=== PATIENT | male | born 1970 | race Two or more races ===

== ENCOUNTER 2016-10-03 13:57 | Inpatient (IN) | payer OTHER ==
[2016-10-03 14:26] VITALS: BMI 26.7
--- NOTE | 2016-10-03 14:43 | HP ---
COWS - Scale Resting Pulse: 0= [place] 80 or Below Sweatin=Flushed/Facial Moisture Restless Observation: 0= Sits Still Pupil Size: 0= Normal to Room Light Bone or Joint Aches: 2= Severe Diffuse Aches Runny Nose/ Eye Tearin= Runny Nose/Eyes GI Upset > 30mins: 2= Nausea/Diarrhea Tremor Observation: 2= Slight Tremor Visible Yawning Observation: 1= 1-2x During Session Anxiety or Irritability: 2=Irritable/Anxious Goose Flesh Skin: 3=Piloerection COWS Score: 16 CIWA Score - CIWA Score Nausea/Vomitin Muscle Tremors: 3 Anxiety: 4-Mod. Anxious/Guarded Agitation: 1-Slight > Activity Paroxysmal Sweats: 3 Orientation: 0-Oriented Tacttile Disturbances: 2-Mild Itch/Numbness/Burn Auditory Disturbances: 2-Mild Harshness/Frighten Visual Disturbances: 3-Moderate Sensitivity Headache: 0-None Present CIWA-Ar Total Score: 21 Admission ROS S - HPI Chief Complaint: "I want to clean myself out. I want to Detox from everything." Pt. is here to Detox from Alcohol, Heroin, and Xanax. Allergies/Adverse Reactions: Allergies Allergy/AdvReac Type Severity Reaction Status Date / Time No Known Allergies Allergy Verified 10/03/16 14:33 History of Present Illness: Pt. is a 46 YO male here to Detox from Alcohol, Heroin, and Xanax. Pt. has had 1 previous Detox admission at [facility]. Pt. had 1 Rehab admission at [facility] approx. 2 years ago. Longest Period of sobriety: approx. 6 months: 2015 - 05/2016. Exam Limitations: No Limitations - Ebola screening Have you traveled outside of the country in the last 21 days: No Have you had contact with anyone from an Ebola affected area: No Have you been sick,other than usual withdrawal symptoms: No Do you have a fever: No - Review of Systems Constitutional: Chills, Diaphoresis, Fever, Loss of Appetite, Malaise, Night Sweats, Changes in sleep, Unintentional Wgt. Loss (Lost approx. 10 lbs. over last 1 month.) EENT: reports: No Symptoms Reported Respiratory: reports: SOB with Exertion Cardiac: reports: Palpitations GI: reports: Diarrhea, Nausea, Poor Appetite, Indigestion (Heartburn.), Abdominal cramping : reports: Burning Musculoskeletal: reports: Back Pain, Joint Pain, Neck Pain, Joint Stiffness Integumentary: reports: No Symptoms Reported Neuro: reports: Headache, Numbness (Fingertips of Bilateral Hands.), Tingling ( Fingertips of Bilateral Hands.), Tremors Endocrine: reports: No Symptoms Reported Hematology: reports: No Symptoms Reported Psychiatric: reports: Judgement Intact, Mood/Affect Appropiate, Orientated x3, Anxious, Depressed (Takes Seroquel.) Other Systems: Reviewed and Negative Patient History - Patient Medical History Hx Anemia: No Hx Asthma: Yes (Uses Ventolin Inhaler.) Hx Chronic Obstructive Pulmonary Disease (COPD): No Hx Cancer: No Hx Cardiac Disorders: No Hx Congestive Heart Failure: No Hx Hypertension: Yes (Takes med.) Hx Hypercholesterolemia: No Hx Pacemaker: No HX Cerebrovascular Accident: No Hx Seizures: No Hx Dementia: No Hx Diabetes: No Hx Gastrointestinal Disorders: No Hx Liver Disease: Yes (Hep C - Completed Full course of Treatment approx. 3 months ago.) Hx Genitourinary Disorders: No Hx Sexually Transmitted Disorders: No Hx Renal Disease (ESRD): No Hx Thyroid Disease: No Hx Human Immunodeficiency Virus (HIV): No (Last Tested:06/2016:NEGATIVE ON PROPHYLACTIC TRUVADA DUE TO PARTNER STATUS.) Hx Hepatitis C: Yes (Completed Treatment approx. 3 months ago.) Hx Depression: Yes (On med.) Hx Suicide Attempt: No (2002-Took full bottle of medication w/ Alcohol; PT. DENIES CURRENT SI /HI.) Hx Bipolar Disorder: No Hx Schizophrenia: No Other Medical History: DENIES. - Patient Surgical History Past Surgical History: Yes Hx Neurologic Surgery: No Hx Cataract Extraction: No Hx Cardiac Surgery: No Hx Lung Surgery: No Hx Breast Surgery: No Hx Breast Biopsy: No Hx Abdominal Surgery: No Hx Appendectomy: No Hx Cholecystectomy: No Hx Genitourinary Surgery: No Hx Section: No Hx Orthopedic Surgery: Yes (LEFT LOWER LEG SX DUE TO FX IN 2003) Anesthesia Reaction: No - PPD History Previous Implant?: Yes Documented Results: Negative w/o proof Implanted On Prior R Admission?: Yes Date: 11/10/14 Results: 0 mm PPD to be Administered?: Yes - Reproductive History Patient is a Female of Child Bearing Age (11 -55 yrs old): No (PATIENT IS MALE.) - Smoking Cessation Smoking history: Current every day smoker Have you smoked in the past 12 months: Yes Aproximately how many cigarettes per day: 5 Cigars Per Day: 0 Hx Chewing Tobacco Use: Yes (STOPPED APPROX. 3 WEEKS AGO.) Initiated information on smoking cessation: Yes 'Breaking Loose' booklet given: 10/03/16 (GIVEN ON UNIT.) - Substance & Tx. History Hx Alcohol Use: Yes Hx Substance Use: Yes Substance Use Type: Alcohol, Heroin, Tranquilizers Hx Substance Use Treatment: Yes (1 Previous Detox admision at [facility]. 1 Rehab admission at [facility].) - Substances Abused Alprazolam (Xanax) Route: Oral Frequency: Daily Amount used: 6 MG Age of first use: 41 Date of Last Use: 10/03/16 Heroin Route: Injection Frequency: Daily Amount used: 6-7 BAGS. Age of first use: 23 Date of Last Use: 10/03/16 Alcohol Route: Oral Frequency: Daily Amount used: 2 X 6-pack (16 ozs.); 1 pint Vodka. Age of first use: 15 Date of Last Use: 10/03/16 Family Disease History - Family Disease History Family Disease History: Other: Sister (depression/anxiety) Admission Physical Exam [facility] - Vital Signs Vital Signs: Vital Signs - 24 hr 10/03/16 14:23 Temperature 97.9 F Pulse Rate 66 Respiratory 19 Rate Blood Pressure 120/79 - Physical General Appearance: Yes: No Apparent Distress, Nourished, Appropriately Dressed , Tremorous, Sweating, Anxious HEENTM: Yes: Hearing grossly Normal, Normocephalic, Normal Voice, REYES, Pharynx Normal Respiratory: Yes: Chest Non-Tender, Lungs Clear, No Respiratory Distress Neck: Yes: No masses,lesions,Nodules, Supple, Trachea in good position Breast: Yes: Breast Exam Deferred Cardiology: Yes: Regular Rhythm, Regular Rate, S1, S2 Abdominal: Yes: Normal Bowel Sounds, Non Tender, Soft, Protuberent Genitourinary: Yes: Burning Back: Yes: Decreased Range of Motion Musculoskeletal: Yes: Gait Steady, Back pain, Joint Stiffness, Muscle Pain Extremities: Yes: Tremors, Other (Scarring (Surgical) noted on Left lower leg.) Neurological: Yes: Fully Oriented, Alert, Normal Mood/Affect, Normal Response Integumentary: Yes: Normal Color, Warm, Track Lopez (Noted in Cubital Creases of bilateral arms. No signs of infection noted at either site.) Lymphatic: Yes: Within Normal Limits - Diagnostic (1) Alcohol dependence with uncomplicated withdrawal Current Visit: Yes Status: Acute (2) Opioid dependence with withdrawal Current Visit: Yes Status: Acute (3) Asthma Current Visit: Yes Status: Chronic Qualifiers: Asthma severity: mild intermittent Asthma complication type: uncomplicated Qualified Code(s): J45.20 - Mild intermittent asthma, uncomplicated (4) Hepatitis C Current Visit: Yes Status: Chronic Qualifiers: Viral hepatitis chronicity: chronic Hepatic coma status: without hepatic coma Qualified Code(s): B18.2 - Chronic viral hepatitis C Comment: Completed Treatment. (5) Nicotine dependence Current Visit: Yes Status: Chronic Qualifiers: Nicotine product type: cigarettes Substance use status: uncomplicated Qualified Code(s): F17.210 - Nicotine dependence, cigarettes, uncomplicated (6) Sedative, hypnotic or anxiolytic dependence with withdrawal, uncomplicated Current Visit: Yes Status: Acute (7) Hypertension Current Visit: Yes Status: Chronic Qualifiers: Hypertension type: essential hypertension Qualified Code(s): I10 - Essential (primary) hypertension Cleared for Admission [facility] - Detox or Rehab [facility] Level of Care: Medically Managed Detox Regimen/Protocol: Methadone/Valium S Breath Alcohol Content Breath Alcohol Content: 0.051 Urine Drug Screen - Results Drug Screen Negative: No Urine Drug Screen Results: ZACH-Cocaine, OPI-Opiates, MTD-Methadone
[2016-10-03] MEDS ORDERED: MAGNESIUM HYDROX 2400MG/30ML ORAL SUSPENSION 30 ML CUP PO PRN (15:23)
[2016-10-03] MEDS ORDERED: MAGNESIUM CITRATE 300 ML BOTTLE PO PRN (15:23)
[2016-10-03] MEDS ORDERED: guaiFENesin/D-METHORPHAN HB 10 ML UNIT-DOSE CUPS PO PRN (15:23)
[2016-10-03] MEDS ORDERED: METHADONE HCL 10 MG TABLET (FOR DETOX USE ONLY) PO ONE ×2 (15:23→23:00)
[2016-10-03] MEDS ORDERED: IBUPROFEN 400 MG TABLET (FP) PO PRN (15:23)
[2016-10-03] MEDS ORDERED: ACETAMINOPHEN 325 MG TABLET (FP) PO PRN (15:23)
[2016-10-03] MEDS ORDERED: MENTHOL/PHENOL 1 EACH UD MM PRN (15:23)
[2016-10-03] MEDS ORDERED: P-EPHED 60MG/TRIPROLIDI 2.5MG TABLET PO PRN (15:23)
[2016-10-03] MEDS ORDERED: LOPERAMIDE HCL 2 MG CAPSULE PO PRN (15:23)
[2016-10-03] MEDS ORDERED: diazePAM 5 MG TABLET PO ONE (15:23)
[2016-10-03] MEDS ORDERED: ALBUTEROL SO4 6.7 GM HFA INHALER IH PRN (15:34)
[2016-10-03] MEDS: NICOTINE 14 MG/24 HOURS TOPICAL PATCH TD SCH (17:03)
[2016-10-03] MEDS: cloNIDine HCL 0.1 MG TABLET PO SCH (17:04)
[2016-10-03 20:14] LABS: URINE APPEARANCE CLEAR; URINE BILIRUBIN NEGATIVE (NEGATIVE); URINE BLOOD NEGATIVE (NEGATIVE); URINE COLOR DKYELLOW; URINE GLUCOSE (UA) NEGATIVE (NEGATIVE); URINE KETONE NEGATIVE (NEGATIVE); URINE LEUK ESTERASE NEGATIVE (NEGATIVE); URINE NITRITE NEGATIVE (NEGATIVE); URINE UROBILINOGEN 2.0 E.U/dl E.U./dl (0.2-1.0)
[2016-10-03 20:15] LABS: URINE PROTEIN 1+ (NEGATIVE)
[2016-10-03 20:17] LABS: URINE MUCUS RARE; URINE RBC 7 /hpf (0-3); URINE WBC 1 /hpf (3-5)
[2016-10-03] MEDS: diazePAM 5 MG TABLET PO SCH (22:39)
[2016-10-03] MEDS: THIAMINE HCL 100 MG TABLET (FP) PO SCH (22:39)
[2016-10-03] MEDS: diphenhydrAMINE HCL 50 MG CAPSULE PO PRN (22:40)
[2016-10-03] MEDS: NICOTINE POLACRILEX 2 MG GUM BUC PRN (23:12)
[2016-10-04] MEDS: diazePAM 5 MG TABLET PO SCH ×3 (05:20→22:36)
[2016-10-04] MEDS: NICOTINE POLACRILEX 2 MG GUM BUC PRN ×6 (05:22→22:49)
[2016-10-04] MEDS ORDERED: METHADONE HCL 10 MG TABLET (FOR DETOX USE ONLY) PO SCH (10:00)
[2016-10-04 10:12] LABS: MCHC 33.2 g/dl (32.0-35.9); MEAN CELL VOLUME 96.4 fl (80-96); MEAN PLT VOLUME 9.6 fl (7.5-11.1); PLATELET COUNT 221 K/MM3 (134-434); RDW 12.7 % (11.9-15.9)
[2016-10-04] MEDS: PRENATAL VITAMINS W/ FOLIC ACID TABLET (FP) PO SCH (10:17)
[2016-10-04] MEDS: BACITRACIN 0.9 GM PACKET TP SCH (10:17)
[2016-10-04] MEDS: amLODIPine BESYLATE 10 MG TABLET (FP) PO SCH (10:17)
[2016-10-04] MEDS: NICOTINE 14 MG/24 HOURS TOPICAL PATCH TD SCH ×2 (10:17→10:20)
[2016-10-04] MEDS: cloNIDine HCL 0.1 MG TABLET PO SCH (10:17)
[2016-10-04 10:33] LABS: ALBUMIN 3.2 g/dl (3.4-5.0); ANION GAP 7 (8-16); BILIRUBIN,TOTAL 0.3 mg/dL (0.2-1.0); CO2 32 mmol/L (21-32); GLUCOSE,RANDOM 77 mg/dL (74-106); SGOT/AST 31 U/L (15-37); SGPT/ALT 36 U/L (12-78); TOT PROT 6.3 g/dl (6.4-8.2)
[2016-10-04 10:34] LABS: ALK PHOS 85 U/L (45-117); CALCIUM 8.6 mg/dL (8.5-10.1); CREATININE 0.8 mg/dL (0.7-1.3)
[2016-10-04 11:30] LABS: SICKLE CELL SCREEN NEGATIVE (NEGATIVE)
[2016-10-04] MEDS ORDERED: QUEtiapine FUMARATE 100 MG TABLET (FP) PO SCH ×2 (11:30→12:15)
--- NOTE | 2016-10-04 11:30 | CONSULT ---
[facility] Psychiatric Consult - Data Date of interview: 10/04/16 Admission source: [facility] Identifying data: This is 46 years old male with history of Psychiatric hospitalizations, Bipolar Disoprder history iontoxicated with: Alcohol, Opioids , Cocaine, XSanax and Nicotine Substance Abuse History: - Smoking Cessation. Smoking history: Current every day smoker. Have you smoked in the past 12 months: Yes. Aproximately how many cigarettes per day: 5. Cigars Per Day: 0. Hx Chewing Tobacco Use: Yes ( STOPPED APPROX. 3 WEEKS AGO.). Initiated information on smoking cessation: Yes. 'Breaking Loose' booklet given: 10/03/16 (GIVEN ON UNIT.). - Substance & Tx. History. Hx Alcohol Use: Yes. Hx Substance Use: Yes. Substance Use Type: Alcohol, Heroin, Tranquilizers. Hx Substance Use Treatment: Yes (1 Previous Detox admision at [facility]. 1 Rehab admission at [facility] - Substances Abused. Alprazolam (Xanax). Route: Oral. Frequency: Daily. Amount used: 6 MG. Age of first use: 41. Date of Last Use: 10/03/16. Heroin. Route: Injection. Frequency: Daily. Amount used: 6-7 BAGS. Age of first use: 23. Date of Last Use: 10/03/16. Alcohol. Route: Oral. Frequency: Daily. Amount used: 2 X 6-pack (16 ozs.); 1 pint Vodka. Age of first use: 15. Date of Last Use: 10/03/16 Medical History: Asthma, HepC+, HTN Psychiatric History: Patient reports history of Bipolar Disorder, reports taking prior to admnission: Seroquel 100 mg po bid, reports mopst recent psychiatgric admission on more then 10 y6ears ago, no medications taking prior to admsission Physical/Sexual Abuse/Trauma History: Denies Additional Comment: Seroquel 100 mg po bid Mental Status Exam - Mental Status Exam Alert and Oriented to: Time Cognitive Function: Fair Patient Appearance: Unkempt Mood: Sad Affect: Flat Patient Behavior: Sedated Speech Pattern: Delayed Voice Loudness: Mildly Soft/Quiet Thought Process: Circumstantial Thought Disorder: Being Controlled Hallucinations: Denies Suicidal Ideation: Denies Homicidal Ideation: Denies Insight/Judgement: Fair Sleep: Difficulty falling asleep Appetite: Weight loss Muscle strength/Tone: Mild Hypotonicity Gait/Station: Shuffling Additional Comments: Seroquel 100 mg po bid Psychiatric Findings - Problem List ([place]cb[place] 1, 2,3) (1) Alcohol dependence with uncomplicated withdrawal Current Visit: Yes Status: Acute (2) Sedative, hypnotic or anxiolytic dependence with withdrawal, uncomplicated Current Visit: Yes Status: Acute (3) Nicotine dependence Current Visit: Yes Status: Chronic Qualifiers: Nicotine product type: cigarettes Substance use status: uncomplicated Qualified Code(s): F17.210 - Nicotine dependence, cigarettes, uncomplicated (4) Alcohol dependence Current Visit: No Status: Chronic (5) Cocaine dependence Current Visit: No Status: Chronic Qualifiers: Substance use status: uncomplicated Qualified Code(s): F14.20 - Cocaine dependence, uncomplicated (6) Drug-induced mood disorder Current Visit: No Status: Chronic (7) Mood disorder Current Visit: No Status: Chronic (8) Opioid dependence Current Visit: No Status: Chronic (9) Bipolar affective disorder, depressed, moderate Current Visit: No Status: Suspected - Initial Treatment Plan Initial Treatment Plan: Seroquel 100 mg po bid
[2016-10-04] MEDS: EMTRICITABINE 200MG/TENOFOVIR 300MG PO SCH (11:57)
--- NOTE | 2016-10-04 12:37 | PN ---
[facility] CIWA - CIWA Score Nausea/Vomitin-Mild Nausea/No Vomiting Muscle Tremors: 4-Moderate,w/Arms Extend Anxiety: 3 Agitation: 3 Paroxysmal Sweats: 3 Orientation: 0-Oriented Tacttile Disturbances: 0-None Auditory Disturbances: 0-None Visual Disturbances: 0-None Headache: 0-None Present CIWA-Ar Total Score: 14 [facility] COWS - Scale Resting Pulse: 0= [place] 80 or Below Sweatin=Flushed/Facial Moisture Restless Observation: 1= Difficult to Sit Still Pupil Size: 0= Normal to Room Light Bone or Joint Aches: 2= Severe Diffuse Aches Runny Nose/ Eye Tearin= Runny Nose/Eyes GI Upset > 30mins: 2= Nausea/Diarrhea Tremor Observation of Outstretched Hands: 2= Slight Tremor Visible Yawning Observation: 1= 1-2x During Session Anxiety or Irritability: 2=Irritable/Anxious Goose Flesh Skin: 0=Smooth Skin COWS Score: 14 [facility] Progress Note (SOAP) Subjective: Anxiety,tremors,sweating,interrupted sleep,restless,muscle aches,nausea, tingling/numbness Objective: 10/04/16 12:36 Vital Signs - 8 hr 10/04/16 10/04/16 06:50 09:48 Temperature 97 F L 97.0 F L Pulse Rate 70 65 Respiratory 18 20 Rate Blood Pressure 114/78 116/80 Laboratory Last Values WBC 8.0 K/mm3 (4.0-10.0) 10/04/16 07:00 RBC 4.65 M/mm3 (4.00-5.60) 10/04/16 07:00 Hgb 14.9 GM/dL (11.7-16.9) 10/04/16 07:00 Hct 44.8 % (35.4-49) 10/04/16 07:00 MCV 96.4 fl (80-96) H 10/04/16 07:00 MCHC 33.2 g/dl (32.0-35.9) 10/04/16 07:00 RDW 12.7 % (11.9-15.9) 10/04/16 07:00 Plt Count 221 K/MM3 (134-434) 10/04/16 07:00 MPV 9.6 fl (7.5-11.1) 10/04/16 07:00 Sickle Cell Screen Negative (NEGATIVE) 10/04/16 07:00 Sodium 142 mmol/L (136-145) 10/04/16 07:00 Potassium 3.8 mmol/L (3.5-5.1) 10/04/16 07:00 Chloride 103 mmol/L (98-107) 10/04/16 07:00 Carbon Dioxide 32 mmol/L (21-32) 10/04/16 07:00 Anion Gap 7 (8-16) L 10/04/16 07:00 BUN 10 mg/dL (7-18) D 10/04/16 07:00 Creatinine 0.8 mg/dL (0.7-1.3) 10/04/16 07:00 Creat Clearance w eGFR > 60 (>60) 10/04/16 07:00 Random Glucose 77 mg/dL (74-106) 10/04/16 07:00 Calcium 8.6 mg/dL (8.5-10.1) 10/04/16 07:00 Total Bilirubin 0.3 mg/dL (0.2-1.0) D 10/04/16 07:00 AST 31 U/L (15-37) D 10/04/16 07:00 ALT 36 U/L (12-78) D 10/04/16 07:00 Alkaline Phosphatase 85 U/L (45-117) 10/04/16 07:00 Total Protein 6.3 g/dl (6.4-8.2) L 10/04/16 07:00 Albumin 3.2 g/dl (3.4-5.0) L 10/04/16 07:00 Urine Color Dkyellow 10/03/16 16:00 Urine Appearance Clear 10/03/16 16:00 Urine pH 5.0 (5.0-8.0) 10/03/16 16:00 Ur Specific [place] >= 1.030 (1.005-1.025) H 10/03/16 16:00 Urine Protein 1+ (NEGATIVE) H 10/03/16 16:00 Urine Glucose (UA) Negative (NEGATIVE) 10/03/16 16:00 Urine Ketones Negative (NEGATIVE) 10/03/16 16:00 Urine Blood Negative (NEGATIVE) 10/03/16 16:00 Urine Nitrite Negative (NEGATIVE) 10/03/16 16:00 Urine Bilirubin Negative (NEGATIVE) 10/03/16 16:00 Urine Urobilinogen 2.0 e.u/dl E.U./dl (0.2-1.0) 10/03/16 16:00 Ur Leukocyte Esterase Negative (NEGATIVE) 10/03/16 16:00 Urine RBC 7 /hpf (0-3) 10/03/16 16:00 Urine WBC 1 /hpf (3-5) 10/03/16 16:00 Ur Epithelial Cells Rare /hpf (FEW) 10/03/16 16:00 Urine Mucus Rare 10/03/16 16:00 RPR Titer Nonreactive (NONREACTIVE) 10/04/16 07:00 labs noted Assessment: 10/04/16 12:36 Withdrawal sx. Plan: Continue detox
[2016-10-04] MEDS: PREGABALIN 100 MG CAPSULE PO SCH ×2 (13:51→22:36)
--- NOTE | 2016-10-04 14:23 | EKG ---
Test Reason : Blood Pressure : / mmHG Vent. Rate : 074 BPM Atrial Rate : 074 BPM P-R Int : 146 ms QRS Dur : 090 ms QT Int : 402 ms P-R-T Axes : 053 036 033 degrees QTc Int : 446 ms NORMAL SINUS RHYTHM SEPTAL INFARCT , AGE UNDETERMINED ABNORMAL ECG NO PREVIOUS ECGS AVAILABLE Confirmed by MAYKEL MARTINES, VERN ([id number]) on 10/04/2016 2:23:05 PM Referred By: Jaciel Catalan Confirmed By:VERN BRAR MD
[2016-10-04] MEDS: diazePAM 5 MG TABLET PO PRN ×2 (16:39→20:43)
[2016-10-04] MEDS: QUEtiapine FUMARATE 50 MG TABLET PO SCH (22:36)
[2016-10-04] MEDS: THIAMINE HCL 100 MG TABLET (FP) PO SCH (22:36)
[2016-10-04] MEDS: diphenhydrAMINE HCL 50 MG CAPSULE PO PRN (22:36)
[2016-10-05] MEDS: diazePAM 5 MG TABLET PO PRN ×2 (03:06→07:09)
[2016-10-05] MEDS: NICOTINE POLACRILEX 2 MG GUM BUC PRN ×6 (07:10→22:36)
[2016-10-05] MEDS ORDERED: diazePAM 5 MG TABLET PO SCH (10:00)
[2016-10-05] MEDS ORDERED: chlordiazePOXIDE HCL 25 MG CAPSULE PO PRN ×2 (10:40→10:59)
[2016-10-05] MEDS: amLODIPine BESYLATE 10 MG TABLET (FP) PO SCH (10:52)
[2016-10-05] MEDS: METHADONE HCL 5 MG TABLET (FOR DETOX USE ONLY) PO SCH (10:52)
[2016-10-05] MEDS: QUEtiapine FUMARATE 50 MG TABLET PO SCH ×2 (10:52→22:33)
[2016-10-05] MEDS: PRENATAL VITAMINS W/ FOLIC ACID TABLET (FP) PO SCH (10:52)
[2016-10-05] MEDS: cloNIDine HCL 0.1 MG TABLET PO SCH (10:52)
[2016-10-05] MEDS: PREGABALIN 100 MG CAPSULE PO SCH ×2 (10:52→22:34)
[2016-10-05] MEDS: BACITRACIN 0.9 GM PACKET TP SCH (10:53)
[2016-10-05] MEDS: EMTRICITABINE 200MG/TENOFOVIR 300MG PO SCH (10:53)
[2016-10-05] MEDS: NICOTINE 14 MG/24 HOURS TOPICAL PATCH TD SCH (10:53)
[2016-10-05] MEDS ORDERED: chlordiazePOXIDE HCL 25 MG CAPSULE PO SCH (11:00)
[2016-10-05] MEDS: chlordiazePOXIDE HCL 25 MG CAPSULE PO SCH ×3 (11:33→22:33)
--- NOTE | 2016-10-05 12:09 | PN ---
S CIWA - CIWA Score Nausea/Vomitin-Mild Nausea/No Vomiting Muscle Tremors: 4-Moderate,w/Arms Extend Anxiety: 4-Mod. Anxious/Guarded Agitation: 4-Moderately Restless Paroxysmal Sweats: 1-Minimal Palms Moist Orientation: 0-Oriented Tacttile Disturbances: 3-Moderate Itch/Numb/Burn Auditory Disturbances: 0-None Visual Disturbances: 0-None Headache: 0-None Present CIWA-Ar Total Score: 17 [facility] COWS - Scale Resting Pulse: 0= [place] 80 or Below Sweatin= Chills/Flushing Restless Observation: 3= Extraneous Movement Pupil Size: 2= Moderately Dilated Bone or Joint Aches: 4=Acute Joint/Muscle Pain Runny Nose/ Eye Tearin= Nasal Congestion GI Upset > 30mins: 1= Stomach Cramp Tremor Observation of Outstretched Hands: 2= Slight Tremor Visible Yawning Observation: 2= >3x During Session Anxiety or Irritability: 2=Irritable/Anxious Goose Flesh Skin: 0=Smooth Skin COWS Score: 18 [facility] Progress Note (SOAP) Subjective: ANXIETY,IRRITABILITY,SWEATS/COLD,TREMORS, INTERMITTENT SLEEP. PT C/O VALIUM " NOT DOING ANYTHING FOR ME BECAUSE OF MY DRINKING. I WILL LIKE LIBRIUM INSTEAD". Objective: 10/05/16 12:06 Vital Signs Temperature 97.2 F L 10/05/16 09:44 Pulse Rate 62 10/05/16 09:44 Respiratory Rate 20 10/05/16 09:44 Blood Pressure 112/77 10/05/16 09:44 O2 Sat by Pulse Oximetry (%) Laboratory Last Values WBC 8.0 K/mm3 (4.0-10.0) 10/04/16 07:00 RBC 4.65 M/mm3 (4.00-5.60) 10/04/16 07:00 Hgb 14.9 GM/dL (11.7-16.9) 10/04/16 07:00 Hct 44.8 % (35.4-49) 10/04/16 07:00 MCV 96.4 fl (80-96) H 10/04/16 07:00 MCHC 33.2 g/dl (32.0-35.9) 10/04/16 07:00 RDW 12.7 % (11.9-15.9) 10/04/16 07:00 Plt Count 221 K/MM3 (134-434) 10/04/16 07:00 MPV 9.6 fl (7.5-11.1) 10/04/16 07:00 Sickle Cell Screen Negative (NEGATIVE) 10/04/16 07:00 Sodium 142 mmol/L (136-145) 10/04/16 07:00 Potassium 3.8 mmol/L (3.5-5.1) 10/04/16 07:00 Chloride 103 mmol/L (98-107) 10/04/16 07:00 Carbon Dioxide 32 mmol/L (21-32) 10/04/16 07:00 Anion Gap 7 (8-16) L 10/04/16 07:00 BUN 10 mg/dL (7-18) D 10/04/16 07:00 Creatinine 0.8 mg/dL (0.7-1.3) 10/04/16 07:00 Creat Clearance w eGFR > 60 (>60) 10/04/16 07:00 Random Glucose 77 mg/dL (74-106) 10/04/16 07:00 Calcium 8.6 mg/dL (8.5-10.1) 10/04/16 07:00 Total Bilirubin 0.3 mg/dL (0.2-1.0) D 10/04/16 07:00 AST 31 U/L (15-37) D 10/04/16 07:00 ALT 36 U/L (12-78) D 10/04/16 07:00 Alkaline Phosphatase 85 U/L (45-117) 10/04/16 07:00 Total Protein 6.3 g/dl (6.4-8.2) L 10/04/16 07:00 Albumin 3.2 g/dl (3.4-5.0) L 10/04/16 07:00 Urine Color Dkyellow 10/03/16 16:00 Urine Appearance Clear 10/03/16 16:00 Urine pH 5.0 (5.0-8.0) 10/03/16 16:00 Ur Specific [place] >= 1.030 (1.005-1.025) H 10/03/16 16:00 Urine Protein 1+ (NEGATIVE) H 10/03/16 16:00 Urine Glucose (UA) Negative (NEGATIVE) 10/03/16 16:00 Urine Ketones Negative (NEGATIVE) 10/03/16 16:00 Urine Blood Negative (NEGATIVE) 10/03/16 16:00 Urine Nitrite Negative (NEGATIVE) 10/03/16 16:00 Urine Bilirubin Negative (NEGATIVE) 10/03/16 16:00 Urine Urobilinogen 2.0 e.u/dl E.U./dl (0.2-1.0) 10/03/16 16:00 Ur Leukocyte Esterase Negative (NEGATIVE) 10/03/16 16:00 Urine RBC 7 /hpf (0-3) 10/03/16 16:00 Urine WBC 1 /hpf (3-5) 10/03/16 16:00 Ur Epithelial Cells Rare /hpf (FEW) 10/03/16 16:00 Urine Mucus Rare 10/03/16 16:00 RPR Titer Nonreactive (NONREACTIVE) 10/04/16 07:00 Assessment: 10/05/16 12:06 WITHDRAWAL SX Plan: CONTINUE DETOX CHANGE TO LIBRIUM PROTOCOL
[2016-10-05] MEDS: chlordiazePOXIDE HCL 25 MG CAPSULE PO PRN ×2 (15:22→19:31)
[2016-10-05] MEDS: MAG HYDROX/AL HYDROX/SIMETH 30 ML UNIT-DOSE CUP PO PRN (20:18)
[2016-10-05] MEDS: THIAMINE HCL 100 MG TABLET (FP) PO SCH (22:33)
[2016-10-05] MEDS: diphenhydrAMINE HCL 50 MG CAPSULE PO PRN (22:35)
[2016-10-05] MEDS ORDERED: chlordiazePOXIDE 5 MG CAPSULE PO SCH (23:00)
[2016-10-06] MEDS: chlordiazePOXIDE HCL 25 MG CAPSULE PO PRN ×3 (02:22→19:58)
[2016-10-06] MEDS: hydrOXYzine PAMOATE 50 MG CAPSULE (FP) PO PRN ×2 (02:22→19:58)
[2016-10-06] MEDS: chlordiazePOXIDE HCL 25 MG CAPSULE PO SCH (06:07)
[2016-10-06] MEDS: NICOTINE POLACRILEX 2 MG GUM BUC PRN ×4 (06:09→20:55)
[2016-10-06] MEDS: cloNIDine HCL 0.1 MG TABLET PO SCH (10:22)
[2016-10-06] MEDS: QUEtiapine FUMARATE 50 MG TABLET PO SCH ×2 (10:22→22:28)
[2016-10-06] MEDS: PRENATAL VITAMINS W/ FOLIC ACID TABLET (FP) PO SCH (10:22)
[2016-10-06] MEDS: amLODIPine BESYLATE 10 MG TABLET (FP) PO SCH (10:22)
[2016-10-06] MEDS: BACITRACIN 0.9 GM PACKET TP SCH (10:22)
[2016-10-06] MEDS: METHADONE HCL 5 MG TABLET (FOR DETOX USE ONLY) PO SCH (10:24)
[2016-10-06] MEDS: NICOTINE 14 MG/24 HOURS TOPICAL PATCH TD SCH (10:25)
[2016-10-06] MEDS: EMTRICITABINE 200MG/TENOFOVIR 300MG PO SCH (10:25)
[2016-10-06] MEDS: PREGABALIN 100 MG CAPSULE PO SCH ×2 (10:25→22:28)
[2016-10-06] MEDS: chlordiazePOXIDE 5 MG CAPSULE PO SCH ×3 (10:26→22:28)
[2016-10-06] MEDS ORDERED: chlordiazePOXIDE HCL 25 MG CAPSULE PO SCH (11:00)
--- NOTE | 2016-10-06 11:28 | PN ---
[facility] Progress Note (SOAP) Subjective: ANXIETY,TREMORS,SWEATS,FATIGUE. Objective: 10/06/16 11:27 Vital Signs Temperature 97.1 F L 10/06/16 09:36 Pulse Rate 61 10/06/16 09:36 Respiratory Rate 18 10/06/16 09:36 Blood Pressure 111/74 10/06/16 09:36 O2 Sat by Pulse Oximetry (%) Assessment: 10/06/16 11:27 WITHDRAWAL SX Plan: CONTINUE DETOX
[2016-10-06] MEDS: diphenhydrAMINE HCL 50 MG CAPSULE PO PRN (22:28)
[2016-10-06] MEDS: THIAMINE HCL 100 MG TABLET (FP) PO SCH (22:29)
[2016-10-06] MEDS: MAG HYDROX/AL HYDROX/SIMETH 30 ML UNIT-DOSE CUP PO PRN (22:30)
[2016-10-07] MEDS: chlordiazePOXIDE HCL 25 MG CAPSULE PO PRN (02:59)
[2016-10-07] MEDS: hydrOXYzine PAMOATE 50 MG CAPSULE (FP) PO PRN ×4 (02:59→20:23)
[2016-10-07] MEDS: NICOTINE POLACRILEX 2 MG GUM BUC PRN ×4 (03:00→20:22)
[2016-10-07] MEDS: chlordiazePOXIDE 5 MG CAPSULE PO SCH (05:32)
[2016-10-07] MEDS ORDERED: METHADONE HCL 10 MG TABLET (FOR DETOX USE ONLY) PO SCH (10:00)
[2016-10-07] MEDS ORDERED: diazePAM 5 MG TABLET PO SCH (10:00)
[2016-10-07] MEDS: QUEtiapine FUMARATE 50 MG TABLET PO SCH ×2 (10:39→22:40)
[2016-10-07] MEDS: cloNIDine HCL 0.1 MG TABLET PO SCH (10:39)
[2016-10-07] MEDS: amLODIPine BESYLATE 10 MG TABLET (FP) PO SCH (10:39)
[2016-10-07] MEDS: PRENATAL VITAMINS W/ FOLIC ACID TABLET (FP) PO SCH (10:39)
[2016-10-07] MEDS: BACITRACIN 0.9 GM PACKET TP SCH (10:39)
[2016-10-07] MEDS: PREGABALIN 100 MG CAPSULE PO SCH ×2 (10:39→22:40)
[2016-10-07] MEDS: EMTRICITABINE 200MG/TENOFOVIR 300MG PO SCH (10:40)
[2016-10-07] MEDS: NICOTINE 14 MG/24 HOURS TOPICAL PATCH TD SCH (10:40)
[2016-10-07] MEDS: chlordiazePOXIDE HCL 10 MG CAPSULE PO SCH ×3 (10:42→22:40)
[2016-10-07] MEDS ORDERED: chlordiazePOXIDE 5 MG CAPSULE PO SCH (11:00)
--- NOTE | 2016-10-07 13:16 | PN ---
[facility] Progress Note (SOAP) Subjective: DECREASED ANXIETY,SWEATS, TREMORS. DETOX PROTOCOL PROCEEDING WELL. Objective: 10/07/16 13:16 Vital Signs Temperature 95.2 F L 10/07/16 10:33 Pulse Rate 71 10/07/16 10:33 Respiratory Rate 18 10/07/16 10:33 Blood Pressure 108/70 10/07/16 10:33 O2 Sat by Pulse Oximetry (%) Assessment: 10/07/16 13:16 WITHDRAWAL SX Plan: CONTINUE DETOX
[2016-10-07] MEDS: THIAMINE HCL 100 MG TABLET (FP) PO SCH (22:40)
[2016-10-07] MEDS: diphenhydrAMINE HCL 50 MG CAPSULE PO PRN (22:40)
[2016-10-08] MEDS: hydrOXYzine PAMOATE 50 MG CAPSULE (FP) PO PRN ×2 (01:10→05:16)
[2016-10-08] MEDS: chlordiazePOXIDE HCL 10 MG CAPSULE PO SCH (05:14)
[2016-10-08] MEDS: NICOTINE POLACRILEX 2 MG GUM BUC PRN (05:17)
[2016-10-08] MEDS ORDERED: METHADONE HCL 5 MG TABLET (FOR DETOX USE ONLY) PO SCH (06:00)
[2016-10-08 06:46] VITALS: BP 122/86; PULSE 86; TEMP 97
--- NOTE | 2016-10-08 08:57 | DS ---
[facility] Detox Discharge Summary Admission Date: 10/03/16 Discharge Date: 10/08/16 - History Present History: Alcohol Dependence, Opioid Dependence, Sedative Dependence Additional Comments: DETOX COMPLETED. ALERT O X 3. NAD. REMINDED PT TO FOLLOW UP WITH PMD AT [facility] FOR MEDICAL MANAGEMENT OF COMORBID CONDITIONS. Pertinent Past History: ASTHMA HTN HEP C - Physical Exam Results Vital Signs: Vital Signs Temperature 97 F L 10/08/16 06:45 Pulse Rate 86 10/08/16 06:45 Respiratory Rate 18 10/08/16 06:45 Blood Pressure 122/86 10/08/16 06:45 O2 Sat by Pulse Oximetry (%) Pertinent Admission Physical Exam Findings: WITHDRAWAL SX Laboratory Last Values WBC 8.0 K/mm3 (4.0-10.0) 10/04/16 07:00 RBC 4.65 M/mm3 (4.00-5.60) 10/04/16 07:00 Hgb 14.9 GM/dL (11.7-16.9) 10/04/16 07:00 Hct 44.8 % (35.4-49) 10/04/16 07:00 MCV 96.4 fl (80-96) H 10/04/16 07:00 MCHC 33.2 g/dl (32.0-35.9) 10/04/16 07:00 RDW 12.7 % (11.9-15.9) 10/04/16 07:00 Plt Count 221 K/MM3 (134-434) 10/04/16 07:00 MPV 9.6 fl (7.5-11.1) 10/04/16 07:00 Sickle Cell Screen Negative (NEGATIVE) 10/04/16 07:00 Sodium 142 mmol/L (136-145) 10/04/16 07:00 Potassium 3.8 mmol/L (3.5-5.1) 10/04/16 07:00 Chloride 103 mmol/L (98-107) 10/04/16 07:00 Carbon Dioxide 32 mmol/L (21-32) 10/04/16 07:00 Anion Gap 7 (8-16) L 10/04/16 07:00 BUN 10 mg/dL (7-18) D 10/04/16 07:00 Creatinine 0.8 mg/dL (0.7-1.3) 10/04/16 07:00 Creat Clearance w eGFR > 60 (>60) 10/04/16 07:00 Random Glucose 77 mg/dL (74-106) 10/04/16 07:00 Calcium 8.6 mg/dL (8.5-10.1) 10/04/16 07:00 Total Bilirubin 0.3 mg/dL (0.2-1.0) D 10/04/16 07:00 AST 31 U/L (15-37) D 10/04/16 07:00 ALT 36 U/L (12-78) D 10/04/16 07:00 Alkaline Phosphatase 85 U/L (45-117) 10/04/16 07:00 Total Protein 6.3 g/dl (6.4-8.2) L 10/04/16 07:00 Albumin 3.2 g/dl (3.4-5.0) L 10/04/16 07:00 Urine Color Dkyellow 10/03/16 16:00 Urine Appearance Clear 10/03/16 16:00 Urine pH 5.0 (5.0-8.0) 10/03/16 16:00 Ur Specific [place] >= 1.030 (1.005-1.025) H 10/03/16 16:00 Urine Protein 1+ (NEGATIVE) H 10/03/16 16:00 Urine Glucose (UA) Negative (NEGATIVE) 10/03/16 16:00 Urine Ketones Negative (NEGATIVE) 10/03/16 16:00 Urine Blood Negative (NEGATIVE) 10/03/16 16:00 Urine Nitrite Negative (NEGATIVE) 10/03/16 16:00 Urine Bilirubin Negative (NEGATIVE) 10/03/16 16:00 Urine Urobilinogen 2.0 e.u/dl E.U./dl (0.2-1.0) 10/03/16 16:00 Ur Leukocyte Esterase Negative (NEGATIVE) 10/03/16 16:00 Urine RBC 7 /hpf (0-3) 10/03/16 16:00 Urine WBC 1 /hpf (3-5) 10/03/16 16:00 Ur Epithelial Cells Rare /hpf (FEW) 10/03/16 16:00 Urine Mucus Rare 10/03/16 16:00 RPR Titer Nonreactive (NONREACTIVE) 10/04/16 07:00 - Treatment Hospital Course: Detox Protocol Followed, Detoxed Safely, Responded well, Discharged Condition Good, Rehab Referral Accepted Patient has Accepted a Rehab Referral to: [facility]; ([facility]) - Medication Discharge Medications: Ambulatory Orders Emtricitabine/Tenofovir [Truvada -] 1 tab PO DAILY #30 tablet 01/20/15 Clonidine HCl 0.1 mg PO DAILY 06/04/15 Buspirone HCl [Buspar -] 15 mg PO TID #90 tablet 06/05/15 Quetiapine Fumarate [Seroquel -] 100 mg PO BID #60 06/05/15 Albuterol Sulfate Inhaler - [Ventolin HFA Inhaler -] 2 puff IH Q4H PRN #1 inhaler 06/08/15 Amlodipine Besylate [Norvasc -] 10 mg PO DAILY 10/03/16 Pregabalin [Lyrica -] 100 mg PO BID 10/03/16 Quetiapine Fumarate [Seroquel -] 50 mg PO BID #60 tablet 10/04/16 Quetiapine Fumarate [Seroquel] 100 mg PO BID #60 tablet 10/04/16 - Diagnosis (1) Alcohol dependence with uncomplicated withdrawal Status: Acute (2) Opioid dependence with withdrawal Status: Acute (3) Sedative, hypnotic or anxiolytic dependence with withdrawal, uncomplicated Status: Acute (4) Asthma Status: Chronic Qualifiers: Asthma severity: mild intermittent Asthma complication type: uncomplicated Qualified Code(s): J45.20 - Mild intermittent asthma, uncomplicated (5) Essential hypertension Status: Chronic (6) Hepatitis C Status: Chronic Qualifiers: Viral hepatitis chronicity: chronic Hepatic coma status: without hepatic coma Qualified Code(s): B18.2 - Chronic viral hepatitis C (7) Nicotine dependence Status: Acute Qualifiers: Nicotine product type: cigarettes Substance use status: in withdrawal Qualified Code(s): F17.213 - Nicotine dependence, cigarettes, with withdrawal - AMA Did Patient Leave Against Medical Advice: No
[2016-10-08] MEDS ORDERED: chlordiazePOXIDE HCL 10 MG CAPSULE PO SCH (11:00)
== END 2016-10-08 09:00 | disposition home or self-care (01) | DRG 773 ==
LOC: YASAS 13:57 → Y3N 15:34
PROVIDERS: ADMIT Internal Medicine; ATTEND Internal Medicine
PROC: HZ2ZZZZ Detoxification Services for Substance Abuse Treatment (ICD-10-PCS; principal; 2016-10-08)
DX: F11.23 Opioid dependence with withdrawal (principal); F13.230 Sedative, hypnotic or anxiolytic dependence with withdrawal, uncomplicated; F14.20 Cocaine dependence, uncomplicated; F17.210 Nicotine dependence, cigarettes, uncomplicated; F19.24 Other psychoactive substance dependence with psychoactive substance-induced mood disorder; F31.9 Bipolar disorder, unspecified; I10 Essential (primary) hypertension; J45.20 Mild intermittent asthma, uncomplicated; B18.2 Chronic viral hepatitis C
CPT/HCPCS: 36415; 80053; 81003; 81015; 85027; 85660; 86593; 93005; 93010

== ENCOUNTER 2018-04-19 13:52 | Inpatient (IN) | payer OTHER ==
[2018-04-19 15:04] VITALS: BMI 27.3
--- NOTE | 2018-04-19 17:22 | HP ---
CIWA Score Nausea/Vomitin Muscle Tremors: 2 Anxiety: 2 Agitation: 2 Paroxysmal Sweats: 2 Orientation: 0-Oriented Tacttile Disturbances: 0-None Auditory Disturbances: 0-None Visual Disturbances: 0-None Headache: 2-Mild CIWA-Ar Total Score: 12 - Admission Criteria [facility]ASAS Guidelines: Admission for Medically Managed Detox: Requires at least one of the followin. CIWA greater than 12 2. Seizures within the past 24 hours 3. Delirium tremens within the past 24 hours 4. Hallucinations within the past 24 hours 5. Acute intervention needed for co occurring medical disorder 6. Acute intervention needed for co occurring psychiatric disorder 7. Severe withdrawal that cannot be handled at a lower level of care (continued vomiting, continued diarrhea, abnormal vital signs) requiring intravenous medication and/or fluids 8. Patient presents the following: CIWA greater than 12 Admission Criteria Met: Admission criteria met Admission ROS S - HPI Chief Complaint: Pt states he wants to stop drinking too much alcohol. Drinks about a gallon of Vodka a day. Says he does not seizures, DT's uses sniffing heroin- 1 bag cocaine- 1 bag sniffing THC- smokes occ 47 yo with depression/anxiety- Seroquel asthma- ventolin HCV- cured no HIV- uses PrEP Was last here at detox about 6 months ago. Says stopped using alcohol for about 2 months. Then relapsed. PCP- Lion at [facility] D[facility]/IST[facility]- gets 30mg oxy per month 40 tabs also gets marinol from PCP Allergies/Adverse Reactions: Allergies Allergy/AdvReac Type Severity Reaction Status Date / Time No Known Allergies Allergy Verified 04/19/18 15:33 - Ebola screening Have you traveled outside of the country in the last 21 days: No Have you had contact with anyone from an Ebola affected area: No Have you been sick,other than usual withdrawal symptoms: No Do you have a fever: No - Review of Systems Constitutional: No Symptoms Reported EENT: reports: No Symptoms Reported Respiratory: reports: No Symptoms reported Cardiac: reports: No Symptoms Reported GI: reports: No Symptoms Reported : reports: No Symptoms Reported Musculoskeletal: reports: No Symptoms Reported Integumentary: reports: No Symptoms Reported Patient History - Patient Medical History Hx Anemia: No Hx Asthma: Yes (Uses Ventolin Inhaler.) Hx Chronic Obstructive Pulmonary Disease (COPD): No Hx Cancer: No Hx Cardiac Disorders: Yes (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 3 months ago.) Hx Genitourinary Disorders: No Hx Sexually Transmitted Disorders: No Hx Renal Disease (ESRD): No Hx Thyroid Disease: No Hx Human Immunodeficiency Virus (HIV): No (Last Tested:06/2016:NEGATIVE ON PROPHYLACTIC TRUVADA DUE TO PARTNER STATUS.) Hx Hepatitis C: Yes (Completed Treatment approx. 3 months ago.) Hx Depression: Yes (Seroquel) Hx Suicide Attempt: Yes (2002-Took full bottle of medication w/ Alcohol; PT. DENIES CURRENT SI /HI.) Hx Bipolar Disorder: No Hx Schizophrenia: No Other Medical History: L leg disfigured from fractures had many surgeries - Patient Surgical History Past Surgical History: Yes Hx Neurologic Surgery: No Hx Cataract Extraction: No Hx Cardiac Surgery: No Hx Lung Surgery: No Hx Breast Surgery: No Hx Breast Biopsy: No Hx Abdominal Surgery: No Hx Appendectomy: No Hx Cholecystectomy: No Hx Genitourinary Surgery: No Hx Section: No Hx Orthopedic Surgery: Yes (LEFT LOWER LEG SX DUE TO FX IN 2003- many surgeries) Anesthesia Reaction: No - PPD History Previous Implant?: Yes Documented Results: Negative w/proof Implanted On Prior [facility] Admission?: Yes Date: 10/29/17 Results: 0 mm - Smoking Cessation Smoking history: Current every day smoker Have you smoked in the past 12 months: Yes Aproximately how many cigarettes per day: 7 Cigars Per Day: 0 Hx Chewing Tobacco Use: Yes (STOPPED APPROX. 3 WEEKS AGO.) Initiated information on smoking cessation: Yes 'Breaking Loose' booklet given: 04/19/18 - Substances Abused Alcohol Route: Oral Frequency: Daily Amount used: 1.5 liter of vodka Age of first use: 15 Date of Last Use: 04/19/18 Family Disease History - Family Disease History Family Disease History: Other: Father (HTN), Sister (depression/anxiety) Admission Physical Exam [facility] - Vital Signs Vital Signs: Vital Signs - 24 hr 04/19/18 14:59 Temperature 98 F Pulse Rate 72 Respiratory 20 Rate Blood Pressure 144/88 - Physical General Appearance: Yes: Within Normal Limits HEENTM: Yes: Within Normal Limits Respiratory: Yes: Within Normal Limits Neck: Yes: Within Normal Limits Breast: Yes: Breast Exam Deferred Cardiology: Yes: Within Normal Limits Abdominal: Yes: Within Normal Limits Genitourinary: Yes: Within Normal Limits Back: Yes: Within Normal Limits Musculoskeletal: Yes: Within Normal Limits Extremities: Yes: Other (disfigured L leg- several surgeries in the past from frx due to unconsciouness from cocaine use,) Neurological: Yes: Within Normal Limits Integumentary: Yes: Within Normal Limits Lymphatic: Yes: Within Normal Limits Cleared for Admission [facility] - Detox or Rehab [facility] Level of Care: Medically Managed Detox Regimen/Protocol: Librium Screened but not Admitted - Documentation of Visit Screened but not Admitted: Yes [facility] Breath Alcohol Content Breath Alcohol Content: 0.003 Urine Drug Screen - Results Drug Screen Negative: No Urine Drug Screen Results: THC-Marijuana, ZACH-Cocaine, OPI-Opiates, MTD- Methadone, OXY-Oxycodone
[2018-04-19] MEDS ORDERED: MAGNESIUM HYDROX 2400MG/30ML ORAL SUSPENSION 30 ML CUP PO PRN (17:36)
[2018-04-19] MEDS ORDERED: MAG HYDROX/AL HYDROX/SIMETH 30 ML UNIT-DOSE CUP PO PRN (17:36)
[2018-04-19] MEDS ORDERED: LOPERAMIDE HCL 2 MG CAPSULE PO PRN (17:36)
[2018-04-19] MEDS ORDERED: P-EPHED 60MG/TRIPROLIDI 2.5MG TABLET PO PRN (17:36)
[2018-04-19] MEDS ORDERED: MAGNESIUM CITRATE 300 ML BOTTLE PO PRN (17:36)
[2018-04-19] MEDS ORDERED: ALBUTEROL SO4 8 GM HFA INHALER IH PRN (17:38)
[2018-04-19] MEDS: chlordiazePOXIDE HCL 25 MG CAPSULE PO PRN (18:53)
[2018-04-19] MEDS: NICOTINE POLACRILEX 4 MG GUM BC PRN ×2 (18:56→22:06)
[2018-04-19] MEDS: QUEtiapine FUMARATE 100 MG TABLET (FP) PO SCH (22:05)
[2018-04-19] MEDS: THIAMINE HCL 100 MG TABLET (FP) PO SCH (22:05)
[2018-04-19] MEDS: chlordiazePOXIDE HCL 25 MG CAPSULE PO SCH (22:05)
[2018-04-19] MEDS: MELATONIN 5 MG TABLETS PO PRN (23:43)
[2018-04-20] MEDS: hydrOXYzine PAMOATE 50 MG CAPSULE (FP) PO PRN (02:17)
[2018-04-20] MEDS ORDERED: METHADONE HCL 10 MG TABLET PO SCH (06:00)
[2018-04-20] MEDS: chlordiazePOXIDE HCL 25 MG CAPSULE PO SCH ×4 (06:02→22:19)
[2018-04-20] MEDS ORDERED: METHADONE HCL 40 MG DISPERSABLE TABLET ONE (06:03)
[2018-04-20] MEDS ORDERED: METHADONE HCL 5 MG TABLET ONE (06:03)
[2018-04-20] MEDS ORDERED: METHADONE HCL 10 MG TABLET ONE (06:03)
[2018-04-20] MEDS: METHADONE 40 MG, METHADONE 20 MG, METHADONE 5 MG PO SCH (06:03)
[2018-04-20] MEDS: NICOTINE POLACRILEX 4 MG GUM BC PRN ×5 (06:05→22:21)
[2018-04-20 10:10] LABS: HEMATOCRIT 44.8 % (35.4-49); HEMOGLOBIN 14.5 GM/dL (11.7-16.9); MCH 31.3 pg (25.7-33.7); MCHC 32.3 g/dl (32.0-35.9); MEAN CELL VOLUME 96.9 fl (80-96); MEAN PLT VOLUME 8.7 fl (7.5-11.1); PLATELET COUNT 201 K/MM3 (134-434); RBC 4.62 M/mm3 (4.00-5.60); RDW 12.9 % (11.9-15.9); WHITE BLOOD COUNT 10.3 K/mm3 (4.0-10.0)
[2018-04-20 10:28] LABS: ALBUMIN 3.4 g/dl (3.4-5.0); ALK PHOS 66 U/L (45-117); ANION GAP 7 MMOL/L (8-16); BILIRUBIN,TOTAL 0.3 mg/dL (0.2-1); BLOOD UREA NITROGEN 19 mg/dL (7-18); CALCIUM 8.6 mg/dL (8.5-10.1); CHLORIDE 102 mmol/L (98-107); CO2 30 mmol/L (21-32); CREATININE 0.9 mg/dL (0.55-1.3); GLUCOSE,RANDOM 104 mg/dL (74-106); POTASSIUM 4.5 mmol/L (3.5-5.1); SGOT/AST 28 U/L (15-37); SGPT/ALT 53 U/L (13-61); SODIUM 139 mmol/L (136-145); TOT PROT 6.7 g/dl (6.4-8.2)
[2018-04-20] MEDS: PRENATAL VITAMINS W/ FOLIC ACID TABLET (FP) PO SCH (10:31)
[2018-04-20] MEDS ORDERED: FLU VACCINE QUAD 60 MCG/0.5 ML (MDV 18-19) IM ONE (12:00)
--- NOTE | 2018-04-20 14:14 | PN ---
S CIWA - CIWA Score Nausea/Vomitin Muscle Tremors: None Anxiety: 3 Agitation: 2 Paroxysmal Sweats: 3 Orientation: 0-Oriented Tacttile Disturbances: 2-Mild Itch/Numbness/Burn Auditory Disturbances: 0-None Visual Disturbances: 1-Very Mild Sensitivity Headache: 0-None Present CIWA-Ar Total Score: 14 BHS Progress Note (SOAP) Subjective: Stomach Cramping, Nausea, Body Aches, Interrupted Sleep, Sweating. Objective: PATIENT A & O X 3, OBSERVED AMBULATING ON UNIT. IN NO ACUTE DISTRESS. 04/20/18 14:11 Vital Signs Temperature 98.2 F 04/20/18 14:11 Pulse Rate 78 04/20/18 14:11 Respiratory Rate 18 04/20/18 14:11 Blood Pressure 127/77 04/20/18 14:11 O2 Sat by Pulse Oximetry (%) Laboratory Tests 04/20/18 04/20/18 04/20/18 07:00 07:00 07:00 WBC 10.3 H RBC 4.62 Hgb 14.5 Hct 44.8 MCV 96.9 H MCH 31.3 D MCHC 32.3 RDW 12.9 Plt Count 201 MPV 8.7 Sodium 139 Potassium 4.5 Chloride 102 Carbon Dioxide 30 Anion Gap 7 L BUN 19 H Creatinine 0.9 Creat Clearance w eGFR > 60 Random Glucose 104 Calcium 8.6 Total Bilirubin 0.3 AST 28 ALT 53 Alkaline Phosphatase 66 Total Protein 6.7 Albumin 3.4 RPR Titer HIV 1&2 Antibody Screen Negative HIV P24 Antigen Negative 04/20/18 07:00 WBC RBC Hgb Hct MCV MCH MCHC RDW Plt Count MPV Sodium Potassium Chloride Carbon Dioxide Anion Gap BUN Creatinine Creat Clearance w eGFR Random Glucose Calcium Total Bilirubin AST ALT Alkaline Phosphatase Total Protein Albumin RPR Titer Nonreactive HIV 1&2 Antibody Screen HIV P24 Antigen LABS NOTED. UA RESULTS PENDING. 04/20/18 14:14 Assessment: 04/20/18 14:14 WITHDRAWAL SYMPTOMS. Plan: CONTINUE DETOX. INCREASE DAILY PO FLUID INTAKE.
[2018-04-20 16:14] LABS: URINE APPEARANCE CLOUDY; URINE BILIRUBIN NEGATIVE (<2.0 mg/dL); URINE COLOR AMBER; URINE GLUCOSE (UA) NEGATIVE (NEGATIVE); URINE KETONE NEGATIVE (NEGATIVE); URINE LEUK ESTERASE NEGATIVE (NEGATIVE); URINE NITRITE NEGATIVE (NEGATIVE); URINE PROTEIN NEGATIVE (NEGATIVE); URINE UROBILINOGEN NEGATIVE mg/dL (0.2-1.0)
--- NOTE | 2018-04-20 17:17 | CONSULT ---
[facility] Psychiatric Consult - Data Date of interview: 04/20/17 Admission source: [facility] Identifying data: Patient is a 47 year old single male, father of two, domiciled , unemployed, and supported by public assistance. This is one of multiple admissions for patient. Patient admitted to for alcohol dependence. Substance Abuse History: - Smoking Cessation. Smoking history: Current every day smoker. Have you smoked in the past 12 months: Yes. Aproximately how many cigarettes per day: 7. Cigars Per Day: 0. Hx Chewing Tobacco Use: Yes ( STOPPED APPROX. 3 WEEKS AGO.). - Substances Abused. Alcohol. Route: Oral. Frequency: Daily. Amount used: 1.5 liter of vodka. Age of first use: 15. Date of Last Use: 04/19/18 Medical History: Asthma, hypertension, heart attack/CVA from cocaine, history of Hep C (treatment completed), Left lower leg surgery in 2003 due to fracture Psychiatric History: Patient reports two psychiatric hospitalizations at [facility] (2002). One of the hospitalization was secondary to a suicide attempt via overdose. Current outpatient psychiatric care is provided at [facility]. Diagnosis of Depression and anxiety. Mr. Ortiz is prescribed Seroquel 100mg qhs. Patient is currently on methadone maintenance of 65mg daily. At present, he reports depressed mood. Patient denies thoughts or urges to hurt himself or others. Physical/Sexual Abuse/Trauma History: denies. Mental Status Exam - Mental Status Exam Alert and Oriented to: Time, Place, Person Cognitive Function: Good Patient Appearance: Well Groomed Mood: Sad Affect: Appropriate Patient Behavior: Appropriate, Cooperative Speech Pattern: Clear, Appropriate Voice Loudness: Normal Thought Process: Intact, Goal Oriented Thought Disorder: Not Present Hallucinations: Denies Suicidal Ideation: Denies Homicidal Ideation: Denies Insight/Judgement: Poor Sleep: Poorly Appetite: Fair Muscle strength/Tone: Normal Gait/Station: Normal Psychiatric Findings - Problem List ([place] 1, 2,3) (1) Substance induced mood disorder Current Visit: Yes Status: Acute (2) Alcohol dependence with uncomplicated withdrawal Current Visit: Yes Status: Acute (3) Opioid dependence on agonist therapy Current Visit: Yes Status: Acute (4) Cocaine dependence Current Visit: No Status: Chronic Qualifiers: Substance use status: uncomplicated Qualified Code(s): F14.20 - Cocaine dependence, uncomplicated - Initial Treatment Plan Initial Treatment Plan: Psychoeducation provided. Detoxification in progress. Will continue current medications (seroquel 100mg HS ordered by physician in [facility] ).
[2018-04-20] MEDS: EMTRICITABINE 200MG/TENOFOVIR 300MG PO SCH (17:29)
[2018-04-20] MEDS: QUEtiapine FUMARATE 100 MG TABLET (FP) PO SCH (22:19)
[2018-04-20] MEDS: THIAMINE HCL 100 MG TABLET (FP) PO SCH (22:19)
[2018-04-20] MEDS: MELATONIN 5 MG TABLETS PO PRN (22:21)
[2018-04-21] MEDS: chlordiazePOXIDE HCL 25 MG CAPSULE PO PRN ×3 (00:52→13:03)
[2018-04-21] MEDS: hydrOXYzine PAMOATE 50 MG CAPSULE (FP) PO PRN ×2 (00:53→22:14)
[2018-04-21] MEDS ORDERED: METHADONE HCL 5 MG TABLET ONE (03:14)
[2018-04-21] MEDS ORDERED: METHADONE HCL 40 MG DISPERSABLE TABLET ONE (03:15)
[2018-04-21] MEDS ORDERED: METHADONE HCL 10 MG TABLET ONE (03:16)
[2018-04-21] MEDS: chlordiazePOXIDE HCL 25 MG CAPSULE PO SCH ×3 (04:07→17:32)
[2018-04-21] MEDS: NICOTINE POLACRILEX 4 MG GUM BC PRN ×4 (04:09→20:15)
[2018-04-21] MEDS: METHADONE 40 MG, METHADONE 20 MG, METHADONE 5 MG PO SCH (06:01)
[2018-04-21] MEDS: PRENATAL VITAMINS W/ FOLIC ACID TABLET (FP) PO SCH (10:13)
[2018-04-21] MEDS: EMTRICITABINE 200MG/TENOFOVIR 300MG PO SCH (10:13)
[2018-04-21] MEDS: NICOTINE 21 MG/24 HOURS TOPICAL PATCH TD SCH (11:51)
--- NOTE | 2018-04-21 16:58 | PN ---
[facility] CIWA - CIWA Score Nausea/Vomitin-No Nausea/No Vomiting Muscle Tremors: None Anxiety: 3 Agitation: 1-Slight > Activity Paroxysmal Sweats: 3 Orientation: 0-Oriented Tacttile Disturbances: 2-Mild Itch/Numbness/Burn Auditory Disturbances: 0-None Visual Disturbances: 1-Very Mild Sensitivity Headache: 0-None Present CIWA-Ar Total Score: 10 BHS Progress Note (SOAP) Subjective: Body Aches, Interrupted Sleep, Sweating. Objective: PATIENT A & O X 3, OBSERVED AMBULATING ON UNIT. IN NO ACUTE DISTRESS. 04/21/18 16:57 Vital Signs Temperature 98.1 F 04/21/18 15:45 Pulse Rate 79 04/21/18 15:45 Respiratory Rate 16 04/21/18 15:45 Blood Pressure 131/76 04/21/18 15:45 O2 Sat by Pulse Oximetry (%) Laboratory Tests 04/20/18 04/20/18 04/20/18 07:00 07:00 07:00 WBC 10.3 H RBC 4.62 Hgb 14.5 Hct 44.8 MCV 96.9 H MCH 31.3 D MCHC 32.3 RDW 12.9 Plt Count 201 MPV 8.7 Sodium 139 Potassium 4.5 Chloride 102 Carbon Dioxide 30 Anion Gap 7 L BUN 19 H Creatinine 0.9 Creat Clearance w eGFR > 60 Random Glucose 104 Calcium 8.6 Total Bilirubin 0.3 AST 28 ALT 53 Alkaline Phosphatase 66 Total Protein 6.7 Albumin 3.4 Urine Color Urine Appearance Urine pH Ur Specific [place] Urine Protein Urine Glucose (UA) Urine Ketones Urine Blood Urine Nitrite Urine Bilirubin Urine Urobilinogen Ur Leukocyte Esterase RPR Titer HIV 1&2 Antibody Screen Negative HIV P24 Antigen Negative 04/20/18 04/20/18 07:00 11:00 WBC RBC Hgb Hct MCV MCH MCHC RDW Plt Count MPV Sodium Potassium Chloride Carbon Dioxide Anion Gap BUN Creatinine Creat Clearance w eGFR Random Glucose Calcium Total Bilirubin AST ALT Alkaline Phosphatase Total Protein Albumin Urine Color Leah Urine Appearance Cloudy Urine pH 5.0 Ur Specific [place] 1.026 Urine Protein Negative Urine Glucose (UA) Negative Urine Ketones Negative Urine Blood Negative Urine Nitrite Negative Urine Bilirubin Negative Urine Urobilinogen Negative Ur Leukocyte Esterase Negative RPR Titer Nonreactive HIV 1&2 Antibody Screen HIV P24 Antigen LABS NOTED. Assessment: 04/21/18 16:57 WITHDRAWAL SYMPTOMS. Plan: CONTINUE DETOX. INCREASE DAILY PO FLUID INTAKE.
[2018-04-21] MEDS: chlordiazePOXIDE 5 MG CAPSULE PO SCH (22:11)
[2018-04-21] MEDS: QUEtiapine FUMARATE 100 MG TABLET (FP) PO SCH (22:11)
[2018-04-21] MEDS: THIAMINE HCL 100 MG TABLET (FP) PO SCH (22:11)
[2018-04-21] MEDS: MELATONIN 5 MG TABLETS PO PRN (22:13)
[2018-04-22] MEDS ORDERED: METHADONE HCL 10 MG TABLET ONE (05:32)
[2018-04-22] MEDS ORDERED: METHADONE HCL 5 MG TABLET ONE (05:32)
[2018-04-22] MEDS ORDERED: METHADONE HCL 40 MG DISPERSABLE TABLET ONE (05:32)
[2018-04-22] MEDS: chlordiazePOXIDE 5 MG CAPSULE PO SCH ×3 (05:49→17:42)
[2018-04-22] MEDS: METHADONE 40 MG, METHADONE 20 MG, METHADONE 5 MG PO SCH (05:49)
[2018-04-22] MEDS: IBUPROFEN 400 MG TABLET (FP) PO PRN ×2 (05:53→12:51)
[2018-04-22] MEDS: NICOTINE POLACRILEX 4 MG GUM BC PRN ×4 (05:54→17:46)
[2018-04-22] MEDS: guaiFENesin/D-METHORPHAN HB 10 ML UNIT-DOSE CUPS PO PRN ×2 (05:54→12:51)
--- NOTE | 2018-04-22 10:21 | PN ---
S Progress Note (SOAP) Subjective: alert,irritable,anxious,interrupted sleep Objective: 04/22/18 10:28 Vital Signs Temperature 98.3 F 04/22/18 06:55 Pulse Rate 92 H 04/22/18 06:55 Respiratory Rate 18 04/22/18 06:55 Blood Pressure 137/93 04/22/18 06:55 O2 Sat by Pulse Oximetry (%) Assessment: 04/22/18 10:28 withdrawal symptom Plan: continue detox,discharge in am
[2018-04-22] MEDS: hydrOXYzine PAMOATE 50 MG CAPSULE (FP) PO PRN ×2 (10:48→22:10)
[2018-04-22] MEDS: PRENATAL VITAMINS W/ FOLIC ACID TABLET (FP) PO SCH (10:48)
[2018-04-22] MEDS: EMTRICITABINE 200MG/TENOFOVIR 300MG PO SCH (10:48)
[2018-04-22] MEDS: NICOTINE 21 MG/24 HOURS TOPICAL PATCH TD SCH (10:49)
[2018-04-22] MEDS: amLODIPine BESYLATE 10 MG TABLET (FP) PO SCH (11:38)
[2018-04-22] MEDS: MENTHOL/PHENOL 1 EACH UD MM PRN ×2 (11:40→20:00)
[2018-04-22] MEDS: chlordiazePOXIDE HCL 25 MG CAPSULE PO PRN (15:15)
[2018-04-22] MEDS: ACETAMINOPHEN 325 MG TABLET (FP) PO PRN (15:15)
[2018-04-22] MEDS: chlordiazePOXIDE HCL 10 MG CAPSULE PO SCH (22:10)
[2018-04-22] MEDS: MELATONIN 5 MG TABLETS PO PRN (22:10)
[2018-04-22] MEDS: THIAMINE HCL 100 MG TABLET (FP) PO SCH (22:10)
[2018-04-22] MEDS: QUEtiapine FUMARATE 100 MG TABLET (FP) PO SCH (22:10)
[2018-04-23] MEDS ORDERED: METHADONE HCL 5 MG TABLET ONE (04:42)
[2018-04-23] MEDS ORDERED: METHADONE HCL 40 MG DISPERSABLE TABLET ONE (04:43)
[2018-04-23] MEDS ORDERED: METHADONE HCL 10 MG TABLET ONE (04:43)
[2018-04-23] MEDS: chlordiazePOXIDE HCL 10 MG CAPSULE PO SCH ×3 (06:13→18:10)
[2018-04-23] MEDS: METHADONE 40 MG, METHADONE 20 MG, METHADONE 5 MG PO SCH (06:13)
[2018-04-23] MEDS: guaiFENesin/D-METHORPHAN HB 10 ML UNIT-DOSE CUPS PO PRN ×2 (06:16→19:57)
[2018-04-23] MEDS: NICOTINE POLACRILEX 4 MG GUM BC PRN ×2 (06:16→22:13)
--- NOTE | 2018-04-23 10:15 | DS ---
[facility] Detox Discharge Summary Admission Date: 04/19/18 Discharge Date: 04/23/18 - History Present History: Alcohol Dependence - Physical Exam Results Vital Signs: Vital Signs Temperature 103.5 F H 04/23/18 09:52 Pulse Rate 20 L 04/23/18 09:52 Respiratory Rate 106 H 04/23/18 09:52 Blood Pressure 114/65 04/23/18 09:52 O2 Sat by Pulse Oximetry (%) - Treatment Hospital Course: Detox Protocol Followed, Detoxed Safely, Responded well, Discharged Condition Good, Rehab Referral Accepted - Medication Discharge Medications: Ambulatory Orders Emtricitabine/Tenofovir [Truvada -] 1 tab PO DAILY #30 tablet 01/20/15 Quetiapine Fumarate [Seroquel] 100 mg PO HS #30 tablet 10/29/17 Albuterol Sulfate Inhaler - [Ventolin HFA Inhaler -] 2 puff IH Q4H PRN #1 inhaler 04/23/18 Amlodipine Besylate [Norvasc -] 10 mg PO DAILY #14 tablet 04/23/18 - AMA Did Patient Leave Against Medical Advice: No
[2018-04-23] MEDS: PRENATAL VITAMINS W/ FOLIC ACID TABLET (FP) PO SCH (10:51)
[2018-04-23] MEDS: IBUPROFEN 400 MG TABLET (FP) PO PRN ×2 (10:51→19:57)
[2018-04-23] MEDS: NICOTINE 21 MG/24 HOURS TOPICAL PATCH TD SCH (10:51)
[2018-04-23] MEDS: amLODIPine BESYLATE 10 MG TABLET (FP) PO SCH (10:51)
[2018-04-23] MEDS: EMTRICITABINE 200MG/TENOFOVIR 300MG PO SCH (12:43)
--- NOTE | 2018-04-23 14:17 | PN ---
S Progress Note (SOAP) Subjective: fever, chill, cold, gi distress, gi distress, running nose Objective: 04/23/18 14:04 Vital Signs Temperature 99.0 F 04/23/18 13:24 Pulse Rate 91 H 04/23/18 13:24 Respiratory Rate 18 04/23/18 13:24 Blood Pressure 105/59 L 04/23/18 13:24 O2 Sat by Pulse Oximetry (%) Laboratory Last Values WBC 10.3 K/mm3 (4.0-10.0) H 04/20/18 07:00 RBC 4.62 M/mm3 (4.00-5.60) 04/20/18 07:00 Hgb 14.5 GM/dL (11.7-16.9) 04/20/18 07:00 Hct 44.8 % (35.4-49) 04/20/18 07:00 MCV 96.9 fl (80-96) H 04/20/18 07:00 MCH 31.3 pg (25.7-33.7) D 04/20/18 07:00 MCHC 32.3 g/dl (32.0-35.9) 04/20/18 07:00 RDW 12.9 % (11.9-15.9) 04/20/18 07:00 Plt Count 201 K/MM3 (134-434) 04/20/18 07:00 MPV 8.7 fl (7.5-11.1) 04/20/18 07:00 Sodium 139 mmol/L (136-145) 04/20/18 07:00 Potassium 4.5 mmol/L (3.5-5.1) 04/20/18 07:00 Chloride 102 mmol/L (98-107) 04/20/18 07:00 Carbon Dioxide 30 mmol/L (21-32) 04/20/18 07:00 Anion Gap 7 MMOL/L (8-16) L 04/20/18 07:00 BUN 19 mg/dL (7-18) H 04/20/18 07:00 Creatinine 0.9 mg/dL (0.55-1.3) 04/20/18 07:00 Creat Clearance w eGFR > 60 (>60) 04/20/18 07:00 Random Glucose 104 mg/dL (74-106) 04/20/18 07:00 Calcium 8.6 mg/dL (8.5-10.1) 04/20/18 07:00 Total Bilirubin 0.3 mg/dL (0.2-1) 04/20/18 07:00 AST 28 U/L (15-37) 04/20/18 07:00 ALT 53 U/L (13-61) 04/20/18 07:00 Alkaline Phosphatase 66 U/L (45-117) 04/20/18 07:00 Total Protein 6.7 g/dl (6.4-8.2) 04/20/18 07:00 Albumin 3.4 g/dl (3.4-5.0) 04/20/18 07:00 Urine Color Leah 04/20/18 11:00 Urine Appearance Cloudy 04/20/18 11:00 Urine pH 5.0 (5.0-8.0) 04/20/18 11:00 Ur Specific [place] 1.026 (1.010-1.035) 04/20/18 11:00 Urine Protein Negative (NEGATIVE) 04/20/18 11:00 Urine Glucose (UA) Negative (NEGATIVE) 04/20/18 11:00 Urine Ketones Negative (NEGATIVE) 04/20/18 11:00 Urine Blood Negative (NEGATIVE) 04/20/18 11:00 Urine Nitrite Negative (NEGATIVE) 04/20/18 11:00 Urine Bilirubin Negative (<2.0 mg/dL) 04/20/18 11:00 Urine Urobilinogen Negative mg/dL (0.2-1.0) 04/20/18 11:00 Ur Leukocyte Esterase Negative (NEGATIVE) 04/20/18 11:00 RPR Titer Nonreactive (NONREACTIVE) 04/20/18 07:00 HIV 1&2 Antibody Screen Negative 04/20/18 07:00 HIV P24 Antigen Negative 04/20/18 07:00 lab noted Assessment: 04/23/18 14:17 withdrawal sx rule out pneumonia Plan: continue detox
[2018-04-23] MEDS: THIAMINE HCL 100 MG TABLET (FP) PO SCH (22:10)
[2018-04-23] MEDS: QUEtiapine FUMARATE 100 MG TABLET (FP) PO SCH (22:10)
[2018-04-23] MEDS: MELATONIN 5 MG TABLETS PO PRN (22:11)
[2018-04-23] MEDS: hydrOXYzine PAMOATE 50 MG CAPSULE (FP) PO PRN (22:12)
[2018-04-23] MEDS: MENTHOL/PHENOL 1 EACH UD MM PRN (22:13)
[2018-04-24] MEDS: NICOTINE POLACRILEX 4 MG GUM BC PRN ×6 (00:57→22:17)
[2018-04-24] MEDS: MENTHOL/PHENOL 1 EACH UD MM PRN ×3 (03:20→22:17)
[2018-04-24] MEDS ORDERED: METHADONE HCL 40 MG DISPERSABLE TABLET ONE (05:59)
[2018-04-24] MEDS ORDERED: METHADONE HCL 10 MG TABLET ONE (05:59)
[2018-04-24] MEDS ORDERED: METHADONE HCL 5 MG TABLET ONE (05:59)
[2018-04-24] MEDS: METHADONE 40 MG, METHADONE 20 MG, METHADONE 5 MG PO SCH (06:12)
[2018-04-24] MEDS: guaiFENesin/D-METHORPHAN HB 10 ML UNIT-DOSE CUPS PO PRN (06:19)
[2018-04-24] MEDS: PRENATAL VITAMINS W/ FOLIC ACID TABLET (FP) PO SCH (09:42)
[2018-04-24] MEDS: amLODIPine BESYLATE 10 MG TABLET (FP) PO SCH (09:42)
[2018-04-24] MEDS: EMTRICITABINE 200MG/TENOFOVIR 300MG PO SCH (09:42)
[2018-04-24] MEDS: NICOTINE 21 MG/24 HOURS TOPICAL PATCH TD SCH (12:01)
[2018-04-24] MEDS ORDERED: ALBUTEROL SO4 2.5/IPRATROPIUM 0.5 INH SOL 3 ML VIAL.NEB. NEB PRN (12:17)
--- NOTE | 2018-04-24 12:28 | PN ---
[facility] Progress Note (SOAP) Subjective: Fatigue, Sweating. Objective: PATIENT A & O X 3, OBSERVED AMBULATING ON UNIT. IN NO ACUTE DISTRESS. WHEEZING AUSCULATED IN BILATERAL LUNGS. 04/24/18 12:28 Vital Signs Temperature 98.2 F 04/24/18 10:21 Pulse Rate 90 04/24/18 10:21 Respiratory Rate 20 04/24/18 10:21 Blood Pressure 128/66 04/24/18 10:21 O2 Sat by Pulse Oximetry (%) Laboratory Tests 04/20/18 04/20/18 04/20/18 07:00 07:00 07:00 WBC 10.3 H RBC 4.62 Hgb 14.5 Hct 44.8 MCV 96.9 H MCH 31.3 D MCHC 32.3 RDW 12.9 Plt Count 201 MPV 8.7 Sodium 139 Potassium 4.5 Chloride 102 Carbon Dioxide 30 Anion Gap 7 L BUN 19 H Creatinine 0.9 Creat Clearance w eGFR > 60 Random Glucose 104 Calcium 8.6 Total Bilirubin 0.3 AST 28 ALT 53 Alkaline Phosphatase 66 Total Protein 6.7 Albumin 3.4 Urine Color Urine Appearance Urine pH Ur Specific [place] Urine Protein Urine Glucose (UA) Urine Ketones Urine Blood Urine Nitrite Urine Bilirubin Urine Urobilinogen Ur Leukocyte Esterase RPR Titer HIV 1&2 Antibody Screen Negative HIV P24 Antigen Negative 04/20/18 04/20/18 07:00 11:00 WBC RBC Hgb Hct MCV MCH MCHC RDW Plt Count MPV Sodium Potassium Chloride Carbon Dioxide Anion Gap BUN Creatinine Creat Clearance w eGFR Random Glucose Calcium Total Bilirubin AST ALT Alkaline Phosphatase Total Protein Albumin Urine Color Leah Urine Appearance Cloudy Urine pH 5.0 Ur Specific [place] 1.026 Urine Protein Negative Urine Glucose (UA) Negative Urine Ketones Negative Urine Blood Negative Urine Nitrite Negative Urine Bilirubin Negative Urine Urobilinogen Negative Ur Leukocyte Esterase Negative RPR Titer Nonreactive HIV 1&2 Antibody Screen HIV P24 Antigen LABS NOTED. 04/24/18 12:29 Assessment: 04/24/18 12:19 WITHDRAWAL SYMPTOMS. Plan: PATIENT ORIGINALLY SCHEDULED FOR D/C FROM DETOX UNIT TODAY. HOWEVER, DUE TO SOB , WHEEZING, AND FEVER THAT STARTED TO OCCUR YESTERDAY AND IS PERSISTING TODAY. HOWEVER, DUE TO LINGERING SOB, WHEEZING, AND FEVER, PATIENT TO BE HELD ON DETOX UNIT FOR TIME BEING (WITH PATIENT'S VERBAL CONSENT) SO THAT CXR MAY BE DONE (TO R/O PNEUMONIA) AND TO CONTINUE ANTIBIOTIC TREATMENT. PRN DUONEB ORDERED FRO SOB/ WHEEZING.
[2018-04-24] MEDS: hydrOXYzine PAMOATE 50 MG CAPSULE (FP) PO PRN ×3 (13:53→23:34)
[2018-04-24] MEDS: ACETAMINOPHEN 325 MG TABLET (FP) PO PRN (14:45)
--- NOTE | 2018-04-24 16:57 | PN ---
[facility] Progress Note Note: RESULT OF CXR NOTED: NEGATIVE FOR ACUTE PATHOLOGY. PATIENT FEBRILE EARLIER ON IN AFTERNOON (100.2); HOWEVER, TEMP. DROPPED TO 99.4 WHEN CHECKED AGAIN @ 16: 30. PATIENT CURRENTLY REPORTS SORE THROAT AND PRODUCTIVE COUGH. PATIENT DENIES ANY UNUSUAL URINARY SYMPTOMS (BURNING, PAIN, FREQUENCY, URGENCY, VISUALIZATION OF BLOOD IN URINE). WILL CONTINUE LEVAQUIN PO DAILY FOR TIME BEING. WILL RE- CHECK CBC TOMORROW AM TO CHECK WBC LEVEL AND MAKE DISCHARGE ASSESSMENT FOR PATIENT PENDING THOSE RESULTS. Sherif [employer] DIRECT[employer]
[2018-04-24] MEDS: THIAMINE HCL 100 MG TABLET (FP) PO SCH (22:14)
[2018-04-24] MEDS: QUEtiapine FUMARATE 100 MG TABLET (FP) PO SCH (22:15)
[2018-04-24] MEDS: MELATONIN 5 MG TABLETS PO PRN (22:15)
[2018-04-25] MEDS: hydrOXYzine PAMOATE 50 MG CAPSULE (FP) PO PRN (03:45)
[2018-04-25] MEDS: NICOTINE POLACRILEX 4 MG GUM BC PRN ×3 (03:46→10:09)
[2018-04-25] MEDS: MENTHOL/PHENOL 1 EACH UD MM PRN ×2 (03:46→09:52)
[2018-04-25] MEDS: METHADONE 40 MG, METHADONE 20 MG, METHADONE 5 MG PO SCH (05:52)
[2018-04-25] MEDS ORDERED: METHADONE HCL 5 MG TABLET ONE (05:52)
[2018-04-25] MEDS ORDERED: METHADONE HCL 40 MG DISPERSABLE TABLET ONE (05:52)
[2018-04-25] MEDS ORDERED: METHADONE HCL 10 MG TABLET ONE (05:52)
[2018-04-25] MEDS: guaiFENesin/D-METHORPHAN HB 10 ML UNIT-DOSE CUPS PO PRN (05:55)
[2018-04-25 09:16] VITALS: BP 100/56; PULSE 86; TEMP 98.6
[2018-04-25] MEDS: EMTRICITABINE 200MG/TENOFOVIR 300MG PO SCH (10:05)
[2018-04-25] MEDS: PRENATAL VITAMINS W/ FOLIC ACID TABLET (FP) PO SCH (10:05)
[2018-04-25] MEDS: amLODIPine BESYLATE 10 MG TABLET (FP) PO SCH (10:05)
[2018-04-25] MEDS: NICOTINE 21 MG/24 HOURS TOPICAL PATCH TD SCH (10:05)
[2018-04-25 10:33] LABS: BASO % 1.5 % (0-2.0); HEMATOCRIT 39.9 % (35.4-49); HEMOGLOBIN 12.9 GM/dL (11.7-16.9); LYMPH % 32.6 % (8-40); MCH 31.1 pg (25.7-33.7); MCHC 32.4 g/dl (32.0-35.9); MEAN CELL VOLUME 95.8 fl (80-96); MEAN PLT VOLUME 8.4 fl (7.5-11.1); MONO % 19.1 % (3.8-10.2); NEUT % 37.8 % (42.8-82.8); PLATELET COUNT 158 K/MM3 (134-434); RBC 4.16 M/mm3 (4.00-5.60); RDW 12.8 % (11.9-15.9); WHITE BLOOD COUNT 4.9 K/mm3 (4.0-10.0)
--- NOTE | 2018-04-25 14:13 | DS ---
[facility] Detox Discharge Summary Admission Date: 04/19/18 Discharge Date: 04/25/18 - History Present History: Alcohol Dependence, Cannabis Dependence, Cocaine Dependence, Opioid Dependence, MMTP Additional Comments: PRIOR TO DISCHARGE, RESULTS OF REPEAT CBC DRAWN EARLIER THIS AM NOTED. WBC NOW NOTED TO BE WITHIN NORMAL LIMITS. PATIENT AFEBRILE TODAY. WHEEZING NOTED ON AUSCULTATION OF LUNGS BILATERALLY. VS STABLE, PATIENT AFEBRILE, OS: 98 % JUST BEFORE DISCHARGE. PATIENT ELECTING TO GO HOME AT THIS TIME. PRESCRIPTION FOR AUGMENTIN SENT TO PATIENT'S PHARMACY ([facility], [place], [place]) FOR POSSIBLE URI (PATIENT WAS PRESCRIBED LEVAQUIN WHILE ADMITTED FOR DETOX; HOWEVER, PHARMACIST INFORMED WOOD CABINET FINISHER THAT POSSIBLE SEVERE INTERACTION BETWEEN LEVAQUIN AND ONE OF PATIENT'S OTHER PRESCRIBED MEDICATION SEROQUEL POSSIBLE). THUS, Z-PACK ORDERED INSTEAD. PRESCRIPTION FOR 5-DAY COURSE OF PREDNISONE SENT TO [facility] FOR LIKELY ACUTE ASTHMA EXACERBATION. PATIENT ADVISDED TO COMPLETE FULL COURSE OF BOTH MEDICATIONS. PATIENT ADVISED TO FOLLOW-UP WITH [facility] ([place], [place]) SOON POSSIBLE FOR COUGH, SORE THROAT , AND WHEEZING THAT OCCURRED DURING DETOX ADMISSION. PATIENT RETURNING TO [facility] ([place], [place]) FOR AFTERCARE. PATIENT ALSO ADVISED TO CONSIDER LOCAL 12-STEP / NA OUTPATIENT SUPPORT GROUPS FOR AFTERCARE AFTER DISCHARGE FROM DETOX. PATIENT VERBALIZED UNDERSTANDING OF ALL RECOMMENDATIONS. PATIENT OFFERED NEBULIZER TREATMENT PRIOR TO DISCHARGE FROM DETOX UNIT. PATIENT WAS DISCHARGED FROM DETOX UNIT IN STABLE MEDICAL CONDITION. Pertinent Past History: History of Hep C (Treated), HTN, History of SC, History of Fracture of Left Leg , History of Surgery to Left Leg, History of Depression, History of Bipolar Disorder, M.M.T.P. - Physical Exam Results Vital Signs: Vital Signs Temperature 98.6 F 04/25/18 09:15 Pulse Rate 86 04/25/18 09:15 Respiratory Rate 18 04/25/18 09:15 Blood Pressure 100/56 L 04/25/18 09:15 O2 Sat by Pulse Oximetry (%) Pertinent Admission Physical Exam Findings: WITHDRAWAL SYMPTOMS. Laboratory Tests 04/20/18 04/20/18 04/20/18 07:00 07:00 07:00 WBC 10.3 H RBC 4.62 Hgb 14.5 Hct 44.8 MCV 96.9 H MCH 31.3 D MCHC 32.3 RDW 12.9 Plt Count 201 MPV 8.7 Absolute Neuts (auto) Neutrophils % Lymphocytes % Monocytes % Eosinophils % Basophils % Nucleated RBC % Sodium 139 Potassium 4.5 Chloride 102 Carbon Dioxide 30 Anion Gap 7 L BUN 19 H Creatinine 0.9 Creat Clearance w eGFR > 60 Random Glucose 104 Calcium 8.6 Total Bilirubin 0.3 AST 28 ALT 53 Alkaline Phosphatase 66 Total Protein 6.7 Albumin 3.4 Urine Color Urine Appearance Urine pH Ur Specific [place] Urine Protein Urine Glucose (UA) Urine Ketones Urine Blood Urine Nitrite Urine Bilirubin Urine Urobilinogen Ur Leukocyte Esterase RPR Titer HIV 1&2 Antibody Screen Negative HIV P24 Antigen Negative 04/20/18 04/20/18 04/25/18 07:00 11:00 07:00 WBC 4.9 RBC 4.16 Hgb 12.9 Hct 39.9 MCV 95.8 MCH 31.1 MCHC 32.4 RDW 12.8 Plt Count 158 D MPV 8.4 Absolute Neuts (auto) 1.9 Neutrophils % 37.8 L Lymphocytes % 32.6 Monocytes % 19.1 H Eosinophils % 9.0 H Basophils % 1.5 Nucleated RBC % 0 Sodium Potassium Chloride Carbon Dioxide Anion Gap BUN Creatinine Creat Clearance w eGFR Random Glucose Calcium Total Bilirubin AST ALT Alkaline Phosphatase Total Protein Albumin Urine Color Leah Urine Appearance Cloudy Urine pH 5.0 Ur Specific [place] 1.026 Urine Protein Negative Urine Glucose (UA) Negative Urine Ketones Negative Urine Blood Negative Urine Nitrite Negative Urine Bilirubin Negative Urine Urobilinogen Negative Ur Leukocyte Esterase Negative RPR Titer Nonreactive HIV 1&2 Antibody Screen HIV P24 Antigen LABS NOTED. - Treatment Hospital Course: Detox Protocol Followed, Detoxed Safely, Responded well, Discharged Condition Good Patient has Accepted a Rehab Referral to: PT. [facility] ([place], [place]). - Medication Discharge Medications: Ambulatory Orders Emtricitabine/Tenofovir [Truvada -] 1 tab PO DAILY #30 tablet 01/20/15 Quetiapine Fumarate [Seroquel] 100 mg PO HS #30 tablet 10/29/17 Albuterol Sulfate Inhaler - [Ventolin HFA Inhaler -] 2 puff IH Q4H PRN #1 inhaler 04/23/18 Amlodipine Besylate [Norvasc -] 10 mg PO DAILY #14 tablet 04/23/18 Amox-Tr/K Cl [Augmentin - 500Mg Tablet] 1 tab PO BID 7 Days #14 tab 04/25/18 Prednisone [Deltasone] 20 mg PO DAILY 5 Days #5 tablet 04/25/18 - Diagnosis (1) Alcohol dependence with uncomplicated withdrawal Status: Acute (2) Cannabis dependence Status: Acute (3) Cocaine dependence Status: Chronic Qualifiers: Substance use status: uncomplicated Qualified Code(s): F14.20 - Cocaine dependence, uncomplicated (4) Left leg injury Status: Acute Qualifiers: Encounter type: sequela Qualified Code(s): S89.92XS - Unspecified injury of left lower leg, sequela (5) Opioid dependence on agonist therapy Status: Acute (6) Hepatitis C Status: Chronic Qualifiers: Viral hepatitis chronicity: chronic Hepatic coma status: without hepatic coma Qualified Code(s): B18.2 - Chronic viral hepatitis C (7) Asthma Status: Chronic Qualifiers: Asthma severity: mild Asthma persistence: intermittent Asthma complication type: uncomplicated Qualified Code(s): J45.20 - Mild intermittent asthma, uncomplicated (8) Wheezing Status: Acute (9) Substance induced mood disorder Status: Acute - AMA Did Patient Leave Against Medical Advice: No
== END 2018-04-25 12:46 | disposition home or self-care (01) | DRG 773 ==
LOC: YASAS 13:52 → Y6N 16:14
PROC: HZ2ZZZZ Detoxification Services for Substance Abuse Treatment (ICD-10-PCS; principal; 2018-04-19)
DX: F10.230 Alcohol dependence with withdrawal, uncomplicated (principal); F14.20 Cocaine dependence, uncomplicated; F12.20 Cannabis dependence, uncomplicated; F11.20 Opioid dependence, uncomplicated; F19.24 Other psychoactive substance dependence with psychoactive substance-induced mood disorder; F41.8 Other specified anxiety disorders; F32.9 Major depressive disorder, single episode, unspecified; I25.10 Atherosclerotic heart disease of native coronary artery without angina pectoris; I10 Essential (primary) hypertension; I25.2 Old myocardial infarction; J45.20 Mild intermittent asthma, uncomplicated; R06.2 Wheezing; B18.2 Chronic viral hepatitis C; Z86.73 Personal history of transient ischemic attack (TIA), and cerebral infarction without residual deficits; Z87.81 Personal history of (healed) traumatic fracture; Z91.5 Personal history of self-harm
CPT/HCPCS: 36415; 71046-TC-FY; 80053; 81003; 85025; 85027; 86593; 87389; 90688; 94640; G0008

== ENCOUNTER 2018-06-15 10:57 | Inpatient (IN) | payer OTHER ==
[2018-06-15 11:20] VITALS: BMI 28.1
--- NOTE | 2018-06-15 11:53 | HP ---
CIWA Score Nausea/Vomitin Muscle Tremors: 2 Anxiety: 2 Agitation: 2 Paroxysmal Sweats: 1-Minimal Palms Moist Orientation: 0-Oriented Tacttile Disturbances: 1-Very Mild Itch/Numbness Auditory Disturbances: 1-Very Mild Visual Disturbances: 0-None Headache: 2-Mild CIWA-Ar Total Score: 13 - Admission Criteria OASAS Guidelines: Admission for Medically Managed Detox: Requires at least one of the followin. CIWA greater than 12 2. Seizures within the past 24 hours 3. Delirium tremens within the past 24 hours 4. Hallucinations within the past 24 hours 5. Acute intervention needed for co occurring medical disorder 6. Acute intervention needed for co occurring psychiatric disorder 7. Severe withdrawal that cannot be handled at a lower level of care (continued vomiting, continued diarrhea, abnormal vital signs) requiring intravenous medication and/or fluids 8. Patient presents the following: CIWA greater than 12 Admission Criteria Met: Admission criteria met Admission ROS S - [facility] Chief Complaint: i am here for the help to stop drinking alcohol and cocaine Allergies/Adverse Reactions: Allergies Allergy/AdvReac Type Severity Reaction Status Date / Time No Known Allergies Allergy Verified 06/15/18 11:16 History of Present Illness: this 48 years old male with alcohol and cocaine dependence,seeking detox, withdrawal symptom,mmtp 75 mgs/day last medicated 06/14/18 history of hypertension,lf of left leg,left foot in 2003 after mi taking truvada for prophylaxis multiple admissions in detox,but keep relapsing,last detox [facility] 04/19/18 to 12/03 bipolar disorder longest period of sobriety 2 years - Ebola screening Have you traveled outside of the country in the last 21 days: No Have you had contact with anyone from an Ebola affected area: No Have you been sick,other than usual withdrawal symptoms: No Do you have a fever: No - Review of Systems Constitutional: Loss of Appetite, Malaise, Night Sweats, Changes in sleep, Weakness EENT: reports: Nose Congestion Respiratory: reports: No Symptoms reported Cardiac: reports: No Symptoms Reported, Other (history of mi in 2003) GI: reports: Nausea, Poor Appetite, Abdominal cramping : reports: No Symptoms Reported Musculoskeletal: reports: Back Pain, Muscle Pain, Other (history of fx of left leg,left foot in 2003) Integumentary: reports: Dryness Neuro: reports: Headache, Tremors Endocrine: reports: No Symptoms Reported Hematology: reports: No Symptoms Reported Psychiatric: reports: No Sypmtoms Reported, Judgement Intact, Mood/Affect Appropiate, Orientated x3, other (bipolar disorder) Patient History - Patient Medical History Hx Anemia: No Hx Asthma: Yes (Uses Ventolin Inhaler.) Hx Chronic Obstructive Pulmonary Disease (COPD): No Hx Cancer: No Hx Cardiac Disorders: Yes (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 3 months ago.) Hx Genitourinary Disorders: No Hx Sexually Transmitted Disorders: No Hx Renal Disease (ESRD): No Hx Thyroid Disease: No Hx Human Immunodeficiency Virus (HIV): No (Last Tested:06/2016:NEGATIVE ON PROPHYLACTIC TRUVADA DUE TO PARTNER STATUS.) Hx Hepatitis C: Yes (Completed Treatment approx. 3 months ago.) Hx Depression: Yes (Seroquel) Hx Suicide Attempt: Yes (2002-Took full bottle of medication w/ Alcohol; PT. DENIES CURRENT SI /HI.) Hx Bipolar Disorder: No Hx Schizophrenia: No Other Medical History: no suicidal,no homicidal, - Patient Surgical History Past Surgical History: Yes Hx Neurologic Surgery: No Hx Cataract Extraction: No Hx Cardiac Surgery: No Hx Lung Surgery: No Hx Breast Surgery: No Hx Breast Biopsy: No Hx Abdominal Surgery: No Hx Appendectomy: No Hx Cholecystectomy: No Hx Genitourinary Surgery: No Hx Section: No Hx Orthopedic Surgery: Yes (LEFT LOWER LEG SX DUE TO FX IN 2003- many surgeries) Anesthesia Reaction: No - PPD History Previous Implant?: Yes Documented Results: Negative w/proof Implanted On Prior R Admission?: Yes Date: 10/29/17 Results: negative PPD to be Administered?: No - Smoking Cessation Smoking history: Current every day smoker Have you smoked in the past 12 months: Yes Aproximately how many cigarettes per day: 5 Cigars Per Day: 0 Hx Chewing Tobacco Use: No Initiated information on smoking cessation: Yes 'Breaking Loose' booklet given: 06/15/18 - Substance & Tx. History Hx Alcohol Use: Yes Hx Substance Use: Yes Substance Use Type: Alcohol, Cocaine Hx Substance Use Treatment: Yes ([facility] 04/19/18 to 04/25/18) - Substances Abused Alcohol Route: Oral Frequency: Daily Amount used: 1 liter of vodka Age of first use: 15 Date of Last Use: 06/15/18 Cocaine Route: Inhalation Frequency: 1-2 times per week Amount used: $20 Age of first use: 24 Date of Last Use: 06/11/18 Family Disease History - Family Disease History Family Disease History: Other: Father (HTN), Sister (depression/anxiety) Admission Physical Exam S - Vital Signs Vital Signs: Vital Signs - 24 hr 06/15/18 11:10 Temperature 98.0 F Pulse Rate 65 Respiratory 18 Rate Blood Pressure 159/95 - Physical General Appearance: Yes: Moderate Distress, Tremorous, Irritable, Sweating, Anxious HEENTM: Yes: Normal ENT Inspection, REYES, Pharynx Normal Respiratory: Yes: Lungs Clear, Normal Breath Sounds, No Respiratory Distress Neck: Yes: Within Normal Limits, Supple, Trachea in good position Breast: Yes: Within Normal Limits Cardiology: Yes: Within Normal Limits, Regular Rhythm, Regular Rate, S1, S2 Abdominal: Yes: Within Normal Limits, Normal Bowel Sounds, Non Tender, Soft Genitourinary: Yes: Within Normal Limits Back: Yes: Muscle Spasm Musculoskeletal: Yes: Back pain, Muscle Pain Extremities: Yes: Within Normal Limits, Normal Range of Motion, Tremors, Other ( ambulation with cane but have no cane with him) Neurological: Yes: grove superintendent II-XII NML intact, Fully Oriented, Alert, Motor Strength 5/5 Integumentary: Yes: Dry Lymphatic: Yes: Within Normal Limits - Diagnostic (1) Alcohol dependence with uncomplicated withdrawal Current Visit: No Status: Acute (2) Nicotine dependence Current Visit: No Status: Acute Qualifiers: Nicotine product type: cigarettes Substance use status: in withdrawal Qualified Code(s): F17.213 - Nicotine dependence, cigarettes, with withdrawal (3) Opioid dependence on agonist therapy Current Visit: No Status: Acute (4) Asthma Current Visit: No Status: Chronic Qualifiers: Asthma severity: mild Asthma persistence: intermittent Asthma complication type: uncomplicated Qualified Code(s): J45.20 - Mild intermittent asthma, uncomplicated (5) Bipolar disorder Current Visit: No Status: Chronic Comment: As per existing records. (6) Essential hypertension Current Visit: No Status: Chronic (7) Hepatitis C Current Visit: No Status: Chronic Qualifiers: Viral hepatitis chronicity: chronic Hepatic coma status: without hepatic coma Qualified Code(s): B18.2 - Chronic viral hepatitis C Comment: Completed Treatment. (8) Methadone maintenance therapy patient Current Visit: No Status: Chronic (9) Bipolar affective disorder, depressed, moderate Current Visit: No Status: Suspected (10) Use of cane as ambulatory aid Current Visit: Yes Status: Acute (11) History of [place] (myocardial infarction) Current Visit: Yes Status: Acute (12) Left leg injury Current Visit: No Status: Acute Qualifiers: Encounter type: sequela Qualified Code(s): S89.92XS - Unspecified injury of left lower leg, sequela (13) Cocaine dependence Current Visit: No Status: Chronic Qualifiers: Substance use status: uncomplicated Qualified Code(s): F14.20 - Cocaine dependence, uncomplicated Cleared for Admission [facility] - Detox or Rehab [facility] Level of Care: Medically Managed Detox Regimen/Protocol: Librium [facility] Breath Alcohol Content Breath Alcohol Content: 0.052 Urine Drug Screen - Results Drug Screen Negative: No Urine Drug Screen Results: ZACH-Cocaine, MTD-Methadone Inpatient Rehab Admission - Rehab Decision to Admit Inpatient rehab admission?: No
[2018-06-15] MEDS ORDERED: IBUPROFEN 400 MG TABLET (FP) PO PRN (12:46)
[2018-06-15] MEDS ORDERED: MAG HYDROX/AL HYDROX/SIMETH 30 ML UNIT-DOSE CUP PO PRN (12:46)
[2018-06-15] MEDS ORDERED: MAGNESIUM HYDROX 2400MG/30ML ORAL SUSPENSION 30 ML CUP PO PRN (12:46)
[2018-06-15] MEDS ORDERED: MAGNESIUM CITRATE 300 ML BOTTLE PO PRN (12:46)
[2018-06-15] MEDS ORDERED: ACETAMINOPHEN 325 MG TABLET (FP) PO PRN (12:46)
[2018-06-15] MEDS ORDERED: LOPERAMIDE HCL 2 MG CAPSULE PO PRN (12:46)
[2018-06-15] MEDS ORDERED: MENTHOL/PHENOL 1 EACH UD MM PRN (12:46)
[2018-06-15] MEDS ORDERED: guaiFENesin/D-METHORPHAN HB 10 ML UNIT-DOSE CUPS PO PRN (12:46)
[2018-06-15] MEDS ORDERED: P-EPHED 60MG/TRIPROLIDI 2.5MG TABLET PO PRN (12:46)
[2018-06-15] MEDS ORDERED: ALBUTEROL SO4 8 GM HFA INHALER IH PRN (12:49)
[2018-06-15] MEDS ORDERED: METHADONE HCL 10 MG TABLET PO SCH (13:00)
[2018-06-15] MEDS ORDERED: METHADONE HCL 10 MG TABLET ONE (13:21)
[2018-06-15] MEDS ORDERED: METHADONE HCL 40 MG DISPERSABLE TABLET ONE (13:21)
[2018-06-15] MEDS ORDERED: METHADONE HCL 5 MG TABLET ONE (13:22)
[2018-06-15] MEDS: chlordiazePOXIDE HCL 25 MG CAPSULE PO PRN ×2 (13:26→19:05)
[2018-06-15] MEDS: METHADONE 40 MG, METHADONE 30 MG, METHADONE 5 MG PO SCH (13:26)
[2018-06-15] MEDS: amLODIPine BESYLATE 10 MG TABLET (FP) PO SCH (13:26)
[2018-06-15] MEDS: chlordiazePOXIDE HCL 25 MG CAPSULE PO SCH ×2 (17:08→22:01)
[2018-06-15] MEDS: NICOTINE POLACRILEX 2 MG GUM BUC PRN ×3 (17:09→22:18)
[2018-06-15] MEDS: THIAMINE HCL 100 MG TABLET (FP) PO SCH (22:01)
[2018-06-15] MEDS: MELATONIN 5 MG TABLETS PO PRN (22:01)
[2018-06-16] MEDS: chlordiazePOXIDE HCL 25 MG CAPSULE PO PRN ×4 (01:00→19:29)
[2018-06-16] MEDS: NICOTINE POLACRILEX 2 MG GUM BUC PRN ×6 (01:00→19:29)
[2018-06-16] MEDS ORDERED: METHADONE HCL 10 MG TABLET ONE (03:52)
[2018-06-16] MEDS ORDERED: METHADONE HCL 40 MG DISPERSABLE TABLET ONE (03:52)
[2018-06-16] MEDS ORDERED: METHADONE HCL 5 MG TABLET ONE (03:52)
[2018-06-16] MEDS: METHADONE 40 MG, METHADONE 30 MG, METHADONE 5 MG PO SCH (05:46)
[2018-06-16] MEDS: chlordiazePOXIDE HCL 25 MG CAPSULE PO SCH ×4 (05:46→22:09)
[2018-06-16] MEDS: EMTRICITABINE 200MG/TENOFOVIR 300MG PO SCH (09:17)
[2018-06-16] MEDS: amLODIPine BESYLATE 10 MG TABLET (FP) PO SCH (10:15)
[2018-06-16] MEDS: PRENATAL VITAMINS W/ FOLIC ACID TABLET (FP) PO SCH (10:15)
[2018-06-16] MEDS: NICOTINE 21 MG/24 HOURS TOPICAL PATCH TD SCH (10:18)
[2018-06-16 10:53] LABS: HEMATOCRIT 42.9 % (35.4-49); HEMOGLOBIN 14.5 GM/dL (11.7-16.9); MCH 32.3 pg (25.7-33.7); MCHC 33.7 g/dl (32.0-35.9); MEAN CELL VOLUME 95.8 fl (80-96); MEAN PLT VOLUME 9.7 fl (7.5-11.1); PLATELET COUNT 216 K/MM3 (134-434); RBC 4.48 M/mm3 (4.00-5.60); RDW 14.5 % (11.9-15.9); WHITE BLOOD COUNT 8.8 K/mm3 (4.0-10.0)
[2018-06-16 11:00] LABS: ALBUMIN 3.8 g/dl (3.4-5.0); ALK PHOS 80 U/L (45-117); ANION GAP 4 MMOL/L (8-16); BILIRUBIN,TOTAL 0.2 mg/dL (0.2-1); BLOOD UREA NITROGEN 23 mg/dL (7-18); CALCIUM 9.3 mg/dL (8.5-10.1); CHLORIDE 104 mmol/L (98-107); CO2 31 mmol/L (21-32); CREATININE 0.8 mg/dL (0.55-1.3); GLUCOSE,RANDOM 83 mg/dL (74-106); POTASSIUM 4.4 mmol/L (3.5-5.1); SGOT/AST 26 U/L (15-37); SGPT/ALT 58 U/L (13-61); SODIUM 139 mmol/L (136-145); TOT PROT 7.5 g/dl (6.4-8.2)
--- NOTE | 2018-06-16 13:10 | CONSULT ---
[facility] Psychiatric Consult - Data Date of interview: 06/16/18 Admission source: [facility] Identifying data: Readmission to [facility] for this 48 y/o male self- referred for detoxification treatment (alcohol, cocaine, opioid). Evaluated at [address] [place] [address]. 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 Previous records indicate support on SSI benefits. Substance Abuse History: Confirmed by patient in this interview. Details in current [facility] report : Smoking history: Current every day smoker. Have you smoked in the past 12 months: Yes. Aproximately how many cigarettes per day: 5. Cigars Per Day: 0. Hx Chewing Tobacco Use: No. Initiated information on smoking cessation: Yes. 'Breaking Loose' booklet given: 06/15/18. - Substance & Tx. History. Hx Alcohol Use: Yes. Hx Substance Use: Yes. Substance Use Type : Alcohol, Cocaine. Hx Substance Use Treatment: Yes ([facility] 04/19/18 to 04/25/18) . - Substances Abused. Alcohol. Route: Oral. Frequency: Daily. Amount used: 1 liter of vodka. Age of first use: 15. Date of Last Use: 06/15/18. Cocaine. Route: Inhalation. Frequency: 1-2 times per week. Amount used: $20. Age of first use: 24. Date of Last Use: 06/11/18 Medical History: Remarkable for bronchial asthma, hepatitis C, hypertension, antecedent of myocardial infarction (2003) and orthosurgery (fracture of left leg) in 2003. Patient is on prophylactic truvada (due to current partner's status). Psychiatric History: Patient admits to a history of two psychiatric hospitalizations ([facility]). Onset of psychiatric illness : 1990. Diagnosis : MDD and Anxiety Disorder. Revised, years later, for Bipolar Disorder. Mr Ortiz continues to see a psychiatrist at the [facility] for medication management.Maintained on buspar and seroquel. Patient is on methadone maintenance (75 mg/day) at [facility] program in [facility]). History of one suicide attempt (1989) via deliberate overdose with alcohol + medications. Physical/Sexual Abuse/Trauma History: No reported history of abuse. Additional Comment: Urine Drug Screen Results: ZACH-Cocaine, MTD-Methadone. Noted. Mental Status Exam - Mental Status Exam Alert and Oriented to: Time, Place, Person Cognitive Function: Good Patient Appearance: Well Groomed Mood: Withdrawn, Hopeful Affect: Appropriate, Normal Range Patient Behavior: Fatigued, Appropriate, Cooperative Speech Pattern: Clear Voice Loudness: Normal Thought Process: Intact, Goal Oriented Thought Disorder: Not Present Hallucinations: Denies Suicidal Ideation: Denies Homicidal Ideation: Denies Insight/Judgement: Poor Sleep: Poorly, Difficulty falling asleep Appetite: Good Muscle strength/Tone: Normal Gait/Station: Normal Psychiatric Findings - Problem List ([place] 1, 2,3) (1) Alcohol dependence with uncomplicated withdrawal Current Visit: Yes Status: Acute (2) Cocaine dependence Current Visit: Yes Status: Chronic Qualifiers: Substance use status: uncomplicated Qualified Code(s): F14.20 - Cocaine dependence, uncomplicated (3) Opioid dependence on agonist therapy Current Visit: Yes Status: Chronic (4) Nicotine dependence Current Visit: Yes Status: Chronic Qualifiers: Nicotine product type: cigarettes Substance use status: in withdrawal Qualified Code(s): F17.213 - Nicotine dependence, cigarettes, with withdrawal (5) Substance induced mood disorder Current Visit: Yes Status: Chronic (6) History of bipolar disorder Current Visit: Yes Status: Chronic (7) Insomnia Current Visit: Yes Status: Chronic - Initial Treatment Plan Initial Treatment Plan: Psychoeducation. Sleep hygiene. Detoxification. Support. AA/NA meetings. Patient reports that he has stopped taking buspirone " for a while " and wishes to resume only seroquel in this hospital course. Seroquel 100 mg po hs. Side effects/benefits discussed with the patient. Mr Ortiz is in agreement with this plan of care. Observation.
[2018-06-16] MEDS: hydrOXYzine PAMOATE 25 MG CAPSULE (FP) PO PRN ×2 (14:01→22:11)
--- NOTE | 2018-06-16 16:51 | PN ---
S CIWA - CIWA Score Nausea/Vomitin-No Nausea/No Vomiting Muscle Tremors: 3 Anxiety: 3 Agitation: 0-Normal Activity Paroxysmal Sweats: 3 Orientation: 0-Oriented Tacttile Disturbances: 1-Very Mild Itch/Numbness Auditory Disturbances: 0-None Visual Disturbances: 2-Mild Sensitivity Headache: 0-None Present CIWA-Ar Total Score: 12 BHS Progress Note (SOAP) Subjective: Sweating, Anxious, Tremors. Objective: PATIENT A & O X 3, OBSERVED AMBULATING ON UNIT. IN NO ACUTE DISTRESS. 06/16/18 16:50 Vital Signs Temperature 98.0 F 06/16/18 13:47 Pulse Rate 89 06/16/18 13:47 Respiratory Rate 18 06/16/18 13:47 Blood Pressure 123/77 06/16/18 13:47 O2 Sat by Pulse Oximetry (%) Laboratory Tests 06/15/18 06/16/18 06/16/18 13:20 06:30 06:30 WBC 8.8 RBC 4.48 Hgb 14.5 Hct 42.9 MCV 95.8 MCH 32.3 MCHC 33.7 RDW 14.5 D Plt Count 216 D MPV 9.7 D Sodium 139 Potassium 4.4 Chloride 104 Carbon Dioxide 31 Anion Gap 4 L BUN 23 H Creatinine 0.8 Creat Clearance w eGFR > 60 Random Glucose 83 Calcium 9.3 Total Bilirubin 0.2 AST 26 ALT 58 Alkaline Phosphatase 80 Total Protein 7.5 Albumin 3.8 HIV 1&2 Antibody Screen Negative HIV P24 Antigen Negative LABS NOTED. RPR RESULT PENDING. 06/16/18 16:50 Assessment: 06/16/18 16:50 WITHDRAWAL SYMPTOMS. Plan: CONTINUE DETOX. INCREASE DAILY PO FLUID INTAKE.
[2018-06-16] MEDS: THIAMINE HCL 100 MG TABLET (FP) PO SCH (22:09)
[2018-06-16] MEDS: MELATONIN 5 MG TABLETS PO PRN (22:09)
--- NOTE | 2018-06-16 22:22 | PN ---
[facility] Progress Note Note: Patient seen by psych. Based on review of Dr. Lemus' note will prescribe Seroquel.
[2018-06-16] MEDS ORDERED: QUEtiapine FUMARATE 100 MG TABLET (FP) PO SCH (23:05)
[2018-06-17] MEDS: chlordiazePOXIDE HCL 25 MG CAPSULE PO PRN ×3 (00:37→19:53)
[2018-06-17] MEDS ORDERED: METHADONE HCL 10 MG TABLET ONE (04:39)
[2018-06-17] MEDS ORDERED: METHADONE HCL 40 MG DISPERSABLE TABLET ONE (04:40)
[2018-06-17] MEDS ORDERED: METHADONE HCL 5 MG TABLET ONE (04:40)
[2018-06-17] MEDS: chlordiazePOXIDE HCL 25 MG CAPSULE PO SCH ×2 (05:26→10:17)
[2018-06-17] MEDS: METHADONE 40 MG, METHADONE 30 MG, METHADONE 5 MG PO SCH (05:26)
[2018-06-17] MEDS: NICOTINE POLACRILEX 2 MG GUM BUC PRN ×5 (05:29→19:55)
[2018-06-17] MEDS: EMTRICITABINE 200MG/TENOFOVIR 300MG PO SCH (07:20)
[2018-06-17] MEDS: amLODIPine BESYLATE 10 MG TABLET (FP) PO SCH (10:17)
[2018-06-17] MEDS: PRENATAL VITAMINS W/ FOLIC ACID TABLET (FP) PO SCH (10:17)
[2018-06-17] MEDS: NICOTINE 21 MG/24 HOURS TOPICAL PATCH TD SCH (10:17)
--- NOTE | 2018-06-17 14:53 | PN ---
S CIWA - CIWA Score Nausea/Vomitin-No Nausea/No Vomiting Muscle Tremors: 2 Anxiety: 3 Agitation: 0-Normal Activity Paroxysmal Sweats: 3 Orientation: 0-Oriented Tacttile Disturbances: 0-None Auditory Disturbances: 0-None Visual Disturbances: 2-Mild Sensitivity Headache: 0-None Present CIWA-Ar Total Score: 10 BHS Progress Note (SOAP) Subjective: Sweating, Anxious, Body Aches, Tremors. Objective: PATIENT A & O X 3, OBSERVED AMBULATING ON UNIT. IN NO ACUTE DISTRESS. 06/17/18 14:52 Vital Signs Temperature 98.1 F 06/17/18 14:02 Pulse Rate 85 06/17/18 14:02 Respiratory Rate 20 06/17/18 14:02 Blood Pressure 121/77 06/17/18 14:02 O2 Sat by Pulse Oximetry (%) Laboratory Tests 06/15/18 06/16/18 06/16/18 13:20 06:30 06:30 WBC 8.8 RBC 4.48 Hgb 14.5 Hct 42.9 MCV 95.8 MCH 32.3 MCHC 33.7 RDW 14.5 D Plt Count 216 D MPV 9.7 D Sodium 139 Potassium 4.4 Chloride 104 Carbon Dioxide 31 Anion Gap 4 L BUN 23 H Creatinine 0.8 Creat Clearance w eGFR > 60 Random Glucose 83 Calcium 9.3 Total Bilirubin 0.2 AST 26 ALT 58 Alkaline Phosphatase 80 Total Protein 7.5 Albumin 3.8 RPR Titer HIV 1&2 Antibody Screen Negative HIV P24 Antigen Negative 06/16/18 06:30 WBC RBC Hgb Hct MCV MCH MCHC RDW Plt Count MPV Sodium Potassium Chloride Carbon Dioxide Anion Gap BUN Creatinine Creat Clearance w eGFR Random Glucose Calcium Total Bilirubin AST ALT Alkaline Phosphatase Total Protein Albumin RPR Titer Nonreactive HIV 1&2 Antibody Screen HIV P24 Antigen LABS NOTED. Assessment: 06/17/18 14:53 WITHDRAWAL SYMPTOMS. Plan: CONTINUE DETOX. INCREASE DAILY PO FLUID INTAKE.
[2018-06-17] MEDS: chlordiazePOXIDE 5 MG CAPSULE PO SCH ×2 (17:49→21:59)
[2018-06-17] MEDS: CYCLOBENZAPRINE HCL 10 MG TABLET (FP) PO PRN (17:51)
[2018-06-17] MEDS: THIAMINE HCL 100 MG TABLET (FP) PO SCH (21:59)
[2018-06-17] MEDS: QUEtiapine FUMARATE 100 MG TABLET (FP) PO SCH (21:59)
[2018-06-17] MEDS ORDERED: QUEtiapine FUMARATE 100 MG TABLET (FP) PO SCH (22:00)
[2018-06-18] MEDS ORDERED: METHADONE HCL 40 MG DISPERSABLE TABLET ONE (04:08)
[2018-06-18] MEDS ORDERED: METHADONE HCL 10 MG TABLET ONE (04:08)
[2018-06-18] MEDS ORDERED: METHADONE HCL 5 MG TABLET ONE (04:09)
[2018-06-18] MEDS: chlordiazePOXIDE 5 MG CAPSULE PO SCH ×2 (05:37→10:27)
[2018-06-18] MEDS: METHADONE 40 MG, METHADONE 30 MG, METHADONE 5 MG PO SCH (05:38)
[2018-06-18] MEDS: NICOTINE POLACRILEX 2 MG GUM BUC PRN ×3 (05:41→13:08)
[2018-06-18] MEDS: EMTRICITABINE 200MG/TENOFOVIR 300MG PO SCH (07:01)
[2018-06-18] MEDS: amLODIPine BESYLATE 10 MG TABLET (FP) PO SCH (10:27)
[2018-06-18] MEDS: PRENATAL VITAMINS W/ FOLIC ACID TABLET (FP) PO SCH (10:27)
[2018-06-18] MEDS: NICOTINE 21 MG/24 HOURS TOPICAL PATCH TD SCH (10:27)
[2018-06-18] MEDS: CYCLOBENZAPRINE HCL 10 MG TABLET (FP) PO PRN (13:37)
[2018-06-18] MEDS: hydrOXYzine PAMOATE 25 MG CAPSULE (FP) PO PRN (15:06)
--- NOTE | 2018-06-18 15:49 | PN ---
S CIWA - CIWA Score Nausea/Vomitin-No Nausea/No Vomiting Muscle Tremors: 1-None Visible, but [place] Anxiety: 1-Mildly Anxious Agitation: 1-Slight > Activity Paroxysmal Sweats: 1-Minimal Palms Moist Orientation: 0-Oriented Tacttile Disturbances: 0-None Auditory Disturbances: 0-None Visual Disturbances: 0-None Headache: 1-Very Mild CIWA-Ar Total Score: 5 BHS Progress Note (SOAP) Subjective: feeling better less sweating mild tremor Objective: 06/18/18 15:49 Vital Signs Temperature 96 F L 06/18/18 14:37 Pulse Rate 96 H 06/18/18 14:37 Respiratory Rate 18 06/18/18 14:37 Blood Pressure 137/83 06/18/18 14:37 O2 Sat by Pulse Oximetry (%) Laboratory Last Values WBC 8.8 K/mm3 (4.0-10.0) 06/16/18 06:30 RBC 4.48 M/mm3 (4.00-5.60) 06/16/18 06:30 Hgb 14.5 GM/dL (11.7-16.9) 06/16/18 06:30 Hct 42.9 % (35.4-49) 06/16/18 06:30 MCV 95.8 fl (80-96) 06/16/18 06:30 MCH 32.3 pg (25.7-33.7) 06/16/18 06:30 MCHC 33.7 g/dl (32.0-35.9) 06/16/18 06:30 RDW 14.5 % (11.9-15.9) D 06/16/18 06:30 Plt Count 216 K/MM3 (134-434) D 06/16/18 06:30 MPV 9.7 fl (7.5-11.1) D 06/16/18 06:30 Sodium 139 mmol/L (136-145) 06/16/18 06:30 Potassium 4.4 mmol/L (3.5-5.1) 06/16/18 06:30 Chloride 104 mmol/L (98-107) 06/16/18 06:30 Carbon Dioxide 31 mmol/L (21-32) 06/16/18 06:30 Anion Gap 4 MMOL/L (8-16) L 06/16/18 06:30 BUN 23 mg/dL (7-18) H 06/16/18 06:30 Creatinine 0.8 mg/dL (0.55-1.3) 06/16/18 06:30 Creat Clearance w eGFR > 60 (>60) 06/16/18 06:30 Random Glucose 83 mg/dL (74-106) 06/16/18 06:30 Calcium 9.3 mg/dL (8.5-10.1) 06/16/18 06:30 Total Bilirubin 0.2 mg/dL (0.2-1) 06/16/18 06:30 AST 26 U/L (15-37) 06/16/18 06:30 ALT 58 U/L (13-61) 06/16/18 06:30 Alkaline Phosphatase 80 U/L (45-117) 06/16/18 06:30 Total Protein 7.5 g/dl (6.4-8.2) 06/16/18 06:30 Albumin 3.8 g/dl (3.4-5.0) 06/16/18 06:30 RPR Titer Nonreactive (NONREACTIVE) 06/16/18 06:30 HIV 1&2 Antibody Screen Negative 06/15/18 13:20 HIV P24 Antigen Negative 06/15/18 13:20 lab noted Assessment: 06/18/18 15:49 mild withdrawal sx 06/18/18 15:49 Plan: continue detox
[2018-06-18] MEDS: chlordiazePOXIDE HCL 10 MG CAPSULE PO SCH ×2 (18:04→22:09)
[2018-06-18] MEDS: THIAMINE HCL 100 MG TABLET (FP) PO SCH (22:09)
[2018-06-18] MEDS: QUEtiapine FUMARATE 100 MG TABLET (FP) PO SCH (22:09)
[2018-06-18] MEDS: MELATONIN 5 MG TABLETS PO PRN (22:10)
[2018-06-19] MEDS ORDERED: METHADONE HCL 10 MG TABLET ONE (04:51)
[2018-06-19] MEDS ORDERED: METHADONE HCL 40 MG DISPERSABLE TABLET ONE (04:51)
[2018-06-19] MEDS ORDERED: METHADONE HCL 5 MG TABLET ONE (04:51)
[2018-06-19] MEDS: chlordiazePOXIDE HCL 10 MG CAPSULE PO SCH (05:17)
[2018-06-19] MEDS: METHADONE 40 MG, METHADONE 30 MG, METHADONE 5 MG PO SCH (05:17)
[2018-06-19 09:21] VITALS: BP 119/80; PULSE 91; TEMP 97.7
--- NOTE | 2018-06-19 10:33 | DS ---
[facility] Detox Discharge Summary Admission Date: 06/15/18 Discharge Date: 06/19/18 - History Present History: Alcohol Dependence Additional Comments: 48 years old male admitted on 06/15/18 for alcohol withdrawal stabilization completed alcohol detox regimen aftercare [facility] patient preferred return to infectious disease specialist for medical and mental issues Pertinent Past History: patient wants to return to methadone maintenance treatment program health service facility bring in medication list and bottles of medication bring in lab report to aftercare appointment update medication list when change of medication - Physical Exam Results Vital Signs: Vital Signs Temperature 97.7 F 06/19/18 09:20 Pulse Rate 91 H 06/19/18 09:20 Respiratory Rate 18 06/19/18 09:20 Blood Pressure 119/80 06/19/18 09:20 O2 Sat by Pulse Oximetry (%) Pertinent Admission Physical Exam Findings: alcohol withdrawal sx Laboratory Last Values WBC 8.8 K/mm3 (4.0-10.0) 06/16/18 06:30 RBC 4.48 M/mm3 (4.00-5.60) 06/16/18 06:30 Hgb 14.5 GM/dL (11.7-16.9) 06/16/18 06:30 Hct 42.9 % (35.4-49) 06/16/18 06:30 MCV 95.8 fl (80-96) 06/16/18 06:30 MCH 32.3 pg (25.7-33.7) 06/16/18 06:30 MCHC 33.7 g/dl (32.0-35.9) 06/16/18 06:30 RDW 14.5 % (11.9-15.9) D 06/16/18 06:30 Plt Count 216 K/MM3 (134-434) D 06/16/18 06:30 MPV 9.7 fl (7.5-11.1) D 06/16/18 06:30 Sodium 139 mmol/L (136-145) 06/16/18 06:30 Potassium 4.4 mmol/L (3.5-5.1) 06/16/18 06:30 Chloride 104 mmol/L (98-107) 06/16/18 06:30 Carbon Dioxide 31 mmol/L (21-32) 06/16/18 06:30 Anion Gap 4 MMOL/L (8-16) L 06/16/18 06:30 BUN 23 mg/dL (7-18) H 06/16/18 06:30 Creatinine 0.8 mg/dL (0.55-1.3) 06/16/18 06:30 Creat Clearance w eGFR > 60 (>60) 06/16/18 06:30 Random Glucose 83 mg/dL (74-106) 06/16/18 06:30 Calcium 9.3 mg/dL (8.5-10.1) 06/16/18 06:30 Total Bilirubin 0.2 mg/dL (0.2-1) 06/16/18 06:30 AST 26 U/L (15-37) 06/16/18 06:30 ALT 58 U/L (13-61) 06/16/18 06:30 Alkaline Phosphatase 80 U/L (45-117) 06/16/18 06:30 Total Protein 7.5 g/dl (6.4-8.2) 06/16/18 06:30 Albumin 3.8 g/dl (3.4-5.0) 06/16/18 06:30 RPR Titer Nonreactive (NONREACTIVE) 06/16/18 06:30 HIV 1&2 Antibody Screen Negative 06/15/18 13:20 HIV P24 Antigen Negative 06/15/18 13:20 lab noted - Treatment Hospital Course: Detox Protocol Followed, Detoxed Safely, Responded well, Discharged Condition Good, Rehab Referral Accepted Patient has Accepted a Rehab Referral to: [facility] maintenance treatment program infectious disease specia - Medication Discharge Medications: Ambulatory Orders Emtricitabine/Tenofovir [Truvada -] 1 tab PO DAILY #30 tablet 01/20/15 Quetiapine Fumarate [Seroquel] 100 mg PO HS #30 tablet 10/29/17 Albuterol Sulfate Inhaler - [Ventolin HFA Inhaler -] 2 puff IH Q4H PRN #1 inhaler 06/18/18 Amlodipine Besylate [Norvasc -] 10 mg PO DAILY #30 tablet 06/18/18 - Diagnosis (1) Alcohol dependence with uncomplicated withdrawal Status: Acute (2) Asthma Status: Chronic Qualifiers: Asthma severity: mild Asthma persistence: intermittent Asthma complication type: uncomplicated Qualified Code(s): J45.20 - Mild intermittent asthma, uncomplicated (3) Essential hypertension Status: Chronic (4) Hepatitis C Status: Chronic Qualifiers: Viral hepatitis chronicity: chronic Hepatic coma status: without hepatic coma Qualified Code(s): B18.2 - Chronic viral hepatitis C (5) Methadone maintenance therapy patient Status: Chronic (6) Substance induced mood disorder Status: Suspected - AMA Did Patient Leave Against Medical Advice: No
== END 2018-06-19 09:17 | disposition home or self-care (01) | DRG 773 ==
LOC: YASAS 10:57 → Y3N 12:11
PROVIDERS: ADMIT Surgery; ATTEND Surgery
PROC: HZ2ZZZZ Detoxification Services for Substance Abuse Treatment (ICD-10-PCS; principal; 2018-06-15)
DX: F10.230 Alcohol dependence with withdrawal, uncomplicated (principal); F14.20 Cocaine dependence, uncomplicated; F11.20 Opioid dependence, uncomplicated; F17.213 Nicotine dependence, cigarettes, with withdrawal; F19.24 Other psychoactive substance dependence with psychoactive substance-induced mood disorder; F31.9 Bipolar disorder, unspecified; B18.2 Chronic viral hepatitis C; J45.20 Mild intermittent asthma, uncomplicated; I25.2 Old myocardial infarction; Z86.73 Personal history of transient ischemic attack (TIA), and cerebral infarction without residual deficits; R26.89 Other abnormalities of gait and mobility; Z99.89 Dependence on other enabling machines and devices
CPT/HCPCS: 36415; 80053; 85027; 86593; 87389

== ENCOUNTER 2018-09-30 10:36 | Inpatient (IN) | payer OTHER ==
[2018-09-30 12:18] VITALS: BMI 30.1
--- NOTE | 2018-09-30 12:59 | HP ---
"CIWA Score Nausea/Vomitin Muscle Tremors: 4-Moderate,w/Arms Extend Anxiety: 4-Mod. Anxious/Guarded Agitation: 0-Normal Activity Paroxysmal Sweats: No Perspiration Orientation: 2-Disoriented Date<2 days Tacttile Disturbances: 0-None Auditory Disturbances: 0-None Visual Disturbances: 0-None Headache: 2-Mild CIWA-Ar Total Score: 14 - Admission Criteria OASAS Guidelines: Admission for Medically Managed Detox: Requires at least one of the followin. CIWA greater than 12 2. Seizures within the past 24 hours 3. Delirium tremens within the past 24 hours 4. Hallucinations within the past 24 hours 5. Acute intervention needed for co occurring medical disorder 6. Acute intervention needed for co occurring psychiatric disorder 7. Severe withdrawal that cannot be handled at a lower level of care (continued vomiting, continued diarrhea, abnormal vital signs) requiring intravenous medication and/or fluids 8. Patient presents the following: CIWA greater than 12 Admission Criteria Met: Admission criteria met Admission ROS S - HPI Chief Complaint: I want to clean myself out -I just drink, go to sleep, drink, go to sleep - it' s a problem - the money don't last, I have to stop but I get too shaky Allergies/Adverse Reactions: Allergies Allergy/AdvReac Type Severity Reaction Status Date / Time No Known Allergies Allergy Verified 09/30/18 12:05 History of Present Illness: 48 yo gentleman here for detox from alcohol and alprazolam. History of black outs but no seizures, drinks starting in the morning. On methadone program at [facility] for about a year - still using heroin a bag a day (sniffs) - was dosed today at 20mg - did bring in bottle ([phone]). States he used to be a higher dose of oxycodone (was qid) but was cut back and states he had also been prescribed alprazolam in the past but it was 'cut off' so he started getting it from the street. [email or web address]: Search Terms: jamesno ortiz, 1970 Search Date: 09/30/2018 12:58:18 PM The Drug Utilization Report below displays all of the controlled substance prescriptions, if any, that your patient has filled in the last twelve months. The information displayed on this report is compiled from pharmacy submissions to the Department, and accurately reflects the information as submitted by the pharmacies. This report was requested by: Maria Fernanda Taylor | Reference #: [id number] Others' Prescriptions Patient Name: Jameson Ortiz Date: 1970 Address: [id number] [place], [place] [id number] Sex: Male Rx Written Rx Dispensed Drug Quantity Days Supply Prescriber Name 08/29/2018 08/30/2018 oxycodone hcl 30 mg tablet 40 30 ZeanaPatricia MD 08/01/2018 08/01/2018 dronabinol 10 mg capsule 60 30 ZeanaPatricia MD 08/01/2018 08/01/2018 oxycodone hcl 30 mg tablet 40 20 ZeanaPatricia MD 06/26/2018 07/01/2018 oxycodone hcl 30 mg tablet 40 30 ZeanaPatricia MD 06/26/2018 07/01/2018 dronabinol 10 mg capsule 60 30 ZeanaPatricia MD 06/02/2018 06/05/2018 oxycodone hcl 30 mg tablet 40 30 ZeanaPatricia MD 06/02/2018 06/05/2018 dronabinol 10 mg capsule 60 30 ZeanaPatricia MD 05/02/2018 05/06/2018 oxycodone hcl 30 mg tablet 40 30 ZeanaPatricia MD 04/05/2018 04/07/2018 oxycodone hcl 30 mg tablet 40 30 ZeanaPatricia MD 04/05/2018 04/07/2018 dronabinol 10 mg capsule 60 30 ZeanaPatricia MD 03/08/2018 03/10/2018 dronabinol 10 mg capsule 60 30 ZePatricia velasco MD 03/10/2018 03/10/2018 oxycodone hcl 30 mg tablet 40 30 ZeanaPatricia MD 02/07/2018 02/07/2018 oxycodone hcl 30 mg tablet 40 30 ZePatricia velasco MD 01/09/2018 02/01/2018 dronabinol 10 mg capsule 60 30 Jefferson Lagunas ( [facility]) 01/09/2018 01/09/2018 oxycodone hcl 30 mg tablet 40 30 Jefferson Lagunas ( [employer]) 07/13/2017 12/24/2017 dronabinol 10 mg capsule 60 30 ZeanaPatricia MD 12/05/2017 12/08/2017 oxycodone hcl 30 mg tablet 40 30 Patricia Seymour MD 10/25/2017 11/09/2017 oxycodone hcl 30 mg tablet 40 30 Patricia Seymour MD Exam Limitations: No Limitations - Ebola screening Have you traveled outside of the country in the last 21 days: No (N) Have you had contact with anyone from an Ebola affected area: No Do you have a fever: No - Review of Systems Constitutional: Loss of Appetite, Malaise, Night Sweats, Changes in sleep EENT: reports: No Symptoms Reported Respiratory: reports: No Symptoms reported Cardiac: reports: No Symptoms Reported GI: reports: Poor Appetite, Poor Fluid Intake, Abdominal cramping : reports: Frequency Musculoskeletal: reports: Muscle Pain (left leg) Integumentary: reports: No Symptoms Reported Neuro: reports: Headache Endocrine: reports: No Symptoms Reported Hematology: reports: No Symptoms Reported Psychiatric: reports: Mood/Affect Appropiate, Anxious Other Systems: Reviewed and Negative Patient History - Patient Medical History Hx Anemia: No Hx Asthma: Yes (Uses Ventolin Inhaler.) Hx Chronic Obstructive Pulmonary Disease (COPD): No Hx Cancer: No Hx Cardiac Disorders: Yes (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 3 months ago.) Hx Genitourinary Disorders: No Hx Sexually Transmitted Disorders: No Hx Renal Disease (ESRD): No Hx Thyroid Disease: No Hx Human Immunodeficiency Virus (HIV): No (Last Tested:06/2016:NEGATIVE ON PROPHYLACTIC TRUVADA DUE TO PARTNER STATUS.) Hx Hepatitis C: Yes (Completed Treatment approx. 3 months ago.) Hx Depression: Yes (Seroquel) Hx Suicide Attempt: Yes (2003-Took full bottle of medication w/ Alcohol; PT. DENIES CURRENT SI /HI.) Hx Bipolar Disorder: No Hx Schizophrenia: No - Patient Surgical History Past Surgical History: Yes Hx Neurologic Surgery: No Hx Cataract Extraction: No Hx Cardiac Surgery: No Hx Lung Surgery: No Hx Breast Surgery: No Hx Breast Biopsy: No Hx Abdominal Surgery: No Hx Appendectomy: No Hx Cholecystectomy: No Hx Genitourinary Surgery: No Hx Section: No Hx Orthopedic Surgery: Yes (LEFT LOWER LEG SX DUE TO FX IN 2003- many surgeries) Anesthesia Reaction: No - PPD History Previous Implant?: Yes Documented Results: Negative w/proof Implanted On Prior [facility] Admission?: Yes Date: 10/29/17 Results: negative PPD to be Administered?: No - Reproductive History Patient is a Female of Child Bearing Age (11 -55 yrs old): No - Smoking Cessation Smoking history: Current every day smoker Have you smoked in the past 12 months: Yes Aproximately how many cigarettes per day: 20 Cigars Per Day: 0 Hx Chewing Tobacco Use: No Initiated information on smoking cessation: Yes 'Breaking Loose' booklet given: 09/30/18 (give on floor) - Substances abused Alcohol Substance route: Oral Frequency: Daily Amount used: 7-8 pints, 8 cans of twelve ounce beer Age of first use: 15 Date of last use: 09/30/18 Heroin Substance route: Inhalation Frequency: 3-6 times per week Amount used: 1 bag Age of first use: 23 Date of last use: 09/30/18 Alprazolam (Xanax) Other (specify): xanax Substance route: Oral Frequency: 1-2 times per week Amount used: 1-2 sticks (4mg) Age of first use: 22 Date of last use: 09/30/18 Marijuana/Hashish Substance route: Smoking Frequency: 3-6 times per week Amount used: 2 blunts Age of first use: 15 Date of last use: 09/29/18 Family Disease History - Family Disease History Family Disease History: Other: Father (living and healthy ), Mother (living - healthy), Brother (two - healthy), Sister (two - one with depression), Son (one age 32 - healthy), Daughter (one age 23 - healthy) Admission Physical Exam BHS - Vital Signs Vital Signs: Vital Signs - 24 hr 09/30/18 12:09 Temperature 98.6 F Pulse Rate 113 H Respiratory 17 Rate Blood Pressure 109/72 - Physical General Appearance: Yes: Nourished, Appropriately Dressed, Moderate Distress, Anxious HEENTM: Yes: EOMI, Hearing grossly Normal, Normocephalic, Normal Voice, Pharynx Normal Respiratory: Yes: Normal Breath Sounds, No Respiratory Distress Neck: Yes: No masses,lesions,Nodules Breast: Yes: Breast Exam Deferred Cardiology: Yes: Regular Rhythm, Regular Rate Abdominal: Yes: Soft, Protuberent Genitourinary: Yes: Frequency Back: Yes: Normal Inspection Musculoskeletal: Yes: Joint Stiffness (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), Other (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 move the left foot or toes) Extremities: Yes: Other (left lower extremity with chronic deformity) Neurological: Yes: Alert, Normal Mood/Affect, Normal Response, Numbness Integumentary: Yes: Normal Color, Warm Lymphatic: Yes: Within Normal Limits - Diagnostic (1) Alcohol dependence with uncomplicated withdrawal Current Visit: Yes Status: Chronic (2) Sedative, hypnotic or anxiolytic dependence with withdrawal, uncomplicated Current Visit: Yes Status: Chronic (3) Cannabis dependence Current Visit: Yes Status: Acute (4) Hepatitis C virus infection resolved after antiviral drug therapy Current Visit: Yes Status: Chronic (5) History of [place] (myocardial infarction) Current Visit: Yes Status: Chronic (6) Left leg injury Current Visit: Yes Status: Acute Qualifiers: Encounter type: sequela Qualified Code(s): S89.92XS - Unspecified injury of left lower leg, sequela (7) Asthma Current Visit: Yes Status: Chronic Qualifiers: Asthma severity: mild Asthma persistence: intermittent Asthma complication type: uncomplicated Qualified Code(s): J45.20 - Mild intermittent asthma, uncomplicated (8) Cocaine dependence Current Visit: Yes Status: Chronic Qualifiers: Substance use status: uncomplicated Qualified Code(s): F14.20 - Cocaine dependence, uncomplicated (9) Essential hypertension Current Visit: Yes Status: Chronic (10) Methadone maintenance therapy patient Current Visit: Yes Status: Chronic (11) Nicotine dependence Current Visit: Yes Status: Chronic Qualifiers: Nicotine product type: cigarettes Substance use status: in withdrawal Qualified Code(s): F17.213 - Nicotine dependence, cigarettes, with withdrawal (12) Chronic pain after traumatic injury Current Visit: Yes Status: Chronic Comment: left lower leg Cleared for Admission S - Detox or Rehab S Level of Care: Medically Managed Detox Regimen/Protocol: Librium Breathalyzer - Breathalyzer Breathalyzer: 0.078 Urine Drug Screen - Test Device Lot number: [id number] Expiration date: 06/15/20 - Control Is test valid?: Yes - Results Drug screen NEGATIVE: No Urine drug screen results: THC-Marijuana, FEN-Fentanyl, MOP-Opiates, MTD- Methadone, BZO-Benzodiazepines Inpatient Rehab Admission - Rehab Decision to Admit Inpatient rehab admission?: No"
[2018-09-30] MEDS ORDERED: MAGNESIUM HYDROX 2400MG/30ML ORAL SUSPENSION 30 ML CUP PO PRN (13:30)
[2018-09-30] MEDS ORDERED: METHOCARBAMOL 500 MG TABLET PO PRN (13:30)
[2018-09-30] MEDS ORDERED: MAG HYDROX/AL HYDROX/SIMETH 30 ML UNIT-DOSE CUP PO PRN (13:30)
[2018-09-30] MEDS ORDERED: BISMUTH SUBSALICYLATE 524 MG/30 ML UD PO PRN (13:30)
[2018-09-30] MEDS ORDERED: MAGNESIUM CITRATE 300 ML BOTTLE PO PRN (13:30)
[2018-09-30] MEDS ORDERED: MENTHOL/PHENOL 1 EACH UD MM PRN (13:30)
[2018-09-30] MEDS ORDERED: IBUPROFEN 400 MG TABLET (FP) PO PRN (13:30)
[2018-09-30] MEDS ORDERED: ACETAMINOPHEN 325 MG TABLET (FP) PO PRN (13:30)
[2018-09-30] MEDS ORDERED: chlordiazePOXIDE HCL 25 MG CAPSULE PO ONE (14:00)
[2018-09-30] MEDS: NICOTINE POLACRILEX 4 MG GUM BUC PRN ×3 (14:41→20:18)
[2018-09-30] MEDS: chlordiazePOXIDE HCL 25 MG CAPSULE PO SCH ×2 (17:54→22:28)
[2018-09-30] MEDS: THIAMINE HCL 100 MG TABLET (FP) PO SCH (22:29)
[2018-09-30] MEDS: MELATONIN 5 MG TABLETS PO PRN (22:31)
[2018-10-01] MEDS: chlordiazePOXIDE HCL 25 MG CAPSULE PO PRN ×3 (02:17→20:22)
[2018-10-01] MEDS: NICOTINE POLACRILEX 4 MG GUM BUC PRN ×6 (02:17→22:32)
[2018-10-01] MEDS ORDERED: METHADONE HCL 10 MG TABLET PO ONE (06:00)
[2018-10-01] MEDS: chlordiazePOXIDE HCL 25 MG CAPSULE PO SCH ×4 (06:07→22:06)
[2018-10-01] MEDS: PRENATAL VITAMINS W/ FOLIC ACID TABLET (FP) PO SCH (10:08)
[2018-10-01 11:10] LABS: ALBUMIN 3.3 g/dl (3.4-5.0); BILIRUBIN,TOTAL 0.2 mg/dL (0.2-1); BLOOD UREA NITROGEN 16.8 mg/dL (7-18); CALCIUM 8.8 mg/dL (8.5-10.1); CREATININE 0.7 mg/dL (0.55-1.3); POTASSIUM 4.2 mmol/L (3.5-5.1); TOT PROT 6.3 g/dl (6.4-8.2)
--- NOTE | 2018-10-01 11:12 | CONSULT ---
[facility] Psychiatric Consult - Data Date of interview: 10/01/18 Admission source: Self-referred Identifying data: Mr Ortiz is a 48 years old single male, father of 2 children, unemployed receiving public assistance, domiciled seeking detox treatment for alcohol, opioid, benzodiazepine and cannabis Substance Abuse History: Reports history of alcohol, heroin, xanax and marijuana use. Refer to addiction counselor's summary for further information Medical History: Significant for bronchial asthma, hypertension, history of treatment for hepatitis C, myocardial infarction (2003) and orthosurgery ( fracture of left leg) in 2003. Patient is on prophylactic truvada (due to current partner's status). Patient is on methadone 120 mg/day from [facility]. Smokes cigarettes 1 ppd Psychiatric History: Patient reports that his onset of psychiatric illness was in 1990 when he was diagnosed with MDD and Anxiety Disorder. Diagnosis was later revised to Bipolar Disorder. Reports 2 previous psychiatric hospitalizations both at [facility]. His most recent admission was in 2003 for depression. Reports receiving outpatient psychiatric treatment at [facility] and he is currently prescribed Seroquel 50 mg/day & 100 mg/hs. Reports history of one suicide attempt (1989) via deliberate overdose with alcohol + medications. At present, denies experiencing psychotic, manic or depressive symptoms, S/H ideations. However, report feeling anxious and sleeping poorly Physical/Sexual Abuse/Trauma History: Denies history of emotional, physical or sexual abuse as well as DV relationship. No service Additional Comment: Reports history of 3 previous felony convictions. Denies being on parole at present Mental Status Exam - Mental Status Exam Alert and Oriented to: Time, Place, Person Cognitive Function: Fair Patient Appearance: Well Groomed Mood: Anxious Affect: Appropriate Patient Behavior: Cooperative Speech Pattern: Clear Voice Loudness: Normal Thought Process: Intact Thought Disorder: Not Present Hallucinations: Denies Suicidal Ideation: Denies Homicidal Ideation: Denies Insight/Judgement: Poor Sleep: Poorly Appetite: Poor Muscle strength/Tone: Normal Gait/Station: Normal Psychiatric Findings - Problem List ([place] 1, 2,3) (1) Bipolar disorder Current Visit: Yes Status: Chronic (2) Substance-induced anxiety disorder Current Visit: Yes Status: Acute (3) Substance-induced sleep disorder Current Visit: Yes Status: Acute (4) Alcohol dependence with uncomplicated withdrawal Current Visit: Yes Status: Acute (5) Sedative, hypnotic or anxiolytic dependence with withdrawal, uncomplicated Current Visit: Yes Status: Acute (6) Cannabis dependence Current Visit: Yes Status: Acute (7) Opioid dependence on agonist therapy Current Visit: Yes Status: Chronic (8) Nicotine dependence Current Visit: Yes Status: Chronic Qualifiers: Nicotine product type: cigarettes Substance use status: in withdrawal Qualified Code(s): F17.213 - Nicotine dependence, cigarettes, with withdrawal (9) Asthma Current Visit: Yes Status: Chronic Qualifiers: Asthma severity: mild Asthma persistence: intermittent Asthma complication type: uncomplicated Qualified Code(s): J45.20 - Mild intermittent asthma, uncomplicated (10) Essential hypertension Current Visit: Yes Status: Chronic (11) History of [place] (myocardial infarction) Current Visit: Yes Status: Chronic (12) Hepatitis C Current Visit: Yes Status: Resolved - Initial Treatment Plan Initial Treatment Plan: 1) Continue Seroquel 100 mg po HS. 2) Start Hydroxyzine 50 mg po Q 4hrs prn for anxiety. 3) Continue inpatient detoxification
[2018-10-01 11:15] LABS: HEMATOCRIT 41.8 % (35.4-49); HEMOGLOBIN 13.7 GM/dL (11.7-16.9); MCH 31.3 pg (25.7-33.7); MCHC 32.8 g/dl (32.0-35.9); MEAN CELL VOLUME 95.3 fl (80-96); RBC 4.39 M/mm3 (4.00-5.60); RDW 13.8 % (11.9-15.9); WHITE BLOOD COUNT 7.7 K/mm3 (4.0-10.0)
[2018-10-01] MEDS: NICOTINE 21 MG/24 HOURS TOPICAL PATCH TD SCH (11:28)
[2018-10-01 11:29] LABS: PLATELET COUNT 217 K/MM3 (134-434)
[2018-10-01] MEDS: hydrOXYzine PAMOATE 50 MG CAPSULE (FP) PO PRN ×3 (11:29→20:22)
--- NOTE | 2018-10-01 13:50 | PN ---
S CIWA - CIWA Score Nausea/Vomitin-No Nausea/No Vomiting Muscle Tremors: 3 Anxiety: 3 Agitation: 3 Paroxysmal Sweats: 3 Orientation: 0-Oriented Tacttile Disturbances: 0-None Auditory Disturbances: 0-None Visual Disturbances: 0-None Headache: 0-None Present CIWA-Ar Total Score: 12 S Progress Note (SOAP) Subjective: sweats shakes interrupted sleep body aches Objective: 10/01/18 13:49 Vital Signs Temperature 97.7 F 10/01/18 09:27 Pulse Rate 87 10/01/18 09:27 Respiratory Rate 18 10/01/18 09:27 Blood Pressure 141/79 10/01/18 09:27 O2 Sat by Pulse Oximetry (%) Laboratory Tests 10/01/18 10/01/18 10/01/18 07:30 07:30 07:30 WBC 7.7 RBC 4.39 Hgb 13.7 Hct 41.8 MCV 95.3 MCH 31.3 MCHC 32.8 RDW 13.8 Plt Count 217 MPV 9.0 Sodium 139 Potassium 4.2 Chloride 104 Carbon Dioxide 30 Anion Gap 5 L BUN 16.8 Creatinine 0.7 Est GFR (CKD-EPI)AfAm 129.34 Est GFR (CKD-EPI)NonAf 111.59 Random Glucose 93 Calcium 8.8 Total Bilirubin 0.2 AST 35 ALT 87 H Alkaline Phosphatase 64 Total Protein 6.3 L Albumin 3.3 L RPR Titer Nonreactive aaox3 ambulating no acute distress Assessment: 10/01/18 13:50 withdrawal sx Plan: continue detox increase fluids nicotine patch 21mcq
[2018-10-01] MEDS: THIAMINE HCL 100 MG TABLET (FP) PO SCH (22:06)
[2018-10-01] MEDS: QUEtiapine FUMARATE 100 MG TABLET (FP) PO SCH (22:06)
[2018-10-01] MEDS: MELATONIN 5 MG TABLETS PO PRN (22:07)
[2018-10-02] MEDS: chlordiazePOXIDE HCL 25 MG CAPSULE PO PRN ×2 (00:44→14:31)
[2018-10-02] MEDS: hydrOXYzine PAMOATE 50 MG CAPSULE (FP) PO PRN ×3 (03:05→15:54)
[2018-10-02] MEDS: METHADONE HCL 10 MG TABLET PO SCH (05:28)
[2018-10-02] MEDS: chlordiazePOXIDE HCL 25 MG CAPSULE PO SCH ×2 (05:28→10:49)
[2018-10-02] MEDS: PRENATAL VITAMINS W/ FOLIC ACID TABLET (FP) PO SCH (10:48)
[2018-10-02] MEDS: NICOTINE 21 MG/24 HOURS TOPICAL PATCH TD SCH (10:49)
[2018-10-02] MEDS: NICOTINE POLACRILEX 4 MG GUM BUC PRN ×5 (10:50→22:07)
--- NOTE | 2018-10-02 10:59 | PN ---
S Progress Note Note: Patient reports feeling anxious despite taking Vistaril 50 mg Q 4hrs prn. Requests to resume Seroquel 50 mg/day as he responded better to that
[2018-10-02] MEDS: QUEtiapine FUMARATE 50 MG TABLET PO SCH (12:08)
--- NOTE | 2018-10-02 13:06 | PN ---
S CIWA - CIWA Score Nausea/Vomitin-No Nausea/No Vomiting Muscle Tremors: 3 Anxiety: 1-Mildly Anxious Agitation: 2 Paroxysmal Sweats: 2 Orientation: 0-Oriented Tacttile Disturbances: 0-None Auditory Disturbances: 0-None Visual Disturbances: 0-None Headache: 0-None Present CIWA-Ar Total Score: 8 BHS Progress Note (SOAP) Subjective: stomach cramp gassy sweats interrupted sleep Objective: 10/02/18 13:05 Vital Signs Temperature 97.7 F 10/02/18 09:15 Pulse Rate 79 10/02/18 09:15 Respiratory Rate 17 10/02/18 09:15 Blood Pressure 126/76 10/02/18 09:15 O2 Sat by Pulse Oximetry (%) Laboratory Tests 10/01/18 10/01/18 10/01/18 07:30 07:30 07:30 WBC 7.7 RBC 4.39 Hgb 13.7 Hct 41.8 MCV 95.3 MCH 31.3 MCHC 32.8 RDW 13.8 Plt Count 217 MPV 9.0 Sodium 139 Potassium 4.2 Chloride 104 Carbon Dioxide 30 Anion Gap 5 L BUN 16.8 Creatinine 0.7 Est GFR (CKD-EPI)AfAm 129.34 Est GFR (CKD-EPI)NonAf 111.59 Random Glucose 93 Calcium 8.8 Total Bilirubin 0.2 AST 35 ALT 87 H Alkaline Phosphatase 64 Total Protein 6.3 L Albumin 3.3 L RPR Titer Nonreactive labs noted aaox3 ambulating no acute distress Assessment: 10/02/18 13:05 withdrawal sx Plan: continue detox increase fluids MOM/mylanta prn
[2018-10-02] MEDS: chlordiazePOXIDE HCL 10 MG CAPSULE PO SCH ×2 (17:20→22:05)
[2018-10-02] MEDS: chlordiazePOXIDE HCL 10 MG CAPSULE PO PRN (19:29)
[2018-10-02] MEDS: QUEtiapine FUMARATE 100 MG TABLET (FP) PO SCH (22:05)
[2018-10-02] MEDS: THIAMINE HCL 100 MG TABLET (FP) PO SCH (22:05)
[2018-10-02] MEDS: MELATONIN 5 MG TABLETS PO PRN (22:06)
[2018-10-03] MEDS: chlordiazePOXIDE HCL 10 MG CAPSULE PO PRN (01:40)
[2018-10-03] MEDS: hydrOXYzine PAMOATE 50 MG CAPSULE (FP) PO PRN ×2 (03:26→05:34)
[2018-10-03] MEDS: NICOTINE POLACRILEX 4 MG GUM BUC PRN ×2 (03:28→05:35)
[2018-10-03] MEDS: METHADONE HCL 10 MG TABLET PO SCH (05:32)
[2018-10-03] MEDS: chlordiazePOXIDE HCL 10 MG CAPSULE PO SCH (05:32)
--- NOTE | 2018-10-03 08:33 | DS ---
[facility] Detox Discharge Summary Admission Date: 09/30/18 Discharge Date: 10/03/18 - History Present History: Alcohol Dependence, Cannabis Dependence, Cocaine Dependence, Sedative Dependence, MMTP - Physical Exam Results Vital Signs: Vital Signs Temperature 97 F L 10/03/18 07:51 Pulse Rate 68 10/03/18 07:51 Respiratory Rate 18 10/03/18 07:51 Blood Pressure 112/61 10/03/18 07:51 O2 Sat by Pulse Oximetry (%) - Treatment Hospital Course: Detox Protocol Followed, Detoxed Safely, Responded well, Discharged Condition Good, Rehab Referral Accepted - Medication Discharge Medications: Ambulatory Orders Albuterol Sulfate Inhaler - [Ventolin HFA Inhaler -] 2 puff IH Q4H PRN #1 inhaler 06/18/18 Amlodipine Besylate [Norvasc -] 10 mg PO DAILY 09/30/18 Methadone [Dolophine -] 20 mg PO DAILY 09/30/18 Quetiapine Fumarate [Seroquel] 100 mg PO HS 09/30/18 - Diagnosis (1) Alcohol dependence with uncomplicated withdrawal Current Visit: Yes Status: Chronic (2) Cannabis dependence Current Visit: Yes Status: Chronic (3) Left leg injury Current Visit: No Status: Chronic Qualifiers: Encounter type: sequela Qualified Code(s): S89.92XS - Unspecified injury of left lower leg, sequela (4) Sedative, hypnotic or anxiolytic dependence with withdrawal, uncomplicated Current Visit: Yes Status: Chronic (5) Substance-induced anxiety disorder Current Visit: Yes Status: Acute (6) Substance-induced sleep disorder Current Visit: Yes Status: Acute (7) Asthma Current Visit: Yes Status: Chronic Qualifiers: Asthma severity: mild Asthma persistence: intermittent Asthma complication type: uncomplicated Qualified Code(s): J45.20 - Mild intermittent asthma, uncomplicated (8) Bipolar disorder Current Visit: Yes Status: Chronic (9) Chronic pain after traumatic injury Current Visit: Yes Status: Chronic (10) Cocaine dependence Current Visit: Yes Status: Chronic Qualifiers: Substance use status: uncomplicated Qualified Code(s): F14.20 - Cocaine dependence, uncomplicated (11) Essential hypertension Current Visit: Yes Status: Chronic (12) Hepatitis C virus infection resolved after antiviral drug therapy Current Visit: Yes Status: Chronic (13) History of [place] (myocardial infarction) Current Visit: Yes Status: Chronic (14) Methadone maintenance therapy patient Current Visit: Yes Status: Chronic (15) Nicotine dependence Current Visit: Yes Status: Chronic Qualifiers: Nicotine product type: cigarettes Substance use status: uncomplicated Qualified Code(s): F17.210 - Nicotine dependence, cigarettes, uncomplicated (16) Insomnia Current Visit: No Status: Acute (17) Use of cane as ambulatory aid Current Visit: No Status: Acute (18) Bipolar disorder Current Visit: No Status: Chronic (19) Drug-induced mood disorder Current Visit: No Status: Chronic (20) History of bipolar disorder Current Visit: No Status: Chronic (21) Insomnia Current Visit: No Status: Chronic (22) Substance induced mood disorder Current Visit: No Status: Suspected - AMA Did Patient Leave Against Medical Advice: No (going home; declined rehab)
[2018-10-03] MEDS: QUEtiapine FUMARATE 50 MG TABLET PO SCH (09:55)
[2018-10-03] MEDS: NICOTINE 21 MG/24 HOURS TOPICAL PATCH TD SCH (09:55)
[2018-10-03] MEDS: PRENATAL VITAMINS W/ FOLIC ACID TABLET (FP) PO SCH (09:56)
[2018-10-03 10:07] VITALS: BP 127/77; PULSE 78; TEMP 97.7
[2018-10-03] MEDS ORDERED: chlordiazePOXIDE HCL 10 MG CAPSULE PO SCH (17:00)
== END 2018-10-03 09:55 | disposition home or self-care (01) | DRG 773 ==
LOC: YASAS 10:36 → Y6N 13:29
PROVIDERS: ADMIT Surgery; ATTEND Surgery
PROC: HZ2ZZZZ Detoxification Services for Substance Abuse Treatment (ICD-10-PCS; principal; 2018-09-30)
DX: F10.230 Alcohol dependence with withdrawal, uncomplicated (principal); F13.230 Sedative, hypnotic or anxiolytic dependence with withdrawal, uncomplicated; F11.20 Opioid dependence, uncomplicated; F14.20 Cocaine dependence, uncomplicated; F12.20 Cannabis dependence, uncomplicated; F17.200 Nicotine dependence, unspecified, uncomplicated; F19.280 Other psychoactive substance dependence with psychoactive substance-induced anxiety disorder; F19.282 Other psychoactive substance dependence with psychoactive substance-induced sleep disorder; F19.24 Other psychoactive substance dependence with psychoactive substance-induced mood disorder; F31.9 Bipolar disorder, unspecified; J45.22 Mild intermittent asthma with status asthmaticus; B18.2 Chronic viral hepatitis C; G47.00 Insomnia, unspecified; I25.10 Atherosclerotic heart disease of native coronary artery without angina pectoris; I10 Essential (primary) hypertension; I25.2 Old myocardial infarction; Z86.73 Personal history of transient ischemic attack (TIA), and cerebral infarction without residual deficits; M79.605 Pain in left leg; G89.29 Other chronic pain; S89.82XD Other specified injuries of left lower leg, subsequent encounter; Z91.5 Personal history of self-harm
CPT/HCPCS: 36415; 80053; 85027; 86593

== ENCOUNTER 2018-11-24 12:40 | Inpatient (IN) | payer OTHER ==
[2018-11-24 13:24] VITALS: BMI 27.9
--- NOTE | 2018-11-24 18:14 | HP ---
CIWA Score Nausea/Vomitin-Mild Nausea/No Vomiting Muscle Tremors: 2 Anxiety: 3 Agitation: 2 Paroxysmal Sweats: 2 Orientation: 0-Oriented Tacttile Disturbances: 0-None Auditory Disturbances: 0-None Visual Disturbances: 0-None Headache: 3-Moderate CIWA-Ar Total Score: 13 - Admission Criteria OASAS Guidelines: Admission for Medically Managed Detox: Requires at least one of the followin. CIWA greater than 12 2. Seizures within the past 24 hours 3. Delirium tremens within the past 24 hours 4. Hallucinations within the past 24 hours 5. Acute intervention needed for co occurring medical disorder 6. Acute intervention needed for co occurring psychiatric disorder 7. Severe withdrawal that cannot be handled at a lower level of care (continued vomiting, continued diarrhea, abnormal vital signs) requiring intravenous medication and/or fluids 8. Admission ROS [facility] Chief Complaint: detox from ETOH Allergies/Adverse Reactions: Allergies Allergy/AdvReac Type Severity Reaction Status Date / Time No Known Allergies Allergy Verified 11/24/18 13:14 History of Present Illness: Mr. Ortiz is a 48yo male with hx of ETOH use disorder, heroin use disorder, cocaine use disorder, marijuana use disorder, HTN, IA, asthma, and depression who presents for detox from ETOH. He is currently in a methadone program at [facility]. The pt reports drinking 2-3 pints vodka daily with last drink just prior to arrival. He began drinking at age 15 at his father's night club. He denies hx of seizures or blackouts. He has been to detox multiple times, most recently "several months" ago. He has been to rehab as well with the most recent being over 2 years ago. He reports his longest period of sobriety was 2- 3 years. He also reports marijuana use, less than 4x month. He snorts cocaine, a dime or less, with last use yesterday. He is inhaling heroin 1-2 bags/daily with last use 2 days ago. He was on 20mg of methadone until 2 days ago and has increased to 50mg per pt. Pt smokes 4-5 cigarettes a day. He lives with his mother in [place]. [facility]Stop showed pt receives script for oxycodone 30mg and pt reports taking them but tox screen was negative for it. Pt reports dizziness, loss of appetite, fatigue, back pain, chills, and hot flashes. He denies extreme diaphoresis, rhinorrhea, and cough. PMH: ETOH use disorder, heroin use disorder, cocaine use disorder, marijuana use disorder, HTN, IA, asthma, and depression surgical hx: L leg 2003 family hx: mother HTN meds: Truvada (prep), oxycodone, Symbicort, ASA, Seroquel, amlodipine, HCTZ, albuterol NKDA - Ebola screening Have you traveled outside of the country in the last 21 days: No Have you had contact with anyone from an Ebola affected area: No Do you have a fever: No - Review of Systems Constitutional: Chills, Diaphoresis (minimal), Weakness Respiratory: denies: Cough, Shortness of Breath Cardiac: denies: Chest Pain GI: reports: Poor Appetite. denies: Diarrhea, Nausea, Vomiting : reports: No Symptoms Reported Musculoskeletal: reports: Back Pain Integumentary: reports: No Symptoms Reported Neuro: reports: Headache, Dizziness. 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 3 months ago.) Hx Genitourinary Disorders: No Hx Sexually Transmitted Disorders: No Hx Renal Disease (ESRD): No Hx Thyroid Disease: No Hx Human Immunodeficiency Virus (HIV): No (Last Tested:06/2016:NEGATIVE ON PROPHYLACTIC TRUVADA DUE TO PARTNER STATUS.) Hx Hepatitis C: Yes (Completed Treatment approx. 3 months ago.) Hx Depression: Yes (Seroquel) Hx Suicide Attempt: Yes (2002-Took full bottle of medication w/ Alcohol; PT. DENIES CURRENT SI /HI.) Hx Bipolar Disorder: No Hx Schizophrenia: No - Patient Surgical History Past Surgical History: Yes Hx Neurologic Surgery: No Hx Cataract Extraction: No Hx Cardiac Surgery: No Hx Lung Surgery: No Hx Breast Surgery: No Hx Breast Biopsy: No Hx Abdominal Surgery: No Hx Appendectomy: No Hx Cholecystectomy: No Hx Genitourinary Surgery: No Hx Section: No Hx Orthopedic Surgery: Yes (LEFT LOWER LEG SX DUE TO FX IN 2003- many surgeries) Anesthesia Reaction: No - PPD History Date: 10/29/17 Results: negative - Smoking Cessation Smoking history: Current every day smoker Have you smoked in the past 12 months: Yes Aproximately how many cigarettes per day: 20 Cigars Per Day: 0 Hx Chewing Tobacco Use: No Initiated information on smoking cessation: Yes 'Breaking Loose' booklet given: 11/24/18 - Substances abused Alcohol Substance route: Oral Frequency: Daily Amount used: 2-3 pints vodka Age of first use: 15 Date of last use: 11/24/18 Heroin Substance route: Inhalation Frequency: Daily Amount used: 2 BAGS Age of first use: 23 Date of last use: 11/23/18 Other Other (specify): xanax Substance route: Oral Frequency: 1-3 times last 30 days Amount used: 1-2 pills Age of first use: 22 Date of last use: 09/30/18 Alprazolam (Xanax) Other (specify): xanax Substance route: Oral Frequency: 1-2 times per week Amount used: 1-2 sticks (4mg) Age of first use: 22 Date of last use: 09/30/18 Marijuana/Hashish Substance route: Smoking Frequency: 1-3 times last 30 days Amount used: 2 blunts Age of first use: 15 Date of last use: 11/22/18 Family Disease History - Family Disease History Family Disease History: Other: Father (living and healthy ), Mother (living - healthy), Brother (two - healthy), Sister (two - one with depression), Son (one age 32 - healthy), Daughter (one age 23 - healthy) Admission Physical Exam [facility] - Vital Signs Vital Signs: Vital Signs - 24 hr 11/24/18 13:10 Temperature 98.6 F Pulse Rate 83 Respiratory 20 Rate Blood Pressure 134/93 - Physical General Appearance: Yes: Alcohol on Breath HEENTM: Yes: Normocephalic, REYES. No: Pharyngeal Erythemia Respiratory: Yes: Lungs Clear, No Respiratory Distress Neck: Yes: Within Normal Limits Cardiology: Yes: Regular Rhythm, Regular Rate. No: Murmur Abdominal: Yes: Normal Bowel Sounds, Non Tender Back: Yes: Normal Inspection Musculoskeletal: Yes: full range of Motion Extremities: Yes: Normal Range of Motion, Other (L lower extremity atrophy and dusky) Neurological: Yes: glazier stained glass II-XII NML intact, Fully Oriented, Alert, Motor Strength 5/5, Normal Mood/Affect Integumentary: Yes: Other (left leg duskiness) - Diagnostic (1) Depression Current Visit: Yes Status: Chronic Qualifiers: Depression Type: major depressive disorder Major depression recurrence: unspecified whether recurrent Active/Remission status: currently active Major depression episode severity: unspecified Qualified Code(s): F32.9 - Major depressive disorder, single episode, unspecified (2) Essential hypertension Current Visit: Yes Status: Chronic (3) Asthma Current Visit: Yes Status: Chronic Qualifiers: Asthma severity: mild Asthma persistence: intermittent Asthma complication type: uncomplicated Qualified Code(s): J45.20 - Mild intermittent asthma, uncomplicated (4) Nicotine dependence Current Visit: Yes Status: Chronic Qualifiers: Nicotine product type: cigarettes Substance use status: uncomplicated Qualified Code(s): F17.210 - Nicotine dependence, cigarettes, uncomplicated (5) Left leg injury Current Visit: Yes Status: Chronic Qualifiers: Encounter type: sequela Qualified Code(s): S89.92XS - Unspecified injury of left lower leg, sequela (6) Methadone maintenance therapy patient Current Visit: Yes Status: Chronic (7) Cannabis dependence Current Visit: Yes Status: Chronic (8) Cocaine dependence Current Visit: Yes Status: Chronic Qualifiers: Substance use status: uncomplicated Qualified Code(s): F14.20 - Cocaine dependence, uncomplicated (9) Use of cane as ambulatory aid Current Visit: Yes Status: Chronic (10) History of IA (myocardial infarction) Current Visit: Yes Status: Chronic (11) Hepatitis C virus infection resolved after antiviral drug therapy Current Visit: Yes Status: Chronic Breathalyzer - Breathalyzer Breathalyzer: 0.085 Urine Drug Screen - Test Device Lot number: [id number] Expiration date: 08/15/20 - Control Is test valid?: Yes - Results Drug screen NEGATIVE: No Urine drug screen results: THC-Marijuana, ZACH-Cocaine, FEN-Fentanyl, MOP-Opiates , MTD-Methadone Inpatient Rehab Admission - Rehab Decision to Admit Inpatient rehab admission?: No
--- NOTE | 2018-11-24 18:37 | PN ---
Teaching Attending Note Name of Resident: Jodie Baltazar ATTENDING PHYSICIAN STATEMENT I saw and evaluated the patient. I reviewed the resident's note and discussed the case with the resident. I agree with the resident's findings and plan as documented. SUBJECTIVE: 48 yo male with h/o MN, HTN, on PREP for HIV prophylaxis, asthma here for detox from alcohol. Drinks 2-3 pints vodka a day- no h/o seizures/DT hx.KIRSTEN 0.85 Also uses 1-2 bags IH of heroin/day, in MAT methadone on 50mg/day. Also getting 30mg of oxycodone prescribed. OBJECTIVE: Vital Signs - 24 hr 11/24/18 13:10 Temperature 98.6 F Pulse Rate 83 Respiratory 20 Rate Blood Pressure 134/93 alert and oriented ASSESSMENT AND PLAN: Start alcohol detox protocol continue MAT methadone- need to confirm dose continue HTN meds
[2018-11-24] MEDS ORDERED: MELATONIN 5 MG TABLETS PO PRN (18:58)
[2018-11-24] MEDS ORDERED: BISMUTH SUBSALICYLATE 524 MG/30 ML UD PO PRN (18:58)
[2018-11-24] MEDS ORDERED: ACETAMINOPHEN 325 MG TABLET (FP) PO PRN ×2 (18:58)
[2018-11-24] MEDS ORDERED: MAGNESIUM HYDROX 2400MG/30ML ORAL SUSPENSION 30 ML CUP PO PRN (18:58)
[2018-11-24] MEDS ORDERED: MAG HYDROX/AL HYDROX/SIMETH 30 ML UNIT-DOSE CUP PO PRN (18:58)
[2018-11-24] MEDS ORDERED: MENTHOL/PHENOL 1 EACH UD MM PRN (18:58)
[2018-11-24] MEDS ORDERED: IBUPROFEN 400 MG TABLET (FP) PO PRN (18:58)
[2018-11-24] MEDS ORDERED: MAGNESIUM CITRATE 300 ML BOTTLE PO PRN (18:58)
[2018-11-24] MEDS ORDERED: ALBUTEROL SO4 8 GM HFA INHALER IH PRN (19:02)
[2018-11-24] MEDS: BUDESONIDE/FORMETEROL FUMARATE 80/4.5 mcg INHALER IH SCH (22:05)
[2018-11-24] MEDS: THIAMINE HCL 100 MG TABLET (FP) PO SCH (22:05)
[2018-11-24] MEDS: chlordiazePOXIDE HCL 25 MG CAPSULE PO SCH (22:05)
[2018-11-25] MEDS: chlordiazePOXIDE HCL 25 MG CAPSULE PO PRN ×4 (02:58→20:26)
[2018-11-25] MEDS: NICOTINE POLACRILEX 2 MG GUM BUC PRN ×8 (02:59→23:00)
[2018-11-25] MEDS ORDERED: METHADONE HCL 40 MG DISPERSABLE TABLET ONE (05:11)
[2018-11-25] MEDS ORDERED: METHADONE HCL 10 MG TABLET ONE (05:11)
[2018-11-25] MEDS: METHADONE 40 MG, METHADONE 10 MG PO SCH (05:12)
[2018-11-25] MEDS: chlordiazePOXIDE HCL 25 MG CAPSULE PO SCH ×4 (05:12→22:59)
[2018-11-25] MEDS ORDERED: METHADONE HCL 10 MG TABLET PO SCH (06:00)
[2018-11-25 10:03] LABS: HEMATOCRIT 41.8 % (35.4-49); MCH 31.8 pg (25.7-33.7); MCHC 33.4 g/dl (32.0-35.9); PLATELET COUNT 204 K/MM3 (134-434); RDW 13.9 % (11.9-15.9); WHITE BLOOD COUNT 9.5 K/mm3 (4.0-10.0)
[2018-11-25] MEDS: ASPIRIN COATED 81 MG TABLET.EC PO SCH (10:08)
[2018-11-25] MEDS: PRENATAL VITAMINS W/ FOLIC ACID TABLET (FP) PO SCH (10:08)
[2018-11-25] MEDS: BUDESONIDE/FORMETEROL FUMARATE 80/4.5 mcg INHALER IH SCH ×2 (10:08→22:59)
[2018-11-25] MEDS: amLODIPine BESYLATE 10 MG TABLET (FP) PO SCH (10:08)
[2018-11-25] MEDS: HYDROCHLOROTHIAZIDE 25 MG TABLET (FP) PO SCH (10:10)
[2018-11-25 10:14] LABS: ALBUMIN 3.3 g/dl (3.4-5.0); BILIRUBIN,TOTAL 0.3 mg/dL (0.2-1); CREATININE 0.8 mg/dL (0.55-1.3); POTASSIUM 4.4 mmol/L (3.5-5.1); TOT PROT 6.3 g/dl (6.4-8.2)
--- NOTE | 2018-11-25 10:24 | PN ---
S CIWA - CIWA Score Nausea/Vomitin-No Nausea/No Vomiting Muscle Tremors: 2 Anxiety: 3 Agitation: 2 Paroxysmal Sweats: 3 Orientation: 0-Oriented Tacttile Disturbances: 0-None Auditory Disturbances: 0-None Visual Disturbances: 0-None Headache: 0-None Present CIWA-Ar Total Score: 10 S Progress Note (SOAP) Subjective: c/o sweats, shakes, interrupted sleep, and anxiety. Objective: 11/25/18 10:23 Vital Signs 11/25/18 11/25/18 11/25/18 06:26 06:30 09:17 Temperature 98.6 F 97.5 F L Pulse Rate 60 63 Respiratory 16 18 18 Rate Blood Pressure 108/68 108/68 Lab Results WBC 9.5 K/mm3 (4.0-10.0) 11/25/18 08:00 RBC 4.40 M/mm3 (4.00-5.60) 11/25/18 08:00 Hgb 14.0 GM/dL (11.7-16.9) 11/25/18 08:00 Hct 41.8 % (35.4-49) 11/25/18 08:00 MCV 95.0 fl (80-96) 11/25/18 08:00 MCHC 33.4 g/dl (32.0-35.9) 11/25/18 08:00 RDW 13.9 % (11.9-15.9) 11/25/18 08:00 Plt Count 204 K/MM3 (134-434) 11/25/18 08:00 Sodium 142 mmol/L (136-145) 11/25/18 08:00 Potassium 4.4 mmol/L (3.5-5.1) 11/25/18 08:00 Chloride 105 mmol/L (98-107) 11/25/18 08:00 Carbon Dioxide 32 mmol/L (21-32) 11/25/18 08:00 Anion Gap 5 MMOL/L (8-16) L 11/25/18 08:00 BUN 17.0 mg/dL (7-18) 11/25/18 08:00 Creatinine 0.8 mg/dL (0.55-1.3) 11/25/18 08:00 Random Glucose 93 mg/dL (74-106) 11/25/18 08:00 Calcium 9.0 mg/dL (8.5-10.1) 11/25/18 08:00 Labs noted. Assessment: 11/25/18 10:23 AOX3, in no acute respiratory distress Full ROM, ambulating in the unit. withdrawal symptoms. Plan: continue detox.
[2018-11-25] MEDS: NICOTINE 14 MG/24 HOURS TOPICAL PATCH TD SCH (11:41)
[2018-11-25] MEDS: EMTRICITABINE 200MG/TENOFOVIR 300MG PO SCH (12:13)
--- NOTE | 2018-11-25 13:36 | CONSULT ---
[facility] Psychiatric Consult - Data Date of interview: 11/25/18 Admission source: [facility] Identifying data: This is one of multiple admissions to [facility] for this 48 y/ o male self-referred for detoxification treatment (cannabis, benzodiazepine, alcohol, cocaine, opioid). Interviewed at [address] [place] [address]. Patient is , a father of two, unemployed, domiciled and supported on SSD benefits ( self-report). Previous records indicate support on SSI benefits. Substance Abuse History: Confirmed by patient in this session. Details in current [facility] report as follows : Smoking history: Current every day smoker. Have you smoked in the past 12 months: Yes. Aproximately how many cigarettes per day: 20. Cigars Per Day: 0. Hx Chewing Tobacco Use: No. Initiated information on smoking cessation: Yes. 'Breaking Loose' booklet given: . - Substances abused. Alcohol. Substance route: Oral. Frequency: Daily. Amount used: 2-3 pints vodka. Age of first use: 15. Date of last use: 11/24/18. Heroin. Substance route: Inhalation. Frequency: Daily. Amount used: 2 BAGS. Age of first use: 23. Date of last use: 11/23/18. Other. Other (specify): xanax. Substance route: Oral. Frequency: 1-3 times last 30 days. Amount used: 1-2 pills. Age of first use: 22. Date of last use: . Alprazolam (Xanax). Other (specify): xanax. Substance route: Oral. Frequency: 1-2 times per week. Amount used: 1-2 sticks (4mg). Age of first use : 22. Date of last use: 09/30/18. Marijuana/Hashish. Substance route: Smoking. Frequency: 1-3 times last 30 days. Amount used: 2 blunts. Age of first use: 15. Date of last use: 11/22/18 Medical History: Medical profile is remarkable for bronchial asthma, hepatitis C (treated), hypertension, antecedent of myocardial infarction (2003) and orthosurgery (fracture of left leg) in 2003. Patient is on prophylactic truvada (due to current partner's status). Psychiatric History: Patient admits to a history of two psychiatric hospitalizations ([facility]). Onset of psychiatric illness : 1990. Diagnosis : MDD and Anxiety Disorder. Revised, years later, for Bipolar Disorder. Mr Ortiz continues to see a psychiatrist at the [facility] clinic for medication management (seroquel 50 mg/am + 100 mg/hs. He is also on methadone maintenance (50 mg/day) at a [facility] in the [place] ([address] [place] [address]). History of one suicide attempt (1989) via deliberate overdose with alcohol + medications. Physical/Sexual Abuse/Trauma History: No reported history of abuse. Additional Comment: Urine drug screen results: THC-Marijuana, ZACH-Cocaine, FEN- Fentanyl, MOP-Opiates, MTD-Methadone. Noted. Mental Status Exam - Mental Status Exam Alert and Oriented to: Time, Place, Person Cognitive Function: Good Patient Appearance: Well Groomed Mood: Nervous, Withdrawn, Anxious Affect: Mood Congruent, Constricted Patient Behavior: Fatigued, Appropriate, Cooperative Speech Pattern: Clear, Appropriate Voice Loudness: Normal Thought Process: Intact, Goal Oriented Thought Disorder: Not Present Hallucinations: Denies Suicidal Ideation: Denies Homicidal Ideation: Denies Insight/Judgement: Poor Sleep: Poorly, Difficulty falling asleep Appetite: Good Muscle strength/Tone: Normal Gait/Station: Normal Psychiatric Findings - Problem List ([place] 1, 2,3) (1) Alcohol dependence with uncomplicated withdrawal Current Visit: Yes Status: Acute (2) Opioid dependence on agonist therapy Current Visit: Yes Status: Chronic (3) Cannabis dependence Current Visit: Yes Status: Chronic (4) Cocaine dependence Current Visit: Yes Status: Chronic Qualifiers: Substance use status: uncomplicated Qualified Code(s): F14.20 - Cocaine dependence, uncomplicated (5) Mild benzodiazepine use disorder Current Visit: Yes Status: Chronic (6) Nicotine dependence Current Visit: Yes Status: Chronic Qualifiers: Nicotine product type: cigarettes Substance use status: uncomplicated Qualified Code(s): F17.210 - Nicotine dependence, cigarettes, uncomplicated (7) History of bipolar disorder Current Visit: Yes Status: Chronic (8) Substance induced mood disorder Current Visit: Yes Status: Chronic (9) Insomnia Current Visit: Yes Status: Chronic - Initial Treatment Plan Initial Treatment Plan: Psychoeducation. Sleep hygiene. Detoxification. AA/NA meetings. Support. Seroquel 50 mg po am + 100 mg po hs. Side effects/benefits are discussed with the patient. Consent (verbal) given to . Observation.
--- NOTE | 2018-11-25 15:22 | EKG ---
Test Reason : Blood Pressure : / mmHG Vent. Rate : 075 BPM Atrial Rate : 075 BPM P-R Int : 152 ms QRS Dur : 084 ms QT Int : 396 ms P-R-T Axes : 042 052 035 degrees QTc Int : 442 ms NORMAL SINUS RHYTHM SEPTAL INFARCT , AGE UNDETERMINED ABNORMAL ECG WHEN COMPARED WITH ECG OF 27-OCT-2017 22:19, SEPTAL INFARCT IS NOW PRESENT Confirmed by MD Kwan, Fred ([id number]) on 11/25/2018 3:21:32 PM Referred By: TIFFANIE HERRERA Confirmed By:Fred Bowens MD
[2018-11-25] MEDS: QUEtiapine FUMARATE 50 MG TABLET PO SCH (17:01)
[2018-11-25] MEDS: QUEtiapine FUMARATE 100 MG TABLET (FP) PO SCH (22:59)
[2018-11-25] MEDS: THIAMINE HCL 100 MG TABLET (FP) PO SCH (22:59)
[2018-11-26] MEDS: NICOTINE POLACRILEX 2 MG GUM BUC PRN ×5 (02:04→17:15)
[2018-11-26] MEDS: chlordiazePOXIDE HCL 25 MG CAPSULE PO PRN ×3 (02:04→14:05)
[2018-11-26] MEDS ORDERED: METHADONE HCL 10 MG TABLET ONE ×2 (04:10→06:29)
[2018-11-26] MEDS ORDERED: METHADONE HCL 40 MG DISPERSABLE TABLET ONE ×2 (04:10→06:29)
[2018-11-26] MEDS: METHADONE 40 MG, METHADONE 10 MG PO SCH (05:39)
[2018-11-26] MEDS: chlordiazePOXIDE HCL 25 MG CAPSULE PO SCH ×4 (05:40→22:05)
[2018-11-26] MEDS: hydrOXYzine PAMOATE 25 MG CAPSULE (FP) PO PRN ×2 (05:43→22:07)
--- NOTE | 2018-11-26 09:44 | PN ---
[facility] Progress Note (SOAP) Subjective: 48 years old male admitted on 11/24/18 for acute alcohol withdrawal sx management doing well with librium detox protocol along with methadone 50 mg po daily patient ambulating on hallway without his cane encourage the patient uses cane for safety Objective: 11/26/18 09:44 Vital Signs Temperature 96.1 F L 11/26/18 09:25 Pulse Rate 73 11/26/18 09:25 Respiratory Rate 18 11/26/18 09:25 Blood Pressure 122/68 11/26/18 09:25 O2 Sat by Pulse Oximetry (%) Laboratory Last Values WBC 9.5 K/mm3 (4.0-10.0) 11/25/18 08:00 RBC 4.40 M/mm3 (4.00-5.60) 11/25/18 08:00 Hgb 14.0 GM/dL (11.7-16.9) 11/25/18 08:00 Hct 41.8 % (35.4-49) 11/25/18 08:00 MCV 95.0 fl (80-96) 11/25/18 08:00 MCH 31.8 pg (25.7-33.7) 11/25/18 08:00 MCHC 33.4 g/dl (32.0-35.9) 11/25/18 08:00 RDW 13.9 % (11.9-15.9) 11/25/18 08:00 Plt Count 204 K/MM3 (134-434) 11/25/18 08:00 MPV 9.0 fl (7.5-11.1) 11/25/18 08:00 Sodium 142 mmol/L (136-145) 11/25/18 08:00 Potassium 4.4 mmol/L (3.5-5.1) 11/25/18 08:00 Chloride 105 mmol/L (98-107) 11/25/18 08:00 Carbon Dioxide 32 mmol/L (21-32) 11/25/18 08:00 Anion Gap 5 MMOL/L (8-16) L 11/25/18 08:00 BUN 17.0 mg/dL (7-18) 11/25/18 08:00 Creatinine 0.8 mg/dL (0.55-1.3) 11/25/18 08:00 Est GFR (CKD-EPI)AfAm 122.43 11/25/18 08:00 Est GFR (CKD-EPI)NonAf 105.63 11/25/18 08:00 Random Glucose 93 mg/dL (74-106) 11/25/18 08:00 Calcium 9.0 mg/dL (8.5-10.1) 11/25/18 08:00 Total Bilirubin 0.3 mg/dL (0.2-1) 11/25/18 08:00 AST 34 U/L (15-37) 11/25/18 08:00 ALT 74 U/L (13-61) H 11/25/18 08:00 Alkaline Phosphatase 66 U/L (45-117) 11/25/18 08:00 Total Protein 6.3 g/dl (6.4-8.2) L 11/25/18 08:00 Albumin 3.3 g/dl (3.4-5.0) L 11/25/18 08:00 RPR Titer Nonreactive (NONREACTIVE) 11/25/18 08:00 HIV 1&2 Ag/Ab, 4th Gen Non reactive (Non Reactive) 11/25/18 09:30 HIV 1&2 Antibody Screen Cancelled 11/25/18 10:24 HIV P24 Antigen Cancelled 11/25/18 10:24 lab noted Assessment: 11/26/18 09:46 alcohol withdrawal sx methadone 50 mg po daily Plan: continue librium detox protocol
[2018-11-26] MEDS: HYDROCHLOROTHIAZIDE 25 MG TABLET (FP) PO SCH (10:22)
[2018-11-26] MEDS: PRENATAL VITAMINS W/ FOLIC ACID TABLET (FP) PO SCH (10:22)
[2018-11-26] MEDS: amLODIPine BESYLATE 10 MG TABLET (FP) PO SCH (10:22)
[2018-11-26] MEDS: QUEtiapine FUMARATE 50 MG TABLET PO SCH (10:22)
[2018-11-26] MEDS: NICOTINE 14 MG/24 HOURS TOPICAL PATCH TD SCH (10:22)
[2018-11-26] MEDS: BUDESONIDE/FORMETEROL FUMARATE 80/4.5 mcg INHALER IH SCH ×2 (10:22→22:05)
[2018-11-26] MEDS: ASPIRIN COATED 81 MG TABLET.EC PO SCH (10:22)
[2018-11-26] MEDS: EMTRICITABINE 200MG/TENOFOVIR 300MG PO SCH (10:23)
[2018-11-26] MEDS: THIAMINE HCL 100 MG TABLET (FP) PO SCH (22:05)
[2018-11-26] MEDS: QUEtiapine FUMARATE 100 MG TABLET (FP) PO SCH (22:05)
[2018-11-26] MEDS: NICOTINE POLACRILEX 4 MG GUM BUC PRN (22:07)
[2018-11-27] MEDS: chlordiazePOXIDE HCL 10 MG CAPSULE PO PRN ×2 (00:46→12:29)
[2018-11-27] MEDS: NICOTINE POLACRILEX 4 MG GUM BUC PRN ×9 (00:46→22:08)
[2018-11-27] MEDS: METHOCARBAMOL 500 MG TABLET PO PRN ×3 (03:04→22:08)
[2018-11-27] MEDS ORDERED: METHADONE HCL 40 MG DISPERSABLE TABLET ONE (04:51)
[2018-11-27] MEDS ORDERED: METHADONE HCL 10 MG TABLET ONE (04:51)
[2018-11-27] MEDS: METHADONE 40 MG, METHADONE 10 MG PO SCH (05:05)
[2018-11-27] MEDS: chlordiazePOXIDE HCL 10 MG CAPSULE PO SCH ×4 (05:05→22:05)
--- NOTE | 2018-11-27 10:17 | PN ---
[facility] CIWA - CIWA Score Nausea/Vomitin-No Nausea/No Vomiting Muscle Tremors: 2 Anxiety: 2 Agitation: 2 Paroxysmal Sweats: 1-Minimal Palms Moist Orientation: 0-Oriented Tacttile Disturbances: 0-None Auditory Disturbances: 0-None Visual Disturbances: 0-None Headache: 0-None Present CIWA-Ar Total Score: 7
--- NOTE | 2018-11-27 10:20 | PN ---
S CIWA - CIWA Score Nausea/Vomitin-No Nausea/No Vomiting Muscle Tremors: 2 Anxiety: 1-Mildly Anxious Agitation: 1-Slight > Activity Paroxysmal Sweats: No Perspiration Orientation: 0-Oriented Tacttile Disturbances: 0-None Auditory Disturbances: 0-None Visual Disturbances: 0-None Headache: 0-None Present CIWA-Ar Total Score: 4 [facility] Progress Note (SOAP) Subjective: ambulating with cane social with peers in day room doing well with libirum detox protocol less tremor but trouble sleep at night Objective: 11/27/18 10:19 Vital Signs Temperature 97.6 F 11/27/18 09:24 Pulse Rate 68 11/27/18 09:24 Respiratory Rate 17 11/27/18 09:24 Blood Pressure 105/63 11/27/18 09:24 O2 Sat by Pulse Oximetry (%) Laboratory Last Values WBC 9.5 K/mm3 (4.0-10.0) 11/25/18 08:00 RBC 4.40 M/mm3 (4.00-5.60) 11/25/18 08:00 Hgb 14.0 GM/dL (11.7-16.9) 11/25/18 08:00 Hct 41.8 % (35.4-49) 11/25/18 08:00 MCV 95.0 fl (80-96) 11/25/18 08:00 MCH 31.8 pg (25.7-33.7) 11/25/18 08:00 MCHC 33.4 g/dl (32.0-35.9) 11/25/18 08:00 RDW 13.9 % (11.9-15.9) 11/25/18 08:00 Plt Count 204 K/MM3 (134-434) 11/25/18 08:00 MPV 9.0 fl (7.5-11.1) 11/25/18 08:00 Sodium 142 mmol/L (136-145) 11/25/18 08:00 Potassium 4.4 mmol/L (3.5-5.1) 11/25/18 08:00 Chloride 105 mmol/L (98-107) 11/25/18 08:00 Carbon Dioxide 32 mmol/L (21-32) 11/25/18 08:00 Anion Gap 5 MMOL/L (8-16) L 11/25/18 08:00 BUN 17.0 mg/dL (7-18) 11/25/18 08:00 Creatinine 0.8 mg/dL (0.55-1.3) 11/25/18 08:00 Est GFR (CKD-EPI)AfAm 122.43 11/25/18 08:00 Est GFR (CKD-EPI)NonAf 105.63 11/25/18 08:00 Random Glucose 93 mg/dL (74-106) 11/25/18 08:00 Calcium 9.0 mg/dL (8.5-10.1) 11/25/18 08:00 Total Bilirubin 0.3 mg/dL (0.2-1) 11/25/18 08:00 AST 34 U/L (15-37) 11/25/18 08:00 ALT 74 U/L (13-61) H 11/25/18 08:00 Alkaline Phosphatase 66 U/L (45-117) 11/25/18 08:00 Total Protein 6.3 g/dl (6.4-8.2) L 11/25/18 08:00 Albumin 3.3 g/dl (3.4-5.0) L 11/25/18 08:00 RPR Titer Nonreactive (NONREACTIVE) 11/25/18 08:00 HIV 1&2 Ag/Ab, 4th Gen Non reactive (Non Reactive) 11/25/18 09:30 HIV 1&2 Antibody Screen Cancelled 11/25/18 10:24 HIV P24 Antigen Cancelled 11/25/18 10:24 lab noted Assessment: 11/27/18 10:19 alcohol withdrawal sx 11/27/18 10:19 alert oriented x 3 speech clearly steady gait with cane Plan: continue librium detox regimen
[2018-11-27] MEDS: ASPIRIN COATED 81 MG TABLET.EC PO SCH (10:25)
[2018-11-27] MEDS: EMTRICITABINE 200MG/TENOFOVIR 300MG PO SCH (10:25)
[2018-11-27] MEDS: amLODIPine BESYLATE 10 MG TABLET (FP) PO SCH (10:25)
[2018-11-27] MEDS: QUEtiapine FUMARATE 50 MG TABLET PO SCH (10:25)
[2018-11-27] MEDS: PRENATAL VITAMINS W/ FOLIC ACID TABLET (FP) PO SCH (10:25)
[2018-11-27] MEDS: HYDROCHLOROTHIAZIDE 25 MG TABLET (FP) PO SCH (10:25)
[2018-11-27] MEDS: BUDESONIDE/FORMETEROL FUMARATE 80/4.5 mcg INHALER IH SCH ×2 (10:25→22:05)
[2018-11-27] MEDS: NICOTINE 14 MG/24 HOURS TOPICAL PATCH TD SCH (10:28)
[2018-11-27] MEDS: hydrOXYzine PAMOATE 25 MG CAPSULE (FP) PO PRN ×2 (14:08→22:08)
[2018-11-27] MEDS: QUEtiapine FUMARATE 100 MG TABLET (FP) PO SCH (22:05)
[2018-11-27] MEDS: THIAMINE HCL 100 MG TABLET (FP) PO SCH (22:05)
[2018-11-28] MEDS: NICOTINE POLACRILEX 4 MG GUM BUC PRN ×6 (01:38→20:39)
[2018-11-28] MEDS ORDERED: METHADONE HCL 40 MG DISPERSABLE TABLET ONE (04:16)
[2018-11-28] MEDS ORDERED: METHADONE HCL 10 MG TABLET ONE (04:16)
[2018-11-28] MEDS: chlordiazePOXIDE HCL 10 MG CAPSULE PO SCH ×2 (05:01→17:06)
[2018-11-28] MEDS: METHADONE 40 MG, METHADONE 10 MG PO SCH (05:01)
[2018-11-28] MEDS: METHOCARBAMOL 500 MG TABLET PO PRN ×4 (05:03→23:11)
[2018-11-28] MEDS: EMTRICITABINE 200MG/TENOFOVIR 300MG PO SCH (10:15)
[2018-11-28] MEDS: ASPIRIN COATED 81 MG TABLET.EC PO SCH (10:15)
[2018-11-28] MEDS: PRENATAL VITAMINS W/ FOLIC ACID TABLET (FP) PO SCH (10:15)
[2018-11-28] MEDS: QUEtiapine FUMARATE 50 MG TABLET PO SCH (10:16)
[2018-11-28] MEDS: NICOTINE 14 MG/24 HOURS TOPICAL PATCH TD SCH (10:16)
[2018-11-28] MEDS: BUDESONIDE/FORMETEROL FUMARATE 80/4.5 mcg INHALER IH SCH ×2 (10:16→22:39)
[2018-11-28] MEDS: HYDROCHLOROTHIAZIDE 25 MG TABLET (FP) PO SCH (10:17)
[2018-11-28] MEDS: amLODIPine BESYLATE 10 MG TABLET (FP) PO SCH (10:17)
[2018-11-28] MEDS: hydrOXYzine PAMOATE 25 MG CAPSULE (FP) PO PRN ×3 (11:05→23:11)
--- NOTE | 2018-11-28 11:26 | PN ---
[facility] CIWA - CIWA Score Nausea/Vomitin-No Nausea/No Vomiting Muscle Tremors: 1-None Visible, but [place] Anxiety: 1-Mildly Anxious Agitation: 0-Normal Activity Paroxysmal Sweats: No Perspiration Orientation: 0-Oriented Tacttile Disturbances: 0-None Auditory Disturbances: 0-None Visual Disturbances: 0-None Headache: 0-None Present CIWA-Ar Total Score: 2 S Progress Note (SOAP) Subjective: doing well with librium detox protocol ambulating on hallway with cane received methadone 50 mg po today discuss aftercare with staff that the patient prefers to return to methadone program Objective: 11/28/18 11:28 Vital Signs Temperature 97.4 F L 11/28/18 10:55 Pulse Rate 82 11/28/18 10:55 Respiratory Rate 17 11/28/18 10:55 Blood Pressure 113/78 11/28/18 10:55 O2 Sat by Pulse Oximetry (%) Laboratory Last Values WBC 9.5 K/mm3 (4.0-10.0) 11/25/18 08:00 RBC 4.40 M/mm3 (4.00-5.60) 11/25/18 08:00 Hgb 14.0 GM/dL (11.7-16.9) 11/25/18 08:00 Hct 41.8 % (35.4-49) 11/25/18 08:00 MCV 95.0 fl (80-96) 11/25/18 08:00 MCH 31.8 pg (25.7-33.7) 11/25/18 08:00 MCHC 33.4 g/dl (32.0-35.9) 11/25/18 08:00 RDW 13.9 % (11.9-15.9) 11/25/18 08:00 Plt Count 204 K/MM3 (134-434) 11/25/18 08:00 MPV 9.0 fl (7.5-11.1) 11/25/18 08:00 Sodium 142 mmol/L (136-145) 11/25/18 08:00 Potassium 4.4 mmol/L (3.5-5.1) 11/25/18 08:00 Chloride 105 mmol/L (98-107) 11/25/18 08:00 Carbon Dioxide 32 mmol/L (21-32) 11/25/18 08:00 Anion Gap 5 MMOL/L (8-16) L 11/25/18 08:00 BUN 17.0 mg/dL (7-18) 11/25/18 08:00 Creatinine 0.8 mg/dL (0.55-1.3) 11/25/18 08:00 Est GFR (CKD-EPI)AfAm 122.43 11/25/18 08:00 Est GFR (CKD-EPI)NonAf 105.63 11/25/18 08:00 Random Glucose 93 mg/dL (74-106) 11/25/18 08:00 Calcium 9.0 mg/dL (8.5-10.1) 11/25/18 08:00 Total Bilirubin 0.3 mg/dL (0.2-1) 11/25/18 08:00 AST 34 U/L (15-37) 11/25/18 08:00 ALT 74 U/L (13-61) H 11/25/18 08:00 Alkaline Phosphatase 66 U/L (45-117) 11/25/18 08:00 Total Protein 6.3 g/dl (6.4-8.2) L 11/25/18 08:00 Albumin 3.3 g/dl (3.4-5.0) L 11/25/18 08:00 RPR Titer Nonreactive (NONREACTIVE) 11/25/18 08:00 HIV 1&2 Ag/Ab, 4th Gen Non reactive (Non Reactive) 11/25/18 09:30 HIV 1&2 Antibody Screen Cancelled 11/25/18 10:24 HIV P24 Antigen Cancelled 11/25/18 10:24 lab noted Assessment: 11/28/18 11:28 mild alcohol withdrawal sx 11/28/18 11:28 Plan: continue librium detox regimen
[2018-11-28] MEDS: QUEtiapine FUMARATE 100 MG TABLET (FP) PO SCH (22:06)
[2018-11-28] MEDS: THIAMINE HCL 100 MG TABLET (FP) PO SCH (22:06)
[2018-11-29] MEDS: NICOTINE POLACRILEX 4 MG GUM BUC PRN ×3 (01:31→10:03)
[2018-11-29] MEDS ORDERED: METHADONE HCL 40 MG DISPERSABLE TABLET ONE (04:52)
[2018-11-29] MEDS ORDERED: METHADONE HCL 10 MG TABLET ONE (04:52)
[2018-11-29] MEDS ORDERED: chlordiazePOXIDE HCL 10 MG CAPSULE PO ONE (05:00)
[2018-11-29] MEDS: METHADONE 40 MG, METHADONE 10 MG PO SCH (05:09)
[2018-11-29] MEDS: METHOCARBAMOL 500 MG TABLET PO PRN (05:10)
--- NOTE | 2018-11-29 08:59 | DS ---
[facility] Detox Discharge Summary Admission Date: 11/24/18 Discharge Date: 11/29/18 - History Present History: Alcohol Dependence Additional Comments: 48 years old male admitted on 11/24/18 for acute alcohol withdrawal sx management doing well with librium detox regimen no complication throughout the detox stay seen by psychiatrist begin seroquel 50 mg po am and 100 mg po hs patient tolerates pharmacotherapy well further level of alcohol recovery at [facility] Pertinent Past History: hypertension asthma methadone maintenance program patient agrees to work closely with methadone program for primary secondary and tertiary preventive health services - Physical Exam Results Vital Signs: Vital Signs Temperature 97.5 F L 11/29/18 06:04 Pulse Rate 81 11/29/18 06:04 Respiratory Rate 18 11/29/18 06:30 Blood Pressure 135/72 11/29/18 06:04 O2 Sat by Pulse Oximetry (%) doing well with amlodipine bp within acceptable range encourage the patient brining in medication list and lab report to [facility] cardiac S1S2 regular pulmonary: clear lung bilaterally abdomen: soft none tender Pertinent Admission Physical Exam Findings: alcohol withdrawal sx Laboratory Last Values WBC 9.5 K/mm3 (4.0-10.0) 11/25/18 08:00 RBC 4.40 M/mm3 (4.00-5.60) 11/25/18 08:00 Hgb 14.0 GM/dL (11.7-16.9) 11/25/18 08:00 Hct 41.8 % (35.4-49) 11/25/18 08:00 MCV 95.0 fl (80-96) 11/25/18 08:00 MCH 31.8 pg (25.7-33.7) 11/25/18 08:00 MCHC 33.4 g/dl (32.0-35.9) 11/25/18 08:00 RDW 13.9 % (11.9-15.9) 11/25/18 08:00 Plt Count 204 K/MM3 (134-434) 11/25/18 08:00 MPV 9.0 fl (7.5-11.1) 11/25/18 08:00 Sodium 142 mmol/L (136-145) 11/25/18 08:00 Potassium 4.4 mmol/L (3.5-5.1) 11/25/18 08:00 Chloride 105 mmol/L (98-107) 11/25/18 08:00 Carbon Dioxide 32 mmol/L (21-32) 11/25/18 08:00 Anion Gap 5 MMOL/L (8-16) L 11/25/18 08:00 BUN 17.0 mg/dL (7-18) 11/25/18 08:00 Creatinine 0.8 mg/dL (0.55-1.3) 11/25/18 08:00 Est GFR (CKD-EPI)AfAm 122.43 11/25/18 08:00 Est GFR (CKD-EPI)NonAf 105.63 11/25/18 08:00 Random Glucose 93 mg/dL (74-106) 11/25/18 08:00 Calcium 9.0 mg/dL (8.5-10.1) 11/25/18 08:00 Total Bilirubin 0.3 mg/dL (0.2-1) 11/25/18 08:00 AST 34 U/L (15-37) 11/25/18 08:00 ALT 74 U/L (13-61) H 11/25/18 08:00 Alkaline Phosphatase 66 U/L (45-117) 11/25/18 08:00 Total Protein 6.3 g/dl (6.4-8.2) L 11/25/18 08:00 Albumin 3.3 g/dl (3.4-5.0) L 11/25/18 08:00 RPR Titer Nonreactive (NONREACTIVE) 11/25/18 08:00 HIV 1&2 Ag/Ab, 4th Gen Non reactive (Non Reactive) 11/25/18 09:30 HIV 1&2 Antibody Screen Cancelled 11/25/18 10:24 HIV P24 Antigen Cancelled 11/25/18 10:24 lab noted denies dizziness no shortness of breathe no nausea no vomiting - Treatment Hospital Course: Detox Protocol Followed, Detoxed Safely, Responded well, Discharged Condition Good, Rehab Referral Accepted Patient has Accepted a Rehab Referral to: [facility] - Medication Discharge Medications: Ambulatory Orders Methadone [Dolophine -] 50 mg PO DAILY 09/30/18 Quetiapine Fumarate [Seroquel] 100 mg PO HS 09/30/18 Aspirin [Lo-Dose Aspirin EC] 81 mg PO DAILY 11/24/18 Emtricitabine/Tenofovir (Tdf) [Truvada 200 mg-300 mg Tablet] 1 each PO DAILY 01/04 Oxycodone HCl 30 mg PO PRN 11/24/18 Quetiapine Fumarate [Seroquel] 100 mg PO HS #30 tablet 11/26/18 Albuterol Sulfate Inhaler - [Ventolin HFA Inhaler -] 2 puff IH Q4H PRN #1 inhaler 11/28/18 Amlodipine Besylate [Norvasc -] 10 mg PO DAILY #30 tablet 11/28/18 Budesonide/Formeterol Fumarate [SYMBICORT 80/4.5mcg -] 2 puff IH BID #1 inhaler 11/28/18 Hydrochlorothiazide 25 mg PO DAILY #30 tablet 11/28/18 - Diagnosis (1) Alcohol dependence with uncomplicated withdrawal Current Visit: Yes Status: Acute (2) Insomnia Current Visit: Yes Status: Chronic Qualifiers: Insomnia type: unspecified Qualified Code(s): G47.00 - Insomnia, unspecified (3) Substance induced mood disorder Current Visit: Yes Status: Chronic (4) Asthma Current Visit: Yes Status: Chronic Qualifiers: Asthma severity: mild Asthma persistence: intermittent Asthma complication type: uncomplicated Qualified Code(s): J45.20 - Mild intermittent asthma, uncomplicated (5) Essential hypertension Current Visit: Yes Status: Chronic (6) Hepatitis C virus infection resolved after antiviral drug therapy Current Visit: Yes Status: Chronic (7) History of [place] (myocardial infarction) Current Visit: Yes Status: Suspected (8) Methadone maintenance therapy patient Current Visit: Yes Status: Chronic (9) Use of cane as ambulatory aid Current Visit: Yes Status: Chronic - AMA Did Patient Leave Against Medical Advice: No CIWA Score - CIWA Score Nausea/Vomitin-No Nausea/No Vomiting Muscle Tremors: None Anxiety: 1-Mildly Anxious Agitation: 0-Normal Activity Paroxysmal Sweats: No Perspiration Orientation: 0-Oriented Tacttile Disturbances: 0-None Auditory Disturbances: 0-None Visual Disturbances: 0-None Headache: 0-None Present CIWA-Ar Total Score: 1
[2018-11-29 09:03] VITALS: BP 103/62; PULSE 69; TEMP 97.6
[2018-11-29] MEDS: QUEtiapine FUMARATE 50 MG TABLET PO SCH (10:02)
[2018-11-29] MEDS: HYDROCHLOROTHIAZIDE 25 MG TABLET (FP) PO SCH (10:03)
[2018-11-29] MEDS: EMTRICITABINE 200MG/TENOFOVIR 300MG PO SCH (10:03)
[2018-11-29] MEDS: amLODIPine BESYLATE 10 MG TABLET (FP) PO SCH (10:03)
[2018-11-29] MEDS: BUDESONIDE/FORMETEROL FUMARATE 80/4.5 mcg INHALER IH SCH (10:03)
[2018-11-29] MEDS: ASPIRIN COATED 81 MG TABLET.EC PO SCH (10:03)
[2018-11-29] MEDS: NICOTINE 14 MG/24 HOURS TOPICAL PATCH TD SCH (10:03)
[2018-11-29] MEDS: PRENATAL VITAMINS W/ FOLIC ACID TABLET (FP) PO SCH (10:04)
== END 2018-11-29 10:30 | disposition home or self-care (01) | DRG 773 ==
LOC: YASAS 12:40 → Y3N 18:42
PROVIDERS: ADMIT Surgery; ATTEND Surgery
PROC: HZ2ZZZZ Detoxification Services for Substance Abuse Treatment (ICD-10-PCS; principal; 2018-11-24)
DX: F10.230 Alcohol dependence with withdrawal, uncomplicated (principal); F11.20 Opioid dependence, uncomplicated; F14.20 Cocaine dependence, uncomplicated; F12.20 Cannabis dependence, uncomplicated; F13.90 Sedative, hypnotic, or anxiolytic use, unspecified, uncomplicated; F17.210 Nicotine dependence, cigarettes, uncomplicated; F19.24 Other psychoactive substance dependence with psychoactive substance-induced mood disorder; F31.9 Bipolar disorder, unspecified; I10 Essential (primary) hypertension; G47.00 Insomnia, unspecified; J45.20 Mild intermittent asthma, uncomplicated; I25.2 Old myocardial infarction; R26.2 Difficulty in walking, not elsewhere classified; Z99.89 Dependence on other enabling machines and devices; Z86.73 Personal history of transient ischemic attack (TIA), and cerebral infarction without residual deficits; Z86.19 Personal history of other infectious and parasitic diseases; Z91.5 Personal history of self-harm
CPT/HCPCS: 36415; 80053; 85027; 86480; 86593; 87389; 93005; 93010

== ENCOUNTER 2019-02-10 13:30 | Inpatient (IN) | payer OTHER ==
[2019-02-10 17:11] VITALS: BMI 29.3
--- NOTE | 2019-02-10 20:11 | HP ---
COWS - Scale Resting Pulse: 1= [place] 81-100 Sweatin=Flushed/Facial Moisture Restless Observation: 1= Difficult to Sit Still Pupil Size: 1= Pupils >than Normal Bone or Joint Aches: 2= Severe Diffuse Aches Runny Nose/ Eye Tearin= Nasal Congestion GI Upset > 30mins: 1= Stomach Cramp Tremor Observation: 2= Slight Tremor Visible Yawning Observation: 0= None Anxiety or Irritability: 1=Feels Anxious/Irritable Goose Flesh Skin: 0=Smooth Skin COWS Score: 12 CIWA Score Nausea/Vomitin Muscle Tremors: 3 Anxiety: 3 Agitation: 2 Paroxysmal Sweats: 2 Orientation: 0-Oriented Tacttile Disturbances: 1-Very Mild Itch/Numbness Auditory Disturbances: 2-Mild Harshness/Frighten Visual Disturbances: 2-Mild Sensitivity Headache: 2-Mild CIWA-Ar Total Score: 20 - Admission Criteria OASAS Guidelines: Admission for Medically Managed Detox: Requires at least one of the followin. CIWA greater than 12 2. Seizures within the past 24 hours 3. Delirium tremens within the past 24 hours 4. Hallucinations within the past 24 hours 5. Acute intervention needed for co occurring medical disorder 6. Acute intervention needed for co occurring psychiatric disorder 7. Severe withdrawal that cannot be handled at a lower level of care (continued vomiting, continued diarrhea, abnormal vital signs) requiring intravenous medication and/or fluids 8. Admitting History and Physical - Smoking History Smoking history: Current every day smoker Have you smoked in the past 12 months: Yes Aproximately how many cigarettes per day: 20 - Alcohol/Substance Use Hx Alcohol Use: Yes Admission ROS BHS - HPI Chief Complaint: DEPENDENT ON ETOH, HEROIN, MARIJUANA, XANAX AND COCAINE ON 70 MGS. OF MMTP - LAST DOSE THIS AM Allergies/Adverse Reactions: Allergies Allergy/AdvReac Type Severity Reaction Status Date / Time No Known Allergies Allergy Verified 02/10/19 16:57 History of Present Illness: THE PT. IS REQUESTING ADMISSION TO THE DETOX UNIT AND CAME FOR MEDICAL CLEARANCE. Exam Limitations: Physical Impairment - Ebola screening Have you traveled outside of the country in the last 21 days: No (N) Have you had contact with anyone from an Ebola affected area: No Have you been sick,other than usual withdrawal symptoms: No Do you have a fever: No - Review of Systems Constitutional: See HPI, Malaise, Weakness EENT: reports: See HPI Respiratory: reports: See HPI Cardiac: reports: See HPI GI: reports: See HPI, Diarrhea, Nausea, Vomiting, Abdominal cramping : reports: No Symptoms Reported, See HPI Musculoskeletal: reports: See HPI, Joint Pain, Muscle Pain, Muscle Weakness Integumentary: reports: See HPI, Sweating Neuro: reports: See HPI, Headache, Tremors, Weakness Endocrine: reports: See HPI, Unexplained Weight Loss Hematology: reports: See HPI Psychiatric: reports: Judgement Intact, Orientated x3, Anxious, Depressed Patient History - Patient Medical History Hx Anemia: No Hx Asthma: Yes (Uses Ventolin Inhaler.) Hx Chronic Obstructive Pulmonary Disease (COPD): No Hx Cancer: No Hx Cardiac Disorders: Yes (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 3 months ago.) Hx Genitourinary Disorders: No Hx Sexually Transmitted Disorders: No Hx Renal Disease (ESRD): No Hx Thyroid Disease: No Hx Human Immunodeficiency Virus (HIV): No (Last Tested:06/2016:NEGATIVE ON PROPHYLACTIC TRUVADA DUE TO PARTNER STATUS.) Hx Hepatitis C: Yes (Completed Treatment approx. 3 months ago.) Hx Depression: Yes (Seroquel) Hx Suicide Attempt: Yes (2002-Took full bottle of medication w/ Alcohol; PT. DENIES CURRENT SI /HI.) Hx Bipolar Disorder: No Hx Schizophrenia: No Other Medical History: ANXIETY DISORDER - Patient Surgical History Past Surgical History: Yes Hx Neurologic Surgery: No Hx Cataract Extraction: No Hx Cardiac Surgery: No Hx Lung Surgery: No Hx Breast Surgery: No Hx Breast Biopsy: No Hx Abdominal Surgery: No Hx Appendectomy: No Hx Cholecystectomy: No Hx Genitourinary Surgery: No Hx Section: No Hx Orthopedic Surgery: Yes (LEFT LOWER LEG SX DUE TO FX IN 2003- many surgeries) Other Surgical History: SURGERY ON RT.FORE ARM ON 01/25/2019 FOR FRACTURED BONES Anesthesia Reaction: No - PPD History Date: 10/29/17 Results: negative - Smoking Cessation Smoking history: Current every day smoker Have you smoked in the past 12 months: Yes Aproximately how many cigarettes per day: 40 Cigars Per Day: 0 Hx Chewing Tobacco Use: No Initiated information on smoking cessation: Yes 'Breaking Loose' booklet given: 02/10/19 - Substance & Tx. History Hx Alcohol Use: Yes Hx Substance Use: Yes Substance Use Type: Alcohol, Cocaine, Heroin, Marijuana, Opiates, Prescribed Hx Substance Use Treatment: Yes - Substances abused Alcohol Substance route: Oral Frequency: Daily Amount used: 6 to 7 pints of vodka, sometimes beer. Age of first use: 15 Date of last use: 02/10/19 Heroin Substance route: Inhalation Frequency: Daily Amount used: 2 or 3 bags Age of first use: 23 Date of last use: 02/09/19 Other Other (specify): xanax Substance route: Oral Frequency: 1-3 times last 30 days Amount used: 1-2 pills Age of first use: 22 Date of last use: 09/30/18 Alprazolam (Xanax) Other (specify): xanax Substance route: Oral Frequency: 1-2 times per week Amount used: 1-2 sticks (4mg) Age of first use: 22 Date of last use: 09/30/18 Marijuana/Hashish Substance route: Smoking Frequency: 1-3 times last 30 days Amount used: 2 blunts Age of first use: 15 Date of last use: 02/02/19 Cocaine Substance route: Inhalation Frequency: 1-2 times per week Amount used: 1 bag of 20. Age of first use: 25 Date of last use: 02/05/19 Admission Physical Exam [facility] - Vital Signs Vital Signs: Vital Signs - 24 hr 02/10/19 16:56 Temperature 99.1 F Pulse Rate 90 Respiratory 16 Rate Blood Pressure 143/80 - Physical General Appearance: Yes: No Apparent Distress, Nourished, Appropriately Dressed , Tremorous, Sweating, Anxious HEENTM: Yes: Hearing grossly Normal, Normocephalic, Normal Voice, REYES, Pharynx Normal Respiratory: Yes: Chest Non-Tender, Lungs Clear, Normal Breath Sounds Neck: Yes: No masses,lesions,Nodules, Supple, Trachea in good position Breast: Yes: Breast Exam Deferred, Axillae without masses Cardiology: Yes: Regular Rhythm, S1, S2, Tachycardia Abdominal: Yes: Normal Bowel Sounds, Non Tender, Soft, Protuberent Back: Yes: Normal Inspection Musculoskeletal: Yes: full range of Motion, Gait Steady, Pelvis Stable, Joint Stiffness, Muscle Pain, Muscle weakness Extremities: Yes: Normal Capillary Refill, Normal Range of Motion, Non-Tender, Tremors Neurological: Yes: typing 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 FOREARM IS IN POP CAST AND HE IS USING A CANE TO WALK - Diagnostic (1) Heroin dependence Current Visit: Yes Status: Chronic (2) Alcohol dependence with uncomplicated withdrawal Current Visit: No Status: Chronic (3) Asthma Current Visit: No Status: Chronic Qualifiers: Asthma severity: mild Asthma persistence: intermittent Asthma complication type: uncomplicated Qualified Code(s): J45.20 - Mild intermittent asthma, uncomplicated (4) Cannabis dependence Current Visit: No Status: Chronic (5) Chronic pain after traumatic injury Current Visit: No Status: Chronic Comment: left lower leg (6) Cocaine dependence Current Visit: No Status: Chronic Qualifiers: Substance use status: uncomplicated Qualified Code(s): F14.20 - Cocaine dependence, uncomplicated (7) Depression Current Visit: No Status: Chronic Qualifiers: Depression Type: major depressive disorder Major depression recurrence: unspecified whether recurrent Active/Remission status: currently active Major depression episode severity: unspecified Qualified Code(s): F32.9 - Major depressive disorder, single episode, unspecified (8) Essential hypertension Current Visit: No Status: Chronic (9) Hepatitis C virus infection resolved after antiviral drug therapy Current Visit: No Status: Chronic (10) Left leg injury Current Visit: No Status: Chronic Qualifiers: Encounter type: sequela Qualified Code(s): S89.92XS - Unspecified injury of left lower leg, sequela (11) Methadone maintenance therapy patient Current Visit: No Status: Chronic (12) Nicotine dependence Current Visit: No Status: Chronic Qualifiers: Nicotine product type: cigarettes Substance use status: uncomplicated Qualified Code(s): F17.210 - Nicotine dependence, cigarettes, uncomplicated (13) Sedative, hypnotic or anxiolytic dependence with withdrawal, uncomplicated Current Visit: No Status: Chronic (14) Use of cane as ambulatory aid Current Visit: No Status: Chronic (15) History of [place] (myocardial infarction) Current Visit: No Status: Suspected Cleared for Admission [facility] - Detox or Rehab [facility] Level of Care: Medically Supervised Detox Regimen/Protocol: Librium Claeared for Rehab Admission: No Breathalyzer - Breathalyzer Breathalyzer: 0 Urine Drug Screen - Test Device Lot number: [id number] Expiration date: 10/15/20 - Control Is test valid?: Yes - Results Drug screen NEGATIVE: No Urine drug screen results: ZACH-Cocaine, MOP-Opiates, MTD-Methadone Inpatient Rehab Admission - Rehab Decision to Admit Inpatient rehab admission?: No
[2019-02-10] MEDS ORDERED: MAG HYDROX/AL HYDROX/SIMETH 30 ML UNIT-DOSE CUP PO PRN (20:20)
[2019-02-10] MEDS ORDERED: BISMUTH SUBSALICYLATE 524 MG/30 ML UD PO PRN (20:20)
[2019-02-10] MEDS ORDERED: MENTHOL/PHENOL 1 EACH UD MM PRN (20:20)
[2019-02-10] MEDS ORDERED: ACETAMINOPHEN 325 MG TABLET (FP) PO PRN ×2 (20:20)
[2019-02-10] MEDS ORDERED: MAGNESIUM CITRATE 300 ML BOTTLE PO PRN (20:20)
[2019-02-10] MEDS ORDERED: chlordiazePOXIDE HCL 25 MG CAPSULE PO ONE (20:20)
[2019-02-10] MEDS ORDERED: IBUPROFEN 400 MG TABLET (FP) PO PRN (20:20)
[2019-02-10] MEDS ORDERED: ALBUTEROL SO4 8 GM HFA INHALER IH PRN (20:23)
--- NOTE | 2019-02-10 21:31 | PN ---
[facility] Progress Note Note: patient is on methadone maintenance 70 mgs/day has take home bottle 70 mgs with him for dispensing 02/11/19, will ordered methadone 70 mgs po at 06.00 on 02/01/19,for verification with his program on mon 02/12/19
[2019-02-10] MEDS: ASPIRIN COATED 81 MG TABLET.EC PO SCH (21:49)
[2019-02-10] MEDS: amLODIPine BESYLATE 10 MG TABLET (FP) PO SCH (21:49)
[2019-02-10] MEDS: NICOTINE POLACRILEX 4 MG GUM BUC PRN (21:54)
[2019-02-10] MEDS ORDERED: QUEtiapine FUMARATE 100 MG TABLET (FP) PO SCH (22:00)
[2019-02-10] MEDS: chlordiazePOXIDE HCL 25 MG CAPSULE PO SCH (23:06)
[2019-02-10] MEDS: THIAMINE HCL 100 MG TABLET (FP) PO SCH (23:07)
[2019-02-10] MEDS: EMTRICITABINE 200MG/TENOFOVIR 300MG PO SCH (23:55)
[2019-02-10] MEDS: BUDESONIDE/FORMETEROL FUMARATE 80/4.5 mcg INHALER IH SCH (23:55)
[2019-02-11] MEDS: hydrOXYzine PAMOATE 25 MG CAPSULE (FP) PO PRN (01:33)
[2019-02-11] MEDS: MELATONIN 5 MG TABLETS PO PRN ×2 (01:33→22:21)
[2019-02-11] MEDS: chlordiazePOXIDE HCL 25 MG CAPSULE PO SCH ×3 (05:33→22:20)
[2019-02-11] MEDS ORDERED: METHADONE HCL 10 MG TABLET PO ONE (06:00)
[2019-02-11 10:07] LABS: ALBUMIN 3.3 g/dl (3.4-5.0); BILIRUBIN,TOTAL 0.3 mg/dL (0.2-1); BLOOD UREA NITROGEN 19.1 mg/dL (7-18); CALCIUM 8.8 mg/dL (8.5-10.1); CREATININE 0.7 mg/dL (0.55-1.3); HEMATOCRIT 40.9 % (35.4-49); HEMOGLOBIN 13.6 GM/dL (11.7-16.9); MCH 31.5 pg (25.7-33.7); MCHC 33.3 g/dl (32.0-35.9); MEAN CELL VOLUME 94.7 fl (80-96); MEAN PLT VOLUME 8.9 fl (7.5-11.1); PLATELET COUNT 229 K/MM3 (134-434); POTASSIUM 4.2 mmol/L (3.5-5.1); RBC 4.33 M/mm3 (4.00-5.60); RDW 14.5 % (11.9-15.9); TOT PROT 6.5 g/dl (6.4-8.2); WHITE BLOOD COUNT 8.7 K/mm3 (4.0-10.0)
[2019-02-11] MEDS: NICOTINE 21 MG/24 HOURS TOPICAL PATCH TD SCH (10:21)
[2019-02-11] MEDS: PRENATAL VITAMINS W/ FOLIC ACID TABLET (FP) PO SCH (10:21)
[2019-02-11] MEDS: ASPIRIN COATED 81 MG TABLET.EC PO SCH (10:21)
[2019-02-11] MEDS: BUDESONIDE/FORMETEROL FUMARATE 80/4.5 mcg INHALER IH SCH ×2 (10:21→23:41)
[2019-02-11] MEDS: amLODIPine BESYLATE 10 MG TABLET (FP) PO SCH (10:21)
[2019-02-11] MEDS: EMTRICITABINE 200MG/TENOFOVIR 300MG PO SCH (10:22)
[2019-02-11] MEDS: chlordiazePOXIDE HCL 10 MG CAPSULE PO PRN ×2 (10:25→18:29)
--- NOTE | 2019-02-11 15:18 | PN ---
[facility] CIWA - CIWA Score Nausea/Vomitin-Mild Nausea/No Vomiting Muscle Tremors: 3 Anxiety: 4-Mod. Anxious/Guarded Agitation: 3 Paroxysmal Sweats: 3 Orientation: 0-Oriented Tacttile Disturbances: 0-None Auditory Disturbances: 0-None Visual Disturbances: 0-None Headache: 0-None Present CIWA-Ar Total Score: 14 S Progress Note (SOAP) Subjective: Sweating, chills, stomachache, diarrhea, interrupted sleep. Objective: 02/11/19 15:17 Last Vital Signs Temp Pulse Resp BP Pulse Ox 97.7 F 85 18 123/83 02/11/19 09:53 02/11/19 09:53 02/11/19 09:53 02/11/19 09:53 Laboratory Tests 02/11/19 02/11/19 02/11/19 07:40 07:40 07:40 WBC 8.7 RBC 4.33 Hgb 13.6 Hct 40.9 MCV 94.7 MCH 31.5 MCHC 33.3 RDW 14.5 Plt Count 229 MPV 8.9 Sodium 140 Potassium 4.2 Chloride 104 Carbon Dioxide 31 Anion Gap 6 L BUN 19.1 H Creatinine 0.7 Est GFR (CKD-EPI)AfAm 129.34 Est GFR (CKD-EPI)NonAf 111.59 Random Glucose 78 Calcium 8.8 Total Bilirubin 0.3 AST 19 ALT 33 Alkaline Phosphatase 67 Total Protein 6.5 Albumin 3.3 L RPR Titer Nonreactive Labs reviewed: bun 19.1 (mildly elevated, encouraged PO water intake) Assessment: 02/11/19 15:19 Withdrawal sxs Noted with azotemia Plan: Continue detox Azotemia, mild: encouraged PO water intake
[2019-02-11] MEDS: NICOTINE POLACRILEX 4 MG GUM BUC PRN ×2 (16:57→22:22)
[2019-02-11] MEDS: MAGNESIUM HYDROX 2400MG/30ML ORAL SUSPENSION 30 ML CUP PO PRN (17:22)
[2019-02-11] MEDS: QUEtiapine FUMARATE 100 MG TABLET (FP) PO PRN (22:20)
[2019-02-11] MEDS: THIAMINE HCL 100 MG TABLET (FP) PO SCH (22:20)
[2019-02-12] MEDS: hydrOXYzine PAMOATE 25 MG CAPSULE (FP) PO PRN (02:29)
[2019-02-12] MEDS: chlordiazePOXIDE 5 MG CAPSULE PO SCH ×3 (05:36→21:55)
[2019-02-12] MEDS: NICOTINE POLACRILEX 4 MG GUM BUC PRN ×5 (05:43→22:10)
[2019-02-12] MEDS: MAGNESIUM HYDROX 2400MG/30ML ORAL SUSPENSION 30 ML CUP PO PRN (05:44)
--- NOTE | 2019-02-12 09:03 | CONSULT ---
[facility] Psychiatric Consult - Data Date of interview: 02/12/19 Admission source: Self-referred Identifying data: Mr Ortiz is a 48 years old single male, father of 2 children, unemployed receiving public assistance, domiciled seeking detox treatment for alcohol, opioid, cocaine, benzodiazepine and cannabis Substance Abuse History: Reports history of alcohol, heroin, xanax and marijuana use. Refer to addiction counselor's summary for further information Medical History: Significant for bronchial asthma, hypertension, history of treatment for hepatitis C, myocardial infarction (2003) and orthosurgery ( fracture of left leg) in 2003. Patient is on prophylactic truvada (due to current partner's status). Patient is on methadone 120 mg/day from [facility]. Smokes cigarettes 1 ppd Psychiatric History: Patient is known to this facility from previous admissions. He reports that his onset of psychiatric illness was in 1990 when he was diagnosed with MDD and Anxiety Disorder. Diagnosis was later revised to Bipolar Disorder. Reports 2 previous psychiatric hospitalizations both at [facility]. His most recent admission was in 2003 for depression. Denies currently receiving outpatient psychiatric treatment. According to record, he was recently seen on 11/25/[address] Lemus during his most rent admisson to this facility and he was prescribed Seroquel 50 mg/day & 100 mg/hs. Claims that he has been getting medication prescribed by his primary care physician. Reports one previous suicide attempt (1989) via deliberate overdose with alcohol and medications. At present, denies experiencing psychotic, manic or depressive symptoms, S/H ideations. However, report sleeping poorly Physical/Sexual Abuse/Trauma History: Denies history of emotional, physical or sexual abuse as well as DV relationship. No service Additional Comment: Reports history of 3 previous felony convictions. Denies being on parole at present Mental Status Exam - Mental Status Exam Alert and Oriented to: Time, Place, Person Cognitive Function: Fair Patient Appearance: Well Groomed Mood: Hopeful, Euthymic Patient Behavior: Cooperative Speech Pattern: Clear Voice Loudness: Normal Thought Process: Intact, Goal Oriented Thought Disorder: Not Present Hallucinations: Denies Suicidal Ideation: Denies Homicidal Ideation: Denies Insight/Judgement: Poor Sleep: Poorly Appetite: Poor Muscle strength/Tone: Normal Gait/Station: Normal Psychiatric Findings - Problem List ([facility] 1, 2,3) (1) Bipolar disorder Current Visit: No Status: Chronic Comment: As per existing records. (2) Substance-induced sleep disorder Current Visit: No Status: Acute (3) Alcohol dependence with uncomplicated withdrawal Current Visit: No Status: Chronic (4) Cocaine dependence Current Visit: No Status: Acute Qualifiers: Substance use status: uncomplicated Qualified Code(s): F14.20 - Cocaine dependence, uncomplicated (5) Cannabis dependence Current Visit: No Status: Acute (6) Sedative, hypnotic or anxiolytic dependence with withdrawal, uncomplicated Current Visit: No Status: Chronic (7) Nicotine dependence Current Visit: No Status: Chronic Qualifiers: Nicotine product type: cigarettes Substance use status: uncomplicated Qualified Code(s): F17.210 - Nicotine dependence, cigarettes, uncomplicated (8) Asthma Current Visit: No Status: Chronic Qualifiers: Asthma severity: mild Asthma persistence: intermittent Asthma complication type: uncomplicated Qualified Code(s): J45.20 - Mild intermittent asthma, uncomplicated (9) Essential hypertension Current Visit: No Status: Chronic (10) History of [place] (myocardial infarction) Current Visit: No Status: Suspected (11) Hepatitis C Current Visit: Yes Status: Resolved - Initial Treatment Plan Initial Treatment Plan: 1) Continue Seroquel 50 mg daily & 100 mg HS. 2) Continue inpatient detoxification
[2019-02-12] MEDS ORDERED: METHADONE HCL 10 MG TABLET PO ONE (09:33)
[2019-02-12] MEDS ORDERED: METHADONE 40 MG, METHADONE 30 MG PO ONE (09:45)
[2019-02-12] MEDS ORDERED: METHADONE HCL 10 MG TABLET ONE (09:50)
[2019-02-12] MEDS ORDERED: METHADONE HCL 40 MG DISPERSABLE TABLET ONE (09:50)
[2019-02-12] MEDS: EMTRICITABINE 200MG/TENOFOVIR 300MG PO SCH (11:02)
[2019-02-12] MEDS: BUDESONIDE/FORMETEROL FUMARATE 80/4.5 mcg INHALER IH SCH ×2 (11:03→22:06)
[2019-02-12] MEDS: PRENATAL VITAMINS W/ FOLIC ACID TABLET (FP) PO SCH (11:03)
[2019-02-12] MEDS: amLODIPine BESYLATE 10 MG TABLET (FP) PO SCH (11:03)
[2019-02-12] MEDS: ASPIRIN COATED 81 MG TABLET.EC PO SCH (11:03)
[2019-02-12] MEDS: chlordiazePOXIDE HCL 10 MG CAPSULE PO PRN ×2 (11:36→19:57)
[2019-02-12] MEDS: NICOTINE 21 MG/24 HOURS TOPICAL PATCH TD SCH (13:00)
--- NOTE | 2019-02-12 16:14 | PN ---
[facility] CIWA - CIWA Score Nausea/Vomitin-No Nausea/No Vomiting Muscle Tremors: 1-None Visible, but [place] Anxiety: 2 Agitation: 2 Paroxysmal Sweats: No Perspiration Orientation: 0-Oriented Tacttile Disturbances: 1-Very Mild Itch/Numbness Auditory Disturbances: 0-None Visual Disturbances: 0-None Headache: 1-Very Mild CIWA-Ar Total Score: 7 [facility] Progress Note (SOAP) Subjective: alert,irritable,anxious,interrupted sleep,pain in the body and leg Objective: 02/12/19 16:12 Vital Signs Temperature 98.8 F 02/12/19 13:23 Pulse Rate 82 02/12/19 13:23 Respiratory Rate 18 02/12/19 13:23 Blood Pressure 142/88 02/12/19 13:23 O2 Sat by Pulse Oximetry (%) Laboratory Last Values WBC 8.7 K/mm3 (4.0-10.0) 02/11/19 07:40 RBC 4.33 M/mm3 (4.00-5.60) 02/11/19 07:40 Hgb 13.6 GM/dL (11.7-16.9) 02/11/19 07:40 Hct 40.9 % (35.4-49) 02/11/19 07:40 MCV 94.7 fl (80-96) 02/11/19 07:40 MCH 31.5 pg (25.7-33.7) 02/11/19 07:40 MCHC 33.3 g/dl (32.0-35.9) 02/11/19 07:40 RDW 14.5 % (11.9-15.9) 02/11/19 07:40 Plt Count 229 K/MM3 (134-434) 02/11/19 07:40 MPV 8.9 fl (7.5-11.1) 02/11/19 07:40 Sodium 140 mmol/L (136-145) 02/11/19 07:40 Potassium 4.2 mmol/L (3.5-5.1) 02/11/19 07:40 Chloride 104 mmol/L (98-107) 02/11/19 07:40 Carbon Dioxide 31 mmol/L (21-32) 02/11/19 07:40 Anion Gap 6 MMOL/L (8-16) L 02/11/19 07:40 BUN 19.1 mg/dL (7-18) H 02/11/19 07:40 Creatinine 0.7 mg/dL (0.55-1.3) 02/11/19 07:40 Est GFR (CKD-EPI)AfAm 129.34 02/11/19 07:40 Est GFR (CKD-EPI)NonAf 111.59 02/11/19 07:40 Random Glucose 78 mg/dL (74-106) 02/11/19 07:40 Calcium 8.8 mg/dL (8.5-10.1) 02/11/19 07:40 Total Bilirubin 0.3 mg/dL (0.2-1) 02/11/19 07:40 AST 19 U/L (15-37) 02/11/19 07:40 ALT 33 U/L (13-61) 02/11/19 07:40 Alkaline Phosphatase 67 U/L (45-117) 02/11/19 07:40 Total Protein 6.5 g/dl (6.4-8.2) 02/11/19 07:40 Albumin 3.3 g/dl (3.4-5.0) L 02/11/19 07:40 RPR Titer Nonreactive (NONREACTIVE) 02/11/19 07:40 Assessment: 02/12/19 16:13 withdrawal symptom Plan: continue detox ,encourage oral fluid,cane for ambulatory aid
[2019-02-12] MEDS: THIAMINE HCL 100 MG TABLET (FP) PO SCH (22:06)
[2019-02-12] MEDS: QUEtiapine FUMARATE 100 MG TABLET (FP) PO PRN (22:09)
[2019-02-12] MEDS: MELATONIN 5 MG TABLETS PO PRN (22:10)
[2019-02-13] MEDS ORDERED: chlordiazePOXIDE HCL 10 MG CAPSULE PO PRN
[2019-02-13] MEDS ORDERED: METHADONE HCL 40 MG DISPERSABLE TABLET ONE (04:04)
[2019-02-13] MEDS ORDERED: METHADONE HCL 10 MG TABLET ONE (04:04)
[2019-02-13] MEDS: METHADONE 40 MG, METHADONE 30 MG PO SCH (05:40)
[2019-02-13] MEDS: chlordiazePOXIDE HCL 10 MG CAPSULE PO SCH ×3 (05:41→22:36)
[2019-02-13] MEDS: NICOTINE POLACRILEX 4 MG GUM BUC PRN ×3 (05:44→17:42)
[2019-02-13] MEDS ORDERED: METHADONE HCL 10 MG TABLET PO SCH (06:00)
[2019-02-13] MEDS: ASPIRIN COATED 81 MG TABLET.EC PO SCH (10:38)
[2019-02-13] MEDS: BUDESONIDE/FORMETEROL FUMARATE 80/4.5 mcg INHALER IH SCH ×2 (10:38→22:38)
[2019-02-13] MEDS: EMTRICITABINE 200MG/TENOFOVIR 300MG PO SCH (10:38)
[2019-02-13] MEDS: amLODIPine BESYLATE 10 MG TABLET (FP) PO SCH (10:38)
[2019-02-13] MEDS: PRENATAL VITAMINS W/ FOLIC ACID TABLET (FP) PO SCH (10:38)
[2019-02-13] MEDS: NICOTINE 21 MG/24 HOURS TOPICAL PATCH TD SCH (10:38)
--- NOTE | 2019-02-13 11:06 | PN ---
[facility] CIWA - CIWA Score Nausea/Vomitin-No Nausea/No Vomiting Muscle Tremors: 1-None Visible, but [place] Anxiety: 1-Mildly Anxious Agitation: 1-Slight > Activity Paroxysmal Sweats: 1-Minimal Palms Moist Orientation: 1-Uncertain about Date Tacttile Disturbances: 0-None Auditory Disturbances: 0-None Visual Disturbances: 0-None Headache: 0-None Present CIWA-Ar Total Score: 5 [facility] Progress Note (SOAP) Subjective: sweats anxiety Objective: 02/13/19 11:17 Vital Signs Temperature 96.8 F L 02/13/19 09:46 Pulse Rate 79 02/13/19 09:46 Respiratory Rate 18 02/13/19 09:46 Blood Pressure 126/76 02/13/19 09:46 O2 Sat by Pulse Oximetry (%) aaox3 ambulating no acute distress Assessment: 02/13/19 11:17 mild withdrawals Plan: continue detox d/c in am
--- NOTE | 2019-02-13 14:21 | PN ---
S Progress Note Note: Patient reports that he continues to feel anxious despite taking Vistari 25 mg po Q 6hrs prn. Will increase Vistaril dosage to 50 mg po Q 4hrs prn
[2019-02-13] MEDS: QUEtiapine FUMARATE 50 MG TABLET PO SCH (15:20)
[2019-02-13] MEDS: hydrOXYzine PAMOATE 50 MG CAPSULE (FP) PO PRN ×2 (15:20→22:35)
[2019-02-13] MEDS: METHOCARBAMOL 500 MG TABLET PO PRN (17:41)
[2019-02-13] MEDS: MELATONIN 5 MG TABLETS PO PRN (22:35)
[2019-02-13] MEDS: THIAMINE HCL 100 MG TABLET (FP) PO SCH (22:36)
[2019-02-14] MEDS ORDERED: METHADONE HCL 40 MG DISPERSABLE TABLET ONE (04:18)
[2019-02-14] MEDS ORDERED: METHADONE HCL 10 MG TABLET ONE (04:18)
[2019-02-14] MEDS ORDERED: chlordiazePOXIDE HCL 10 MG CAPSULE PO ONE (05:00)
[2019-02-14] MEDS: METHADONE 40 MG, METHADONE 30 MG PO SCH (05:18)
[2019-02-14] MEDS: NICOTINE POLACRILEX 4 MG GUM BUC PRN ×3 (05:20→12:22)
--- NOTE | 2019-02-14 09:20 | DS ---
[facility] Detox Discharge Summary Admission Date: 02/10/19 Discharge Date: 02/14/19 - History Present History: Alcohol Dependence, Cannabis Dependence, Cocaine Dependence, Opioid Dependence, Sedative Dependence - Physical Exam Results Vital Signs: Vital Signs Temperature 97.3 F L 02/14/19 05:49 Pulse Rate 70 02/14/19 05:49 Respiratory Rate 18 02/14/19 05:49 Blood Pressure 112/65 02/14/19 05:49 O2 Sat by Pulse Oximetry (%) Pertinent Admission Physical Exam Findings: pt arrived in withdrawals Vital Signs Temperature 97.3 F L 02/14/19 05:49 Pulse Rate 70 02/14/19 05:49 Respiratory Rate 18 02/14/19 05:49 Blood Pressure 112/65 02/14/19 05:49 O2 Sat by Pulse Oximetry (%) Laboratory Tests 02/11/19 02/11/19 02/11/19 07:40 07:40 07:40 WBC 8.7 RBC 4.33 Hgb 13.6 Hct 40.9 MCV 94.7 MCH 31.5 MCHC 33.3 RDW 14.5 Plt Count 229 MPV 8.9 Sodium 140 Potassium 4.2 Chloride 104 Carbon Dioxide 31 Anion Gap 6 L BUN 19.1 H Creatinine 0.7 Est GFR (CKD-EPI)AfAm 129.34 Est GFR (CKD-EPI)NonAf 111.59 Random Glucose 78 Calcium 8.8 Total Bilirubin 0.3 AST 19 ALT 33 Alkaline Phosphatase 67 Total Protein 6.5 Albumin 3.3 L RPR Titer Nonreactive today pt is aaox3 ambulating no acute distress no s/s of withdrawals - Treatment Hospital Course: Detox Protocol Followed, Detoxed Safely, Responded well, Discharged Condition Good, Rehab Referral Accepted - Medication Discharge Medications: Ambulatory Orders Quetiapine Fumarate [Seroquel -] 100 mg PO HS 09/30/18 Aspirin [Lo-Dose Aspirin EC] 81 mg PO DAILY 11/24/18 Emtricitabine/Tenofovir (Tdf) [Truvada 200 mg-300 mg Tablet] 1 each PO DAILY 01/04 Albuterol Sulfate Inhaler - [Ventolin HFA Inhaler -] 2 puff IH Q4H PRN #1 inhaler 11/28/18 Amlodipine Besylate [Norvasc -] 10 mg PO DAILY #30 tablet 11/28/18 Budesonide/Formeterol Fumarate [SYMBICORT 80/4.5mcg -] 2 puff IH BID #1 inhaler 11/28/18 - Diagnosis (1) Heroin dependence Current Visit: Yes Status: Chronic (2) Hepatitis C Current Visit: Yes Status: Chronic (3) Cannabis dependence Current Visit: Yes Status: Chronic (4) Cocaine dependence Current Visit: Yes Status: Chronic Qualifiers: Substance use status: uncomplicated Qualified Code(s): F14.20 - Cocaine dependence, uncomplicated (5) Insomnia Current Visit: No Status: Acute (6) Substance-induced anxiety disorder Current Visit: No Status: Acute (7) Substance-induced sleep disorder Current Visit: No Status: Acute (8) Alcohol dependence with uncomplicated withdrawal Current Visit: Yes Status: Chronic (9) Asthma Current Visit: No Status: Chronic Qualifiers: Asthma severity: mild Asthma persistence: intermittent Asthma complication type: uncomplicated Qualified Code(s): J45.20 - Mild intermittent asthma, uncomplicated (10) Bipolar disorder Current Visit: No Status: Chronic (11) Chronic pain after traumatic injury Current Visit: No Status: Chronic (12) Depression Current Visit: No Status: Chronic Qualifiers: Depression Type: major depressive disorder Major depression recurrence: unspecified whether recurrent Active/Remission status: currently active Major depression episode severity: unspecified Qualified Code(s): F32.9 - Major depressive disorder, single episode, unspecified (13) Drug-induced mood disorder Current Visit: No Status: Chronic (14) Essential hypertension Current Visit: No Status: Chronic (15) Hepatitis C virus infection resolved after antiviral drug therapy Current Visit: No Status: Chronic (16) History of bipolar disorder Current Visit: No Status: Chronic (17) Insomnia Current Visit: No Status: Chronic Qualifiers: Insomnia type: unspecified Qualified Code(s): G47.00 - Insomnia, unspecified (18) Left leg injury Current Visit: No Status: Chronic Qualifiers: Encounter type: sequela Qualified Code(s): S89.92XS - Unspecified injury of left lower leg, sequela (19) Methadone maintenance therapy patient Current Visit: No Status: Chronic (20) Nicotine dependence Current Visit: No Status: Chronic Qualifiers: Nicotine product type: cigarettes Substance use status: uncomplicated Qualified Code(s): F17.210 - Nicotine dependence, cigarettes, uncomplicated (21) Opioid dependence on agonist therapy Current Visit: No Status: Chronic (22) Sedative, hypnotic or anxiolytic dependence with withdrawal, uncomplicated Current Visit: Yes Status: Chronic (23) Substance induced mood disorder Current Visit: No Status: Chronic (24) Use of cane as ambulatory aid Current Visit: No Status: Chronic (25) History of [place] (myocardial infarction) Current Visit: No Status: Suspected - AMA Did Patient Leave Against Medical Advice: No
[2019-02-14] MEDS: EMTRICITABINE 200MG/TENOFOVIR 300MG PO SCH (09:23)
[2019-02-14] MEDS: PRENATAL VITAMINS W/ FOLIC ACID TABLET (FP) PO SCH (09:23)
[2019-02-14] MEDS: amLODIPine BESYLATE 10 MG TABLET (FP) PO SCH (09:23)
[2019-02-14] MEDS: ASPIRIN COATED 81 MG TABLET.EC PO SCH (09:23)
[2019-02-14] MEDS: QUEtiapine FUMARATE 50 MG TABLET PO SCH (09:23)
[2019-02-14 09:26] VITALS: TEMP 97.7
[2019-02-14] MEDS: METHOCARBAMOL 500 MG TABLET PO PRN ×2 (09:26→15:32)
[2019-02-14] MEDS: BUDESONIDE/FORMETEROL FUMARATE 80/4.5 mcg INHALER IH SCH (09:28)
[2019-02-14] MEDS: NICOTINE 21 MG/24 HOURS TOPICAL PATCH TD SCH (09:33)
[2019-02-14 13:06] VITALS: BP 119/59; PULSE 84
[2019-02-14] MEDS: hydrOXYzine PAMOATE 50 MG CAPSULE (FP) PO PRN (14:14)
== END 2019-02-14 16:35 | disposition other institution (70) | DRG 773 ==
LOC: YASAS 13:30 → Y6N 20:38
PROVIDERS: ADMIT Allergy & Immunology; ATTEND Allergy & Immunology
PROC: HZ2ZZZZ Detoxification Services for Substance Abuse Treatment (ICD-10-PCS; principal; 2019-02-10)
DX: F10.230 Alcohol dependence with withdrawal, uncomplicated (principal); F11.20 Opioid dependence, uncomplicated; F13.20 Sedative, hypnotic or anxiolytic dependence, uncomplicated; F14.20 Cocaine dependence, uncomplicated; F12.20 Cannabis dependence, uncomplicated; F17.210 Nicotine dependence, cigarettes, uncomplicated; F19.24 Other psychoactive substance dependence with psychoactive substance-induced mood disorder; F19.280 Other psychoactive substance dependence with psychoactive substance-induced anxiety disorder; F19.282 Other psychoactive substance dependence with psychoactive substance-induced sleep disorder; F31.9 Bipolar disorder, unspecified; I10 Essential (primary) hypertension; J45.20 Mild intermittent asthma, uncomplicated; G47.00 Insomnia, unspecified; I25.2 Old myocardial infarction; R79.89 Other specified abnormal findings of blood chemistry; G89.29 Other chronic pain; R00.0 Tachycardia, unspecified; R26.2 Difficulty in walking, not elsewhere classified; Z99.89 Dependence on other enabling machines and devices; Z86.19 Personal history of other infectious and parasitic diseases; Z86.73 Personal history of transient ischemic attack (TIA), and cerebral infarction without residual deficits; Z91.5 Personal history of self-harm
CPT/HCPCS: 36415; 80053; 85027; 86593

== ENCOUNTER 2019-02-14 16:46 | Inpatient (IN) | payer OTHER ==
[2019-02-14] MEDS ORDERED: PNEUMOC 13-VAL CONJ-DIP CRM/PF 0.5 ML DISP.SYRIN IM ONE (17:36)
[2019-02-14] MEDS ORDERED: ALBUTEROL SO4 8 GM HFA INHALER IH PRN (19:43)
[2019-02-14] MEDS ORDERED: MAG HYDROX/AL HYDROX/SIMETH 30 ML UNIT-DOSE CUP PO PRN (19:44)
[2019-02-14] MEDS ORDERED: MAGNESIUM CITRATE 300 ML BOTTLE PO PRN (19:44)
[2019-02-14] MEDS ORDERED: P-EPHED 60MG/TRIPROLIDI 2.5MG TABLET PO PRN (19:44)
[2019-02-14] MEDS ORDERED: guaiFENesin 200 MG/10 ML 10 ML UNIT-DOSE CUPS PO PRN (19:44)
[2019-02-14] MEDS ORDERED: ACETAMINOPHEN 325 MG TABLET (FP) PO PRN (19:44)
[2019-02-14] MEDS ORDERED: MENTHOL/PHENOL 1 EACH UD MM PRN (19:44)
--- NOTE | 2019-02-14 19:50 | HP ---
[facility] Rehab Assess/Revision - Admission History Admitted to Rehab from: [facility] Date of Admission to Rehab: 02/14/2019 - Findings Detox History & Physical reviewed: Yes Concur with findings: Yes Inpatient Rehab Admission - Rehab Decision to Admit Inpatient rehab admission?: Yes - Initial Determination Are CD services needed?: Yes Free of communicable disease: Yes Not in need of hospitalization: Yes - Rehab Admission Criteria Previous failed treatment: Yes Poor recovery environment: Yes Comorbidities: Yes Lacks judgement: Yes Patient is meeting Inpatient Rehab admission criteria:: Yes
[2019-02-14] MEDS: BUDESONIDE/FORMETEROL FUMARATE 80/4.5 mcg INHALER IH SCH (21:14)
[2019-02-14] MEDS: QUEtiapine FUMARATE 100 MG TABLET (FP) PO SCH (21:14)
[2019-02-14] MEDS: MELATONIN 5 MG TABLETS PO PRN (21:14)
[2019-02-14] MEDS: THIAMINE HCL 100 MG TABLET (FP) PO SCH (21:14)
[2019-02-15] MEDS: LOPERAMIDE HCL 2 MG CAPSULE PO PRN ×2 (01:49→10:19)
[2019-02-15] MEDS ORDERED: hydrOXYzine PAMOATE 25 MG CAPSULE (FP) PO PRN (02:06)
[2019-02-15] MEDS ORDERED: METHADONE HCL 40 MG DISPERSABLE TABLET ONE (05:33)
[2019-02-15] MEDS ORDERED: METHADONE HCL 10 MG TABLET ONE (05:33)
[2019-02-15] MEDS: METHADONE 40 MG, METHADONE 30 MG PO SCH (05:50)
[2019-02-15] MEDS: hydrOXYzine PAMOATE 25 MG CAPSULE (FP) PO PRN ×3 (05:52→21:57)
[2019-02-15] MEDS: METHOCARBAMOL 500 MG TABLET PO PRN ×3 (05:53→21:57)
[2019-02-15] MEDS ORDERED: METHADONE HCL 10 MG TABLET PO SCH (06:00)
[2019-02-15] MEDS: ASPIRIN COATED 81 MG TABLET.EC PO SCH (10:16)
[2019-02-15] MEDS: PRENATAL VITAMINS W/ FOLIC ACID TABLET (FP) PO SCH (10:16)
[2019-02-15] MEDS: amLODIPine BESYLATE 10 MG TABLET (FP) PO SCH (10:16)
[2019-02-15] MEDS: BUDESONIDE/FORMETEROL FUMARATE 80/4.5 mcg INHALER IH SCH ×2 (10:17→22:01)
[2019-02-15] MEDS: EMTRICITABINE 200MG/TENOFOVIR 300MG PO SCH (10:17)
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
[2019-02-15] MEDS: QUEtiapine FUMARATE 50 MG TABLET PO SCH (12:33)
[2019-02-15] MEDS: NICOTINE 21 MG/24 HOURS TOPICAL PATCH TD SCH (14:29)
[2019-02-15] MEDS: NICOTINE POLACRILEX 2 MG GUM BUC PRN ×2 (14:31→21:59)
[2019-02-15] MEDS: QUEtiapine FUMARATE 100 MG TABLET (FP) PO SCH (21:57)
[2019-02-15] MEDS: MELATONIN 5 MG TABLETS PO PRN (21:57)
[2019-02-15] MEDS: THIAMINE HCL 100 MG TABLET (FP) PO SCH (21:58)
[2019-02-16] MEDS ORDERED: METHADONE HCL 10 MG TABLET ONE (05:03)
[2019-02-16] MEDS ORDERED: METHADONE HCL 40 MG DISPERSABLE TABLET ONE (05:03)
[2019-02-16] MEDS: METHADONE 40 MG, METHADONE 30 MG PO SCH (05:57)
[2019-02-16] MEDS: NICOTINE POLACRILEX 2 MG GUM BUC PRN (05:59)
--- NOTE | 2019-02-16 09:51 | PN ---
[facility] Progress Note Note: Requesting increase in nicotine gum dosing> done
[2019-02-16] MEDS: BUDESONIDE/FORMETEROL FUMARATE 80/4.5 mcg INHALER IH SCH ×2 (10:08→21:43)
[2019-02-16] MEDS: PRENATAL VITAMINS W/ FOLIC ACID TABLET (FP) PO SCH (10:08)
[2019-02-16] MEDS: ASPIRIN COATED 81 MG TABLET.EC PO SCH (10:08)
[2019-02-16] MEDS: QUEtiapine FUMARATE 50 MG TABLET PO SCH (10:08)
[2019-02-16] MEDS: EMTRICITABINE 200MG/TENOFOVIR 300MG PO SCH (10:09)
[2019-02-16] MEDS: amLODIPine BESYLATE 10 MG TABLET (FP) PO SCH (10:09)
[2019-02-16] MEDS: hydrOXYzine PAMOATE 25 MG CAPSULE (FP) PO PRN ×3 (10:11→21:44)
[2019-02-16] MEDS: NICOTINE POLACRILEX 4 MG GUM BUC PRN ×4 (10:12→21:44)
[2019-02-16] MEDS: METHOCARBAMOL 500 MG TABLET PO PRN ×2 (10:12→21:44)
[2019-02-16] MEDS: NICOTINE 21 MG/24 HOURS TOPICAL PATCH TD SCH (10:13)
[2019-02-16] MEDS: MELATONIN 5 MG TABLETS PO PRN (21:42)
[2019-02-16] MEDS: QUEtiapine FUMARATE 100 MG TABLET (FP) PO SCH (21:42)
[2019-02-16] MEDS: THIAMINE HCL 100 MG TABLET (FP) PO SCH (21:43)
[2019-02-17] MEDS ORDERED: METHADONE HCL 10 MG TABLET ONE (05:24)
[2019-02-17] MEDS ORDERED: METHADONE HCL 40 MG DISPERSABLE TABLET ONE (05:25)
[2019-02-17] MEDS: METHADONE 40 MG, METHADONE 30 MG PO SCH (06:07)
[2019-02-17] MEDS: METHOCARBAMOL 500 MG TABLET PO PRN ×3 (06:08→21:36)
[2019-02-17] MEDS: hydrOXYzine PAMOATE 25 MG CAPSULE (FP) PO PRN ×3 (06:08→21:36)
[2019-02-17] MEDS: NICOTINE POLACRILEX 4 MG GUM BUC PRN ×5 (06:09→21:38)
[2019-02-17] MEDS: EMTRICITABINE 200MG/TENOFOVIR 300MG PO SCH (10:41)
[2019-02-17] MEDS: BUDESONIDE/FORMETEROL FUMARATE 80/4.5 mcg INHALER IH SCH ×2 (10:41→21:37)
[2019-02-17] MEDS: NICOTINE 21 MG/24 HOURS TOPICAL PATCH TD SCH (10:41)
[2019-02-17] MEDS: PRENATAL VITAMINS W/ FOLIC ACID TABLET (FP) PO SCH (10:41)
[2019-02-17] MEDS: QUEtiapine FUMARATE 50 MG TABLET PO SCH (10:41)
[2019-02-17] MEDS: ASPIRIN COATED 81 MG TABLET.EC PO SCH (10:41)
[2019-02-17] MEDS: amLODIPine BESYLATE 10 MG TABLET (FP) PO SCH (10:41)
[2019-02-17] MEDS: THIAMINE HCL 100 MG TABLET (FP) PO SCH (21:36)
[2019-02-17] MEDS: QUEtiapine FUMARATE 100 MG TABLET (FP) PO SCH (21:36)
[2019-02-17] MEDS: MELATONIN 5 MG TABLETS PO PRN (21:37)
[2019-02-18] MEDS: NICOTINE POLACRILEX 4 MG GUM BUC PRN ×5 (01:05→21:05)
[2019-02-18] MEDS ORDERED: METHADONE HCL 10 MG TABLET ONE (05:33)
[2019-02-18] MEDS ORDERED: METHADONE HCL 40 MG DISPERSABLE TABLET ONE (05:34)
[2019-02-18] MEDS: hydrOXYzine PAMOATE 25 MG CAPSULE (FP) PO PRN ×3 (05:34→21:03)
[2019-02-18] MEDS: METHADONE 40 MG, METHADONE 30 MG PO SCH (05:35)
[2019-02-18] MEDS: amLODIPine BESYLATE 10 MG TABLET (FP) PO SCH (09:53)
[2019-02-18] MEDS: ASPIRIN COATED 81 MG TABLET.EC PO SCH (09:53)
[2019-02-18] MEDS: BUDESONIDE/FORMETEROL FUMARATE 80/4.5 mcg INHALER IH SCH ×2 (09:53→21:03)
[2019-02-18] MEDS: PRENATAL VITAMINS W/ FOLIC ACID TABLET (FP) PO SCH (09:53)
[2019-02-18] MEDS: QUEtiapine FUMARATE 50 MG TABLET PO SCH (09:53)
[2019-02-18] MEDS: EMTRICITABINE 200MG/TENOFOVIR 300MG PO SCH (09:54)
[2019-02-18] MEDS: NICOTINE 21 MG/24 HOURS TOPICAL PATCH TD SCH (09:54)
[2019-02-18] MEDS ORDERED: PT OWN MED DRAWER 7, Y5N ONE (10:52)
[2019-02-18] MEDS: METHOCARBAMOL 500 MG TABLET PO PRN ×2 (11:21→21:02)
[2019-02-18] MEDS: MELATONIN 5 MG TABLETS PO PRN (21:02)
[2019-02-18] MEDS: QUEtiapine FUMARATE 100 MG TABLET (FP) PO SCH (21:02)
[2019-02-18] MEDS: THIAMINE HCL 100 MG TABLET (FP) PO SCH (21:02)
[2019-02-19] MEDS ORDERED: METHADONE HCL 40 MG DISPERSABLE TABLET ONE (05:31)
[2019-02-19] MEDS ORDERED: METHADONE HCL 10 MG TABLET ONE (05:31)
[2019-02-19] MEDS: METHADONE 40 MG, METHADONE 30 MG PO SCH (06:04)
[2019-02-19] MEDS: hydrOXYzine PAMOATE 25 MG CAPSULE (FP) PO PRN ×3 (06:05→21:53)
[2019-02-19] MEDS: METHOCARBAMOL 500 MG TABLET PO PRN ×3 (06:06→21:52)
[2019-02-19] MEDS: NICOTINE POLACRILEX 4 MG GUM BUC PRN ×4 (06:08→17:57)
[2019-02-19] MEDS: QUEtiapine FUMARATE 50 MG TABLET PO SCH (10:36)
[2019-02-19] MEDS: PRENATAL VITAMINS W/ FOLIC ACID TABLET (FP) PO SCH (10:36)
[2019-02-19] MEDS: ASPIRIN COATED 81 MG TABLET.EC PO SCH (10:36)
[2019-02-19] MEDS: amLODIPine BESYLATE 10 MG TABLET (FP) PO SCH (10:36)
[2019-02-19] MEDS: NICOTINE 21 MG/24 HOURS TOPICAL PATCH TD SCH (10:36)
[2019-02-19] MEDS: BUDESONIDE/FORMETEROL FUMARATE 80/4.5 mcg INHALER IH SCH ×2 (10:37→21:51)
--- NOTE | 2019-02-19 14:04 | PN ---
[facility] Progress Note Note: Patient complains of sleeping poorly despite taking Seroquel 100 mg/hs and Melatonin 5 mg/hs. Will increase Melatonin dosage to 10 mg/hs prn for insomnia
[2019-02-19] MEDS: EMTRICITABINE 200MG/TENOFOVIR 300MG PO SCH (14:38)
[2019-02-19] MEDS ORDERED: PT OWN MED DRAWER 7, Y5N ONE (19:56)
[2019-02-19] MEDS: MELATONIN 5 MG TABLETS PO PRN (21:51)
[2019-02-19] MEDS: THIAMINE HCL 100 MG TABLET (FP) PO SCH (21:51)
[2019-02-19] MEDS: QUEtiapine FUMARATE 100 MG TABLET (FP) PO SCH (21:52)
[2019-02-19] MEDS: MAGNESIUM HYDROX 2400MG/30ML ORAL SUSPENSION 30 ML CUP PO PRN (21:55)
[2019-02-20] MEDS ORDERED: METHADONE HCL 10 MG TABLET ONE (05:06)
[2019-02-20] MEDS ORDERED: METHADONE HCL 40 MG DISPERSABLE TABLET ONE (05:06)
[2019-02-20] MEDS: METHADONE 40 MG, METHADONE 30 MG PO SCH (05:58)
[2019-02-20] MEDS: hydrOXYzine PAMOATE 25 MG CAPSULE (FP) PO PRN ×3 (05:59→21:10)
[2019-02-20] MEDS: METHOCARBAMOL 500 MG TABLET PO PRN ×3 (05:59→21:11)
[2019-02-20] MEDS: NICOTINE POLACRILEX 4 MG GUM BUC PRN ×4 (06:00→21:12)
[2019-02-20] MEDS: QUEtiapine FUMARATE 50 MG TABLET PO SCH (10:12)
[2019-02-20] MEDS: ASPIRIN COATED 81 MG TABLET.EC PO SCH (10:12)
[2019-02-20] MEDS: BUDESONIDE/FORMETEROL FUMARATE 80/4.5 mcg INHALER IH SCH ×2 (10:12→21:10)
[2019-02-20] MEDS: PRENATAL VITAMINS W/ FOLIC ACID TABLET (FP) PO SCH (10:12)
[2019-02-20] MEDS: NICOTINE 21 MG/24 HOURS TOPICAL PATCH TD SCH (10:12)
[2019-02-20] MEDS: amLODIPine BESYLATE 10 MG TABLET (FP) PO SCH (10:12)
[2019-02-20] MEDS: EMTRICITABINE 200MG/TENOFOVIR 300MG PO SCH (10:14)
[2019-02-20] MEDS: MAGNESIUM HYDROX 2400MG/30ML ORAL SUSPENSION 30 ML CUP PO PRN (17:56)
[2019-02-20] MEDS: MELATONIN 5 MG TABLETS PO PRN (21:09)
[2019-02-20] MEDS: QUEtiapine FUMARATE 100 MG TABLET (FP) PO SCH (21:09)
[2019-02-20] MEDS: THIAMINE HCL 100 MG TABLET (FP) PO SCH (21:09)
[2019-02-21] MEDS ORDERED: METHADONE HCL 40 MG DISPERSABLE TABLET ONE (05:12)
[2019-02-21] MEDS ORDERED: METHADONE HCL 10 MG TABLET ONE (05:12)
[2019-02-21] MEDS: NICOTINE POLACRILEX 4 MG GUM BUC PRN ×5 (05:55→22:14)
[2019-02-21] MEDS: hydrOXYzine PAMOATE 25 MG CAPSULE (FP) PO PRN ×3 (05:55→21:33)
[2019-02-21] MEDS: METHADONE 40 MG, METHADONE 30 MG PO SCH (05:55)
[2019-02-21] MEDS: METHOCARBAMOL 500 MG TABLET PO PRN ×3 (05:55→21:33)
[2019-02-21] MEDS ORDERED: METHADONE HCL 10 MG TABLET PO SCH (06:00)
[2019-02-21] MEDS ORDERED: PT OWN MED DRAWER 7, Y5N ONE (08:43)
[2019-02-21] MEDS: EMTRICITABINE 200MG/TENOFOVIR 300MG PO SCH (09:43)
[2019-02-21] MEDS: QUEtiapine FUMARATE 50 MG TABLET PO SCH ×2 (09:43→21:33)
[2019-02-21] MEDS: ASPIRIN COATED 81 MG TABLET.EC PO SCH (09:44)
[2019-02-21] MEDS: BUDESONIDE/FORMETEROL FUMARATE 80/4.5 mcg INHALER IH SCH ×2 (09:44→21:33)
[2019-02-21] MEDS: PRENATAL VITAMINS W/ FOLIC ACID TABLET (FP) PO SCH (09:44)
[2019-02-21] MEDS: amLODIPine BESYLATE 10 MG TABLET (FP) PO SCH (09:44)
[2019-02-21] MEDS: NICOTINE 21 MG/24 HOURS TOPICAL PATCH TD SCH (09:44)
[2019-02-21] MEDS: MAGNESIUM HYDROX 2400MG/30ML ORAL SUSPENSION 30 ML CUP PO PRN (09:48)
--- NOTE | 2019-02-21 18:12 | PN ---
[facility] Progress Note Note: Psychiatry Attending's note : Approached by patient. Requests dose increase of seroquel. Chart reviewed. Nurses's notes appreciated. Attending psychiatrist Dr Poole's notes : read. Management with quetiapine is confirmed. Mr Schultz states that he used to be prescribed 200 mg/day. Wants to resume that dose. Agrees to take seroquel 150 mg/hs. " I would like to keep my daily use as well. It helps control my anxiety." Plan : Seroquel 150 mg po hs + 50 mg po daily. Side effects/benefits discussed with the patient. Verbal consent granted to .
[2019-02-21] MEDS: MELATONIN 5 MG TABLETS PO PRN (21:32)
[2019-02-21] MEDS: THIAMINE HCL 100 MG TABLET (FP) PO SCH (21:32)
[2019-02-22] MEDS ORDERED: METHADONE HCL 10 MG TABLET ONE (06:00)
[2019-02-22] MEDS ORDERED: METHADONE HCL 40 MG DISPERSABLE TABLET ONE (06:00)
[2019-02-22] MEDS: METHOCARBAMOL 500 MG TABLET PO PRN ×3 (06:25→21:12)
[2019-02-22] MEDS: hydrOXYzine PAMOATE 25 MG CAPSULE (FP) PO PRN ×3 (06:25→21:12)
[2019-02-22] MEDS: NICOTINE POLACRILEX 4 MG GUM BUC PRN ×5 (06:25→22:33)
[2019-02-22] MEDS: METHADONE 40 MG, METHADONE 30 MG PO SCH (06:25)
[2019-02-22] MEDS ORDERED: PT OWN MED DRAWER 7, Y5N ONE (08:45)
[2019-02-22] MEDS: BUDESONIDE/FORMETEROL FUMARATE 80/4.5 mcg INHALER IH SCH ×2 (10:04→21:11)
[2019-02-22] MEDS: PRENATAL VITAMINS W/ FOLIC ACID TABLET (FP) PO SCH (10:05)
[2019-02-22] MEDS: EMTRICITABINE 200MG/TENOFOVIR 300MG PO SCH (10:05)
[2019-02-22] MEDS: NICOTINE 21 MG/24 HOURS TOPICAL PATCH TD SCH (10:05)
[2019-02-22] MEDS: amLODIPine BESYLATE 10 MG TABLET (FP) PO SCH (10:05)
[2019-02-22] MEDS: QUEtiapine FUMARATE 50 MG TABLET PO SCH ×2 (10:05→21:11)
[2019-02-22] MEDS: ASPIRIN COATED 81 MG TABLET.EC PO SCH (10:05)
[2019-02-22] MEDS: MELATONIN 5 MG TABLETS PO PRN (21:11)
[2019-02-22] MEDS: THIAMINE HCL 100 MG TABLET (FP) PO SCH (21:11)
[2019-02-23] MEDS ORDERED: METHADONE HCL 40 MG DISPERSABLE TABLET ONE (05:58)
[2019-02-23] MEDS ORDERED: METHADONE HCL 10 MG TABLET ONE (05:58)
[2019-02-23] MEDS: NICOTINE POLACRILEX 4 MG GUM BUC PRN ×4 (06:06→21:44)
[2019-02-23] MEDS: METHOCARBAMOL 500 MG TABLET PO PRN ×3 (06:07→21:42)
[2019-02-23] MEDS: METHADONE 40 MG, METHADONE 30 MG PO SCH (06:07)
[2019-02-23] MEDS: hydrOXYzine PAMOATE 25 MG CAPSULE (FP) PO PRN ×3 (06:07→21:42)
[2019-02-23] MEDS: amLODIPine BESYLATE 10 MG TABLET (FP) PO SCH (10:00)
[2019-02-23] MEDS: ASPIRIN COATED 81 MG TABLET.EC PO SCH (10:00)
[2019-02-23] MEDS: QUEtiapine FUMARATE 50 MG TABLET PO SCH ×2 (10:00→21:41)
[2019-02-23] MEDS: PRENATAL VITAMINS W/ FOLIC ACID TABLET (FP) PO SCH (10:00)
[2019-02-23] MEDS: EMTRICITABINE 200MG/TENOFOVIR 300MG PO SCH (10:01)
[2019-02-23] MEDS: NICOTINE 21 MG/24 HOURS TOPICAL PATCH TD SCH (10:01)
[2019-02-23] MEDS: BUDESONIDE/FORMETEROL FUMARATE 80/4.5 mcg INHALER IH SCH ×2 (10:01→22:08)
[2019-02-23] MEDS ORDERED: PT OWN MED DRAWER 7, Y5N ONE (18:43)
[2019-02-23] MEDS: MELATONIN 5 MG TABLETS PO PRN (21:41)
[2019-02-23] MEDS: THIAMINE HCL 100 MG TABLET (FP) PO SCH (21:41)
[2019-02-23] MEDS: MAGNESIUM HYDROX 2400MG/30ML ORAL SUSPENSION 30 ML CUP PO PRN (21:44)
[2019-02-24] MEDS ORDERED: METHADONE HCL 40 MG DISPERSABLE TABLET ONE (05:23)
[2019-02-24] MEDS ORDERED: METHADONE HCL 10 MG TABLET ONE (05:23)
[2019-02-24] MEDS: hydrOXYzine PAMOATE 25 MG CAPSULE (FP) PO PRN ×3 (05:57→21:17)
[2019-02-24] MEDS: METHOCARBAMOL 500 MG TABLET PO PRN ×3 (05:57→21:17)
[2019-02-24] MEDS: METHADONE 40 MG, METHADONE 30 MG PO SCH (05:58)
[2019-02-24] MEDS: NICOTINE POLACRILEX 4 MG GUM BUC PRN ×5 (05:58→21:18)
[2019-02-24] MEDS ORDERED: PT OWN MED DRAWER 7, Y5N ONE (09:08)
[2019-02-24] MEDS: EMTRICITABINE 200MG/TENOFOVIR 300MG PO SCH (10:17)
[2019-02-24] MEDS: BUDESONIDE/FORMETEROL FUMARATE 80/4.5 mcg INHALER IH SCH ×2 (10:17→22:38)
[2019-02-24] MEDS: NICOTINE 21 MG/24 HOURS TOPICAL PATCH TD SCH (10:17)
[2019-02-24] MEDS: ASPIRIN COATED 81 MG TABLET.EC PO SCH (10:17)
[2019-02-24] MEDS: QUEtiapine FUMARATE 50 MG TABLET PO SCH ×2 (10:18→21:17)
[2019-02-24] MEDS: PRENATAL VITAMINS W/ FOLIC ACID TABLET (FP) PO SCH (10:18)
[2019-02-24] MEDS: amLODIPine BESYLATE 10 MG TABLET (FP) PO SCH (10:18)
[2019-02-24] MEDS: MAGNESIUM HYDROX 2400MG/30ML ORAL SUSPENSION 30 ML CUP PO PRN (10:19)
[2019-02-24] MEDS: THIAMINE HCL 100 MG TABLET (FP) PO SCH (22:38)
[2019-02-25] MEDS ORDERED: METHADONE HCL 40 MG DISPERSABLE TABLET ONE (05:01)
[2019-02-25] MEDS ORDERED: METHADONE HCL 10 MG TABLET ONE (05:01)
[2019-02-25] MEDS: METHOCARBAMOL 500 MG TABLET PO PRN ×3 (06:00→21:55)
[2019-02-25] MEDS: METHADONE 40 MG, METHADONE 30 MG PO SCH (06:01)
[2019-02-25] MEDS: NICOTINE POLACRILEX 4 MG GUM BUC PRN ×4 (06:01→21:57)
[2019-02-25] MEDS: hydrOXYzine PAMOATE 25 MG CAPSULE (FP) PO PRN ×3 (06:48→21:55)
[2019-02-25] MEDS: PRENATAL VITAMINS W/ FOLIC ACID TABLET (FP) PO SCH (09:53)
[2019-02-25] MEDS: QUEtiapine FUMARATE 50 MG TABLET PO SCH ×2 (09:53→21:55)
[2019-02-25] MEDS: NICOTINE 21 MG/24 HOURS TOPICAL PATCH TD SCH (09:53)
[2019-02-25] MEDS: amLODIPine BESYLATE 10 MG TABLET (FP) PO SCH (09:54)
[2019-02-25] MEDS: BUDESONIDE/FORMETEROL FUMARATE 80/4.5 mcg INHALER IH SCH ×2 (09:54→21:56)
[2019-02-25] MEDS: ASPIRIN COATED 81 MG TABLET.EC PO SCH (09:54)
[2019-02-25] MEDS: EMTRICITABINE 200MG/TENOFOVIR 300MG PO SCH (09:54)
--- NOTE | 2019-02-25 17:33 | PN ---
S Progress Note Note: Psychiatric nurse practitioner note: Patient scheduled for discharge tomorrow. A 30 day prescription of Seroquel 50mg daily + Seroquel 150mg HS was electronically sent to [facility] , [address] [place] [id number].
[2019-02-25] MEDS: MELATONIN 5 MG TABLETS PO PRN (21:54)
[2019-02-25] MEDS: THIAMINE HCL 100 MG TABLET (FP) PO SCH (21:55)
[2019-02-25] MEDS ORDERED: PT OWN MED DRAWER 7, Y5N ONE (21:57)
[2019-02-26] MEDS ORDERED: METHADONE HCL 40 MG DISPERSABLE TABLET ONE (05:59)
[2019-02-26] MEDS ORDERED: METHADONE HCL 10 MG TABLET ONE (05:59)
[2019-02-26] MEDS: METHADONE 40 MG, METHADONE 30 MG PO SCH (06:23)
[2019-02-26] MEDS: hydrOXYzine PAMOATE 25 MG CAPSULE (FP) PO PRN (06:23)
[2019-02-26] MEDS: METHOCARBAMOL 500 MG TABLET PO PRN ×2 (06:23→09:55)
[2019-02-26] MEDS: NICOTINE POLACRILEX 4 MG GUM BUC PRN (06:24)
[2019-02-26 06:54] VITALS: TEMP 97.6
--- NOTE | 2019-02-26 08:53 | DS ---
[facility] Rehab Discharge Summary - [facility] Rehab Discharge Summary Admission Date: 02/14/19 Discharge Date: 02/26/19 - History Present History: Alcohol dependence, MMTP - Discharge Physical Exam Vital Signs: Vital Signs Temperature 97.6 F 02/26/19 06:53 Pulse Rate 73 02/26/19 06:53 Respiratory Rate 18 02/26/19 06:53 Blood Pressure 98/62 02/26/19 06:53 O2 Sat by Pulse Oximetry (%) Pertinent Admission Physical Exam Findings: ROS: patient denies alcohol cravings, sweating, shakes and n/v/d. PE: alert and oriented x 3 skin warm and dry +perrla, eoms intact bl neck supple, no jvd car s1s2, no murmurs or gallops resp cta bl,no wheezes or rales ext amb ad aishwarya,no tremors left arm cast intact, fingers mobile, brisk capillary refill - Treatment Discharge Condition: Discharge condition good Hospital Course: Patient discharge from rehab today for etoh dependence. Patient states he accomplished all rehab goals, is able to identify positive coping mechanisms and avoidance of triggers. Aftercare arranged for 02/27/19 at [facility] where he will also attend group meetings for ETOH dependence. Patient is medically stable at time of discharge and denies SI/HI. To follow up with Ortho 03/07/19 and to make appt with PCP within 1 week of discharge. Encouragement given to continue with aftercare group meetings to prevent reoccurrence. - Medication Discharge Medications: Ambulatory Orders Quetiapine Fumarate [Seroquel -] 100 mg PO HS 09/30/18 Albuterol Sulfate Inhaler - [Ventolin HFA Inhaler -] 2 puff IH Q4H PRN #1 inhaler 11/28/18 Budesonide/Formeterol Fumarate [SYMBICORT 80/4.5mcg -] 2 puff IH BID #1 inhaler 11/28/18 Quetiapine Fumarate [Seroquel -] 50 mg PO DAILY #30 tablet 02/25/19 Quetiapine Fumarate [Seroquel -] 150 mg PO HS #90 tablet 02/25/19 Amlodipine Besylate [Norvasc -] 10 mg PO DAILY #30 tablet 02/26/19 Aspirin [Lo-Dose Aspirin EC] 81 mg PO DAILY #30 tablet. 02/26/19 Emtricitabine/Tenofovir (Tdf) [Truvada 200 mg-300 mg Tablet] 1 each PO DAILY # 30 tablet 02/26/19 - Medication-Assisted Treatment (MAT) Medication-Assisted Treatment (MAT): Yes MAT Follow-up Referral: [facility] - Discharge Instructions Diet, activity, other medical instructions: Diet: Activity: Other medical instructions: - Follow-up Referral Minutes to complete discharge: 30 - AMA Did Patient Leave Against Medical Advice: No
[2019-02-26] MEDS: amLODIPine BESYLATE 10 MG TABLET (FP) PO SCH (09:55)
[2019-02-26] MEDS: PRENATAL VITAMINS W/ FOLIC ACID TABLET (FP) PO SCH (09:55)
[2019-02-26] MEDS: QUEtiapine FUMARATE 50 MG TABLET PO SCH (09:55)
[2019-02-26] MEDS: NICOTINE 21 MG/24 HOURS TOPICAL PATCH TD SCH (09:55)
[2019-02-26] MEDS: ASPIRIN COATED 81 MG TABLET.EC PO SCH (09:55)
[2019-02-26 10:19] VITALS: BP 121/76; PULSE 89
[2019-02-26] MEDS: BUDESONIDE/FORMETEROL FUMARATE 80/4.5 mcg INHALER IH SCH (10:24)
== END 2019-02-26 10:00 | disposition home or self-care (01) | DRG 772 ==
LOC: YASAS 16:46 → Y3W 16:47
PROVIDERS: ADMIT Neuromusculoskeletal Medicine & OMM; ATTEND Neuromusculoskeletal Medicine & OMM
PROC: HZ42ZZZ Group Counseling for Substance Abuse Treatment, Cognitive-Behavioral (ICD-10-PCS; principal; 2019-02-14)
DX: F10.20 Alcohol dependence, uncomplicated (principal); F11.20 Opioid dependence, uncomplicated; F13.20 Sedative, hypnotic or anxiolytic dependence, uncomplicated; F14.20 Cocaine dependence, uncomplicated; F12.20 Cannabis dependence, uncomplicated; F17.210 Nicotine dependence, cigarettes, uncomplicated; F19.282 Other psychoactive substance dependence with psychoactive substance-induced sleep disorder; F19.280 Other psychoactive substance dependence with psychoactive substance-induced anxiety disorder; F33.9 Major depressive disorder, recurrent, unspecified; F31.9 Bipolar disorder, unspecified; F41.9 Anxiety disorder, unspecified; Z86.19 Personal history of other infectious and parasitic diseases; Z99.89 Dependence on other enabling machines and devices

== ENCOUNTER 2019-05-19 14:19 | Inpatient (IN) | payer OTHER ==
[2019-05-19 18:23] VITALS: BMI 29.9
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
[2019-05-19] MEDS ORDERED: ALBUTEROL SO4 8 GM HFA INHALER IH PRN (19:19)
[2019-05-19] MEDS ORDERED: ACETAMINOPHEN 325 MG TABLET (FP) PO PRN ×2 (19:21)
[2019-05-19] MEDS ORDERED: MAGNESIUM HYDROX 2400MG/30ML ORAL SUSPENSION 30 ML CUP PO PRN (19:21)
[2019-05-19] MEDS ORDERED: MENTHOL/PHENOL 1 EACH UD MM PRN (19:21)
[2019-05-19] MEDS ORDERED: BISMUTH SUBSALICYLATE 524 MG/30 ML UD PO PRN (19:21)
[2019-05-19] MEDS ORDERED: IBUPROFEN 400 MG TABLET (FP) PO PRN (19:21)
[2019-05-19] MEDS ORDERED: MAGNESIUM CITRATE 300 ML BOTTLE PO PRN (19:21)
[2019-05-19] MEDS ORDERED: MAG HYDROX/AL HYDROX/SIMETH 30 ML UNIT-DOSE CUP PO PRN (19:21)
[2019-05-19] MEDS ORDERED: ALBUTEROL SO4 0.083% IH SOL 2.5 MG/3 ML VIAL.NEB. NEB PRN (19:28)
[2019-05-19] MEDS: chlordiazePOXIDE HCL 25 MG CAPSULE PO SCH (20:26)
[2019-05-19] MEDS: amLODIPine BESYLATE 10 MG TABLET (FP) PO SCH (20:26)
[2019-05-19] MEDS: ASPIRIN COATED 81 MG TABLET.EC PO SCH (20:26)
[2019-05-19] MEDS: NICOTINE POLACRILEX 2 MG GUM BUC PRN (20:28)
[2019-05-19] MEDS: BUDESONIDE/FORMETEROL FUMARATE 80/4.5 mcg INHALER IH SCH (22:17)
[2019-05-19] MEDS: THIAMINE HCL 100 MG TABLET (FP) PO SCH (22:19)
[2019-05-19] MEDS: METHOCARBAMOL 500 MG TABLET PO PRN (22:30)
[2019-05-19] MEDS: MELATONIN 5 MG TABLETS PO PRN (22:30)
[2019-05-19] MEDS: hydrOXYzine PAMOATE 25 MG CAPSULE (FP) PO PRN (22:30)
[2019-05-20] MEDS: chlordiazePOXIDE HCL 10 MG CAPSULE PO PRN ×3 (00:28→16:59)
[2019-05-20] MEDS: chlordiazePOXIDE HCL 25 MG CAPSULE PO SCH ×3 (06:28→21:11)
[2019-05-20] MEDS: NICOTINE POLACRILEX 2 MG GUM BUC PRN ×5 (06:29→23:48)
--- NOTE | 2019-05-20 10:23 | CONSULT ---
[facility] Psychiatric Consult - Data Date of interview: 05/20/19 Admission source: [facility] Identifying data: Patient is a 49 year old single male, father of two, unemployed, domiciled, and is not currently receiving financial assistance. This is one of multiple admissions for patient. Patient admitted to for alcohol dependence. Substance Abuse History: Smoking Cessation. Smoking history: Current every day smoker. Have you smoked in the past 12 months: Yes. Aproximately how many cigarettes per day: 40. Cigars Per Day: 0. Hx Chewing Tobacco Use: No. Initiated information on smoking cessation: No. - Substances abused. Cocaine. Substance route: Inhalation. Frequency: 1-2 times per week. Amount used: 1 dime. Age of first use: 33. Date of last use: 05/17/19. Heroin. Substance route: Inhalation. Frequency: 1-2 times per week. Amount used: 1 to 2 bags. Age of first use: 23. Date of last use: 05/15/19. Alcohol. Substance route: Oral. Frequency: Daily. Amount used: 6 pints of vodka/ 7 x 22 oz beer . Age of first use: 15. Date of last use: 05/19/19 Medical History: Significant for bronchial asthma, hypertension, history of treatment for hepatitis C, myocardial infarction (2003) and orthosurgery ( fracture of left leg) in 2003. Psychiatric History: Patient's first psychiatric contact was approximately 20 years ago after he saw a psychiatrist in an outpatient setting due to his history of depression and anxiety. He was diagnosed with depression and anxiety disorder and prescribed psychotropic medications. Mr. Ortiz reports history of one psychiatric hospitalization at [facility] after reporting depression. He reports history of seeing various outpatient providers. Mr. Ortiz is currently provided with outpatient psychiatric care at [facility] by Dr. Paulino and reports being prescribed seroquel 50mg daily + Seroquel 100mg HS. Previous note state that patient has had one suicide attempt via overdose but today denies history of suicide attempt. At present patient reports difficulty sleeping. Physical/Sexual Abuse/Trauma History: denies. Mental Status Exam - Mental Status Exam Alert and Oriented to: Time, Place, Person Cognitive Function: Good Patient Appearance: Well Groomed Mood: Withdrawn Affect: Mood Congruent Patient Behavior: Appropriate, Cooperative Speech Pattern: Clear, Appropriate Voice Loudness: Normal Thought Process: Intact, Goal Oriented Thought Disorder: Not Present Hallucinations: Denies Suicidal Ideation: Denies Homicidal Ideation: Denies Insight/Judgement: Poor Sleep: Poorly Appetite: Fair Muscle strength/Tone: Normal Gait/Station: Normal Psychiatric Findings - Problem List ([place] 1, 2,3) (1) Alcohol dependence with uncomplicated withdrawal Current Visit: Yes Status: Acute (2) Cocaine dependence Current Visit: Yes Status: Chronic Qualifiers: Substance use status: uncomplicated Qualified Code(s): F14.20 - Cocaine dependence, uncomplicated (3) Nicotine dependence Current Visit: Yes Status: Chronic Qualifiers: Nicotine product type: cigarettes (4) Opioid dependence on agonist therapy Current Visit: Yes Status: Chronic (5) Mood disorder Current Visit: Yes Status: Chronic (6) Substance-induced anxiety disorder Current Visit: Yes Status: Acute (7) Substance-induced sleep disorder Current Visit: Yes Status: Acute - Initial Treatment Plan Initial Treatment Plan: Psychoeducation provided. Detoxification in progress. Will order Seroquel 50mg daily + Seroquel 100mg HS. Benefits and side effects discussed. Verbal consent given.
[2019-05-20] MEDS: PRENATAL VITAMINS W/ FOLIC ACID TABLET (FP) PO SCH (10:26)
[2019-05-20] MEDS: amLODIPine BESYLATE 10 MG TABLET (FP) PO SCH (10:26)
[2019-05-20] MEDS: BUDESONIDE/FORMETEROL FUMARATE 80/4.5 mcg INHALER IH SCH ×2 (10:26→21:12)
[2019-05-20] MEDS: ASPIRIN COATED 81 MG TABLET.EC PO SCH (10:26)
[2019-05-20] MEDS: EMTRICITABINE 200MG/TENOFOVIR 300MG PO SCH (11:58)
[2019-05-20] MEDS: QUEtiapine FUMARATE 50 MG TABLET PO SCH (11:58)
[2019-05-20 12:11] LABS: HEMATOCRIT 41.8 % (35.4-49); MCH 31.1 pg (25.7-33.7); MCHC 33.4 g/dl (32.0-35.9); MEAN PLT VOLUME 8.6 fl (7.5-11.1); PLATELET COUNT 247 K/MM3 (134-434); RBC 4.49 M/mm3 (4.00-5.60); RDW 13.8 % (11.9-15.9); WHITE BLOOD COUNT 8.2 K/mm3 (4.0-10.0)
[2019-05-20 12:23] LABS: ALBUMIN 3.3 g/dl (3.4-5.0); BILIRUBIN,TOTAL 0.7 mg/dL (0.2-1); CALCIUM 8.7 mg/dL (8.5-10.1); CREATININE 0.9 mg/dL (0.55-1.3); POTASSIUM 4.1 mmol/L (3.5-5.1); TOT PROT 6.9 g/dl (6.4-8.2)
[2019-05-20] MEDS: hydrOXYzine PAMOATE 25 MG CAPSULE (FP) PO PRN ×2 (14:41→21:11)
[2019-05-20] MEDS ORDERED: METHADONE HCL 10 MG TABLET PO ONE (15:30)
--- NOTE | 2019-05-20 17:10 | PN ---
[facility] CIWA - CIWA Score Nausea/Vomitin-No Nausea/No Vomiting Muscle Tremors: 2 Anxiety: 2 Agitation: 3 Paroxysmal Sweats: 2 Orientation: 0-Oriented Tacttile Disturbances: 0-None Auditory Disturbances: 0-None Visual Disturbances: 0-None Headache: 2-Mild CIWA-Ar Total Score: 11 S COWS - Scale Resting Pulse: 1= [place] 81-100 Sweatin= Chills/Flushing Restless Observation: 1= Difficult to Sit Still Pupil Size: 2= Moderately Dilated Bone or Joint Aches: 0= None Runny Nose/ Eye Tearin= Nasal Congestion GI Upset > 30mins: 0= None Tremor Observation of Outstretched Hands: 2= Slight Tremor Visible Yawning Observation: 0= None Anxiety or Irritability: 2=Irritable/Anxious Goose Flesh Skin: 0=Smooth Skin COWS Score: 10 S Progress Note (SOAP) Subjective: Patient c/o anxiety, restlessness, sweating and shakes. Admitted to detox for ETOH withdrawal symptoms. Reports taking methadone 90mg at [facility]. Unable to verify as clinic closed, hotline called by RN with no success. Last dose yesterday. Objective: 05/20/19 17:08 Laboratory Tests 05/20/19 05/20/19 05/20/19 07:20 07:20 07:20 WBC 8.2 RBC 4.49 Hgb 14.0 Hct 41.8 MCV 93.0 MCH 31.1 MCHC 33.4 RDW 13.8 Plt Count 247 MPV 8.6 Sodium 138 Potassium 4.1 Chloride 103 Carbon Dioxide 29 Anion Gap 6 L BUN 16.0 Creatinine 0.9 Est GFR (CKD-EPI)AfAm 115.83 Est GFR (CKD-EPI)NonAf 99.94 Random Glucose 96 Calcium 8.7 Total Bilirubin 0.7 AST 29 ALT 51 Alkaline Phosphatase 82 Total Protein 6.9 Albumin 3.3 L RPR Titer Nonreactive Vital Signs Temperature 98.1 F 05/20/19 14:36 Pulse Rate 82 05/20/19 14:36 Respiratory Rate 16 05/20/19 14:36 Blood Pressure 118/76 05/20/19 14:36 O2 Sat by Pulse Oximetry (%) PE: alert and oriented x 3 skin warm, + facial flushing +perrla, pupils mildly dilated ext + tremors, amb ad aishwarya full rom anxious and irritable Assessment: 05/20/19 17:10 ETOH withdrawal symptoms MMTP dose verification pending Plan: Continue detox MTD in urine upon admission, dose verification pending, will order one time dose of Methadone 10mg po x one until dose verified in am continue to monitor clinically
[2019-05-20] MEDS: METHOCARBAMOL 500 MG TABLET PO PRN (21:11)
[2019-05-20] MEDS: QUEtiapine FUMARATE 100 MG TABLET (FP) PO SCH (21:12)
[2019-05-20] MEDS: THIAMINE HCL 100 MG TABLET (FP) PO SCH (21:12)
[2019-05-20] MEDS: MELATONIN 5 MG TABLETS PO PRN (21:12)
[2019-05-21] MEDS: chlordiazePOXIDE HCL 10 MG CAPSULE PO PRN ×2 (02:48→17:08)
[2019-05-21] MEDS: NICOTINE POLACRILEX 2 MG GUM BUC PRN ×5 (02:48→21:21)
[2019-05-21] MEDS: chlordiazePOXIDE 5 MG CAPSULE PO SCH ×3 (05:59→21:16)
[2019-05-21] MEDS ORDERED: METHADONE HCL 10 MG TABLET PO ONE (09:05)
[2019-05-21] MEDS ORDERED: METHADONE 80 MG, METHADONE 10 MG PO ONE (09:25)
[2019-05-21] MEDS ORDERED: METHADONE HCL 40 MG DISPERSABLE TABLET ONE (09:58)
[2019-05-21] MEDS ORDERED: METHADONE HCL 10 MG TABLET ONE (09:58)
[2019-05-21] MEDS: ASPIRIN COATED 81 MG TABLET.EC PO SCH (10:02)
[2019-05-21] MEDS: EMTRICITABINE 200MG/TENOFOVIR 300MG PO SCH (10:02)
[2019-05-21] MEDS: amLODIPine BESYLATE 10 MG TABLET (FP) PO SCH (10:02)
[2019-05-21] MEDS: PRENATAL VITAMINS W/ FOLIC ACID TABLET (FP) PO SCH (10:02)
[2019-05-21] MEDS: BUDESONIDE/FORMETEROL FUMARATE 80/4.5 mcg INHALER IH SCH ×2 (10:02→21:16)
[2019-05-21] MEDS: QUEtiapine FUMARATE 50 MG TABLET PO SCH (10:02)
--- NOTE | 2019-05-21 13:39 | PN ---
[facility] CIWA - CIWA Score Nausea/Vomitin-No Nausea/No Vomiting Muscle Tremors: 3 Anxiety: 2 Agitation: 1-Slight > Activity Paroxysmal Sweats: No Perspiration Orientation: 0-Oriented Tacttile Disturbances: 0-None Auditory Disturbances: 0-None Visual Disturbances: 0-None Headache: 0-None Present CIWA-Ar Total Score: 6 [facility] Progress Note (SOAP) Subjective: sweats interrupted sleep Objective: 05/21/19 13:39 Vital Signs Temperature 98.2 F 05/21/19 12:40 Pulse Rate 97 H 05/21/19 12:40 Respiratory Rate 18 05/21/19 12:40 Blood Pressure 132/71 05/21/19 12:40 O2 Sat by Pulse Oximetry (%) aaox3 ambulating no acute distress Assessment: 05/21/19 13:39 mild withdrawals Plan: d/c in am
[2019-05-21] MEDS: QUEtiapine FUMARATE 100 MG TABLET (FP) PO SCH (21:16)
[2019-05-21] MEDS: THIAMINE HCL 100 MG TABLET (FP) PO SCH (21:16)
[2019-05-21] MEDS: METHOCARBAMOL 500 MG TABLET PO PRN (21:20)
[2019-05-21] MEDS: MELATONIN 5 MG TABLETS PO PRN (21:21)
[2019-05-22] MEDS: NICOTINE POLACRILEX 2 MG GUM BUC PRN ×6 (00:59→21:30)
[2019-05-22] MEDS: chlordiazePOXIDE HCL 10 MG CAPSULE PO PRN ×2 (00:59→17:08)
[2019-05-22] MEDS: hydrOXYzine PAMOATE 25 MG CAPSULE (FP) PO PRN ×3 (03:52→21:24)
[2019-05-22] MEDS ORDERED: METHADONE HCL 10 MG TABLET ONE (04:04)
[2019-05-22] MEDS ORDERED: METHADONE HCL 40 MG DISPERSABLE TABLET ONE (04:04)
[2019-05-22] MEDS: METHADONE 80 MG, METHADONE 10 MG PO SCH (05:46)
[2019-05-22] MEDS: chlordiazePOXIDE HCL 10 MG CAPSULE PO SCH ×3 (05:46→21:23)
[2019-05-22] MEDS ORDERED: METHADONE HCL 40 MG DISPERSABLE TABLET PO SCH (06:00)
--- NOTE | 2019-05-22 08:15 | PN ---
[facility] Progress Note Note: Patient complains of sleeping poorly despite taking Seroquel 100 mg/hs and Melatonin 5 mg/hs. Requests to have increase in Seroquel dosage or a medication stronger than Melatonin. Hypnotic properties of Belsomra discussed with patient and he agreed to try it
--- NOTE | 2019-05-22 09:19 | DS ---
[facility] Detox Discharge Summary Admission Date: 05/19/19 Discharge Date: 05/22/19 - History Present History: Alcohol Dependence, Cannabis Dependence, Cocaine Dependence, Sedative Dependence - Physical Exam Results Vital Signs: Vital Signs Temperature 97.7 F 05/22/19 06:22 Pulse Rate 84 05/22/19 06:22 Respiratory Rate 18 05/22/19 06:42 Blood Pressure 129/76 05/22/19 06:22 O2 Sat by Pulse Oximetry (%) Pertinent Admission Physical Exam Findings: Vital Signs Temperature 97.7 F 05/22/19 06:22 Pulse Rate 84 05/22/19 06:22 Respiratory Rate 18 05/22/19 06:42 Blood Pressure 129/76 05/22/19 06:22 O2 Sat by Pulse Oximetry (%) Laboratory Tests 05/20/19 05/20/19 05/20/19 07:20 07:20 07:20 WBC 8.2 RBC 4.49 Hgb 14.0 Hct 41.8 MCV 93.0 MCH 31.1 MCHC 33.4 RDW 13.8 Plt Count 247 MPV 8.6 Sodium 138 Potassium 4.1 Chloride 103 Carbon Dioxide 29 Anion Gap 6 L BUN 16.0 Creatinine 0.9 Est GFR (CKD-EPI)AfAm 115.83 Est GFR (CKD-EPI)NonAf 99.94 Random Glucose 96 Calcium 8.7 Total Bilirubin 0.7 AST 29 ALT 51 Alkaline Phosphatase 82 Total Protein 6.9 Albumin 3.3 L RPR Titer Nonreactive aaox3 ambulating - Treatment Hospital Course: Detox Protocol Followed, Detoxed Safely, Responded well, Discharged Condition Good, Rehab Referral Accepted - Medication Discharge Medications: Ambulatory Orders Quetiapine Fumarate [Seroquel -] 100 mg PO DAILY 09/30/18 Albuterol Sulfate Inhaler - [Ventolin HFA Inhaler -] 2 puff IH Q4H PRN #1 inhaler 11/28/18 Budesonide/Formeterol Fumarate [SYMBICORT 80/4.5mcg -] 2 puff IH BID #1 inhaler 11/28/18 Quetiapine Fumarate [Seroquel -] 50 mg PO DAILY #30 tablet 02/25/19 Quetiapine Fumarate [Seroquel -] 150 mg PO HS #90 tablet 02/25/19 Amlodipine Besylate [Norvasc -] 10 mg PO DAILY #30 tablet 02/26/19 Aspirin [Lo-Dose Aspirin EC] 81 mg PO DAILY #30 tablet. 02/26/19 Emtricitabine/Tenofovir (Tdf) [Truvada 200 mg-300 mg Tablet] 1 each PO DAILY # 30 tablet 02/26/19
[2019-05-22] MEDS: ASPIRIN COATED 81 MG TABLET.EC PO SCH (10:22)
[2019-05-22] MEDS: amLODIPine BESYLATE 10 MG TABLET (FP) PO SCH (10:22)
[2019-05-22] MEDS: PRENATAL VITAMINS W/ FOLIC ACID TABLET (FP) PO SCH (10:22)
[2019-05-22] MEDS: QUEtiapine FUMARATE 50 MG TABLET PO SCH (10:22)
[2019-05-22] MEDS: EMTRICITABINE 200MG/TENOFOVIR 300MG PO SCH (10:23)
[2019-05-22] MEDS: BUDESONIDE/FORMETEROL FUMARATE 80/4.5 mcg INHALER IH SCH ×2 (10:23→21:34)
--- NOTE | 2019-05-22 11:42 | PN ---
[facility] CIWA - CIWA Score Nausea/Vomitin-No Nausea/No Vomiting Muscle Tremors: 1-None Visible, but [place] Anxiety: 1-Mildly Anxious Agitation: 1-Slight > Activity Paroxysmal Sweats: 2 Orientation: 0-Oriented Tacttile Disturbances: 0-None Auditory Disturbances: 0-None Visual Disturbances: 0-None Headache: 0-None Present CIWA-Ar Total Score: 5 [facility] Progress Note (SOAP) Subjective: sweats mild shakes Objective: 05/22/19 11:41 Vital Signs Temperature 97.9 F 05/22/19 08:38 Pulse Rate 89 05/22/19 08:38 Respiratory Rate 18 05/22/19 08:38 Blood Pressure 141/88 05/22/19 08:38 O2 Sat by Pulse Oximetry (%) aaox3 ambulating no acute distress Assessment: 05/22/19 11:42 mild withdrawals Plan: continue detox d/c in am
[2019-05-22] MEDS ORDERED: PANTOPRAZOLE 40 MG TABLET PO ONE (13:58)
[2019-05-22] MEDS: NICOTINE 21 MG/24 HOURS TOPICAL PATCH TD SCH (16:03)
[2019-05-22] MEDS: QUEtiapine FUMARATE 100 MG TABLET (FP) PO SCH (21:23)
[2019-05-22] MEDS: METHOCARBAMOL 500 MG TABLET PO PRN (21:23)
[2019-05-22] MEDS: THIAMINE HCL 100 MG TABLET (FP) PO SCH (21:24)
[2019-05-22] MEDS: MELATONIN 5 MG TABLETS PO PRN (21:24)
[2019-05-22] MEDS ORDERED: SUVOREXANT 10 MG TABLET PO PRN (22:00)
[2019-05-23] MEDS ORDERED: METHADONE HCL 10 MG TABLET ONE (04:01)
[2019-05-23] MEDS ORDERED: METHADONE HCL 40 MG DISPERSABLE TABLET ONE (04:02)
[2019-05-23] MEDS ORDERED: chlordiazePOXIDE HCL 10 MG CAPSULE PO ONE (05:00)
[2019-05-23] MEDS: METHADONE 80 MG, METHADONE 10 MG PO SCH (05:36)
[2019-05-23] MEDS: METHOCARBAMOL 500 MG TABLET PO PRN ×2 (05:37→12:57)
[2019-05-23] MEDS: NICOTINE POLACRILEX 2 MG GUM BUC PRN ×3 (05:40→15:03)
[2019-05-23] MEDS ORDERED: PANTOPRAZOLE 40 MG TABLET PO SCH (10:00)
--- NOTE | 2019-05-23 10:01 | DS ---
[facility] Detox Discharge Summary Admission Date: 05/19/19 Discharge Date: 05/23/19 - History Present History: Alcohol Dependence, Sedative Dependence, MMTP - Physical Exam Results Vital Signs: Vital Signs Temperature 97.3 F L 05/23/19 06:53 Pulse Rate 94 H 05/23/19 06:53 Respiratory Rate 18 05/23/19 06:53 Blood Pressure 151/96 05/23/19 06:53 O2 Sat by Pulse Oximetry (%) Pertinent Admission Physical Exam Findings: Vital Signs Temperature 97.3 F L 05/23/19 06:53 Pulse Rate 94 H 05/23/19 06:53 Respiratory Rate 18 05/23/19 06:53 Blood Pressure 151/96 05/23/19 06:53 O2 Sat by Pulse Oximetry (%) Laboratory Tests 05/20/19 05/20/19 05/20/19 07:20 07:20 07:20 WBC 8.2 RBC 4.49 Hgb 14.0 Hct 41.8 MCV 93.0 MCH 31.1 MCHC 33.4 RDW 13.8 Plt Count 247 MPV 8.6 Sodium 138 Potassium 4.1 Chloride 103 Carbon Dioxide 29 Anion Gap 6 L BUN 16.0 Creatinine 0.9 Est GFR (CKD-EPI)AfAm 115.83 Est GFR (CKD-EPI)NonAf 99.94 Random Glucose 96 Calcium 8.7 Total Bilirubin 0.7 AST 29 ALT 51 Alkaline Phosphatase 82 Total Protein 6.9 Albumin 3.3 L RPR Titer Nonreactive aaox3 ambulating with cane safely no acute distress +bs all four quadrants - Treatment Hospital Course: Detox Protocol Followed, Detoxed Safely, Responded well, Discharged Condition Good, Rehab Referral Accepted - Medication Discharge Medications: Ambulatory Orders Quetiapine Fumarate [Seroquel -] 100 mg PO DAILY 09/30/18 Albuterol Sulfate Inhaler - [Ventolin HFA Inhaler -] 2 puff IH Q4H PRN #1 inhaler 11/28/18 Budesonide/Formeterol Fumarate [SYMBICORT 80/4.5mcg -] 2 puff IH BID #1 inhaler 11/28/18 Quetiapine Fumarate [Seroquel -] 50 mg PO DAILY #30 tablet 02/25/19 Amlodipine Besylate [Norvasc -] 10 mg PO DAILY #30 tablet 02/26/19 Aspirin [Lo-Dose Aspirin EC] 81 mg PO DAILY #30 tablet. 02/26/19 Emtricitabine/Tenofovir (Tdf) [Truvada 200 mg-300 mg Tablet] 1 each PO DAILY # 30 tablet 02/26/19 - Diagnosis (1) Alcohol dependence with uncomplicated withdrawal Current Visit: Yes Status: Chronic (2) Substance-induced anxiety disorder Current Visit: Yes Status: Acute (3) Substance-induced sleep disorder Current Visit: Yes Status: Acute (4) Cocaine dependence Current Visit: Yes Status: Chronic Qualifiers: Substance use status: uncomplicated Qualified Code(s): F14.20 - Cocaine dependence, uncomplicated (5) Mood disorder Current Visit: Yes Status: Chronic (6) Nicotine dependence Current Visit: Yes Status: Chronic Qualifiers: Nicotine product type: cigarettes Substance use status: uncomplicated Qualified Code(s): F17.210 - Nicotine dependence, cigarettes, uncomplicated (7) Opioid dependence on agonist therapy Current Visit: Yes Status: Chronic (8) Alcohol dependence Current Visit: No Status: Acute (9) Insomnia Current Visit: No Status: Acute (10) Sedative hypnotic or anxiolytic dependence Current Visit: No Status: Acute (11) Asthma Current Visit: No Status: Chronic Qualifiers: Asthma severity: mild Asthma persistence: intermittent Asthma complication type: uncomplicated Qualified Code(s): J45.20 - Mild intermittent asthma, uncomplicated (12) Bipolar disorder Current Visit: No Status: Chronic (13) Chronic pain after traumatic injury Current Visit: No Status: Chronic (14) Depression Current Visit: No Status: Chronic Qualifiers: Depression Type: major depressive disorder Major depression recurrence: unspecified whether recurrent Active/Remission status: currently active Major depression episode severity: unspecified Qualified Code(s): F32.9 - Major depressive disorder, single episode, unspecified (15) Drug-induced mood disorder Current Visit: No Status: Chronic (16) Essential hypertension Current Visit: No Status: Chronic (17) Hepatitis C Current Visit: No Status: Chronic (18) History of bipolar disorder Current Visit: No Status: Chronic (19) Left leg injury Current Visit: No Status: Chronic Qualifiers: Encounter type: sequela Qualified Code(s): S89.92XS - Unspecified injury of left lower leg, sequela (20) Methadone maintenance therapy patient Current Visit: Yes Status: Chronic (21) Opioid dependence on agonist therapy Current Visit: No Status: Chronic (22) Sedative, hypnotic or anxiolytic dependence with withdrawal, uncomplicated Current Visit: Yes Status: Chronic (23) Use of cane as ambulatory aid Current Visit: Yes Status: Chronic (24) History of CT (myocardial infarction) Current Visit: No Status: Suspected (25) GERD (gastroesophageal reflux disease) Current Visit: Yes Status: Chronic Qualifiers: Esophagitis presence: without esophagitis Qualified Code(s): K21.9 - Gastro -esophageal reflux disease without esophagitis - AMA Did Patient Leave Against Medical Advice: No
[2019-05-23] MEDS ORDERED: ALBUTEROL SO4 2.5/IPRATROPIUM 0.5 INH SOL 3 ML VIAL.NEB. NEB PRN (10:13)
[2019-05-23] MEDS: ASPIRIN COATED 81 MG TABLET.EC PO SCH (10:18)
[2019-05-23] MEDS: QUEtiapine FUMARATE 50 MG TABLET PO SCH (10:18)
[2019-05-23] MEDS: amLODIPine BESYLATE 10 MG TABLET (FP) PO SCH (10:18)
[2019-05-23] MEDS: PRENATAL VITAMINS W/ FOLIC ACID TABLET (FP) PO SCH (10:19)
[2019-05-23] MEDS: BUDESONIDE/FORMETEROL FUMARATE 80/4.5 mcg INHALER IH SCH (10:19)
[2019-05-23] MEDS: EMTRICITABINE 200MG/TENOFOVIR 300MG PO SCH (10:19)
[2019-05-23] MEDS: NICOTINE 21 MG/24 HOURS TOPICAL PATCH TD SCH (10:20)
[2019-05-23] MEDS ORDERED: LIDOCAINE 5% TOPICAL PATCH TP ONE (11:50)
[2019-05-23 14:44] VITALS: BP 134/88; PULSE 95; TEMP 98.6
--- NOTE | 2019-05-23 15:07 | HP ---
[facility] Rehab Assess/Revision - Vital signs Vital Signs: Vital Signs Period Temp Pulse Resp BP Sys/Dobbs Pulse Ox Last 24 Hr 97.3 F-98.6 F 84-95 18-19 121-151/84-96 Inpatient Rehab Admission - Rehab Decision to Admit Inpatient rehab admission?: Yes - Initial Determination Are CD services needed?: Yes Free of communicable disease: Yes Not in need of hospitalization: Yes - Rehab Admission Criteria Previous failed treatment: Yes Poor recovery environment: Yes Comorbidities: Yes Lacks judgement: No Patient is meeting Inpatient Rehab admission criteria:: Yes
[2019-05-23] MEDS ORDERED: LIDOCAINE PATCH REMOVAL MC SCH (22:00)
== END 2019-05-23 15:21 | disposition other institution (70) | DRG 773 ==
LOC: YASAS 14:19 → Y6N 19:41
PROVIDERS: ADMIT Allergy & Immunology; ATTEND Allergy & Immunology
PROC: HZ2ZZZZ Detoxification Services for Substance Abuse Treatment (ICD-10-PCS; principal; 2019-05-19)
DX: F10.230 Alcohol dependence with withdrawal, uncomplicated (principal); F10.220 Alcohol dependence with intoxication, uncomplicated; F11.20 Opioid dependence, uncomplicated; F13.230 Sedative, hypnotic or anxiolytic dependence with withdrawal, uncomplicated; F14.20 Cocaine dependence, uncomplicated; F17.210 Nicotine dependence, cigarettes, uncomplicated; F19.280 Other psychoactive substance dependence with psychoactive substance-induced anxiety disorder; F19.282 Other psychoactive substance dependence with psychoactive substance-induced sleep disorder; F39 Unspecified mood [affective] disorder; F31.9 Bipolar disorder, unspecified; I10 Essential (primary) hypertension; J45.20 Mild intermittent asthma, uncomplicated; G47.00 Insomnia, unspecified; G89.29 Other chronic pain; B18.2 Chronic viral hepatitis C; K21.9 Gastro-esophageal reflux disease without esophagitis; I25.2 Old myocardial infarction; R26.2 Difficulty in walking, not elsewhere classified; Z99.89 Dependence on other enabling machines and devices; Z86.73 Personal history of transient ischemic attack (TIA), and cerebral infarction without residual deficits
CPT/HCPCS: 36415; 80053; 85027; 86593

== ENCOUNTER 2019-05-23 15:13 | Inpatient (IN) | payer OTHER ==
[2019-05-23] MEDS ORDERED: MAG HYDROX/AL HYDROX/SIMETH 30 ML UNIT-DOSE CUP PO PRN (15:54)
[2019-05-23] MEDS ORDERED: guaiFENesin 200 MG/10 ML 10 ML UNIT-DOSE CUPS PO PRN (15:54)
[2019-05-23] MEDS ORDERED: MAGNESIUM CITRATE 300 ML BOTTLE PO PRN (15:54)
[2019-05-23] MEDS ORDERED: LOPERAMIDE HCL 2 MG CAPSULE PO PRN (15:54)
[2019-05-23] MEDS ORDERED: MENTHOL/PHENOL 1 EACH UD MM PRN (15:54)
[2019-05-23] MEDS ORDERED: ACETAMINOPHEN 325 MG TABLET (FP) PO PRN (15:54)
--- NOTE | 2019-05-23 15:55 | HP ---
[facility] Rehab Assess/Revision - Admission History Admitted to Rehab from: [facility] Date of Admission to Rehab: 05/23/19 - Vital signs Vital Signs: Vital Signs Period Temp Pulse Resp BP Sys/Dobbs Pulse Ox Last 24 Hr 97.7 F 97 18 130/72 - Findings Detox History & Physical reviewed: Yes Concur with findings: Yes Inpatient Rehab Admission - Rehab Decision to Admit Inpatient rehab admission?: Yes - Initial Determination Are CD services needed?: Yes Free of communicable disease: Yes Not in need of hospitalization: Yes - Rehab Admission Criteria Previous failed treatment: Yes Poor recovery environment: Yes Comorbidities: Yes Lacks judgement: No Patient is meeting Inpatient Rehab admission criteria:: Yes
[2019-05-23] MEDS ORDERED: ALBUTEROL SO4 HFA INHALER IH PRN (15:56)
[2019-05-23] MEDS: hydrOXYzine PAMOATE 50 MG CAPSULE (FP) PO PRN ×2 (17:48→22:19)
[2019-05-23] MEDS: NICOTINE POLACRILEX 2 MG GUM BUC PRN ×2 (17:48→22:01)
[2019-05-23] MEDS ORDERED: QUEtiapine FUMARATE 50 MG TABLET PO ONE (22:03)
[2019-05-23] MEDS: MELATONIN 5 MG TABLETS PO PRN (22:19)
[2019-05-23] MEDS: BUDESONIDE/FORMETEROL FUMARATE 80/4.5 mcg INHALER IH SCH (22:19)
[2019-05-23] MEDS: THIAMINE HCL 100 MG TABLET (FP) PO SCH (22:19)
[2019-05-24] MEDS ORDERED: METHADONE HCL 40 MG DISPERSABLE TABLET ONE (05:20)
[2019-05-24] MEDS ORDERED: METHADONE HCL 10 MG TABLET ONE (05:20)
[2019-05-24] MEDS ORDERED: METHADONE HCL 10 MG TABLET PO SCH (06:00)
[2019-05-24] MEDS: hydrOXYzine PAMOATE 50 MG CAPSULE (FP) PO PRN ×4 (06:55→21:10)
[2019-05-24] MEDS: METHADONE 80 MG, METHADONE 10 MG PO SCH (06:55)
[2019-05-24] MEDS ORDERED: NICOTINE 14 MG/24 HOURS TOPICAL PATCH TD SCH (10:00)
[2019-05-24] MEDS: amLODIPine BESYLATE 10 MG TABLET (FP) PO SCH (10:07)
[2019-05-24] MEDS: ASPIRIN COATED 81 MG TABLET.EC PO SCH (10:07)
[2019-05-24] MEDS: PRENATAL VITAMINS W/ FOLIC ACID TABLET (FP) PO SCH (10:08)
[2019-05-24] MEDS: NICOTINE POLACRILEX 2 MG GUM BUC PRN ×4 (10:12→21:11)
[2019-05-24] MEDS: QUEtiapine FUMARATE 50 MG TABLET PO SCH (11:04)
[2019-05-24] MEDS: PANTOPRAZOLE 40 MG TABLET PO SCH (11:04)
[2019-05-24] MEDS: BUDESONIDE/FORMETEROL FUMARATE 80/4.5 mcg INHALER IH SCH ×2 (11:08→21:10)
[2019-05-24] MEDS: EMTRICITABINE 200MG/TENOFOVIR 300MG PO SCH (13:05)
[2019-05-24] MEDS: METHOCARBAMOL 500 MG TABLET PO SCH ×2 (13:05→21:10)
[2019-05-24] MEDS: QUEtiapine FUMARATE 100 MG TABLET (FP) PO SCH (21:09)
[2019-05-24] MEDS: THIAMINE HCL 100 MG TABLET (FP) PO SCH (21:10)
[2019-05-24] MEDS: MELATONIN 5 MG TABLETS PO PRN (21:11)
[2019-05-24] MEDS ORDERED: QUEtiapine FUMARATE 50 MG TABLET PO SCH (22:00)
[2019-05-25] MEDS ORDERED: METHADONE HCL 40 MG DISPERSABLE TABLET ONE (05:32)
[2019-05-25] MEDS ORDERED: METHADONE HCL 10 MG TABLET ONE (05:32)
[2019-05-25] MEDS: METHADONE 80 MG, METHADONE 10 MG PO SCH (06:04)
[2019-05-25] MEDS: METHOCARBAMOL 500 MG TABLET PO SCH ×3 (06:04→21:34)
[2019-05-25] MEDS: NICOTINE POLACRILEX 2 MG GUM BUC PRN ×5 (06:07→21:38)
[2019-05-25] MEDS: hydrOXYzine PAMOATE 50 MG CAPSULE (FP) PO PRN ×2 (06:07→21:37)
--- NOTE | 2019-05-25 07:48 | PN ---
[facility] Progress Note Note: Patient reports sleeping poorly despite taking Seroquel 100 mg/hs and Melatonin 5 mg/hs. Requests to be ordered Belsomra which he was getting while in detox
[2019-05-25] MEDS: amLODIPine BESYLATE 10 MG TABLET (FP) PO SCH (09:36)
[2019-05-25] MEDS: QUEtiapine FUMARATE 50 MG TABLET PO SCH (09:36)
[2019-05-25] MEDS: PRENATAL VITAMINS W/ FOLIC ACID TABLET (FP) PO SCH (09:36)
[2019-05-25] MEDS: NICOTINE 21 MG/24 HOURS TOPICAL PATCH TD SCH (09:36)
[2019-05-25] MEDS: ASPIRIN COATED 81 MG TABLET.EC PO SCH (09:36)
[2019-05-25] MEDS: PANTOPRAZOLE 40 MG TABLET PO SCH (09:36)
[2019-05-25] MEDS: EMTRICITABINE 200MG/TENOFOVIR 300MG PO SCH (09:36)
[2019-05-25] MEDS: BUDESONIDE/FORMETEROL FUMARATE 80/4.5 mcg INHALER IH SCH ×2 (09:38→21:35)
[2019-05-25] MEDS: LIDOCAINE 5% TOPICAL PATCH TP SCH (09:38)
[2019-05-25] MEDS: QUEtiapine FUMARATE 100 MG TABLET (FP) PO SCH (21:34)
[2019-05-25] MEDS: THIAMINE HCL 100 MG TABLET (FP) PO SCH (21:34)
[2019-05-25] MEDS: LIDOCAINE PATCH REMOVAL MC SCH (21:35)
[2019-05-25] MEDS: SUVOREXANT 10 MG TABLET PO PRN (21:36)
[2019-05-26] MEDS ORDERED: METHADONE HCL 10 MG TABLET ONE (05:35)
[2019-05-26] MEDS ORDERED: METHADONE HCL 40 MG DISPERSABLE TABLET ONE (05:35)
[2019-05-26] MEDS: METHOCARBAMOL 500 MG TABLET PO SCH ×3 (06:00→21:06)
[2019-05-26] MEDS: METHADONE 80 MG, METHADONE 10 MG PO SCH (06:00)
[2019-05-26] MEDS: hydrOXYzine PAMOATE 50 MG CAPSULE (FP) PO PRN ×4 (06:02→21:07)
[2019-05-26] MEDS: NICOTINE POLACRILEX 2 MG GUM BUC PRN ×3 (06:02→13:31)
[2019-05-26] MEDS: BUDESONIDE/FORMETEROL FUMARATE 80/4.5 mcg INHALER IH SCH ×2 (09:42→21:09)
[2019-05-26] MEDS: PANTOPRAZOLE 40 MG TABLET PO SCH (09:42)
[2019-05-26] MEDS: ASPIRIN COATED 81 MG TABLET.EC PO SCH (09:42)
[2019-05-26] MEDS: LIDOCAINE 5% TOPICAL PATCH TP SCH (09:42)
[2019-05-26] MEDS: NICOTINE 21 MG/24 HOURS TOPICAL PATCH TD SCH (09:42)
[2019-05-26] MEDS: QUEtiapine FUMARATE 50 MG TABLET PO SCH (09:42)
[2019-05-26] MEDS: EMTRICITABINE 200MG/TENOFOVIR 300MG PO SCH (09:43)
[2019-05-26] MEDS: amLODIPine BESYLATE 10 MG TABLET (FP) PO SCH (09:43)
[2019-05-26] MEDS: PRENATAL VITAMINS W/ FOLIC ACID TABLET (FP) PO SCH (09:43)
[2019-05-26] MEDS: THIAMINE HCL 100 MG TABLET (FP) PO SCH (21:06)
[2019-05-26] MEDS: QUEtiapine FUMARATE 100 MG TABLET (FP) PO SCH (21:06)
[2019-05-26] MEDS: LIDOCAINE PATCH REMOVAL MC SCH (21:06)
[2019-05-26] MEDS: SUVOREXANT 10 MG TABLET PO PRN (21:07)
[2019-05-27] MEDS: NICOTINE POLACRILEX 2 MG GUM BUC PRN ×4 (00:06→21:29)
[2019-05-27] MEDS: hydrOXYzine PAMOATE 50 MG CAPSULE (FP) PO PRN ×3 (02:04→21:28)
[2019-05-27] MEDS ORDERED: METHADONE HCL 10 MG TABLET ONE (05:36)
[2019-05-27] MEDS ORDERED: METHADONE HCL 40 MG DISPERSABLE TABLET ONE (05:36)
[2019-05-27] MEDS: METHOCARBAMOL 500 MG TABLET PO SCH ×3 (05:56→21:28)
[2019-05-27] MEDS: METHADONE 80 MG, METHADONE 10 MG PO SCH (05:56)
[2019-05-27] MEDS: BUDESONIDE/FORMETEROL FUMARATE 80/4.5 mcg INHALER IH SCH ×2 (09:39→21:30)
[2019-05-27] MEDS: amLODIPine BESYLATE 10 MG TABLET (FP) PO SCH (09:39)
[2019-05-27] MEDS: QUEtiapine FUMARATE 50 MG TABLET PO SCH (09:39)
[2019-05-27] MEDS: PRENATAL VITAMINS W/ FOLIC ACID TABLET (FP) PO SCH (09:39)
[2019-05-27] MEDS: ASPIRIN COATED 81 MG TABLET.EC PO SCH (09:39)
[2019-05-27] MEDS: EMTRICITABINE 200MG/TENOFOVIR 300MG PO SCH (09:39)
[2019-05-27] MEDS: NICOTINE 21 MG/24 HOURS TOPICAL PATCH TD SCH (09:39)
[2019-05-27] MEDS: PANTOPRAZOLE 40 MG TABLET PO SCH (09:39)
[2019-05-27] MEDS: LIDOCAINE 5% TOPICAL PATCH TP SCH (09:40)
[2019-05-27] MEDS: QUEtiapine FUMARATE 100 MG TABLET (FP) PO SCH (21:28)
[2019-05-27] MEDS: THIAMINE HCL 100 MG TABLET (FP) PO SCH (21:28)
[2019-05-27] MEDS: SUVOREXANT 10 MG TABLET PO PRN (21:29)
[2019-05-27] MEDS: LIDOCAINE PATCH REMOVAL MC SCH (21:29)
[2019-05-28] MEDS: hydrOXYzine PAMOATE 50 MG CAPSULE (FP) PO PRN ×5 (03:22→21:14)
[2019-05-28] MEDS ORDERED: METHADONE HCL 40 MG DISPERSABLE TABLET ONE (05:33)
[2019-05-28] MEDS ORDERED: METHADONE HCL 10 MG TABLET ONE (05:33)
[2019-05-28] MEDS: NICOTINE POLACRILEX 2 MG GUM BUC PRN ×5 (06:24→21:16)
[2019-05-28] MEDS: METHOCARBAMOL 500 MG TABLET PO SCH ×3 (06:24→21:13)
[2019-05-28] MEDS: METHADONE 80 MG, METHADONE 10 MG PO SCH (06:24)
[2019-05-28] MEDS: PANTOPRAZOLE 40 MG TABLET PO SCH (09:45)
[2019-05-28] MEDS: ASPIRIN COATED 81 MG TABLET.EC PO SCH (09:45)
[2019-05-28] MEDS: EMTRICITABINE 200MG/TENOFOVIR 300MG PO SCH (09:45)
[2019-05-28] MEDS: PRENATAL VITAMINS W/ FOLIC ACID TABLET (FP) PO SCH (09:45)
[2019-05-28] MEDS: amLODIPine BESYLATE 10 MG TABLET (FP) PO SCH (09:45)
[2019-05-28] MEDS: QUEtiapine FUMARATE 50 MG TABLET PO SCH (09:45)
[2019-05-28] MEDS: LIDOCAINE 5% TOPICAL PATCH TP SCH (09:46)
[2019-05-28] MEDS: NICOTINE 21 MG/24 HOURS TOPICAL PATCH TD SCH (09:46)
[2019-05-28] MEDS: BUDESONIDE/FORMETEROL FUMARATE 80/4.5 mcg INHALER IH SCH ×2 (09:47→21:13)
[2019-05-28] MEDS: LIDOCAINE PATCH REMOVAL MC SCH (21:12)
[2019-05-28] MEDS: THIAMINE HCL 100 MG TABLET (FP) PO SCH (21:13)
[2019-05-28] MEDS: QUEtiapine FUMARATE 100 MG TABLET (FP) PO SCH (21:13)
[2019-05-28] MEDS: IBUPROFEN 400 MG TABLET (FP) PO PRN (22:03)
[2019-05-29] MEDS: SUVOREXANT 10 MG TABLET PO PRN ×2 (00:34→21:30)
[2019-05-29] MEDS ORDERED: METHADONE HCL 10 MG TABLET ONE (05:28)
[2019-05-29] MEDS ORDERED: METHADONE HCL 40 MG DISPERSABLE TABLET ONE (05:29)
[2019-05-29] MEDS: METHOCARBAMOL 500 MG TABLET PO SCH ×3 (06:02→21:29)
[2019-05-29] MEDS: NICOTINE POLACRILEX 2 MG GUM BUC PRN ×4 (06:02→21:32)
[2019-05-29] MEDS: hydrOXYzine PAMOATE 50 MG CAPSULE (FP) PO PRN ×5 (06:02→21:29)
[2019-05-29] MEDS: METHADONE 80 MG, METHADONE 10 MG PO SCH (06:02)
[2019-05-29] MEDS: NICOTINE 21 MG/24 HOURS TOPICAL PATCH TD SCH (09:47)
[2019-05-29] MEDS: QUEtiapine FUMARATE 50 MG TABLET PO SCH (09:47)
[2019-05-29] MEDS: amLODIPine BESYLATE 10 MG TABLET (FP) PO SCH (09:48)
[2019-05-29] MEDS: ASPIRIN COATED 81 MG TABLET.EC PO SCH (09:48)
[2019-05-29] MEDS: BUDESONIDE/FORMETEROL FUMARATE 80/4.5 mcg INHALER IH SCH ×2 (09:48→21:31)
[2019-05-29] MEDS: PRENATAL VITAMINS W/ FOLIC ACID TABLET (FP) PO SCH (09:48)
[2019-05-29] MEDS: PANTOPRAZOLE 40 MG TABLET PO SCH (09:48)
[2019-05-29] MEDS: EMTRICITABINE 200MG/TENOFOVIR 300MG PO SCH (09:48)
[2019-05-29] MEDS: LIDOCAINE 5% TOPICAL PATCH TP SCH ×2 (09:49→12:44)
[2019-05-29] MEDS: IBUPROFEN 400 MG TABLET (FP) PO PRN (10:14)
[2019-05-29] MEDS ORDERED: IBUPROFEN 600 MG TABLET (FP) PO PRN (11:24)
[2019-05-29] MEDS ORDERED: METHOCARBAMOL 750 MG TABLET PO SCH (11:30)
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
[2019-05-29] MEDS: QUEtiapine FUMARATE 100 MG TABLET (FP) PO SCH (21:29)
[2019-05-29] MEDS: LIDOCAINE PATCH REMOVAL MC SCH ×2 (21:29)
[2019-05-29] MEDS: THIAMINE HCL 100 MG TABLET (FP) PO SCH (21:29)
[2019-05-30] MEDS ORDERED: METHADONE HCL 40 MG DISPERSABLE TABLET ONE (05:36)
[2019-05-30] MEDS ORDERED: METHADONE HCL 10 MG TABLET ONE (05:36)
[2019-05-30] MEDS: hydrOXYzine PAMOATE 50 MG CAPSULE (FP) PO PRN ×4 (06:20→21:06)
[2019-05-30] MEDS: METHADONE 80 MG, METHADONE 10 MG PO SCH (06:20)
[2019-05-30] MEDS: NICOTINE POLACRILEX 2 MG GUM BUC PRN ×4 (06:21→21:08)
[2019-05-30] MEDS: METHOCARBAMOL 500 MG TABLET PO SCH ×3 (06:21→21:06)
[2019-05-30] MEDS: ASPIRIN COATED 81 MG TABLET.EC PO SCH (09:53)
[2019-05-30] MEDS: PRENATAL VITAMINS W/ FOLIC ACID TABLET (FP) PO SCH (09:53)
[2019-05-30] MEDS: BUDESONIDE/FORMETEROL FUMARATE 80/4.5 mcg INHALER IH SCH ×2 (09:53→21:06)
[2019-05-30] MEDS: EMTRICITABINE 200MG/TENOFOVIR 300MG PO SCH (09:53)
[2019-05-30] MEDS: NICOTINE 21 MG/24 HOURS TOPICAL PATCH TD SCH (09:54)
[2019-05-30] MEDS: LIDOCAINE 5% TOPICAL PATCH TP SCH ×2 (09:54)
[2019-05-30] MEDS: amLODIPine BESYLATE 10 MG TABLET (FP) PO SCH (09:54)
[2019-05-30] MEDS: PANTOPRAZOLE 40 MG TABLET PO SCH (09:54)
[2019-05-30] MEDS: QUEtiapine FUMARATE 50 MG TABLET PO SCH (09:56)
[2019-05-30] MEDS: LIDOCAINE PATCH REMOVAL MC SCH ×2 (21:06)
[2019-05-30] MEDS: QUEtiapine FUMARATE 100 MG TABLET (FP) PO SCH (21:06)
[2019-05-30] MEDS: THIAMINE HCL 100 MG TABLET (FP) PO SCH (21:06)
[2019-05-30] MEDS: SUVOREXANT 10 MG TABLET PO PRN (21:08)
[2019-05-31] MEDS ORDERED: METHADONE HCL 40 MG DISPERSABLE TABLET ONE (05:51)
[2019-05-31] MEDS ORDERED: METHADONE HCL 10 MG TABLET ONE (05:51)
[2019-05-31] MEDS: METHADONE 80 MG, METHADONE 10 MG PO SCH (05:56)
[2019-05-31] MEDS: METHOCARBAMOL 500 MG TABLET PO SCH ×2 (05:56→14:18)
[2019-05-31] MEDS: hydrOXYzine PAMOATE 50 MG CAPSULE (FP) PO PRN ×4 (05:57→21:09)
[2019-05-31] MEDS ORDERED: METHADONE HCL 10 MG TABLET PO SCH (06:00)
[2019-05-31] MEDS: PRENATAL VITAMINS W/ FOLIC ACID TABLET (FP) PO SCH (09:46)
[2019-05-31] MEDS: PANTOPRAZOLE 40 MG TABLET PO SCH (09:46)
[2019-05-31] MEDS: ASPIRIN COATED 81 MG TABLET.EC PO SCH (09:46)
[2019-05-31] MEDS: QUEtiapine FUMARATE 50 MG TABLET PO SCH (09:46)
[2019-05-31] MEDS: amLODIPine BESYLATE 10 MG TABLET (FP) PO SCH (09:46)
[2019-05-31] MEDS: BUDESONIDE/FORMETEROL FUMARATE 80/4.5 mcg INHALER IH SCH ×2 (09:47→21:46)
[2019-05-31] MEDS: LIDOCAINE 5% TOPICAL PATCH TP SCH ×2 (09:47)
[2019-05-31] MEDS: NICOTINE 21 MG/24 HOURS TOPICAL PATCH TD SCH (09:47)
[2019-05-31] MEDS: EMTRICITABINE 200MG/TENOFOVIR 300MG PO SCH (09:48)
[2019-05-31] MEDS: NICOTINE POLACRILEX 2 MG GUM BUC PRN ×4 (09:50→21:12)
[2019-05-31] MEDS: MAGNESIUM HYDROX 2400MG/30ML ORAL SUSPENSION 30 ML CUP PO PRN (10:03)
--- NOTE | 2019-05-31 11:48 | PN ---
[facility] Progress Note (SOAP) Subjective: Pt c/o constipation. No BM x 2 days, Objective: P/E General: no apparent distress ABD: +BS Neuro: no neurological deficits noted MSK: full weight bearing, steady gait. 05/31/19 11:46 Vital Signs Period Temp Pulse Resp BP Sys/Dobbs Pulse Ox Last 24 Hr 98.4 F 82-95 18-18 116-148/72-74 Assessment: constipation 05/31/19 11:48 Plan: Colace ordered.
[2019-05-31] MEDS ORDERED: PT OWN MED DRAWER 7, Y5N ONE ×2 (14:11→21:50)
[2019-05-31] MEDS: METHOCARBAMOL 750 MG TABLET PO SCH ×2 (15:09→21:48)
[2019-05-31] MEDS: THIAMINE HCL 100 MG TABLET (FP) PO SCH (21:09)
[2019-05-31] MEDS: QUEtiapine FUMARATE 100 MG TABLET (FP) PO SCH (21:09)
[2019-05-31] MEDS: LIDOCAINE PATCH REMOVAL MC SCH ×2 (21:11)
[2019-05-31] MEDS: SUVOREXANT 10 MG TABLET PO PRN (21:11)
[2019-05-31] MEDS: DOCUSATE SODIUM 100 MG CAPSULE (FP) PO SCH (21:11)
[2019-06-01] MEDS ORDERED: METHADONE HCL 10 MG TABLET ONE (05:58)
[2019-06-01] MEDS ORDERED: METHADONE HCL 40 MG DISPERSABLE TABLET ONE (05:58)
[2019-06-01] MEDS: hydrOXYzine PAMOATE 50 MG CAPSULE (FP) PO PRN ×4 (06:03→21:07)
[2019-06-01] MEDS: NICOTINE POLACRILEX 2 MG GUM BUC PRN ×4 (06:04→21:10)
[2019-06-01] MEDS: METHOCARBAMOL 750 MG TABLET PO SCH ×3 (06:04→22:34)
[2019-06-01] MEDS: METHADONE 80 MG, METHADONE 10 MG PO SCH (06:04)
[2019-06-01] MEDS: QUEtiapine FUMARATE 50 MG TABLET PO SCH (10:07)
[2019-06-01] MEDS: NICOTINE 21 MG/24 HOURS TOPICAL PATCH TD SCH (10:07)
[2019-06-01] MEDS: PANTOPRAZOLE 40 MG TABLET PO SCH (10:07)
[2019-06-01] MEDS: ASPIRIN COATED 81 MG TABLET.EC PO SCH (10:07)
[2019-06-01] MEDS: amLODIPine BESYLATE 10 MG TABLET (FP) PO SCH (10:07)
[2019-06-01] MEDS: PRENATAL VITAMINS W/ FOLIC ACID TABLET (FP) PO SCH (10:07)
[2019-06-01] MEDS: LIDOCAINE 5% TOPICAL PATCH TP SCH ×2 (10:07→10:08)
[2019-06-01] MEDS: BUDESONIDE/FORMETEROL FUMARATE 80/4.5 mcg INHALER IH SCH ×2 (10:08→21:10)
[2019-06-01] MEDS: EMTRICITABINE 200MG/TENOFOVIR 300MG PO SCH (10:09)
[2019-06-01] MEDS ORDERED: PT OWN MED DRAWER 7, Y5N ONE ×3 (10:10→16:38)
[2019-06-01] MEDS: THIAMINE HCL 100 MG TABLET (FP) PO SCH (21:07)
[2019-06-01] MEDS: DOCUSATE SODIUM 100 MG CAPSULE (FP) PO SCH (21:08)
[2019-06-01] MEDS: LIDOCAINE PATCH REMOVAL MC SCH ×2 (21:08)
[2019-06-01] MEDS: QUEtiapine FUMARATE 100 MG TABLET (FP) PO SCH (21:08)
[2019-06-01] MEDS: SUVOREXANT 10 MG TABLET PO PRN (21:09)
[2019-06-01] MEDS: IBUPROFEN 600 MG TABLET (FP) PO PRN (22:37)
[2019-06-02] MEDS ORDERED: METHADONE HCL 40 MG DISPERSABLE TABLET ONE (05:34)
[2019-06-02] MEDS ORDERED: METHADONE HCL 10 MG TABLET ONE (05:34)
[2019-06-02] MEDS: METHADONE 80 MG, METHADONE 10 MG PO SCH (06:24)
[2019-06-02] MEDS: METHOCARBAMOL 750 MG TABLET PO SCH ×3 (06:24→21:51)
[2019-06-02] MEDS: hydrOXYzine PAMOATE 50 MG CAPSULE (FP) PO PRN ×5 (06:25→21:52)
[2019-06-02] MEDS: NICOTINE POLACRILEX 2 MG GUM BUC PRN ×6 (06:25→21:55)
[2019-06-02] MEDS: amLODIPine BESYLATE 10 MG TABLET (FP) PO SCH (09:47)
[2019-06-02] MEDS: ASPIRIN COATED 81 MG TABLET.EC PO SCH (09:47)
[2019-06-02] MEDS: PANTOPRAZOLE 40 MG TABLET PO SCH (09:47)
[2019-06-02] MEDS: NICOTINE 21 MG/24 HOURS TOPICAL PATCH TD SCH (09:47)
[2019-06-02] MEDS: LIDOCAINE 5% TOPICAL PATCH TP SCH ×2 (09:47→09:48)
[2019-06-02] MEDS: QUEtiapine FUMARATE 50 MG TABLET PO SCH (09:47)
[2019-06-02] MEDS: MAGNESIUM HYDROX 2400MG/30ML ORAL SUSPENSION 30 ML CUP PO PRN (09:49)
[2019-06-02] MEDS: PRENATAL VITAMINS W/ FOLIC ACID TABLET (FP) PO SCH (09:53)
[2019-06-02] MEDS: BUDESONIDE/FORMETEROL FUMARATE 80/4.5 mcg INHALER IH SCH ×2 (09:53→21:50)
[2019-06-02] MEDS: EMTRICITABINE 200MG/TENOFOVIR 300MG PO SCH (09:54)
[2019-06-02] MEDS ORDERED: PT OWN MED DRAWER 7, Y5N ONE ×3 (09:55→20:01)
--- NOTE | 2019-06-02 13:42 | PN ---
[facility] Progress Note Note: Psychiatry Attending's note : Nurse called for renewal of suvorexant. Chart reviewed. Medication is confirmed. No report of adverse effects. Good tolerability. Belsomra 10 mg po hs prn. Renewed as requested.
[2019-06-02] MEDS: QUEtiapine FUMARATE 100 MG TABLET (FP) PO SCH (21:49)
[2019-06-02] MEDS: THIAMINE HCL 100 MG TABLET (FP) PO SCH (21:49)
[2019-06-02] MEDS: DOCUSATE SODIUM 100 MG CAPSULE (FP) PO SCH (21:49)
[2019-06-02] MEDS: LIDOCAINE PATCH REMOVAL MC SCH ×2 (21:50)
[2019-06-02] MEDS: SUVOREXANT 10 MG TABLET PO PRN (21:52)
[2019-06-03] MEDS ORDERED: METHADONE HCL 10 MG TABLET ONE (05:33)
[2019-06-03] MEDS ORDERED: METHADONE HCL 40 MG DISPERSABLE TABLET ONE (05:34)
[2019-06-03] MEDS: METHOCARBAMOL 750 MG TABLET PO SCH ×3 (05:53→21:21)
[2019-06-03] MEDS: hydrOXYzine PAMOATE 50 MG CAPSULE (FP) PO PRN ×4 (05:54→21:20)
[2019-06-03] MEDS: NICOTINE POLACRILEX 2 MG GUM BUC PRN ×4 (05:54→19:36)
[2019-06-03] MEDS: METHADONE 80 MG, METHADONE 10 MG PO SCH (05:54)
[2019-06-03] MEDS: QUEtiapine FUMARATE 50 MG TABLET PO SCH (10:02)
[2019-06-03] MEDS: PANTOPRAZOLE 40 MG TABLET PO SCH (10:02)
[2019-06-03] MEDS: NICOTINE 21 MG/24 HOURS TOPICAL PATCH TD SCH (10:02)
[2019-06-03] MEDS: PRENATAL VITAMINS W/ FOLIC ACID TABLET (FP) PO SCH (10:02)
[2019-06-03] MEDS: ASPIRIN COATED 81 MG TABLET.EC PO SCH (10:02)
[2019-06-03] MEDS: amLODIPine BESYLATE 10 MG TABLET (FP) PO SCH (10:02)
[2019-06-03] MEDS: LIDOCAINE 5% TOPICAL PATCH TP SCH ×2 (10:02→10:03)
[2019-06-03] MEDS: EMTRICITABINE 200MG/TENOFOVIR 300MG PO SCH (10:08)
[2019-06-03] MEDS: BUDESONIDE/FORMETEROL FUMARATE 80/4.5 mcg INHALER IH SCH ×2 (10:09→21:16)
[2019-06-03] MEDS ORDERED: PT OWN MED DRAWER 7, Y5N ONE (10:11)
[2019-06-03] MEDS: MAGNESIUM HYDROX 2400MG/30ML ORAL SUSPENSION 30 ML CUP PO PRN (14:58)
[2019-06-03] MEDS: LIDOCAINE PATCH REMOVAL MC SCH ×2 (21:15)
[2019-06-03] MEDS: DOCUSATE SODIUM 100 MG CAPSULE (FP) PO SCH (21:19)
[2019-06-03] MEDS: QUEtiapine FUMARATE 100 MG TABLET (FP) PO SCH (21:19)
[2019-06-03] MEDS: THIAMINE HCL 100 MG TABLET (FP) PO SCH (21:19)
[2019-06-03] MEDS: SUVOREXANT 10 MG TABLET PO PRN (21:20)
[2019-06-03] MEDS ORDERED: SODIUM PHOSPHATE/NA BIPHOS 133 ML ENEMA PR ONE (22:12)
[2019-06-04] MEDS ORDERED: METHADONE HCL 40 MG DISPERSABLE TABLET ONE (05:51)
[2019-06-04] MEDS ORDERED: METHADONE HCL 10 MG TABLET ONE (05:51)
[2019-06-04] MEDS: hydrOXYzine PAMOATE 50 MG CAPSULE (FP) PO PRN ×5 (06:00→21:22)
[2019-06-04] MEDS: METHADONE 80 MG, METHADONE 10 MG PO SCH (06:00)
[2019-06-04] MEDS: METHOCARBAMOL 750 MG TABLET PO SCH ×3 (06:01→21:32)
[2019-06-04] MEDS: NICOTINE POLACRILEX 2 MG GUM BUC PRN ×5 (06:02→21:23)
--- NOTE | 2019-06-04 09:53 | PN ---
[facility] Progress Note Note: Pt c/o swollen feet for the last few days. O: Vital Signs - 24 hr 06/04/19 06/04/19 06/04/19 00:24 03:24 07:10 Temperature 97.9 F Pulse Rate 83 Respiratory 18 18 18 Rate Blood Pressure 120/74 06/04/19 08:20 Temperature Pulse Rate 86 Respiratory Rate Blood Pressure 138/81 lungs clear heart RRR josue LE- old scar/deformed leg LLE RLE both with pitting edema 1-2+ a/p: josue LE edema- elevate legs. if persistent consider diuretic
[2019-06-04] MEDS: ASPIRIN COATED 81 MG TABLET.EC PO SCH (09:58)
[2019-06-04] MEDS: EMTRICITABINE 200MG/TENOFOVIR 300MG PO SCH (09:58)
[2019-06-04] MEDS: PRENATAL VITAMINS W/ FOLIC ACID TABLET (FP) PO SCH (09:58)
[2019-06-04] MEDS: LIDOCAINE 5% TOPICAL PATCH TP SCH ×2 (09:59)
[2019-06-04] MEDS: amLODIPine BESYLATE 10 MG TABLET (FP) PO SCH (09:59)
[2019-06-04] MEDS: NICOTINE 21 MG/24 HOURS TOPICAL PATCH TD SCH (09:59)
[2019-06-04] MEDS: PANTOPRAZOLE 40 MG TABLET PO SCH (09:59)
[2019-06-04] MEDS: BUDESONIDE/FORMETEROL FUMARATE 80/4.5 mcg INHALER IH SCH ×2 (09:59→21:24)
[2019-06-04] MEDS: QUEtiapine FUMARATE 50 MG TABLET PO SCH (09:59)
[2019-06-04] MEDS: IBUPROFEN 600 MG TABLET (FP) PO PRN (18:13)
[2019-06-04] MEDS: LIDOCAINE PATCH REMOVAL MC SCH ×2 (21:21)
[2019-06-04] MEDS: THIAMINE HCL 100 MG TABLET (FP) PO SCH (21:21)
[2019-06-04] MEDS: QUEtiapine FUMARATE 100 MG TABLET (FP) PO SCH (21:21)
[2019-06-04] MEDS: DOCUSATE SODIUM 100 MG CAPSULE (FP) PO SCH (21:21)
[2019-06-04] MEDS: SUVOREXANT 10 MG TABLET PO PRN (21:22)
[2019-06-05] MEDS: hydrOXYzine PAMOATE 50 MG CAPSULE (FP) PO PRN ×6 (02:13→21:02)
[2019-06-05] MEDS ORDERED: METHADONE HCL 40 MG DISPERSABLE TABLET ONE (05:53)
[2019-06-05] MEDS ORDERED: METHADONE HCL 10 MG TABLET ONE (05:53)
[2019-06-05] MEDS: METHOCARBAMOL 750 MG TABLET PO SCH ×3 (06:16→22:47)
[2019-06-05] MEDS: METHADONE 80 MG, METHADONE 10 MG PO SCH (06:16)
[2019-06-05] MEDS: PANTOPRAZOLE 40 MG TABLET PO SCH (09:41)
[2019-06-05] MEDS: QUEtiapine FUMARATE 50 MG TABLET PO SCH (09:41)
[2019-06-05] MEDS: EMTRICITABINE 200MG/TENOFOVIR 300MG PO SCH (09:41)
[2019-06-05] MEDS: amLODIPine BESYLATE 10 MG TABLET (FP) PO SCH (09:41)
[2019-06-05] MEDS: PRENATAL VITAMINS W/ FOLIC ACID TABLET (FP) PO SCH (09:41)
[2019-06-05] MEDS: ASPIRIN COATED 81 MG TABLET.EC PO SCH (09:41)
[2019-06-05] MEDS: BUDESONIDE/FORMETEROL FUMARATE 80/4.5 mcg INHALER IH SCH ×2 (09:42→22:47)
[2019-06-05] MEDS: LIDOCAINE 5% TOPICAL PATCH TP SCH ×2 (09:42)
[2019-06-05] MEDS: NICOTINE 21 MG/24 HOURS TOPICAL PATCH TD SCH (09:43)
[2019-06-05] MEDS: NICOTINE POLACRILEX 2 MG GUM BUC PRN ×3 (09:45→21:04)
[2019-06-05] MEDS: COLLOIDAL OATMEAL 1 BAR EACH TP PRN (14:26)
[2019-06-05] MEDS ORDERED: PT OWN MED DRAWER 7, Y5N ONE (19:06)
[2019-06-05] MEDS: DOCUSATE SODIUM 100 MG CAPSULE (FP) PO SCH (21:02)
[2019-06-05] MEDS: THIAMINE HCL 100 MG TABLET (FP) PO SCH (21:02)
[2019-06-05] MEDS: QUEtiapine FUMARATE 100 MG TABLET (FP) PO SCH (21:02)
[2019-06-05] MEDS: LIDOCAINE PATCH REMOVAL MC SCH ×2 (21:02)
[2019-06-05] MEDS: SUVOREXANT 10 MG TABLET PO PRN (21:03)
[2019-06-06] MEDS ORDERED: METHADONE HCL 40 MG DISPERSABLE TABLET ONE (05:34)
[2019-06-06] MEDS ORDERED: METHADONE HCL 10 MG TABLET ONE (05:34)
[2019-06-06] MEDS: NICOTINE POLACRILEX 2 MG GUM BUC PRN ×4 (06:15→21:29)
[2019-06-06] MEDS: METHADONE 80 MG, METHADONE 10 MG PO SCH (06:15)
[2019-06-06] MEDS: METHOCARBAMOL 750 MG TABLET PO SCH ×3 (06:15→21:27)
[2019-06-06] MEDS: hydrOXYzine PAMOATE 50 MG CAPSULE (FP) PO PRN ×4 (06:15→21:27)
[2019-06-06] MEDS: amLODIPine BESYLATE 10 MG TABLET (FP) PO SCH (09:43)
[2019-06-06] MEDS: EMTRICITABINE 200MG/TENOFOVIR 300MG PO SCH (09:43)
[2019-06-06] MEDS: PRENATAL VITAMINS W/ FOLIC ACID TABLET (FP) PO SCH (09:43)
[2019-06-06] MEDS: NICOTINE 21 MG/24 HOURS TOPICAL PATCH TD SCH (09:43)
[2019-06-06] MEDS: QUEtiapine FUMARATE 50 MG TABLET PO SCH (09:43)
[2019-06-06] MEDS: PANTOPRAZOLE 40 MG TABLET PO SCH (09:43)
[2019-06-06] MEDS: ASPIRIN COATED 81 MG TABLET.EC PO SCH (09:43)
[2019-06-06] MEDS: BUDESONIDE/FORMETEROL FUMARATE 80/4.5 mcg INHALER IH SCH ×2 (09:44→21:30)
[2019-06-06] MEDS: LIDOCAINE 5% TOPICAL PATCH TP SCH ×2 (09:45)
--- NOTE | 2019-06-06 12:57 | PN ---
[facility] Progress Note Note: Patient reports experiencing difficulty to sleep despite taking Seroquel 100 mg/ hs and Belsomra 10 mg/hs prn. Requests to be ordered Seroquel 200 mg/hs. Will order Seroquel 200 mg/hs
[2019-06-06] MEDS: THIAMINE HCL 100 MG TABLET (FP) PO SCH (21:27)
[2019-06-06] MEDS: DOCUSATE SODIUM 100 MG CAPSULE (FP) PO SCH (21:27)
[2019-06-06] MEDS: MAGNESIUM HYDROX 2400MG/30ML ORAL SUSPENSION 30 ML CUP PO PRN (21:28)
[2019-06-06] MEDS: QUEtiapine FUMARATE 200 MG TABLET PO SCH (21:28)
[2019-06-06] MEDS: SUVOREXANT 10 MG TABLET PO PRN (21:29)
[2019-06-06] MEDS: LIDOCAINE PATCH REMOVAL MC SCH ×2 (21:30)
[2019-06-07] MEDS ORDERED: METHADONE HCL 10 MG TABLET ONE (06:01)
[2019-06-07] MEDS ORDERED: METHADONE HCL 40 MG DISPERSABLE TABLET ONE (06:02)
[2019-06-07] MEDS: hydrOXYzine PAMOATE 50 MG CAPSULE (FP) PO PRN ×4 (06:14→21:13)
[2019-06-07] MEDS: NICOTINE POLACRILEX 2 MG GUM BUC PRN ×4 (06:15→21:15)
[2019-06-07] MEDS: METHADONE 80 MG, METHADONE 10 MG PO SCH (06:15)
[2019-06-07] MEDS: METHOCARBAMOL 750 MG TABLET PO SCH ×3 (06:47→21:12)
[2019-06-07] MEDS: ASPIRIN COATED 81 MG TABLET.EC PO SCH (10:03)
[2019-06-07] MEDS: PRENATAL VITAMINS W/ FOLIC ACID TABLET (FP) PO SCH (10:03)
[2019-06-07] MEDS: amLODIPine BESYLATE 10 MG TABLET (FP) PO SCH (10:03)
[2019-06-07] MEDS: PANTOPRAZOLE 40 MG TABLET PO SCH (10:03)
[2019-06-07] MEDS: QUEtiapine FUMARATE 50 MG TABLET PO SCH (10:03)
[2019-06-07] MEDS: DOCUSATE SODIUM 100 MG CAPSULE (FP) PO SCH ×2 (10:03→21:12)
[2019-06-07] MEDS: EMTRICITABINE 200MG/TENOFOVIR 300MG PO SCH (10:03)
[2019-06-07] MEDS: NICOTINE 21 MG/24 HOURS TOPICAL PATCH TD SCH (10:03)
[2019-06-07] MEDS: LIDOCAINE 5% TOPICAL PATCH TP SCH ×2 (10:04)
[2019-06-07] MEDS: BUDESONIDE/FORMETEROL FUMARATE 80/4.5 mcg INHALER IH SCH ×2 (10:09→23:17)
[2019-06-07] MEDS: THIAMINE HCL 100 MG TABLET (FP) PO SCH (21:11)
[2019-06-07] MEDS: QUEtiapine FUMARATE 200 MG TABLET PO SCH (21:12)
[2019-06-07] MEDS: SUVOREXANT 10 MG TABLET PO PRN (21:14)
[2019-06-07] MEDS: LIDOCAINE PATCH REMOVAL MC SCH ×2 (23:17)
[2019-06-08] MEDS ORDERED: METHADONE HCL 10 MG TABLET ONE (05:49)
[2019-06-08] MEDS ORDERED: METHADONE HCL 40 MG DISPERSABLE TABLET ONE (05:50)
[2019-06-08] MEDS: METHOCARBAMOL 750 MG TABLET PO SCH ×3 (06:06→21:21)
[2019-06-08] MEDS: hydrOXYzine PAMOATE 50 MG CAPSULE (FP) PO PRN ×4 (06:06→21:19)
[2019-06-08] MEDS: METHADONE 80 MG, METHADONE 10 MG PO SCH (06:06)
[2019-06-08] MEDS: NICOTINE POLACRILEX 2 MG GUM BUC PRN ×3 (06:07→21:22)
[2019-06-08] MEDS: EMTRICITABINE 200MG/TENOFOVIR 300MG PO SCH (09:58)
[2019-06-08] MEDS: PRENATAL VITAMINS W/ FOLIC ACID TABLET (FP) PO SCH (09:58)
[2019-06-08] MEDS: QUEtiapine FUMARATE 50 MG TABLET PO SCH (09:58)
[2019-06-08] MEDS: amLODIPine BESYLATE 10 MG TABLET (FP) PO SCH (09:58)
[2019-06-08] MEDS: PANTOPRAZOLE 40 MG TABLET PO SCH (09:58)
[2019-06-08] MEDS: NICOTINE 21 MG/24 HOURS TOPICAL PATCH TD SCH (09:59)
[2019-06-08] MEDS: DOCUSATE SODIUM 100 MG CAPSULE (FP) PO SCH (09:59)
[2019-06-08] MEDS: ASPIRIN COATED 81 MG TABLET.EC PO SCH (09:59)
[2019-06-08] MEDS: LIDOCAINE 5% TOPICAL PATCH TP SCH ×2 (09:59)
[2019-06-08] MEDS: BUDESONIDE/FORMETEROL FUMARATE 80/4.5 mcg INHALER IH SCH ×2 (10:04→21:22)
[2019-06-08] MEDS: MAGNESIUM HYDROX 2400MG/30ML ORAL SUSPENSION 30 ML CUP PO PRN (10:05)
--- NOTE | 2019-06-08 14:06 | PN ---
S Progress Note Note: Patient reports that colace is not working. He is requesting miralax, Colace d/c'd; miralax ordered.
[2019-06-08] MEDS: P-EPHED 60MG/TRIPROLIDI 2.5MG TABLET PO PRN (16:54)
[2019-06-08] MEDS: QUEtiapine FUMARATE 200 MG TABLET PO SCH (21:19)
[2019-06-08] MEDS: THIAMINE HCL 100 MG TABLET (FP) PO SCH (21:19)
[2019-06-08] MEDS: LIDOCAINE PATCH REMOVAL MC SCH ×2 (21:20→21:21)
[2019-06-08] MEDS: POLYETHYLENE GLYCOL 3350 119 GM BTL PO SCH (21:21)
[2019-06-08] MEDS: SUVOREXANT 10 MG TABLET PO PRN (21:22)
[2019-06-09] MEDS ORDERED: METHADONE HCL 40 MG DISPERSABLE TABLET ONE (05:57)
[2019-06-09] MEDS ORDERED: METHADONE HCL 10 MG TABLET ONE (05:57)
[2019-06-09] MEDS: METHADONE 80 MG, METHADONE 10 MG PO SCH (06:08)
[2019-06-09] MEDS: P-EPHED 60MG/TRIPROLIDI 2.5MG TABLET PO PRN ×3 (06:08→21:17)
[2019-06-09] MEDS: hydrOXYzine PAMOATE 50 MG CAPSULE (FP) PO PRN ×4 (06:08→21:15)
[2019-06-09] MEDS: METHOCARBAMOL 750 MG TABLET PO SCH ×3 (06:09→21:18)
[2019-06-09] MEDS: NICOTINE 21 MG/24 HOURS TOPICAL PATCH TD SCH (10:09)
[2019-06-09] MEDS: QUEtiapine FUMARATE 50 MG TABLET PO SCH (10:09)
[2019-06-09] MEDS: PRENATAL VITAMINS W/ FOLIC ACID TABLET (FP) PO SCH (10:09)
[2019-06-09] MEDS: BUDESONIDE/FORMETEROL FUMARATE 80/4.5 mcg INHALER IH SCH ×2 (10:09→21:15)
[2019-06-09] MEDS: ASPIRIN COATED 81 MG TABLET.EC PO SCH (10:09)
[2019-06-09] MEDS: amLODIPine BESYLATE 10 MG TABLET (FP) PO SCH (10:09)
[2019-06-09] MEDS: EMTRICITABINE 200MG/TENOFOVIR 300MG PO SCH (10:09)
[2019-06-09] MEDS: PANTOPRAZOLE 40 MG TABLET PO SCH (10:09)
[2019-06-09] MEDS: LIDOCAINE 5% TOPICAL PATCH TP SCH ×2 (10:10)
[2019-06-09] MEDS: POLYETHYLENE GLYCOL 3350 119 GM BTL PO SCH ×2 (10:10→21:18)
[2019-06-09] MEDS: NICOTINE POLACRILEX 2 MG GUM BUC PRN ×4 (10:15→21:17)
[2019-06-09] MEDS: THIAMINE HCL 100 MG TABLET (FP) PO SCH (21:15)
[2019-06-09] MEDS: QUEtiapine FUMARATE 200 MG TABLET PO SCH (21:15)
[2019-06-09] MEDS: LIDOCAINE PATCH REMOVAL MC SCH ×2 (21:17→21:18)
[2019-06-09] MEDS: SUVOREXANT 10 MG TABLET PO PRN (21:17)
[2019-06-10] MEDS ORDERED: METHADONE HCL 10 MG TABLET ONE (05:44)
[2019-06-10] MEDS ORDERED: METHADONE HCL 40 MG DISPERSABLE TABLET ONE (05:44)
[2019-06-10] MEDS: METHOCARBAMOL 750 MG TABLET PO SCH ×3 (06:16→21:20)
[2019-06-10] MEDS: hydrOXYzine PAMOATE 50 MG CAPSULE (FP) PO PRN ×4 (06:16→21:20)
[2019-06-10] MEDS: METHADONE 80 MG, METHADONE 10 MG PO SCH (06:16)
[2019-06-10] MEDS: P-EPHED 60MG/TRIPROLIDI 2.5MG TABLET PO PRN ×2 (06:16→21:23)
[2019-06-10] MEDS ORDERED: PT OWN MED DRAWER 7, Y5N ONE ×2 (08:47→18:44)
[2019-06-10] MEDS: NICOTINE 21 MG/24 HOURS TOPICAL PATCH TD SCH (09:37)
[2019-06-10] MEDS: EMTRICITABINE 200MG/TENOFOVIR 300MG PO SCH (09:37)
[2019-06-10] MEDS: PRENATAL VITAMINS W/ FOLIC ACID TABLET (FP) PO SCH (09:37)
[2019-06-10] MEDS: BUDESONIDE/FORMETEROL FUMARATE 80/4.5 mcg INHALER IH SCH ×2 (09:37→21:23)
[2019-06-10] MEDS: QUEtiapine FUMARATE 50 MG TABLET PO SCH (09:37)
[2019-06-10] MEDS: POLYETHYLENE GLYCOL 3350 119 GM BTL PO SCH ×2 (09:38→21:20)
[2019-06-10] MEDS: PANTOPRAZOLE 40 MG TABLET PO SCH (09:38)
[2019-06-10] MEDS: ASPIRIN COATED 81 MG TABLET.EC PO SCH (09:38)
[2019-06-10] MEDS: amLODIPine BESYLATE 10 MG TABLET (FP) PO SCH (09:38)
[2019-06-10] MEDS: LIDOCAINE 5% TOPICAL PATCH TP SCH ×2 (09:39)
[2019-06-10] MEDS: NICOTINE POLACRILEX 2 MG GUM BUC PRN ×4 (09:42→21:22)
[2019-06-10] MEDS: QUEtiapine FUMARATE 200 MG TABLET PO SCH (21:20)
[2019-06-10] MEDS: THIAMINE HCL 100 MG TABLET (FP) PO SCH (21:20)
[2019-06-10] MEDS: SUVOREXANT 10 MG TABLET PO PRN (21:21)
[2019-06-10] MEDS: LIDOCAINE PATCH REMOVAL MC SCH ×2 (21:23)
[2019-06-11] MEDS ORDERED: METHADONE HCL 40 MG DISPERSABLE TABLET ONE (03:48)
[2019-06-11] MEDS ORDERED: METHADONE HCL 10 MG TABLET ONE (03:48)
[2019-06-11] MEDS: NICOTINE POLACRILEX 2 MG GUM BUC PRN ×4 (06:04→21:29)
[2019-06-11] MEDS: P-EPHED 60MG/TRIPROLIDI 2.5MG TABLET PO PRN ×2 (06:04→23:44)
[2019-06-11] MEDS: METHADONE 80 MG, METHADONE 10 MG PO SCH (06:04)
[2019-06-11] MEDS: hydrOXYzine PAMOATE 50 MG CAPSULE (FP) PO PRN ×5 (06:04→21:24)
[2019-06-11] MEDS: METHOCARBAMOL 750 MG TABLET PO SCH ×3 (06:05→21:23)
[2019-06-11] MEDS: amLODIPine BESYLATE 10 MG TABLET (FP) PO SCH (09:48)
[2019-06-11] MEDS: ASPIRIN COATED 81 MG TABLET.EC PO SCH (09:48)
[2019-06-11] MEDS: NICOTINE 21 MG/24 HOURS TOPICAL PATCH TD SCH (09:48)
[2019-06-11] MEDS: PANTOPRAZOLE 40 MG TABLET PO SCH (09:48)
[2019-06-11] MEDS: QUEtiapine FUMARATE 50 MG TABLET PO SCH (09:48)
[2019-06-11] MEDS: PRENATAL VITAMINS W/ FOLIC ACID TABLET (FP) PO SCH (09:48)
[2019-06-11] MEDS: LIDOCAINE 5% TOPICAL PATCH TP SCH ×2 (09:48→09:49)
[2019-06-11] MEDS: POLYETHYLENE GLYCOL 3350 119 GM BTL PO SCH ×2 (09:49→22:57)
[2019-06-11] MEDS: EMTRICITABINE 200MG/TENOFOVIR 300MG PO SCH (09:50)
[2019-06-11] MEDS: BUDESONIDE/FORMETEROL FUMARATE 80/4.5 mcg INHALER IH SCH ×2 (09:50→22:56)
[2019-06-11] MEDS: QUEtiapine FUMARATE 200 MG TABLET PO SCH (21:22)
[2019-06-11] MEDS: THIAMINE HCL 100 MG TABLET (FP) PO SCH (21:22)
[2019-06-11] MEDS: SUVOREXANT 10 MG TABLET PO PRN (21:28)
[2019-06-11] MEDS: LIDOCAINE PATCH REMOVAL MC SCH ×2 (22:56)
[2019-06-12] MEDS ORDERED: METHADONE HCL 10 MG TABLET ONE (05:27)
[2019-06-12] MEDS ORDERED: METHADONE HCL 40 MG DISPERSABLE TABLET ONE (05:28)
[2019-06-12] MEDS: METHADONE 80 MG, METHADONE 10 MG PO SCH (06:22)
[2019-06-12] MEDS: METHOCARBAMOL 750 MG TABLET PO SCH ×3 (06:22→21:21)
[2019-06-12] MEDS: P-EPHED 60MG/TRIPROLIDI 2.5MG TABLET PO PRN ×3 (06:24→23:15)
[2019-06-12] MEDS: hydrOXYzine PAMOATE 50 MG CAPSULE (FP) PO PRN ×4 (06:24→21:20)
[2019-06-12] MEDS: NICOTINE POLACRILEX 2 MG GUM BUC PRN ×4 (06:26→21:21)
[2019-06-12] MEDS: BUDESONIDE/FORMETEROL FUMARATE 80/4.5 mcg INHALER IH SCH ×2 (10:01→21:21)
[2019-06-12] MEDS: PANTOPRAZOLE 40 MG TABLET PO SCH (10:10)
[2019-06-12] MEDS: NICOTINE 21 MG/24 HOURS TOPICAL PATCH TD SCH (10:10)
[2019-06-12] MEDS: ASPIRIN COATED 81 MG TABLET.EC PO SCH (10:10)
[2019-06-12] MEDS: PRENATAL VITAMINS W/ FOLIC ACID TABLET (FP) PO SCH (10:10)
[2019-06-12] MEDS: amLODIPine BESYLATE 10 MG TABLET (FP) PO SCH (10:10)
[2019-06-12] MEDS: QUEtiapine FUMARATE 50 MG TABLET PO SCH (10:10)
[2019-06-12] MEDS: POLYETHYLENE GLYCOL 3350 119 GM BTL PO SCH ×2 (10:11→21:21)
[2019-06-12] MEDS: LIDOCAINE 5% TOPICAL PATCH TP SCH ×2 (10:11)
[2019-06-12] MEDS ORDERED: PT OWN MED DRAWER 7, Y5N ONE (10:34)
[2019-06-12] MEDS: EMTRICITABINE 200MG/TENOFOVIR 300MG PO SCH (10:40)
[2019-06-12] MEDS: THIAMINE HCL 100 MG TABLET (FP) PO SCH (21:20)
[2019-06-12] MEDS: QUEtiapine FUMARATE 200 MG TABLET PO SCH (21:20)
[2019-06-12] MEDS: SUVOREXANT 10 MG TABLET PO PRN (21:21)
[2019-06-12] MEDS: LIDOCAINE PATCH REMOVAL MC SCH ×2 (21:22)
[2019-06-13] MEDS ORDERED: METHADONE HCL 10 MG TABLET ONE (05:33)
[2019-06-13] MEDS ORDERED: METHADONE HCL 40 MG DISPERSABLE TABLET ONE (05:33)
[2019-06-13] MEDS: METHADONE 80 MG, METHADONE 10 MG PO SCH (06:23)
[2019-06-13] MEDS: METHOCARBAMOL 750 MG TABLET PO SCH ×3 (06:23→21:15)
[2019-06-13] MEDS: hydrOXYzine PAMOATE 50 MG CAPSULE (FP) PO PRN ×4 (06:23→21:15)
[2019-06-13] MEDS: PANTOPRAZOLE 40 MG TABLET PO SCH (09:49)
[2019-06-13] MEDS: amLODIPine BESYLATE 10 MG TABLET (FP) PO SCH (09:49)
[2019-06-13] MEDS: ASPIRIN COATED 81 MG TABLET.EC PO SCH (09:49)
[2019-06-13] MEDS: QUEtiapine FUMARATE 50 MG TABLET PO SCH (09:49)
[2019-06-13] MEDS: EMTRICITABINE 200MG/TENOFOVIR 300MG PO SCH (09:50)
[2019-06-13] MEDS: BUDESONIDE/FORMETEROL FUMARATE 80/4.5 mcg INHALER IH SCH ×2 (09:50→21:16)
[2019-06-13] MEDS: NICOTINE 21 MG/24 HOURS TOPICAL PATCH TD SCH (09:50)
[2019-06-13] MEDS: LIDOCAINE 5% TOPICAL PATCH TP SCH ×2 (09:51)
[2019-06-13] MEDS: POLYETHYLENE GLYCOL 3350 119 GM BTL PO SCH ×2 (09:52→21:15)
[2019-06-13] MEDS: P-EPHED 60MG/TRIPROLIDI 2.5MG TABLET PO PRN ×2 (09:55→14:31)
[2019-06-13] MEDS: PRENATAL VITAMINS W/ FOLIC ACID TABLET (FP) PO SCH (10:42)
[2019-06-13] MEDS ORDERED: PT OWN MED DRAWER 7, Y5N ONE ×2 (14:31→21:14)
[2019-06-13] MEDS: NICOTINE POLACRILEX 2 MG GUM BUC PRN ×2 (14:31→21:17)
[2019-06-13] MEDS: LIDOCAINE PATCH REMOVAL MC SCH ×2 (21:15)
[2019-06-13] MEDS: THIAMINE HCL 100 MG TABLET (FP) PO SCH (21:15)
[2019-06-13] MEDS: QUEtiapine FUMARATE 200 MG TABLET PO SCH (21:15)
[2019-06-13] MEDS: SUVOREXANT 10 MG TABLET PO PRN (21:15)
[2019-06-14] MEDS ORDERED: METHADONE HCL 10 MG TABLET ONE (03:23)
[2019-06-14] MEDS ORDERED: METHADONE HCL 40 MG DISPERSABLE TABLET ONE (03:23)
[2019-06-14] MEDS: hydrOXYzine PAMOATE 50 MG CAPSULE (FP) PO PRN ×4 (06:05→21:20)
[2019-06-14] MEDS: NICOTINE POLACRILEX 2 MG GUM BUC PRN ×5 (06:06→21:21)
[2019-06-14] MEDS: METHOCARBAMOL 750 MG TABLET PO SCH ×3 (06:06→21:22)
[2019-06-14] MEDS: METHADONE 80 MG, METHADONE 10 MG PO SCH (06:06)
[2019-06-14] MEDS: QUEtiapine FUMARATE 50 MG TABLET PO SCH (09:42)
[2019-06-14] MEDS: PRENATAL VITAMINS W/ FOLIC ACID TABLET (FP) PO SCH (09:42)
[2019-06-14] MEDS: amLODIPine BESYLATE 10 MG TABLET (FP) PO SCH (09:43)
[2019-06-14] MEDS: ASPIRIN COATED 81 MG TABLET.EC PO SCH (09:43)
[2019-06-14] MEDS: BUDESONIDE/FORMETEROL FUMARATE 80/4.5 mcg INHALER IH SCH ×2 (09:43→21:22)
[2019-06-14] MEDS: P-EPHED 60MG/TRIPROLIDI 2.5MG TABLET PO PRN ×2 (09:45→21:21)
[2019-06-14] MEDS: EMTRICITABINE 200MG/TENOFOVIR 300MG PO SCH (09:45)
[2019-06-14] MEDS ORDERED: PT OWN MED DRAWER 7, Y5N ONE ×2 (09:45→14:02)
[2019-06-14] MEDS: PANTOPRAZOLE 40 MG TABLET PO SCH (09:46)
[2019-06-14] MEDS: LIDOCAINE 5% TOPICAL PATCH TP SCH ×2 (09:47)
[2019-06-14] MEDS: NICOTINE 21 MG/24 HOURS TOPICAL PATCH TD SCH (09:49)
[2019-06-14] MEDS: POLYETHYLENE GLYCOL 3350 119 GM BTL PO SCH ×2 (09:49→21:20)
[2019-06-14] MEDS: THIAMINE HCL 100 MG TABLET (FP) PO SCH (21:20)
[2019-06-14] MEDS: QUEtiapine FUMARATE 200 MG TABLET PO SCH (21:20)
[2019-06-14] MEDS: SUVOREXANT 10 MG TABLET PO PRN (21:21)
[2019-06-14] MEDS: LIDOCAINE PATCH REMOVAL MC SCH ×2 (21:22)
[2019-06-15] MEDS ORDERED: METHADONE HCL 40 MG DISPERSABLE TABLET ONE (05:11)
[2019-06-15] MEDS ORDERED: METHADONE HCL 10 MG TABLET ONE (05:11)
[2019-06-15] MEDS: METHOCARBAMOL 750 MG TABLET PO SCH ×3 (06:43→21:10)
[2019-06-15] MEDS: METHADONE 80 MG, METHADONE 10 MG PO SCH (06:43)
[2019-06-15] MEDS: NICOTINE POLACRILEX 2 MG GUM BUC PRN ×3 (06:43→21:08)
[2019-06-15] MEDS: hydrOXYzine PAMOATE 50 MG CAPSULE (FP) PO PRN ×4 (06:43→21:08)
[2019-06-15] MEDS: PRENATAL VITAMINS W/ FOLIC ACID TABLET (FP) PO SCH (10:00)
[2019-06-15] MEDS: ASPIRIN COATED 81 MG TABLET.EC PO SCH (10:00)
[2019-06-15] MEDS: EMTRICITABINE 200MG/TENOFOVIR 300MG PO SCH (10:01)
[2019-06-15] MEDS: PANTOPRAZOLE 40 MG TABLET PO SCH (10:01)
[2019-06-15] MEDS: NICOTINE 21 MG/24 HOURS TOPICAL PATCH TD SCH (10:01)
[2019-06-15] MEDS: amLODIPine BESYLATE 10 MG TABLET (FP) PO SCH (10:01)
[2019-06-15] MEDS: QUEtiapine FUMARATE 50 MG TABLET PO SCH (10:01)
[2019-06-15] MEDS: POLYETHYLENE GLYCOL 3350 119 GM BTL PO SCH ×2 (10:04→21:09)
[2019-06-15] MEDS: LIDOCAINE 5% TOPICAL PATCH TP SCH ×2 (10:05)
[2019-06-15] MEDS: BUDESONIDE/FORMETEROL FUMARATE 80/4.5 mcg INHALER IH SCH ×2 (10:05→21:10)
[2019-06-15] MEDS ORDERED: PT OWN MED DRAWER 7, Y5N ONE (19:16)
[2019-06-15] MEDS: SUVOREXANT 10 MG TABLET PO PRN (21:08)
[2019-06-15] MEDS: QUEtiapine FUMARATE 200 MG TABLET PO SCH (21:08)
[2019-06-15] MEDS: THIAMINE HCL 100 MG TABLET (FP) PO SCH (21:08)
[2019-06-15] MEDS: LIDOCAINE PATCH REMOVAL MC SCH ×2 (21:09)
[2019-06-15] MEDS: P-EPHED 60MG/TRIPROLIDI 2.5MG TABLET PO PRN (21:09)
[2019-06-16] MEDS ORDERED: METHADONE HCL 10 MG TABLET ONE (05:31)
[2019-06-16] MEDS ORDERED: METHADONE HCL 40 MG DISPERSABLE TABLET ONE (05:31)
[2019-06-16] MEDS: METHOCARBAMOL 750 MG TABLET PO SCH ×3 (05:53→21:42)
[2019-06-16] MEDS: hydrOXYzine PAMOATE 50 MG CAPSULE (FP) PO PRN ×4 (05:53→18:10)
[2019-06-16] MEDS: NICOTINE POLACRILEX 2 MG GUM BUC PRN ×4 (05:54→18:10)
[2019-06-16] MEDS: METHADONE 80 MG, METHADONE 10 MG PO SCH (05:54)
[2019-06-16] MEDS ORDERED: PT OWN MED DRAWER 7, Y5N ONE (08:56)
[2019-06-16] MEDS: PRENATAL VITAMINS W/ FOLIC ACID TABLET (FP) PO SCH (09:40)
[2019-06-16] MEDS: ASPIRIN COATED 81 MG TABLET.EC PO SCH (09:40)
[2019-06-16] MEDS: amLODIPine BESYLATE 10 MG TABLET (FP) PO SCH (09:40)
[2019-06-16] MEDS: QUEtiapine FUMARATE 50 MG TABLET PO SCH (09:40)
[2019-06-16] MEDS: POLYETHYLENE GLYCOL 3350 119 GM BTL PO SCH ×2 (09:40→21:41)
[2019-06-16] MEDS: PANTOPRAZOLE 40 MG TABLET PO SCH (09:40)
[2019-06-16] MEDS: NICOTINE 21 MG/24 HOURS TOPICAL PATCH TD SCH (09:40)
[2019-06-16] MEDS: LIDOCAINE 5% TOPICAL PATCH TP SCH ×2 (09:41)
[2019-06-16] MEDS: EMTRICITABINE 200MG/TENOFOVIR 300MG PO SCH (09:43)
[2019-06-16] MEDS: BUDESONIDE/FORMETEROL FUMARATE 80/4.5 mcg INHALER IH SCH ×2 (09:45→23:56)
[2019-06-16] MEDS: THIAMINE HCL 100 MG TABLET (FP) PO SCH (21:41)
[2019-06-16] MEDS: QUEtiapine FUMARATE 200 MG TABLET PO SCH (21:41)
[2019-06-16] MEDS: LIDOCAINE PATCH REMOVAL MC SCH ×2 (21:41)
[2019-06-17] MEDS ORDERED: METHADONE HCL 10 MG TABLET ONE (05:36)
[2019-06-17] MEDS ORDERED: METHADONE HCL 40 MG DISPERSABLE TABLET ONE (05:36)
[2019-06-17] MEDS: NICOTINE POLACRILEX 2 MG GUM BUC PRN ×5 (05:49→21:25)
[2019-06-17] MEDS: hydrOXYzine PAMOATE 50 MG CAPSULE (FP) PO PRN ×3 (05:49→21:22)
[2019-06-17] MEDS: METHOCARBAMOL 750 MG TABLET PO SCH ×3 (05:49→21:21)
[2019-06-17] MEDS: METHADONE 80 MG, METHADONE 10 MG PO SCH (05:50)
[2019-06-17] MEDS: PRENATAL VITAMINS W/ FOLIC ACID TABLET (FP) PO SCH (09:51)
[2019-06-17] MEDS: LIDOCAINE 5% TOPICAL PATCH TP SCH ×2 (09:51→09:52)
[2019-06-17] MEDS: NICOTINE 21 MG/24 HOURS TOPICAL PATCH TD SCH (09:51)
[2019-06-17] MEDS: EMTRICITABINE 200MG/TENOFOVIR 300MG PO SCH (09:53)
[2019-06-17] MEDS: P-EPHED 60MG/TRIPROLIDI 2.5MG TABLET PO PRN ×2 (09:55→21:25)
[2019-06-17] MEDS ORDERED: PT OWN MED DRAWER 7, Y5N ONE ×2 (09:59→21:15)
[2019-06-17] MEDS: amLODIPine BESYLATE 10 MG TABLET (FP) PO SCH (10:00)
[2019-06-17] MEDS: QUEtiapine FUMARATE 50 MG TABLET PO SCH (10:00)
[2019-06-17] MEDS: ASPIRIN COATED 81 MG TABLET.EC PO SCH (10:00)
[2019-06-17] MEDS: BUDESONIDE/FORMETEROL FUMARATE 80/4.5 mcg INHALER IH SCH ×2 (10:00→21:22)
[2019-06-17] MEDS: PANTOPRAZOLE 40 MG TABLET PO SCH (10:00)
[2019-06-17] MEDS: POLYETHYLENE GLYCOL 3350 119 GM BTL PO SCH ×2 (10:00→21:23)
--- NOTE | 2019-06-17 10:14 | PN ---
[facility] Progress Note Note: Psychiatric nurse practitioner note: Belsomra 10mg renewed X3 days. Verbal consent given.
[2019-06-17] MEDS: IBUPROFEN 600 MG TABLET (FP) PO PRN (18:02)
[2019-06-17] MEDS: LIDOCAINE PATCH REMOVAL MC SCH ×2 (21:21)
[2019-06-17] MEDS: THIAMINE HCL 100 MG TABLET (FP) PO SCH (21:21)
[2019-06-17] MEDS: QUEtiapine FUMARATE 200 MG TABLET PO SCH (21:21)
[2019-06-17] MEDS: SUVOREXANT 10 MG TABLET PO PRN (21:22)
[2019-06-18] MEDS ORDERED: METHADONE HCL 10 MG TABLET ONE (05:42)
[2019-06-18] MEDS ORDERED: METHADONE HCL 40 MG DISPERSABLE TABLET ONE (05:42)
[2019-06-18] MEDS: METHOCARBAMOL 750 MG TABLET PO SCH ×3 (06:16→21:22)
[2019-06-18] MEDS: METHADONE 80 MG, METHADONE 10 MG PO SCH (06:16)
[2019-06-18] MEDS: hydrOXYzine PAMOATE 50 MG CAPSULE (FP) PO PRN ×4 (06:16→21:21)
[2019-06-18] MEDS: NICOTINE POLACRILEX 2 MG GUM BUC PRN ×4 (06:16→21:21)
[2019-06-18] MEDS: QUEtiapine FUMARATE 50 MG TABLET PO SCH (10:08)
[2019-06-18] MEDS: amLODIPine BESYLATE 10 MG TABLET (FP) PO SCH (10:08)
[2019-06-18] MEDS: COLLOIDAL OATMEAL 1 BAR EACH TP PRN (10:08)
[2019-06-18] MEDS: ASPIRIN COATED 81 MG TABLET.EC PO SCH (10:08)
[2019-06-18] MEDS: EMTRICITABINE 200MG/TENOFOVIR 300MG PO SCH (10:08)
[2019-06-18] MEDS: PRENATAL VITAMINS W/ FOLIC ACID TABLET (FP) PO SCH (10:08)
[2019-06-18] MEDS: BUDESONIDE/FORMETEROL FUMARATE 80/4.5 mcg INHALER IH SCH ×2 (10:08→21:23)
[2019-06-18] MEDS: POLYETHYLENE GLYCOL 3350 119 GM BTL PO SCH ×2 (10:09→21:21)
[2019-06-18] MEDS: LIDOCAINE 5% TOPICAL PATCH TP SCH ×2 (10:09)
[2019-06-18] MEDS: PANTOPRAZOLE 40 MG TABLET PO SCH (10:09)
[2019-06-18] MEDS: NICOTINE 21 MG/24 HOURS TOPICAL PATCH TD SCH (10:12)
[2019-06-18] MEDS: THIAMINE HCL 100 MG TABLET (FP) PO SCH (21:20)
[2019-06-18] MEDS: QUEtiapine FUMARATE 200 MG TABLET PO SCH (21:21)
[2019-06-18] MEDS: P-EPHED 60MG/TRIPROLIDI 2.5MG TABLET PO PRN (21:22)
[2019-06-18] MEDS: SUVOREXANT 10 MG TABLET PO PRN (21:22)
[2019-06-18] MEDS: LIDOCAINE PATCH REMOVAL MC SCH ×2 (21:23)
[2019-06-19] MEDS ORDERED: METHADONE HCL 10 MG TABLET ONE (05:34)
[2019-06-19] MEDS ORDERED: METHADONE HCL 40 MG DISPERSABLE TABLET ONE (05:34)
[2019-06-19] MEDS: hydrOXYzine PAMOATE 50 MG CAPSULE (FP) PO PRN ×4 (05:54→21:22)
[2019-06-19] MEDS: METHADONE 80 MG, METHADONE 10 MG PO SCH (05:55)
[2019-06-19] MEDS: NICOTINE POLACRILEX 2 MG GUM BUC PRN ×5 (05:55→21:23)
[2019-06-19] MEDS: METHOCARBAMOL 750 MG TABLET PO SCH ×3 (05:55→21:22)
--- NOTE | 2019-06-19 07:38 | PN ---
[facility] Progress Note Note: Patient is scheduled for discharge tomorrow. Scripts for 30 days supply of Seroquel 50 mg/day & 200 mg/hs are electronically transmitted to [facility] at [address] [place], [place] [id number]
[2019-06-19] MEDS ORDERED: PT OWN MED DRAWER 7, Y5N ONE ×4 (09:13→18:51)
[2019-06-19] MEDS: ASPIRIN COATED 81 MG TABLET.EC PO SCH (10:01)
[2019-06-19] MEDS: PRENATAL VITAMINS W/ FOLIC ACID TABLET (FP) PO SCH (10:01)
[2019-06-19] MEDS: amLODIPine BESYLATE 10 MG TABLET (FP) PO SCH (10:01)
[2019-06-19] MEDS: QUEtiapine FUMARATE 50 MG TABLET PO SCH (10:02)
[2019-06-19] MEDS: POLYETHYLENE GLYCOL 3350 119 GM BTL PO SCH ×2 (10:02→21:22)
[2019-06-19] MEDS: BUDESONIDE/FORMETEROL FUMARATE 80/4.5 mcg INHALER IH SCH ×2 (10:02→21:24)
[2019-06-19] MEDS: NICOTINE 21 MG/24 HOURS TOPICAL PATCH TD SCH (10:02)
[2019-06-19] MEDS: PANTOPRAZOLE 40 MG TABLET PO SCH (10:02)
[2019-06-19] MEDS: EMTRICITABINE 200MG/TENOFOVIR 300MG PO SCH (10:03)
[2019-06-19] MEDS: LIDOCAINE 5% TOPICAL PATCH TP SCH ×2 (10:06→12:50)
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
[2019-06-19] MEDS: QUEtiapine FUMARATE 200 MG TABLET PO SCH (21:22)
[2019-06-19] MEDS: SUVOREXANT 10 MG TABLET PO PRN (21:22)
[2019-06-19] MEDS: THIAMINE HCL 100 MG TABLET (FP) PO SCH (21:22)
[2019-06-19] MEDS: P-EPHED 60MG/TRIPROLIDI 2.5MG TABLET PO PRN (21:22)
[2019-06-19] MEDS: LIDOCAINE PATCH REMOVAL MC SCH ×2 (21:24)
[2019-06-20] MEDS ORDERED: METHADONE HCL 40 MG DISPERSABLE TABLET ONE (05:34)
[2019-06-20] MEDS ORDERED: METHADONE HCL 10 MG TABLET ONE (05:34)
[2019-06-20] MEDS: METHOCARBAMOL 750 MG TABLET PO SCH (05:59)
[2019-06-20] MEDS: NICOTINE POLACRILEX 2 MG GUM BUC PRN ×2 (05:59→09:40)
[2019-06-20] MEDS: hydrOXYzine PAMOATE 50 MG CAPSULE (FP) PO PRN (05:59)
[2019-06-20] MEDS ORDERED: METHADONE 80 MG, METHADONE 10 MG PO SCH (06:00)
[2019-06-20 06:32] VITALS: BP 111/72; PULSE 76; TEMP 97.9
[2019-06-20] MEDS: QUEtiapine FUMARATE 50 MG TABLET PO SCH (09:36)
[2019-06-20] MEDS: BUDESONIDE/FORMETEROL FUMARATE 80/4.5 mcg INHALER IH SCH (09:36)
[2019-06-20] MEDS: NICOTINE 21 MG/24 HOURS TOPICAL PATCH TD SCH (09:36)
[2019-06-20] MEDS: PRENATAL VITAMINS W/ FOLIC ACID TABLET (FP) PO SCH (09:36)
[2019-06-20] MEDS: PANTOPRAZOLE 40 MG TABLET PO SCH (09:37)
[2019-06-20] MEDS: amLODIPine BESYLATE 10 MG TABLET (FP) PO SCH (09:37)
[2019-06-20] MEDS: ASPIRIN COATED 81 MG TABLET.EC PO SCH (09:37)
[2019-06-20] MEDS: EMTRICITABINE 200MG/TENOFOVIR 300MG PO SCH (09:37)
== END 2019-06-20 09:45 | disposition home or self-care (01) | DRG 772 ==
LOC: YASAS 15:13 → Y3W 15:16
PROVIDERS: ADMIT Allergy & Immunology; ATTEND Allergy & Immunology
PROC: HZ42ZZZ Group Counseling for Substance Abuse Treatment, Cognitive-Behavioral (ICD-10-PCS; principal; 2019-05-23)
DX: F10.20 Alcohol dependence, uncomplicated (principal); F11.20 Opioid dependence, uncomplicated; F13.20 Sedative, hypnotic or anxiolytic dependence, uncomplicated; F14.20 Cocaine dependence, uncomplicated; F17.210 Nicotine dependence, cigarettes, uncomplicated; F39 Unspecified mood [affective] disorder; F32.9 Major depressive disorder, single episode, unspecified; Z21 Asymptomatic human immunodeficiency virus [HIV] infection status; I10 Essential (primary) hypertension; J45.909 Unspecified asthma, uncomplicated
CPT/HCPCS: 71046-TC-FY

== ENCOUNTER 2019-11-19 11:51 | Inpatient (IN) | payer OTHER ==
[2019-11-19] MEDS ORDERED: IBUPROFEN 400 MG TABLET (FP) PO PRN (11:54)
[2019-11-19] MEDS ORDERED: MAGNESIUM HYDROX 2400MG/30ML ORAL SUSPENSION 30 ML CUP PO PRN (11:54)
[2019-11-19] MEDS ORDERED: MAGNESIUM CITRATE 300 ML BOTTLE PO PRN (11:54)
[2019-11-19] MEDS ORDERED: MAG HYDROX/AL HYDROX/SIMETH 30 ML UNIT-DOSE CUP PO PRN (11:54)
[2019-11-19] MEDS ORDERED: P-EPHED 60MG/TRIPROLIDI 2.5MG TABLET PO PRN (11:54)
[2019-11-19] MEDS ORDERED: MENTHOL/PHENOL 1 EACH UD MM PRN (11:54)
[2019-11-19] MEDS ORDERED: ACETAMINOPHEN 325 MG TABLET (FP) PO PRN (11:54)
[2019-11-19] MEDS ORDERED: LOPERAMIDE HCL 2 MG CAPSULE PO PRN (11:54)
[2019-11-19] MEDS ORDERED: guaiFENesin 200 MG/10 ML 10 ML UNIT-DOSE CUPS PO PRN (11:54)
--- NOTE | 2019-11-19 11:54 | HP ---
[facility] Rehab Assess/Revision - Admission History Admitted to Rehab [facility]: [facility] - Findings Detox History & Physical reviewed: Yes Concur with findings: Yes Inpatient Rehab Admission - Rehab Decision to Admit Inpatient rehab admission?: Yes - Initial Determination Are CD services needed?: Yes Free of communicable disease: Yes Not in need of hospitalization: Yes - Rehab Admission Criteria Previous failed treatment: Yes Poor recovery environment: Yes Comorbidities: Yes Lacks judgement: Yes Patient is meeting Inpatient Rehab admission criteria:: Yes
[2019-11-19] MEDS ORDERED: ALBUTEROL SO4 HFA INHALER IH PRN (11:57)
[2019-11-19] MEDS: NICOTINE POLACRILEX 4 MG GUM BUC PRN ×3 (14:18→21:06)
[2019-11-19] MEDS: hydrOXYzine PAMOATE 25 MG CAPSULE (FP) PO PRN ×2 (14:41→21:05)
[2019-11-19] MEDS: MELATONIN 5 MG TABLETS PO SCH (21:04)
[2019-11-19] MEDS: THIAMINE HCL 100 MG TABLET (FP) PO SCH (21:04)
[2019-11-19] MEDS: QUEtiapine FUMARATE 200 MG TABLET PO SCH (21:05)
[2019-11-19] MEDS: BUDESONIDE/FORMETEROL FUMARATE 80/4.5 mcg INHALER IH SCH (21:06)
[2019-11-20] MEDS ORDERED: METHADONE HCL 10 MG TABLET PO SCH (06:15)
[2019-11-20] MEDS ORDERED: METHADONE HCL 10 MG TABLET ONE (06:44)
[2019-11-20] MEDS ORDERED: METHADONE HCL 40 MG DISPERSABLE TABLET ONE (06:44)
[2019-11-20] MEDS: METHADONE 40 MG, METHADONE 10 MG PO SCH (06:46)
[2019-11-20] MEDS: hydrOXYzine PAMOATE 25 MG CAPSULE (FP) PO PRN ×4 (06:47→17:29)
[2019-11-20] MEDS: NICOTINE POLACRILEX 4 MG GUM BUC PRN ×7 (06:48→22:48)
[2019-11-20] MEDS: PRENATAL VITAMINS W/ FOLIC ACID TABLET (FP) PO SCH (09:59)
[2019-11-20] MEDS: NICOTINE 21 MG/24 HOURS TOPICAL PATCH TD SCH (09:59)
[2019-11-20] MEDS: ASPIRIN COATED 81 MG TABLET.EC PO SCH (09:59)
[2019-11-20] MEDS: EMTRICITABINE 200MG/TENOFOVIR 300MG PO SCH (09:59)
[2019-11-20] MEDS: BUDESONIDE/FORMETEROL FUMARATE 80/4.5 mcg INHALER IH SCH ×2 (10:00→21:39)
[2019-11-20] MEDS: POLYETHYLENE GLYCOL 3350 119 GM BTL PO SCH (11:47)
--- NOTE | 2019-11-20 17:54 | PN ---
[facility] Progress Note Note: Patient complains of feeling very anxious and wants Vistaril dose increased to 50 mg po Q 4hrs prn for anxiety
[2019-11-20] MEDS: MELATONIN 5 MG TABLETS PO SCH (21:36)
[2019-11-20] MEDS: THIAMINE HCL 100 MG TABLET (FP) PO SCH (21:36)
[2019-11-20] MEDS: hydrOXYzine PAMOATE 50 MG CAPSULE (FP) PO PRN (21:37)
[2019-11-20] MEDS: QUEtiapine FUMARATE 200 MG TABLET PO SCH (21:38)
[2019-11-21] MEDS ORDERED: METHADONE HCL 10 MG TABLET ONE (05:41)
[2019-11-21] MEDS ORDERED: METHADONE HCL 40 MG DISPERSABLE TABLET ONE (05:41)
[2019-11-21] MEDS: hydrOXYzine PAMOATE 50 MG CAPSULE (FP) PO PRN ×5 (06:03→22:02)
[2019-11-21] MEDS: NICOTINE POLACRILEX 4 MG GUM BUC PRN ×6 (06:03→21:03)
[2019-11-21] MEDS: METHADONE 40 MG, METHADONE 10 MG PO SCH (06:03)
[2019-11-21] MEDS ORDERED: PT OWN MED DRAWER 7, Y5N ONE (09:08)
[2019-11-21] MEDS: ASPIRIN COATED 81 MG TABLET.EC PO SCH (10:09)
[2019-11-21] MEDS: BUDESONIDE/FORMETEROL FUMARATE 80/4.5 mcg INHALER IH SCH ×2 (10:10→21:04)
[2019-11-21] MEDS: NICOTINE 21 MG/24 HOURS TOPICAL PATCH TD SCH (10:11)
[2019-11-21] MEDS: EMTRICITABINE 200MG/TENOFOVIR 300MG PO SCH (10:11)
[2019-11-21] MEDS: POLYETHYLENE GLYCOL 3350 119 GM BTL PO SCH (10:13)
[2019-11-21] MEDS: PRENATAL VITAMINS W/ FOLIC ACID TABLET (FP) PO SCH (10:13)
--- NOTE | 2019-11-21 15:11 | CONSULT ---
[facility] Psychiatric Consult - Data Date of interview: 11/21/19 Admission source: Transfer from [address] [place] [address]. Identifying data: Detoxification completed at [address] [place] [address]. Patient has sought rehabilitation treatment at [address] to further address his HANS issues and manage mood disorder + insomnia. Patient is , a father of two, unemployed, undomiciled and supported on SSI benefits. Substance Abuse History: Discussed with the patient. HANS profile as follows : Alcohol. Substance amount: 5 pints vodka. Frequency of use: Daily. Substance route: Oral. Date of Last Use: 11/14/19 (3am). First use age 15 y. Heroin. Substance amount: 3 bags. Frequency of use: Daily. Substance route: Inhalation (ex: sniffing or snorting). Date of Last Use: 11/13/19. First use age 20y. OD x 3. Lawst OD 2003. Yes: Narcan at home. Cocaine- Powder. Substance amount: $20. Frequency of use: Less than 3 times per week. Substance route: Inhalation (ex: sniffing or snorting). Date of Last Use: 11/13/19. First use age 20y. Nicotine. Substance amount: 1/2 pack. Frequency of use: Daily. Substance route: Smoking. Date of Last Use: 11/14/19. Fist use age 15 y. History Source: Patient. Limitations to Obtaining History: No Limitations. - Smoking History. Smoking history: Current every day smoker. Have you smoked in the past 12 months: Yes. Aproximately how many cigarettes per day: 40. - Alcohol/Substance Use. Hx Alcohol Use: Yes Medical History: Medical profile is remarkable for bronchial asthma, hepatitis C (treated), hypertension, antecedent of myocardial infarction (2003) and orthosurgery (fracture of left leg) in 2003. Psychiatric History: History of two psychiatric hospitalizations ([facility]). Onset of psychiatric illness : 1990. Diagnosis : MDD and Anxiety Disorder. Revised, years later, for Bipolar Disorder. Mr Ortiz continues to see DR Paulino, psychiatrist at the [facility] clinic for medication management (seroquel 50 mg/am + 100 mg/hs). He is also on methadone maintenance (50 mg/day) at a [facility] clinic in the [place] ([address] History of one suicide attempt in 1989, via deliberate overdose (alcohol + xanax). Physical/Sexual Abuse/Trauma History: Patient denies history of abuse. Additional Comment: Urine drug screen results: THC-Marijuana, ZACH-Cocaine, FEN-Fentanyl, MOP-Opiates, MTD-Methadone. Noted. Mental Status Exam - Mental Status Exam Alert and Oriented to: Time, Place, Person Cognitive Function: Good Patient Appearance: Well Groomed Mood: Withdrawn, Hopeful Affect: Appropriate, Normal Range Patient Behavior: Appropriate, Cooperative Speech Pattern: Clear, Appropriate Voice Loudness: Normal Thought Process: Intact, Goal Oriented Thought Disorder: Not Present Hallucinations: Denies Suicidal Ideation: Denies Homicidal Ideation: Denies Insight/Judgement: Fair Sleep: Fair Appetite: Good Gait/Station: Other (walks with a cane) Psychiatric Findings - Problem List (Bern 1, 2,3) (1) Alcohol use disorder Current Visit: Yes Status: Chronic (2) Opioid dependence on agonist therapy Current Visit: Yes Status: Chronic (3) Cocaine dependence Current Visit: Yes Status: Chronic Qualifiers: Substance use status: uncomplicated Qualified Code(s): F14.20 - Cocaine dependence, uncomplicated (4) Nicotine dependence Current Visit: Yes Status: Chronic Qualifiers: Nicotine product type: cigarettes Substance use status: uncomplicated Qualified Code(s): F17.210 - Nicotine dependence, cigarettes, uncomplicated (5) Drug-induced mood disorder Current Visit: Yes Status: Chronic (6) Insomnia Current Visit: Yes Status: Chronic - Initial Treatment Plan Initial Treatment Plan: Psychoeducation. Support. Motivational counseling. Seroquel is titrated to 50 mg po daily + 150 mg po hs (patient's request). Side effects/benefits are discussed with the patient. Informed consent (verbal) granted by patient. Observation.
[2019-11-21] MEDS: THIAMINE HCL 100 MG TABLET (FP) PO SCH (21:02)
[2019-11-21] MEDS: MELATONIN 5 MG TABLETS PO SCH (21:02)
[2019-11-21] MEDS: QUEtiapine FUMARATE 50 MG TABLET PO SCH (21:03)
[2019-11-22] MEDS ORDERED: METHADONE HCL 40 MG DISPERSABLE TABLET ONE (05:42)
[2019-11-22] MEDS ORDERED: METHADONE HCL 10 MG TABLET ONE (05:42)
[2019-11-22] MEDS: hydrOXYzine PAMOATE 50 MG CAPSULE (FP) PO PRN ×4 (06:02→21:41)
[2019-11-22] MEDS: METHADONE 40 MG, METHADONE 10 MG PO SCH (06:02)
[2019-11-22] MEDS: NICOTINE POLACRILEX 4 MG GUM BUC PRN ×4 (06:03→21:42)
[2019-11-22] MEDS ORDERED: PT OWN MED DRAWER 7, Y5N ONE ×2 (09:03→17:10)
[2019-11-22] MEDS: NICOTINE 21 MG/24 HOURS TOPICAL PATCH TD SCH (09:50)
[2019-11-22] MEDS: QUEtiapine FUMARATE 50 MG TABLET PO SCH ×2 (09:52→21:41)
[2019-11-22] MEDS: ASPIRIN COATED 81 MG TABLET.EC PO SCH (09:52)
[2019-11-22] MEDS: BUDESONIDE/FORMETEROL FUMARATE 80/4.5 mcg INHALER IH SCH ×2 (09:52→21:42)
[2019-11-22] MEDS: PRENATAL VITAMINS W/ FOLIC ACID TABLET (FP) PO SCH (09:53)
[2019-11-22] MEDS: POLYETHYLENE GLYCOL 3350 119 GM BTL PO SCH (09:53)
[2019-11-22] MEDS: EMTRICITABINE 200MG/TENOFOVIR 300MG PO SCH (09:53)
[2019-11-22] MEDS ORDERED: BISACODYL 5 MG TABLET.DR (FP) PO ONE (15:42)
[2019-11-22] MEDS: MELATONIN 5 MG TABLETS PO SCH (21:40)
[2019-11-22] MEDS: THIAMINE HCL 100 MG TABLET (FP) PO SCH (21:40)
[2019-11-23] MEDS ORDERED: METHADONE HCL 10 MG TABLET ONE (05:41)
[2019-11-23] MEDS ORDERED: METHADONE HCL 40 MG DISPERSABLE TABLET ONE (05:41)
[2019-11-23] MEDS: METHADONE 40 MG, METHADONE 10 MG PO SCH (05:55)
[2019-11-23] MEDS: hydrOXYzine PAMOATE 50 MG CAPSULE (FP) PO PRN ×4 (05:55→18:14)
[2019-11-23] MEDS: NICOTINE POLACRILEX 4 MG GUM BUC PRN ×7 (05:56→21:06)
[2019-11-23] MEDS ORDERED: PT OWN MED DRAWER 7, Y5N ONE (09:13)
[2019-11-23] MEDS: NICOTINE 21 MG/24 HOURS TOPICAL PATCH TD SCH (09:57)
[2019-11-23] MEDS: PRENATAL VITAMINS W/ FOLIC ACID TABLET (FP) PO SCH (09:57)
[2019-11-23] MEDS: ASPIRIN COATED 81 MG TABLET.EC PO SCH (09:57)
[2019-11-23] MEDS: QUEtiapine FUMARATE 50 MG TABLET PO SCH ×2 (09:57→21:05)
[2019-11-23] MEDS: EMTRICITABINE 200MG/TENOFOVIR 300MG PO SCH (09:58)
[2019-11-23] MEDS: POLYETHYLENE GLYCOL 3350 119 GM BTL PO SCH (09:59)
[2019-11-23] MEDS: BUDESONIDE/FORMETEROL FUMARATE 80/4.5 mcg INHALER IH SCH ×2 (10:01→22:04)
[2019-11-23] MEDS: THIAMINE HCL 100 MG TABLET (FP) PO SCH (21:04)
[2019-11-23] MEDS: MELATONIN 5 MG TABLETS PO SCH (21:05)
[2019-11-24] MEDS ORDERED: METHADONE HCL 10 MG TABLET ONE (03:17)
[2019-11-24] MEDS ORDERED: METHADONE HCL 40 MG DISPERSABLE TABLET ONE (03:17)
[2019-11-24] MEDS: METHADONE 40 MG, METHADONE 10 MG PO SCH (06:06)
[2019-11-24] MEDS: NICOTINE POLACRILEX 4 MG GUM BUC PRN ×5 (06:07→21:45)
[2019-11-24] MEDS: hydrOXYzine PAMOATE 50 MG CAPSULE (FP) PO PRN ×5 (06:07→22:15)
[2019-11-24] MEDS: ASPIRIN COATED 81 MG TABLET.EC PO SCH (09:36)
[2019-11-24] MEDS: BUDESONIDE/FORMETEROL FUMARATE 80/4.5 mcg INHALER IH SCH ×2 (09:36→21:44)
[2019-11-24] MEDS: PRENATAL VITAMINS W/ FOLIC ACID TABLET (FP) PO SCH (09:36)
[2019-11-24] MEDS: NICOTINE 21 MG/24 HOURS TOPICAL PATCH TD SCH (09:36)
[2019-11-24] MEDS: EMTRICITABINE 200MG/TENOFOVIR 300MG PO SCH (09:36)
[2019-11-24] MEDS: QUEtiapine FUMARATE 50 MG TABLET PO SCH ×2 (09:36→21:44)
[2019-11-24] MEDS: POLYETHYLENE GLYCOL 3350 119 GM BTL PO SCH (09:37)
[2019-11-24] MEDS: MELATONIN 5 MG TABLETS PO SCH (21:44)
[2019-11-24] MEDS: THIAMINE HCL 100 MG TABLET (FP) PO SCH (21:44)
[2019-11-25] MEDS ORDERED: METHADONE HCL 40 MG DISPERSABLE TABLET ONE (03:27)
[2019-11-25] MEDS ORDERED: METHADONE HCL 10 MG TABLET ONE (03:27)
[2019-11-25] MEDS: NICOTINE POLACRILEX 4 MG GUM BUC PRN ×5 (06:31→21:04)
[2019-11-25] MEDS: METHADONE 40 MG, METHADONE 10 MG PO SCH (06:31)
[2019-11-25] MEDS: hydrOXYzine PAMOATE 50 MG CAPSULE (FP) PO PRN ×5 (06:31→22:36)
[2019-11-25] MEDS: EMTRICITABINE 200MG/TENOFOVIR 300MG PO SCH (09:11)
[2019-11-25] MEDS: BUDESONIDE/FORMETEROL FUMARATE 80/4.5 mcg INHALER IH SCH ×2 (09:11→21:04)
[2019-11-25] MEDS: PRENATAL VITAMINS W/ FOLIC ACID TABLET (FP) PO SCH (09:11)
[2019-11-25] MEDS: QUEtiapine FUMARATE 50 MG TABLET PO SCH ×2 (09:11→21:03)
[2019-11-25] MEDS: ASPIRIN COATED 81 MG TABLET.EC PO SCH (09:11)
[2019-11-25] MEDS: NICOTINE 21 MG/24 HOURS TOPICAL PATCH TD SCH (09:13)
[2019-11-25] MEDS: POLYETHYLENE GLYCOL 3350 119 GM BTL PO SCH (09:13)
[2019-11-25] MEDS ORDERED: PT OWN MED DRAWER 7, Y5N ONE (13:01)
[2019-11-25] MEDS: THIAMINE HCL 100 MG TABLET (FP) PO SCH (21:03)
[2019-11-25] MEDS: MELATONIN 5 MG TABLETS PO SCH (21:03)
[2019-11-26] MEDS ORDERED: METHADONE HCL 10 MG TABLET ONE (05:39)
[2019-11-26] MEDS ORDERED: METHADONE HCL 40 MG DISPERSABLE TABLET ONE (05:39)
[2019-11-26] MEDS: hydrOXYzine PAMOATE 50 MG CAPSULE (FP) PO PRN ×5 (05:52→22:21)
[2019-11-26] MEDS: NICOTINE POLACRILEX 4 MG GUM BUC PRN ×5 (05:53→21:34)
[2019-11-26] MEDS: METHADONE 40 MG, METHADONE 10 MG PO SCH (05:53)
[2019-11-26] MEDS: PRENATAL VITAMINS W/ FOLIC ACID TABLET (FP) PO SCH (10:07)
[2019-11-26] MEDS: POLYETHYLENE GLYCOL 3350 119 GM BTL PO SCH (10:07)
[2019-11-26] MEDS: NICOTINE 21 MG/24 HOURS TOPICAL PATCH TD SCH (10:07)
[2019-11-26] MEDS: ASPIRIN COATED 81 MG TABLET.EC PO SCH (10:07)
[2019-11-26] MEDS: QUEtiapine FUMARATE 50 MG TABLET PO SCH ×2 (10:08→21:32)
[2019-11-26] MEDS ORDERED: hydrOXYzine PAMOATE 25 MG CAPSULE (FP) PO ONE ×2 (10:09→14:05)
[2019-11-26] MEDS: EMTRICITABINE 200MG/TENOFOVIR 300MG PO SCH (10:10)
[2019-11-26] MEDS: BUDESONIDE/FORMETEROL FUMARATE 80/4.5 mcg INHALER IH SCH ×2 (10:11→21:33)
--- NOTE | 2019-11-26 12:14 | PN ---
[facility] Progress Note Note: Vital Signs Period Temp Pulse Resp BP Sys/Dobbs Pulse Ox Last 24 Hr 96.8 F-97.8 F 71 18 99/66 95-98 Patient c/o constipation and no BM x 2 days. Patient denies n/v/d and abdominal pain. Also interested in Alcohol MAT. PE alert and oriented x 3 skin warm and dry +perrla, eoms intact bl gi nt, nd ext full rom, amb ad aishwarya no tremors A/P alcohol dependence constipation discussed campral mat as patient is on methadone and cannot get receive naltrexone/vivitrol counselor Salima Babcock notified for outpatient connection for constipation, oral fluids encouraged, dulcolax 10mg hs ordered
[2019-11-26] MEDS: MELATONIN 5 MG TABLETS PO SCH (21:32)
[2019-11-26] MEDS: THIAMINE HCL 100 MG TABLET (FP) PO SCH (21:32)
[2019-11-26] MEDS: BISACODYL 5 MG TABLET.DR (FP) PO SCH (21:34)
[2019-11-27] MEDS ORDERED: METHADONE HCL 10 MG TABLET ONE (05:39)
[2019-11-27] MEDS ORDERED: METHADONE HCL 40 MG DISPERSABLE TABLET ONE (05:39)
[2019-11-27] MEDS: METHADONE 40 MG, METHADONE 10 MG PO SCH (05:51)
[2019-11-27] MEDS: NICOTINE POLACRILEX 4 MG GUM BUC PRN ×6 (05:52→21:09)
[2019-11-27] MEDS: hydrOXYzine PAMOATE 50 MG CAPSULE (FP) PO PRN ×5 (05:52→22:26)
[2019-11-27] MEDS: PRENATAL VITAMINS W/ FOLIC ACID TABLET (FP) PO SCH (09:56)
[2019-11-27] MEDS: QUEtiapine FUMARATE 50 MG TABLET PO SCH ×2 (09:56→21:08)
[2019-11-27] MEDS: ASPIRIN COATED 81 MG TABLET.EC PO SCH (09:56)
[2019-11-27] MEDS: NICOTINE 21 MG/24 HOURS TOPICAL PATCH TD SCH (09:56)
[2019-11-27] MEDS: POLYETHYLENE GLYCOL 3350 119 GM BTL PO SCH (09:57)
[2019-11-27] MEDS: BUDESONIDE/FORMETEROL FUMARATE 80/4.5 mcg INHALER IH SCH ×2 (10:00→21:09)
[2019-11-27] MEDS: EMTRICITABINE 200MG/TENOFOVIR 300MG PO SCH (10:01)
--- NOTE | 2019-11-27 10:28 | PN ---
S Progress Note Note: patient wants to start Campral. PMHx of suicide attempt. Campral may increase risk. Requesting evaluation by psychiatry. Vital Signs Period Temp Pulse Resp BP Sys/Dobbs Pulse Ox Last 24 Hr 97.7 F-97.8 F 71 18 123/73 95-97
[2019-11-27] MEDS: MELATONIN 5 MG TABLETS PO SCH (21:08)
[2019-11-27] MEDS: THIAMINE HCL 100 MG TABLET (FP) PO SCH (21:08)
[2019-11-27] MEDS: BISACODYL 5 MG TABLET.DR (FP) PO SCH (21:08)
[2019-11-28] MEDS ORDERED: METHADONE HCL 10 MG TABLET ONE (05:40)
[2019-11-28] MEDS ORDERED: METHADONE HCL 40 MG DISPERSABLE TABLET ONE (05:40)
[2019-11-28] MEDS: METHADONE 40 MG, METHADONE 10 MG PO SCH (05:53)
[2019-11-28] MEDS: NICOTINE POLACRILEX 4 MG GUM BUC PRN ×5 (05:54→21:42)
[2019-11-28] MEDS: hydrOXYzine PAMOATE 50 MG CAPSULE (FP) PO PRN ×5 (05:54→22:01)
[2019-11-28] MEDS: QUEtiapine FUMARATE 50 MG TABLET PO SCH ×2 (10:12→21:40)
[2019-11-28] MEDS: BUDESONIDE/FORMETEROL FUMARATE 80/4.5 mcg INHALER IH SCH ×2 (10:12→21:42)
[2019-11-28] MEDS: EMTRICITABINE 200MG/TENOFOVIR 300MG PO SCH (10:12)
[2019-11-28] MEDS: ASPIRIN COATED 81 MG TABLET.EC PO SCH (10:12)
[2019-11-28] MEDS: PRENATAL VITAMINS W/ FOLIC ACID TABLET (FP) PO SCH (10:12)
[2019-11-28] MEDS: NICOTINE 21 MG/24 HOURS TOPICAL PATCH TD SCH (10:13)
[2019-11-28] MEDS: POLYETHYLENE GLYCOL 3350 119 GM BTL PO SCH (10:23)
--- NOTE | 2019-11-28 15:10 | PN ---
Psychiatric Progress Note Vital Signs: Vital Signs Period Temp Pulse Resp BP Sys/Dobbs Pulse Ox Last 24 Hr 97.5 F-98.2 F 65 18 103/74 95-97 Date of Session: 11/28/19 Chief Complaint:: " I feel fine. I want the medication to stop my drinking." HPI: Benign hospital course. Psychiatric re-evaluation is sought to determine safety of acamprosate with this patient presenting with a distant history of suicide attempt. Mr Ortiz is doing well. No complaint offered. ROS: Unremarkable. Current Medications: Active Medications Generic Name Dose Route Start Last Admin Trade Name Freq PRN Reason Stop Dose Admin Acetaminophen 650 mg 11/19/19 11:54 Tylenol - PO Q4H PRN FEVER Al Hydroxide/Mg Hydroxide 30 ml 11/19/19 11:54 Mylanta Oral Suspension - PO Q6H PRN DYSPEPSIA Albuterol Sulfate 2 puff 11/19/19 11:57 Ventolin Hfa Inhaler - IH Q4H PRN ASTHMA Aspirin 81 mg 11/20/19 10:00 11/28/19 10:12 Ecotrin - PO 81 mg DAILY DAVI Administration Bisacodyl 10 mg 11/26/19 22:00 11/27/19 21:08 Dulcolax - PO 10 mg HS DAVI Administration Budesonide/Formoterol Fumarate 2 puff 11/19/19 22:00 11/28/19 10:12 Symbicort 80/4.5mcg - IH 2 puff BID DAVI Administration Emtricitabine/Tenofovir 1 tab 11/20/19 10:00 11/28/19 10:12 Truvada PO 1 tab DAILY DAVI Administration Eucalyptus/Menthol/Phenol/Sorbitol 1 each 11/19/19 11:54 Cepastat Lozenge - MM Q4H PRN SORE THROAT Guaifenesin 10 ml 11/19/19 11:54 Robitussin - PO Q6H PRN COUGH Hydroxyzine Pamoate 50 mg 11/20/19 17:52 11/28/19 14:01 Vistaril - PO 50 mg Q4H PRN Administration ANXIETY Ibuprofen 400 mg 11/19/19 11:54 Motrin - PO Q6H PRN Pain Level 4-6 Loperamide HCl 4 mg 11/19/19 11:54 Imodium - PO Q6H PRN DIARRHEA Magnesium Citrate 300 ml 11/19/19 11:54 11/22/19 09:51 Citroma - PO 300 ml Q48H PRN Administration CONSTIPATION Melatonin 5 mg 11/19/19 22:00 11/27/19 21:08 Melatonin PO 5 mg HS DAVI Administration Methadone HCl 40 mg/ Methadone 50 mg 11/27/19 06:00 11/28/19 05:53 HCl 10 mg PO 12/04/19 05:59 50 mg DAILY@0600 DAVI Administration Nicotine 21 mg 11/20/19 10:00 11/28/19 10:13 Nicoderm Patch - TD 21 mg DAILY DAVI Administration Nicotine Polacrilex 4 mg 11/19/19 11:54 11/28/19 14:01 Nicorette Gum - BUC 4 mg Q2H PRN Administration NICOTINE REPLACEMENT RX Polyethylene Glycol 17 gm 11/20/19 11:00 11/28/19 10:23 Miralax (For Daily Use) - PO 17 gm DAILY DAVI Administration Multivit/Folic Acid/Iron 1 tab 11/20/19 10:00 11/28/19 10:12 Vitamins (Sjr) - PO 1 tab DAILY DAVI Administration Pseudoephedrine/Triprolidine 1 combo 11/19/19 11:54 Actifed - PO TID PRN NASAL CONGESTION Quetiapine Fumarate 50 mg 11/22/19 10:00 11/28/19 10:12 Seroquel - PO 50 mg DAILY DAVI Administration Quetiapine Fumarate 150 mg 11/21/19 22:00 11/27/19 21:08 Seroquel - PO 150 mg HS DAVI Administration Thiamine HCl 100 mg 11/19/19 22:00 11/27/19 21:08 Vitamin B1 - PO 100 mg HS DAVI Administration Medication(s) Change(s): None. Patient is doing well on his current medication regimen. Current Side Effect: No Lab tests ordered: No Lab tests reviewed: Yes Provider note:: Chart reviewed. Case discussed via telephone with the referring source, medical nurse practitioner Natalie Mccain. Patient interviwed. Mr Ortiz is observed as well groomed, relaxed, friendly and cooperative. Compliant with medications. No delusion elicited. Euthymic mood. Bright affect. Patient is willing to enlist in MAT maintenance (agreeable with taking acamprosate). Side effects/benefits discussed with the patient. Mr Ortiz is not suicidal or homicidal. Acamprosate is NOT a contraindication for this patient (no suicide attempt since 1989). Mental status is stable. Refer to MSE report for details. Patient is at his baseline. Total face to face time:: 25 Mental Status Exam - Mental Status Exam Alert and Oriented to: Time, Place, Person Cognitive Function: Good Patient Appearance: Well Groomed Mood: Hopeful, Euthymic Affect: Appropriate, Normal Range Patient Behavior: Appropriate, Cooperative Speech Pattern: Clear, Appropriate Voice Loudness: Normal Thought Process: Intact, Goal Oriented Thought Disorder: Not Present Hallucinations: Denies Suicidal Ideation: Denies Homicidal Ideation: Denies Insight/Judgement: Good Sleep: Well Appetite: Good Gait/Station: Normal Psychiatric Treatment Plan - Problem List (1) Alcohol use disorder Current Visit: Yes Comment: . (2) Opioid dependence on agonist therapy Current Visit: Yes Comment: . (3) Cocaine dependence Current Visit: Yes Qualifiers: Substance use status: uncomplicated Qualified Code(s): F14.20 - Cocaine dependence, uncomplicated Comment: . (4) Nicotine dependence Current Visit: Yes Qualifiers: Nicotine product type: cigarettes Substance use status: uncomplicated Qualified Code(s): F17.210 - Nicotine dependence, cigarettes, uncomplicated Comment: . (5) Drug-induced mood disorder Current Visit: Yes Comment: . (6) Insomnia Current Visit: Yes Comment: .
[2019-11-28] MEDS: BISACODYL 5 MG TABLET.DR (FP) PO SCH (21:41)
[2019-11-28] MEDS: MELATONIN 5 MG TABLETS PO SCH (21:41)
[2019-11-28] MEDS: THIAMINE HCL 100 MG TABLET (FP) PO SCH (21:41)
[2019-11-29] MEDS ORDERED: METHADONE HCL 40 MG DISPERSABLE TABLET ONE (03:28)
[2019-11-29] MEDS ORDERED: METHADONE HCL 10 MG TABLET ONE (03:29)
[2019-11-29] MEDS: METHADONE 40 MG, METHADONE 10 MG PO SCH (06:00)
[2019-11-29] MEDS: NICOTINE POLACRILEX 4 MG GUM BUC PRN ×5 (06:03→21:07)
[2019-11-29] MEDS: hydrOXYzine PAMOATE 50 MG CAPSULE (FP) PO PRN ×4 (06:03→17:01)
[2019-11-29] MEDS: PRENATAL VITAMINS W/ FOLIC ACID TABLET (FP) PO SCH (10:03)
[2019-11-29] MEDS: QUEtiapine FUMARATE 50 MG TABLET PO SCH ×2 (10:03→21:05)
[2019-11-29] MEDS: POLYETHYLENE GLYCOL 3350 119 GM BTL PO SCH (10:03)
[2019-11-29] MEDS: BUDESONIDE/FORMETEROL FUMARATE 80/4.5 mcg INHALER IH SCH ×2 (10:04→22:26)
[2019-11-29] MEDS: ASPIRIN COATED 81 MG TABLET.EC PO SCH (10:04)
[2019-11-29] MEDS: EMTRICITABINE 200MG/TENOFOVIR 300MG PO SCH (10:04)
[2019-11-29] MEDS: NICOTINE 21 MG/24 HOURS TOPICAL PATCH TD SCH (10:04)
[2019-11-29] MEDS ORDERED: PT OWN MED DRAWER 7, Y5N ONE ×2 (10:40→22:45)
[2019-11-29] MEDS: THIAMINE HCL 100 MG TABLET (FP) PO SCH (21:05)
[2019-11-29] MEDS: MELATONIN 5 MG TABLETS PO SCH (21:06)
[2019-11-29] MEDS: BISACODYL 5 MG TABLET.DR (FP) PO SCH (22:46)
[2019-11-30] MEDS ORDERED: METHADONE HCL 40 MG DISPERSABLE TABLET ONE (05:41)
[2019-11-30] MEDS ORDERED: METHADONE HCL 10 MG TABLET ONE (05:42)
[2019-11-30] MEDS: METHADONE 40 MG, METHADONE 10 MG PO SCH (05:56)
[2019-11-30] MEDS: hydrOXYzine PAMOATE 50 MG CAPSULE (FP) PO PRN ×5 (05:56→21:18)
[2019-11-30] MEDS: NICOTINE POLACRILEX 4 MG GUM BUC PRN ×4 (05:56→21:18)
[2019-11-30] MEDS: PRENATAL VITAMINS W/ FOLIC ACID TABLET (FP) PO SCH (10:07)
[2019-11-30] MEDS: QUEtiapine FUMARATE 50 MG TABLET PO SCH ×2 (10:07→21:14)
[2019-11-30] MEDS: NICOTINE 21 MG/24 HOURS TOPICAL PATCH TD SCH (10:07)
[2019-11-30] MEDS: ASPIRIN COATED 81 MG TABLET.EC PO SCH (10:07)
[2019-11-30] MEDS: BUDESONIDE/FORMETEROL FUMARATE 80/4.5 mcg INHALER IH SCH ×2 (10:07→21:13)
[2019-11-30] MEDS: POLYETHYLENE GLYCOL 3350 119 GM BTL PO SCH (10:08)
[2019-11-30] MEDS: EMTRICITABINE 200MG/TENOFOVIR 300MG PO SCH (10:09)
[2019-11-30] MEDS ORDERED: PT OWN MED DRAWER 7, Y5N ONE (10:11)
--- NOTE | 2019-11-30 11:16 | PN ---
[facility] Progress Note Note: PATIENT CONNECTED TO [facility] OUT PATIENT PROGRAM WHERE HE WILL CONTINUE CAMPRAL TREATMENT FOR ALCOHOL DEPENDENCE. PATIENT FOR D/C 12/04/2019. WILL START CAMPRAL 666MG PO TID. Vital Signs Temperature 97.8 F 11/30/19 05:54 Pulse Rate 68 11/30/19 05:54 Respiratory Rate 18 11/30/19 05:54 Blood Pressure 107/75 11/30/19 05:54 O2 Sat by Pulse Oximetry (%) 97 11/30/19 05:54
[2019-11-30] MEDS: ACAMPROSATE CALCIUM 333 MG TABLET.DR PO SCH ×2 (14:07→21:14)
[2019-11-30] MEDS: THIAMINE HCL 100 MG TABLET (FP) PO SCH (21:13)
[2019-11-30] MEDS: BISACODYL 5 MG TABLET.DR (FP) PO SCH (21:14)
[2019-11-30] MEDS: MELATONIN 5 MG TABLETS PO SCH (21:16)
[2019-12-01] MEDS ORDERED: METHADONE HCL 40 MG DISPERSABLE TABLET ONE (05:40)
[2019-12-01] MEDS ORDERED: METHADONE HCL 10 MG TABLET ONE (05:40)
[2019-12-01] MEDS: METHADONE 40 MG, METHADONE 10 MG PO SCH (05:54)
[2019-12-01] MEDS: hydrOXYzine PAMOATE 50 MG CAPSULE (FP) PO PRN ×5 (05:55→22:24)
[2019-12-01] MEDS: NICOTINE POLACRILEX 4 MG GUM BUC PRN ×5 (05:55→22:24)
[2019-12-01] MEDS: ACAMPROSATE CALCIUM 333 MG TABLET.DR PO SCH ×3 (05:55→21:11)
[2019-12-01] MEDS ORDERED: PT OWN MED DRAWER 7, Y5N ONE ×4 (09:14→22:05)
[2019-12-01] MEDS: NICOTINE 21 MG/24 HOURS TOPICAL PATCH TD SCH (09:44)
[2019-12-01] MEDS: BUDESONIDE/FORMETEROL FUMARATE 80/4.5 mcg INHALER IH SCH ×2 (09:44→21:10)
[2019-12-01] MEDS: EMTRICITABINE 200MG/TENOFOVIR 300MG PO SCH (09:44)
[2019-12-01] MEDS: PRENATAL VITAMINS W/ FOLIC ACID TABLET (FP) PO SCH (09:44)
[2019-12-01] MEDS: QUEtiapine FUMARATE 50 MG TABLET PO SCH ×2 (09:45→21:10)
[2019-12-01] MEDS: POLYETHYLENE GLYCOL 3350 119 GM BTL PO SCH (09:45)
[2019-12-01] MEDS: ASPIRIN COATED 81 MG TABLET.EC PO SCH (09:45)
[2019-12-01] MEDS: MELATONIN 5 MG TABLETS PO SCH (21:10)
[2019-12-01] MEDS: THIAMINE HCL 100 MG TABLET (FP) PO SCH (21:10)
[2019-12-01] MEDS: BISACODYL 5 MG TABLET.DR (FP) PO SCH (21:10)
[2019-12-02] MEDS ORDERED: METHADONE HCL 10 MG TABLET ONE (04:44)
[2019-12-02] MEDS ORDERED: METHADONE HCL 40 MG DISPERSABLE TABLET ONE (04:44)
[2019-12-02] MEDS: NICOTINE POLACRILEX 4 MG GUM BUC PRN ×5 (06:23→22:05)
[2019-12-02] MEDS: ACAMPROSATE CALCIUM 333 MG TABLET.DR PO SCH ×3 (06:23→22:03)
[2019-12-02] MEDS: METHADONE 40 MG, METHADONE 10 MG PO SCH (06:23)
[2019-12-02] MEDS: hydrOXYzine PAMOATE 50 MG CAPSULE (FP) PO PRN ×5 (06:23→22:04)
[2019-12-02] MEDS: EMTRICITABINE 200MG/TENOFOVIR 300MG PO SCH (09:42)
[2019-12-02] MEDS: NICOTINE 21 MG/24 HOURS TOPICAL PATCH TD SCH (09:42)
[2019-12-02] MEDS: POLYETHYLENE GLYCOL 3350 119 GM BTL PO SCH (09:42)
[2019-12-02] MEDS: QUEtiapine FUMARATE 50 MG TABLET PO SCH ×2 (09:42→22:03)
[2019-12-02] MEDS: ASPIRIN COATED 81 MG TABLET.EC PO SCH (09:42)
[2019-12-02] MEDS: PRENATAL VITAMINS W/ FOLIC ACID TABLET (FP) PO SCH (09:43)
[2019-12-02] MEDS: BUDESONIDE/FORMETEROL FUMARATE 80/4.5 mcg INHALER IH SCH ×2 (09:47→22:04)
[2019-12-02] MEDS: THIAMINE HCL 100 MG TABLET (FP) PO SCH (22:03)
[2019-12-02] MEDS: MELATONIN 5 MG TABLETS PO SCH (22:03)
[2019-12-02] MEDS: BISACODYL 5 MG TABLET.DR (FP) PO SCH (22:04)
[2019-12-03] MEDS ORDERED: METHADONE HCL 10 MG TABLET ONE (03:08)
[2019-12-03] MEDS ORDERED: METHADONE HCL 40 MG DISPERSABLE TABLET ONE (03:08)
[2019-12-03] MEDS: METHADONE 40 MG, METHADONE 10 MG PO SCH (06:05)
[2019-12-03] MEDS: hydrOXYzine PAMOATE 50 MG CAPSULE (FP) PO PRN ×5 (06:05→21:07)
[2019-12-03] MEDS: ACAMPROSATE CALCIUM 333 MG TABLET.DR PO SCH ×3 (06:05→21:06)
[2019-12-03] MEDS: NICOTINE POLACRILEX 4 MG GUM BUC PRN ×4 (06:05→18:08)
[2019-12-03] MEDS: EMTRICITABINE 200MG/TENOFOVIR 300MG PO SCH (10:07)
[2019-12-03] MEDS: POLYETHYLENE GLYCOL 3350 119 GM BTL PO SCH (10:07)
[2019-12-03] MEDS: QUEtiapine FUMARATE 50 MG TABLET PO SCH ×2 (10:07→21:07)
[2019-12-03] MEDS: PRENATAL VITAMINS W/ FOLIC ACID TABLET (FP) PO SCH (10:07)
[2019-12-03] MEDS: NICOTINE 21 MG/24 HOURS TOPICAL PATCH TD SCH (10:07)
[2019-12-03] MEDS: ASPIRIN COATED 81 MG TABLET.EC PO SCH (10:07)
[2019-12-03] MEDS: BUDESONIDE/FORMETEROL FUMARATE 80/4.5 mcg INHALER IH SCH ×2 (10:10→21:04)
--- NOTE | 2019-12-03 15:26 | PN ---
[facility] Progress Note Note: The counselor, Jing Hollis called to request Courtesy Rx be sent to the [place] pharmacy for this patient who he os referring to [facility]. RX for home medications as well as Campral 666 mg po TID #180 started in rehab electronically sent to [facility] to be picked up for aftercare referral site.
[2019-12-03] MEDS: THIAMINE HCL 100 MG TABLET (FP) PO SCH (21:04)
[2019-12-03] MEDS: BISACODYL 5 MG TABLET.DR (FP) PO SCH (21:06)
[2019-12-03] MEDS: MELATONIN 5 MG TABLETS PO SCH (21:08)
--- NOTE | 2019-12-04 05:48 | PN ---
[facility] Progress Note Note: Methadone order renewed
[2019-12-04] MEDS ORDERED: METHADONE HCL 40 MG DISPERSABLE TABLET ONE (05:50)
[2019-12-04] MEDS ORDERED: METHADONE HCL 10 MG TABLET ONE (05:51)
[2019-12-04] MEDS ORDERED: METHADONE HCL 10 MG TABLET PO ONE (06:00)
[2019-12-04] MEDS ORDERED: METHADONE 40 MG, METHADONE 10 MG PO ONE (06:00)
[2019-12-04] MEDS: hydrOXYzine PAMOATE 50 MG CAPSULE (FP) PO PRN (06:33)
[2019-12-04] MEDS: NICOTINE POLACRILEX 4 MG GUM BUC PRN ×2 (06:34→09:26)
[2019-12-04] MEDS: ACAMPROSATE CALCIUM 333 MG TABLET.DR PO SCH (06:35)
[2019-12-04 07:29] VITALS: BP 119/70; PULSE 69; TEMP 96.8
--- NOTE | 2019-12-04 08:19 | PN ---
[facility] Progress Note Note: Patient is scheduled for dischsrge today. Scripts for 30 days of Seroquel 50 mg/day & 150 mg/hs are electronically transmitted to [facility], [facility] [place] [address]
[2019-12-04] MEDS: ASPIRIN COATED 81 MG TABLET.EC PO SCH (09:24)
[2019-12-04] MEDS: BUDESONIDE/FORMETEROL FUMARATE 80/4.5 mcg INHALER IH SCH (09:24)
[2019-12-04] MEDS: EMTRICITABINE 200MG/TENOFOVIR 300MG PO SCH (09:24)
[2019-12-04] MEDS: PRENATAL VITAMINS W/ FOLIC ACID TABLET (FP) PO SCH (09:24)
[2019-12-04] MEDS: QUEtiapine FUMARATE 50 MG TABLET PO SCH (09:24)
[2019-12-04] MEDS: POLYETHYLENE GLYCOL 3350 119 GM BTL PO SCH (09:25)
[2019-12-04] MEDS: NICOTINE 21 MG/24 HOURS TOPICAL PATCH TD SCH (09:25)
--- NOTE | 2019-12-04 10:18 | DS ---
[facility] Rehab Discharge Summary - [facility] Rehab Discharge Summary Admission Date: 11/19/19 Discharge Date: 12/04/19 - History Present History: Alcohol dependence, Cocaine dependence, MMTP Pertinent Past History: HTN Asthma GERD Hep C Depression - Discharge Physical Exam Vital Signs: Vital Signs Temperature 96.8 F L 12/04/19 06:33 Pulse Rate 69 12/04/19 06:33 Respiratory Rate 18 12/04/19 06:33 Blood Pressure 119/70 12/04/19 06:33 O2 Sat by Pulse Oximetry (%) 96 12/04/19 06:33 Alert o x 3 nad oob ambulating with steady gait cardiac;s1 s2, rrr lungs;ctab abdomen;++fatty,+Bs,nt,nd extremities:no edema,skin intact. - Treatment Discharge Condition: Discharge condition good Hospital Course: [facility] - Medication Discharge Medications: Ambulatory Orders Quetiapine Fumarate [Seroquel -] 50 mg PO DAILY #30 tablet 06/19/19 Quetiapine Fumarate [Seroquel -] 200 mg PO HS #30 tablet 06/19/19 Acamprosate Calcium [Campral -] 666 mg PO TID 30 Days #180 tablet. 12/03/19 Albuterol Sulfate Inhaler - [Ventolin HFA Inhaler -] 2 puff IH Q4H PRN #1 inhaler 12/03/19 Amlodipine Besylate [Norvasc -] 10 mg PO DAILY #30 tablet 12/03/19 Aspirin [Lo-Dose Aspirin EC] 81 mg PO DAILY #30 tablet. 12/03/19 Budesonide/Formeterol Fumarate [SYMBICORT 80/4.5mcg -] 2 puff IH BID #1 inhaler 12/03/19 Emtricitabine/Tenofovir (Tdf) [Truvada 200 mg-300 mg Tablet] 1 each PO DAILY #30 tablet 12/03/19 Quetiapine Fumarate [Seroquel -] 50 mg PO DAILY #30 tablet 12/04/19 Quetiapine Fumarate [Seroquel -] 150 mg PO HS #90 tablet 12/04/19 - Medication-Assisted Treatment (MAT) Medication-Assisted Treatment (MAT): No - Discharge Instructions Diet, activity, other medical instructions: Diet:JOO Activity: oob ad aishwarya Other medical instructions:follow up with primary care provider after LT C Rehab at [facility]-Dr. De La Vega for medical management. - Diagnosis (1) Alcohol use disorder Status: Chronic (2) Asthma Status: Chronic Qualifiers: Asthma severity: unspecified severity Asthma persistence: intermittent Asthma complication type: uncomplicated Qualified Code(s): J45.20 - Mild intermittent asthma, uncomplicated (3) Cocaine dependence Status: Chronic Qualifiers: Substance use status: uncomplicated Qualified Code(s): F14.20 - Cocaine dependence, uncomplicated (4) Essential hypertension Status: Chronic (5) GERD (gastroesophageal reflux disease) Status: Chronic Qualifiers: Esophagitis presence: esophagitis presence not specified Qualified Code(s): K21.9 - Gastro-esophageal reflux disease without esophagitis (6) Hepatitis C Status: Chronic Qualifiers: Viral hepatitis chronicity: unspecified (7) Nicotine dependence Status: Chronic Qualifiers: Nicotine product type: cigarettes Substance use status: uncomplicated Qualified Code(s): F17.210 - Nicotine dependence, cigarettes, uncomplicated (8) Methadone maintenance therapy patient Status: Chronic - Follow-up Referral Minutes to complete discharge: 30 - AMA Did Patient Leave Against Medical Advice: No Additional Comments: Courtesy Rx sent electronically to [place] pharmacy, 2 di 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
== END 2019-12-04 09:47 | disposition home or self-care (01) | DRG 772 ==
LOC: YASAS 11:51 → Y3W 11:52
PROVIDERS: ADMIT Allergy & Immunology; ATTEND Allergy & Immunology
PROC: HZ42ZZZ Group Counseling for Substance Abuse Treatment, Cognitive-Behavioral (ICD-10-PCS; principal; 2019-11-19)
DX: F10.20 Alcohol dependence, uncomplicated (principal); F11.20 Opioid dependence, uncomplicated; F14.20 Cocaine dependence, uncomplicated; F17.210 Nicotine dependence, cigarettes, uncomplicated; F19.24 Other psychoactive substance dependence with psychoactive substance-induced mood disorder; F32.9 Major depressive disorder, single episode, unspecified; F41.9 Anxiety disorder, unspecified; G47.00 Insomnia, unspecified; I10 Essential (primary) hypertension; J45.20 Mild intermittent asthma, uncomplicated; K21.9 Gastro-esophageal reflux disease without esophagitis; K59.00 Constipation, unspecified; B18.2 Chronic viral hepatitis C; I25.2 Old myocardial infarction; Z91.5 Personal history of self-harm

== ENCOUNTER 2020-12-26 14:52 | Inpatient (IN) | payer OTHER ==
[2020-12-26 18:08] VITALS: BMI 24.7
[2020-12-26] MEDS ORDERED: ACETAMINOPHEN 325 MG TABLET (FP) PO PRN ×2 (19:04)
[2020-12-26] MEDS ORDERED: MAGNESIUM HYDROX 2400MG/30ML ORAL SUSPENSION 30 ML CUP PO PRN (19:04)
[2020-12-26] MEDS ORDERED: MAG HYDROX/AL HYDROX/SIMETH 30 ML UNIT-DOSE CUP PO PRN (19:04)
[2020-12-26] MEDS ORDERED: IBUPROFEN 400 MG TABLET (FP) PO PRN (19:04)
[2020-12-26] MEDS ORDERED: MENTHOL/PHENOL 1 EACH UD MM PRN (19:04)
[2020-12-26] MEDS ORDERED: ONDANSETRON *ODT* 4 MG TABLET SL PRN (19:04)
[2020-12-26] MEDS ORDERED: hydrOXYzine PAMOATE 25 MG CAPSULE (FP) PO PRN (19:04)
[2020-12-26] MEDS ORDERED: MAGNESIUM CITRATE 300 ML BOTTLE PO PRN (19:04)
[2020-12-26] MEDS ORDERED: BISMUTH SUBSALICYLATE 524 MG/30 ML PO PRN (19:04)
[2020-12-26] MEDS ORDERED: MELATONIN 5 MG TABLETS PO SCH (22:00)
[2020-12-26] MEDS: THIAMINE HCL 100 MG TABLET (FP) PO SCH (22:20)
[2020-12-26] MEDS: diazePAM 5 MG TABLET PO SCH (22:21)
[2020-12-27] MEDS: diazePAM 5 MG TABLET PO PRN ×3 (02:20→22:05)
[2020-12-27] MEDS: diazePAM 5 MG TABLET PO SCH ×4 (05:36→22:52)
[2020-12-27] MEDS: PRENATAL VITAMINS W/ FOLIC ACID TABLET (FP) PO SCH (10:09)
[2020-12-27] MEDS ORDERED: methaDONE HCL 10 MG TABLET PO SCH (10:45)
[2020-12-27] MEDS ORDERED: methaDONE HCL 10 MG TABLET ONE (11:59)
[2020-12-27] MEDS ORDERED: methaDONE HCL 40 MG DISPERSABLE TABLET ONE (11:59)
[2020-12-27] MEDS: NICOTINE 10 MG CARTRIDGE (INHALER) IH PRN ×2 (12:03→17:21)
[2020-12-27 13:02] LABS: HEMATOCRIT 42.2 % (35.4-49); HEMOGLOBIN 14.6 GM/dL (11.7-16.9); MCH 32.9 pg (25.7-33.7); MCHC 34.6 g/dl (32.0-35.9); MEAN CELL VOLUME 95.1 fl (80-96); MEAN PLT VOLUME 8.7 fl (7.5-11.1); PLATELET COUNT 269 10^3/uL (134-434); RBC 4.43 M/mm3 (4.00-5.60); RDW 14.2 % (11.9-15.9); WHITE BLOOD COUNT 9.2 K/mm3 (4.0-10.0)
[2020-12-27 13:26] LABS: ALBUMIN 3.6 g/dl (3.4-5.0); CALCIUM 9.1 mg/dL (8.5-10.1)
[2020-12-27 13:27] LABS: BLOOD UREA NITROGEN 8.9 mg/dL (7-18)
[2020-12-27 13:30] LABS: CREATININE 0.9 mg/dL (0.55-1.3)
[2020-12-27 13:31] LABS: BILIRUBIN,TOTAL 0.7 mg/dL (0.2-1); TOT PROT 7.1 g/dl (6.4-8.2)
[2020-12-27] MEDS: NICOTINE POLACRILEX 4 MG GUM BUC PRN ×3 (14:56→19:48)
[2020-12-27] MEDS: METHOCARBAMOL 500 MG TABLET PO PRN (19:58)
[2020-12-27] MEDS: QUEtiapine FUMARATE 50 MG TABLET PO SCH (22:04)
[2020-12-27] MEDS: THIAMINE HCL 100 MG TABLET (FP) PO SCH (22:04)
[2020-12-28] MEDS: NICOTINE 10 MG CARTRIDGE (INHALER) IH PRN ×4 (03:52→17:33)
[2020-12-28] MEDS: NICOTINE POLACRILEX 4 MG GUM BUC PRN ×5 (03:52→22:04)
[2020-12-28] MEDS ORDERED: methaDONE HCL 10 MG TABLET ONE (04:06)
[2020-12-28] MEDS ORDERED: methaDONE HCL 40 MG DISPERSABLE TABLET ONE (04:06)
[2020-12-28] MEDS: diazePAM 5 MG TABLET PO SCH ×3 (05:12→22:00)
[2020-12-28] MEDS: PRENATAL VITAMINS W/ FOLIC ACID TABLET (FP) PO SCH (10:10)
[2020-12-28] MEDS: diazePAM 5 MG TABLET PO PRN ×3 (10:11→19:03)
[2020-12-28] MEDS: METHOCARBAMOL 500 MG TABLET PO PRN ×2 (10:13→16:44)
[2020-12-28] MEDS: THIAMINE HCL 100 MG TABLET (FP) PO SCH (22:00)
[2020-12-28] MEDS: QUEtiapine FUMARATE 50 MG TABLET PO SCH (22:01)
[2020-12-29] MEDS: diazePAM 5 MG TABLET PO PRN ×3 (03:24→15:13)
[2020-12-29] MEDS ORDERED: methaDONE HCL 10 MG TABLET ONE (04:08)
[2020-12-29] MEDS ORDERED: methaDONE HCL 40 MG DISPERSABLE TABLET ONE (04:08)
[2020-12-29] MEDS: diazePAM 5 MG TABLET PO SCH ×2 (05:47→17:00)
[2020-12-29] MEDS: NICOTINE 10 MG CARTRIDGE (INHALER) IH PRN ×4 (05:51→21:53)
[2020-12-29] MEDS: NICOTINE POLACRILEX 4 MG GUM BUC PRN ×5 (08:38→21:53)
[2020-12-29] MEDS ORDERED: traZODone HCL 50 MG TABLET (FP) PO PRN (10:00)
[2020-12-29] MEDS: PRENATAL VITAMINS W/ FOLIC ACID TABLET (FP) PO SCH (10:03)
[2020-12-29] MEDS: METHOCARBAMOL 500 MG TABLET PO PRN (19:08)
[2020-12-29] MEDS: QUEtiapine FUMARATE 50 MG TABLET PO SCH (21:50)
[2020-12-29] MEDS: THIAMINE HCL 100 MG TABLET (FP) PO SCH (21:50)
[2020-12-30] MEDS ORDERED: methaDONE HCL 10 MG TABLET ONE (04:41)
[2020-12-30] MEDS ORDERED: methaDONE HCL 40 MG DISPERSABLE TABLET ONE (04:41)
[2020-12-30] MEDS ORDERED: diazePAM 5 MG TABLET PO ONE (06:00)
[2020-12-30] MEDS: NICOTINE 10 MG CARTRIDGE (INHALER) IH PRN (06:06)
[2020-12-30 06:35] VITALS: BP 121/62; PULSE 66; TEMP 96.2
[2020-12-30] MEDS: NICOTINE POLACRILEX 4 MG GUM BUC PRN (08:26)
[2020-12-30] MEDS: PRENATAL VITAMINS W/ FOLIC ACID TABLET (FP) PO SCH (10:31)
== END 2020-12-30 12:26 | disposition other institution (70) | DRG 773 ==
LOC: YASAS 14:52 → Y6N 20:38
PROVIDERS: ADMIT Allergy & Immunology; ATTEND Allergy & Immunology
PROC: HZ2ZZZZ Detoxification Services for Substance Abuse Treatment (ICD-10-PCS; principal; 2020-12-26)
DX: F10.230 Alcohol dependence with withdrawal, uncomplicated (principal); F11.20 Opioid dependence, uncomplicated; F14.20 Cocaine dependence, uncomplicated; F17.210 Nicotine dependence, cigarettes, uncomplicated; F19.280 Other psychoactive substance dependence with psychoactive substance-induced anxiety disorder; F19.282 Other psychoactive substance dependence with psychoactive substance-induced sleep disorder; F32.9 Major depressive disorder, single episode, unspecified; F41.9 Anxiety disorder, unspecified; I10 Essential (primary) hypertension
CPT/HCPCS: 36415; 80053; 85027; 86780; C9803; U0003; U0005

== ENCOUNTER 2020-12-30 12:46 | Inpatient (IN) | payer OTHER ==
[2020-12-30] MEDS ORDERED: P-EPHED 60MG/TRIPROLIDI 2.5MG TABLET PO PRN (13:17)
[2020-12-30] MEDS ORDERED: ACETAMINOPHEN 325 MG TABLET (FP) PO PRN (13:17)
[2020-12-30] MEDS ORDERED: MENTHOL/PHENOL 1 EACH UD MM PRN (13:17)
[2020-12-30] MEDS ORDERED: MAG HYDROX/AL HYDROX/SIMETH 30 ML UNIT-DOSE CUP PO PRN (13:17)
[2020-12-30] MEDS ORDERED: LOPERAMIDE HCL 2 MG CAPSULE PO PRN (13:17)
[2020-12-30] MEDS ORDERED: MAGNESIUM CITRATE 300 ML BOTTLE PO PRN (13:17)
[2020-12-30] MEDS ORDERED: MAGNESIUM HYDROX 2400MG/30ML ORAL SUSPENSION 30 ML CUP PO PRN (13:17)
[2020-12-30] MEDS ORDERED: IBUPROFEN 400 MG TABLET (FP) PO PRN (13:17)
[2020-12-30] MEDS ORDERED: guaiFENesin 200 MG/10 ML 10 ML UNIT-DOSE CUPS PO PRN (13:17)
[2020-12-30] MEDS ORDERED: IBUPROFEN 600 MG TABLET (FP) PO PRN (14:13)
[2020-12-30] MEDS: NICOTINE 10 MG CARTRIDGE (INHALER) IH PRN ×2 (14:33→21:04)
[2020-12-30] MEDS: NICOTINE POLACRILEX 2 MG GUM BUC PRN ×2 (14:33→21:05)
[2020-12-30] MEDS: METHOCARBAMOL 500 MG TABLET PO PRN ×3 (14:33→22:41)
[2020-12-30] MEDS: hydrOXYzine PAMOATE 25 MG CAPSULE (FP) PO PRN (21:01)
[2020-12-30] MEDS: THIAMINE HCL 100 MG TABLET (FP) PO SCH (21:01)
[2020-12-30] MEDS: QUEtiapine FUMARATE 50 MG TABLET PO SCH (21:02)
[2020-12-30] MEDS ORDERED: MELATONIN 5 MG TABLETS PO SCH (22:00)
[2020-12-31] MEDS: NICOTINE 10 MG CARTRIDGE (INHALER) IH PRN ×3 (00:31→09:45)
[2020-12-31] MEDS: NICOTINE POLACRILEX 2 MG GUM BUC PRN ×5 (00:33→21:08)
[2020-12-31] MEDS: hydrOXYzine PAMOATE 25 MG CAPSULE (FP) PO PRN ×3 (01:01→21:07)
[2020-12-31] MEDS ORDERED: methaDONE HCL 10 MG TABLET PO SCH (06:00)
[2020-12-31] MEDS ORDERED: methaDONE HCL 10 MG TABLET ONE (06:06)
[2020-12-31] MEDS ORDERED: methaDONE HCL 40 MG DISPERSABLE TABLET ONE (06:06)
[2020-12-31] MEDS: ASPIRIN COATED 81 MG TABLET.EC PO SCH (09:43)
[2020-12-31] MEDS: QUEtiapine FUMARATE 50 MG TABLET PO SCH ×2 (09:43→21:07)
[2020-12-31] MEDS: PRENATAL VITAMINS W/ FOLIC ACID TABLET (FP) PO SCH (09:43)
[2020-12-31] MEDS: METHOCARBAMOL 500 MG TABLET PO PRN ×3 (09:45→21:07)
[2020-12-31] MEDS: THIAMINE HCL 100 MG TABLET (FP) PO SCH (21:07)
[2021-01-01] MEDS: METHOCARBAMOL 500 MG TABLET PO PRN ×3 (01:55→21:15)
[2021-01-01] MEDS: hydrOXYzine PAMOATE 25 MG CAPSULE (FP) PO PRN ×4 (01:55→21:14)
[2021-01-01] MEDS ORDERED: methaDONE HCL 40 MG DISPERSABLE TABLET ONE (05:50)
[2021-01-01] MEDS ORDERED: methaDONE HCL 10 MG TABLET ONE (05:50)
[2021-01-01] MEDS: NICOTINE 10 MG CARTRIDGE (INHALER) IH PRN ×2 (06:42→21:15)
[2021-01-01] MEDS: NICOTINE POLACRILEX 2 MG GUM BUC PRN ×3 (06:42→16:50)
[2021-01-01] MEDS: QUEtiapine FUMARATE 50 MG TABLET PO SCH ×2 (10:01→21:13)
[2021-01-01] MEDS: ASPIRIN COATED 81 MG TABLET.EC PO SCH (10:01)
[2021-01-01] MEDS: PRENATAL VITAMINS W/ FOLIC ACID TABLET (FP) PO SCH (10:01)
[2021-01-01] MEDS: THIAMINE HCL 100 MG TABLET (FP) PO SCH (21:14)
[2021-01-02] MEDS: NICOTINE POLACRILEX 2 MG GUM BUC PRN ×5 (00:56→21:05)
[2021-01-02] MEDS: hydrOXYzine PAMOATE 25 MG CAPSULE (FP) PO PRN ×4 (01:18→21:03)
[2021-01-02] MEDS ORDERED: methaDONE HCL 10 MG TABLET ONE (03:16)
[2021-01-02] MEDS ORDERED: methaDONE HCL 40 MG DISPERSABLE TABLET ONE (03:17)
[2021-01-02] MEDS: METHOCARBAMOL 500 MG TABLET PO PRN ×4 (06:06→21:03)
[2021-01-02] MEDS: ASPIRIN COATED 81 MG TABLET.EC PO SCH (09:55)
[2021-01-02] MEDS: QUEtiapine FUMARATE 50 MG TABLET PO SCH ×2 (09:56→21:03)
[2021-01-02] MEDS: PRENATAL VITAMINS W/ FOLIC ACID TABLET (FP) PO SCH (09:56)
[2021-01-02] MEDS ORDERED: PT OWN MED DRAWER 7, Y5N ONE (14:59)
[2021-01-02] MEDS: THIAMINE HCL 100 MG TABLET (FP) PO SCH (21:03)
[2021-01-03] MEDS: hydrOXYzine PAMOATE 25 MG CAPSULE (FP) PO PRN ×6 (01:12→21:03)
[2021-01-03] MEDS ORDERED: methaDONE HCL 10 MG TABLET ONE (05:40)
[2021-01-03] MEDS ORDERED: methaDONE HCL 40 MG DISPERSABLE TABLET ONE (05:41)
[2021-01-03] MEDS: METHOCARBAMOL 500 MG TABLET PO PRN ×3 (06:34→21:02)
[2021-01-03] MEDS: ASPIRIN COATED 81 MG TABLET.EC PO SCH (09:35)
[2021-01-03] MEDS: PRENATAL VITAMINS W/ FOLIC ACID TABLET (FP) PO SCH (09:35)
[2021-01-03] MEDS: QUEtiapine FUMARATE 50 MG TABLET PO SCH ×2 (09:36→21:02)
[2021-01-03] MEDS: NICOTINE POLACRILEX 2 MG GUM BUC PRN ×2 (09:36→19:24)
[2021-01-03] MEDS: NICOTINE 10 MG CARTRIDGE (INHALER) IH PRN ×2 (10:29→21:04)
[2021-01-03] MEDS: THIAMINE HCL 100 MG TABLET (FP) PO SCH (21:03)
[2021-01-04] MEDS: hydrOXYzine PAMOATE 25 MG CAPSULE (FP) PO PRN ×4 (01:09→21:29)
[2021-01-04] MEDS ORDERED: methaDONE HCL 40 MG DISPERSABLE TABLET ONE (03:30)
[2021-01-04] MEDS ORDERED: methaDONE HCL 10 MG TABLET ONE (03:30)
[2021-01-04] MEDS: METHOCARBAMOL 500 MG TABLET PO PRN ×3 (06:26→21:29)
[2021-01-04] MEDS: NICOTINE POLACRILEX 2 MG GUM BUC PRN ×2 (06:28→21:29)
[2021-01-04] MEDS: QUEtiapine FUMARATE 50 MG TABLET PO SCH ×2 (09:42→21:29)
[2021-01-04] MEDS: PRENATAL VITAMINS W/ FOLIC ACID TABLET (FP) PO SCH (09:42)
[2021-01-04] MEDS: ASPIRIN COATED 81 MG TABLET.EC PO SCH (09:42)
[2021-01-04] MEDS: NICOTINE 10 MG CARTRIDGE (INHALER) IH PRN (09:43)
[2021-01-04] MEDS: THIAMINE HCL 100 MG TABLET (FP) PO SCH (21:28)
[2021-01-04] MEDS: QUEtiapine FUMARATE 100 MG TABLET (FP) PO SCH (21:29)
[2021-01-05] MEDS: hydrOXYzine PAMOATE 25 MG CAPSULE (FP) PO PRN ×5 (01:42→21:31)
[2021-01-05] MEDS ORDERED: methaDONE HCL 40 MG DISPERSABLE TABLET ONE (05:26)
[2021-01-05] MEDS ORDERED: methaDONE HCL 10 MG TABLET ONE (05:26)
[2021-01-05] MEDS: METHOCARBAMOL 500 MG TABLET PO PRN ×3 (06:19→21:31)
[2021-01-05] MEDS: NICOTINE POLACRILEX 2 MG GUM BUC PRN ×2 (06:22→14:55)
[2021-01-05] MEDS ORDERED: PT OWN MED DRAWER 7, Y5N ONE (09:07)
[2021-01-05] MEDS: QUEtiapine FUMARATE 50 MG TABLET PO SCH ×2 (10:10→22:00)
[2021-01-05] MEDS: PRENATAL VITAMINS W/ FOLIC ACID TABLET (FP) PO SCH (10:10)
[2021-01-05] MEDS: ASPIRIN COATED 81 MG TABLET.EC PO SCH (10:10)
[2021-01-05] MEDS: NICOTINE 10 MG CARTRIDGE (INHALER) IH PRN (10:11)
[2021-01-05] MEDS: QUEtiapine FUMARATE 100 MG TABLET (FP) PO SCH (21:30)
[2021-01-05] MEDS: THIAMINE HCL 100 MG TABLET (FP) PO SCH (21:31)
[2021-01-06] MEDS ORDERED: methaDONE HCL 10 MG TABLET ONE (05:33)
[2021-01-06] MEDS ORDERED: methaDONE HCL 40 MG DISPERSABLE TABLET ONE (05:34)
[2021-01-06] MEDS: hydrOXYzine PAMOATE 25 MG CAPSULE (FP) PO PRN ×4 (06:11→21:18)
[2021-01-06] MEDS: METHOCARBAMOL 500 MG TABLET PO PRN ×3 (06:11→21:18)
[2021-01-06] MEDS: NICOTINE POLACRILEX 2 MG GUM BUC PRN ×3 (06:12→21:19)
[2021-01-06] MEDS: QUEtiapine FUMARATE 50 MG TABLET PO SCH ×2 (09:54→21:18)
[2021-01-06] MEDS: PRENATAL VITAMINS W/ FOLIC ACID TABLET (FP) PO SCH (09:54)
[2021-01-06] MEDS: ASPIRIN COATED 81 MG TABLET.EC PO SCH (09:54)
[2021-01-06] MEDS: NICOTINE 10 MG CARTRIDGE (INHALER) IH PRN (09:56)
[2021-01-06] MEDS: THIAMINE HCL 100 MG TABLET (FP) PO SCH (21:18)
[2021-01-06] MEDS: QUEtiapine FUMARATE 100 MG TABLET (FP) PO SCH (21:18)
[2021-01-07] MEDS ORDERED: methaDONE HCL 10 MG TABLET ONE (05:45)
[2021-01-07] MEDS ORDERED: methaDONE HCL 40 MG DISPERSABLE TABLET ONE (05:46)
[2021-01-07] MEDS: hydrOXYzine PAMOATE 25 MG CAPSULE (FP) PO PRN ×3 (06:30→21:26)
[2021-01-07] MEDS: METHOCARBAMOL 500 MG TABLET PO PRN ×3 (06:30→21:26)
[2021-01-07] MEDS: ASPIRIN COATED 81 MG TABLET.EC PO SCH (10:01)
[2021-01-07] MEDS: PRENATAL VITAMINS W/ FOLIC ACID TABLET (FP) PO SCH (10:01)
[2021-01-07] MEDS: QUEtiapine FUMARATE 50 MG TABLET PO SCH ×2 (10:01→21:26)
[2021-01-07] MEDS: NICOTINE 10 MG CARTRIDGE (INHALER) IH PRN ×2 (10:02→14:57)
[2021-01-07] MEDS ORDERED: PT OWN MED DRAWER 7, Y5N ONE (10:29)
[2021-01-07] MEDS: THIAMINE HCL 100 MG TABLET (FP) PO SCH (21:26)
[2021-01-07] MEDS: QUEtiapine FUMARATE 100 MG TABLET (FP) PO SCH (21:26)
[2021-01-07] MEDS: NICOTINE POLACRILEX 2 MG GUM BUC PRN (21:28)
[2021-01-08] MEDS: hydrOXYzine PAMOATE 25 MG CAPSULE (FP) PO PRN ×5 (02:24→21:54)
[2021-01-08] MEDS ORDERED: methaDONE HCL 40 MG DISPERSABLE TABLET ONE (03:42)
[2021-01-08] MEDS ORDERED: methaDONE HCL 10 MG TABLET ONE (03:42)
[2021-01-08] MEDS: METHOCARBAMOL 500 MG TABLET PO PRN ×4 (06:36→21:54)
[2021-01-08] MEDS: NICOTINE 10 MG CARTRIDGE (INHALER) IH PRN ×3 (06:38→21:58)
[2021-01-08] MEDS: ASPIRIN COATED 81 MG TABLET.EC PO SCH (09:49)
[2021-01-08] MEDS: PRENATAL VITAMINS W/ FOLIC ACID TABLET (FP) PO SCH (09:49)
[2021-01-08] MEDS: QUEtiapine FUMARATE 50 MG TABLET PO SCH ×2 (09:49→21:56)
[2021-01-08 13:58] LABS: HIV INTERPRETATION NEGATIVE (NEGATIVE)
[2021-01-08] MEDS: NICOTINE POLACRILEX 2 MG GUM BUC PRN (19:58)
[2021-01-08] MEDS: THIAMINE HCL 100 MG TABLET (FP) PO SCH (21:53)
[2021-01-08] MEDS: QUEtiapine FUMARATE 100 MG TABLET (FP) PO SCH (21:54)
[2021-01-09] MEDS ORDERED: methaDONE HCL 40 MG DISPERSABLE TABLET ONE (03:35)
[2021-01-09] MEDS ORDERED: methaDONE HCL 10 MG TABLET ONE (03:35)
[2021-01-09] MEDS: hydrOXYzine PAMOATE 25 MG CAPSULE (FP) PO PRN ×4 (06:04→21:25)
[2021-01-09] MEDS: METHOCARBAMOL 500 MG TABLET PO PRN ×3 (06:04→21:25)
[2021-01-09] MEDS: NICOTINE 10 MG CARTRIDGE (INHALER) IH PRN ×4 (06:10→21:21)
[2021-01-09] MEDS: ASPIRIN COATED 81 MG TABLET.EC PO SCH (10:08)
[2021-01-09] MEDS: PRENATAL VITAMINS W/ FOLIC ACID TABLET (FP) PO SCH (10:08)
[2021-01-09] MEDS: QUEtiapine FUMARATE 50 MG TABLET PO SCH ×2 (10:08→21:24)
[2021-01-09] MEDS ORDERED: PT OWN MED DRAWER 7, Y5N ONE (14:28)
[2021-01-09] MEDS: NICOTINE POLACRILEX 2 MG GUM BUC PRN (14:30)
[2021-01-09] MEDS: THIAMINE HCL 100 MG TABLET (FP) PO SCH (21:22)
[2021-01-09] MEDS: QUEtiapine FUMARATE 100 MG TABLET (FP) PO SCH (21:22)
[2021-01-10] MEDS ORDERED: methaDONE HCL 10 MG TABLET ONE (03:45)
[2021-01-10] MEDS ORDERED: methaDONE HCL 40 MG DISPERSABLE TABLET ONE (03:46)
[2021-01-10] MEDS: hydrOXYzine PAMOATE 25 MG CAPSULE (FP) PO PRN ×4 (06:15→21:30)
[2021-01-10] MEDS: METHOCARBAMOL 500 MG TABLET PO PRN ×3 (06:15→21:31)
[2021-01-10] MEDS: NICOTINE 10 MG CARTRIDGE (INHALER) IH PRN ×3 (06:18→21:29)
[2021-01-10] MEDS: QUEtiapine FUMARATE 50 MG TABLET PO SCH ×2 (09:35→21:30)
[2021-01-10] MEDS: PRENATAL VITAMINS W/ FOLIC ACID TABLET (FP) PO SCH (09:35)
[2021-01-10] MEDS: ASPIRIN COATED 81 MG TABLET.EC PO SCH (09:35)
[2021-01-10] MEDS: NICOTINE POLACRILEX 2 MG GUM BUC PRN (09:36)
[2021-01-10] MEDS: QUEtiapine FUMARATE 100 MG TABLET (FP) PO SCH (21:29)
[2021-01-10] MEDS: THIAMINE HCL 100 MG TABLET (FP) PO SCH (21:30)
[2021-01-11] MEDS ORDERED: methaDONE HCL 10 MG TABLET ONE (03:29)
[2021-01-11] MEDS ORDERED: methaDONE HCL 40 MG DISPERSABLE TABLET ONE (03:29)
[2021-01-11] MEDS: METHOCARBAMOL 500 MG TABLET PO PRN ×3 (06:22→21:31)
[2021-01-11] MEDS: NICOTINE 10 MG CARTRIDGE (INHALER) IH PRN ×4 (06:22→21:33)
[2021-01-11] MEDS: hydrOXYzine PAMOATE 25 MG CAPSULE (FP) PO PRN ×4 (06:22→21:31)
[2021-01-11] MEDS: ASPIRIN COATED 81 MG TABLET.EC PO SCH (09:53)
[2021-01-11] MEDS: QUEtiapine FUMARATE 50 MG TABLET PO SCH ×2 (09:53→21:31)
[2021-01-11] MEDS: PRENATAL VITAMINS W/ FOLIC ACID TABLET (FP) PO SCH (09:53)
[2021-01-11] MEDS: QUEtiapine FUMARATE 100 MG TABLET (FP) PO SCH (21:31)
[2021-01-11] MEDS: THIAMINE HCL 100 MG TABLET (FP) PO SCH (21:31)
[2021-01-12] MEDS ORDERED: methaDONE HCL 10 MG TABLET ONE (03:30)
[2021-01-12] MEDS ORDERED: methaDONE HCL 40 MG DISPERSABLE TABLET ONE (03:31)
[2021-01-12] MEDS: NICOTINE 10 MG CARTRIDGE (INHALER) IH PRN ×3 (06:20→17:25)
[2021-01-12] MEDS: hydrOXYzine PAMOATE 25 MG CAPSULE (FP) PO PRN ×4 (06:22→21:13)
[2021-01-12] MEDS: METHOCARBAMOL 500 MG TABLET PO PRN ×3 (06:22→21:14)
[2021-01-12] MEDS: ASPIRIN COATED 81 MG TABLET.EC PO SCH (09:56)
[2021-01-12] MEDS: PRENATAL VITAMINS W/ FOLIC ACID TABLET (FP) PO SCH (09:57)
[2021-01-12] MEDS: QUEtiapine FUMARATE 50 MG TABLET PO SCH ×2 (10:24→21:13)
[2021-01-12] MEDS: THIAMINE HCL 100 MG TABLET (FP) PO SCH (21:13)
[2021-01-12] MEDS: QUEtiapine FUMARATE 100 MG TABLET (FP) PO SCH (21:13)
[2021-01-12] MEDS: NICOTINE POLACRILEX 2 MG GUM BUC PRN (21:16)
[2021-01-13] MEDS ORDERED: methaDONE HCL 40 MG DISPERSABLE TABLET ONE (04:29)
[2021-01-13] MEDS ORDERED: methaDONE HCL 10 MG TABLET ONE (04:29)
[2021-01-13] MEDS: hydrOXYzine PAMOATE 25 MG CAPSULE (FP) PO PRN ×4 (06:02→21:34)
[2021-01-13] MEDS: METHOCARBAMOL 500 MG TABLET PO PRN ×3 (06:02→21:35)
[2021-01-13] MEDS: NICOTINE 10 MG CARTRIDGE (INHALER) IH PRN ×4 (06:03→21:36)
[2021-01-13] MEDS: QUEtiapine FUMARATE 50 MG TABLET PO SCH ×2 (09:56→21:33)
[2021-01-13] MEDS: PRENATAL VITAMINS W/ FOLIC ACID TABLET (FP) PO SCH (09:56)
[2021-01-13] MEDS: ASPIRIN COATED 81 MG TABLET.EC PO SCH (09:56)
[2021-01-13] MEDS: THIAMINE HCL 100 MG TABLET (FP) PO SCH (21:33)
[2021-01-13] MEDS: QUEtiapine FUMARATE 100 MG TABLET (FP) PO SCH (21:34)
[2021-01-14] MEDS ORDERED: methaDONE HCL 10 MG TABLET ONE (03:41)
[2021-01-14] MEDS ORDERED: methaDONE HCL 40 MG DISPERSABLE TABLET ONE (03:41)
[2021-01-14] MEDS: hydrOXYzine PAMOATE 25 MG CAPSULE (FP) PO PRN ×4 (06:30→21:10)
[2021-01-14] MEDS: METHOCARBAMOL 500 MG TABLET PO PRN ×3 (06:30→21:10)
[2021-01-14] MEDS: NICOTINE 10 MG CARTRIDGE (INHALER) IH PRN ×2 (06:32→15:00)
[2021-01-14] MEDS: QUEtiapine FUMARATE 50 MG TABLET PO SCH ×2 (09:40→21:08)
[2021-01-14] MEDS: PRENATAL VITAMINS W/ FOLIC ACID TABLET (FP) PO SCH (09:40)
[2021-01-14] MEDS: ASPIRIN COATED 81 MG TABLET.EC PO SCH (09:40)
[2021-01-14] MEDS ORDERED: PT OWN MED DRAWER 7, Y5N ONE (10:04)
[2021-01-14] MEDS: QUEtiapine FUMARATE 100 MG TABLET (FP) PO SCH (21:08)
[2021-01-14] MEDS: THIAMINE HCL 100 MG TABLET (FP) PO SCH (21:09)
[2021-01-15] MEDS ORDERED: methaDONE HCL 40 MG DISPERSABLE TABLET ONE (03:24)
[2021-01-15] MEDS ORDERED: methaDONE HCL 10 MG TABLET ONE (03:24)
[2021-01-15] MEDS: hydrOXYzine PAMOATE 25 MG CAPSULE (FP) PO PRN ×4 (06:18→21:47)
[2021-01-15] MEDS: METHOCARBAMOL 500 MG TABLET PO PRN ×3 (06:18→21:47)
[2021-01-15] MEDS: QUEtiapine FUMARATE 50 MG TABLET PO SCH ×2 (09:36→21:46)
[2021-01-15] MEDS: ASPIRIN COATED 81 MG TABLET.EC PO SCH (09:36)
[2021-01-15] MEDS: PRENATAL VITAMINS W/ FOLIC ACID TABLET (FP) PO SCH (09:36)
[2021-01-15] MEDS: NICOTINE 10 MG CARTRIDGE (INHALER) IH PRN ×3 (09:37→21:47)
[2021-01-15] MEDS: THIAMINE HCL 100 MG TABLET (FP) PO SCH (21:45)
[2021-01-15] MEDS: QUEtiapine FUMARATE 100 MG TABLET (FP) PO SCH (21:45)
[2021-01-16] MEDS ORDERED: methaDONE HCL 10 MG TABLET ONE (03:30)
[2021-01-16] MEDS ORDERED: methaDONE HCL 40 MG DISPERSABLE TABLET ONE (03:30)
[2021-01-16] MEDS: hydrOXYzine PAMOATE 25 MG CAPSULE (FP) PO PRN ×4 (06:24→19:25)
[2021-01-16] MEDS: METHOCARBAMOL 500 MG TABLET PO PRN ×3 (06:24→21:23)
[2021-01-16] MEDS: NICOTINE 10 MG CARTRIDGE (INHALER) IH PRN ×2 (06:25→21:23)
[2021-01-16] MEDS: PRENATAL VITAMINS W/ FOLIC ACID TABLET (FP) PO SCH (10:03)
[2021-01-16] MEDS: QUEtiapine FUMARATE 50 MG TABLET PO SCH ×2 (10:03→21:23)
[2021-01-16] MEDS: ASPIRIN COATED 81 MG TABLET.EC PO SCH (10:03)
[2021-01-16] MEDS: THIAMINE HCL 100 MG TABLET (FP) PO SCH (21:23)
[2021-01-16] MEDS: QUEtiapine FUMARATE 100 MG TABLET (FP) PO SCH (21:23)
[2021-01-17] MEDS ORDERED: methaDONE HCL 10 MG TABLET ONE (03:10)
[2021-01-17] MEDS ORDERED: methaDONE HCL 40 MG DISPERSABLE TABLET ONE (03:10)
[2021-01-17] MEDS: hydrOXYzine PAMOATE 25 MG CAPSULE (FP) PO PRN ×4 (06:12→21:21)
[2021-01-17] MEDS: METHOCARBAMOL 500 MG TABLET PO PRN ×3 (06:12→21:22)
[2021-01-17] MEDS: NICOTINE 10 MG CARTRIDGE (INHALER) IH PRN ×3 (06:14→21:22)
[2021-01-17] MEDS: ASPIRIN COATED 81 MG TABLET.EC PO SCH (09:32)
[2021-01-17] MEDS: PRENATAL VITAMINS W/ FOLIC ACID TABLET (FP) PO SCH (09:32)
[2021-01-17] MEDS: QUEtiapine FUMARATE 50 MG TABLET PO SCH ×2 (09:32→21:21)
[2021-01-17] MEDS ORDERED: PT OWN MED DRAWER 7, Y5N ONE (09:51)
[2021-01-17] MEDS: QUEtiapine FUMARATE 100 MG TABLET (FP) PO SCH (21:21)
[2021-01-17] MEDS: THIAMINE HCL 100 MG TABLET (FP) PO SCH (21:21)
[2021-01-18] MEDS ORDERED: methaDONE HCL 10 MG TABLET ONE (05:34)
[2021-01-18] MEDS ORDERED: methaDONE HCL 40 MG DISPERSABLE TABLET ONE (05:34)
[2021-01-18] MEDS: hydrOXYzine PAMOATE 25 MG CAPSULE (FP) PO PRN ×4 (06:18→21:04)
[2021-01-18] MEDS: METHOCARBAMOL 500 MG TABLET PO PRN ×3 (06:18→21:04)
[2021-01-18] MEDS: NICOTINE 10 MG CARTRIDGE (INHALER) IH PRN ×3 (06:18→21:05)
[2021-01-18] MEDS ORDERED: PT OWN MED DRAWER 7, Y5N ONE ×3 (09:22→15:10)
[2021-01-18] MEDS: PRENATAL VITAMINS W/ FOLIC ACID TABLET (FP) PO SCH (09:30)
[2021-01-18] MEDS: ASPIRIN COATED 81 MG TABLET.EC PO SCH (09:30)
[2021-01-18] MEDS: QUEtiapine FUMARATE 50 MG TABLET PO SCH ×2 (09:30→21:04)
[2021-01-18] MEDS: THIAMINE HCL 100 MG TABLET (FP) PO SCH (21:04)
[2021-01-18] MEDS: QUEtiapine FUMARATE 100 MG TABLET (FP) PO SCH (21:04)
[2021-01-19] MEDS ORDERED: methaDONE HCL 40 MG DISPERSABLE TABLET ONE (02:47)
[2021-01-19] MEDS ORDERED: methaDONE HCL 10 MG TABLET ONE (02:47)
[2021-01-19] MEDS: METHOCARBAMOL 500 MG TABLET PO PRN ×4 (06:07→21:21)
[2021-01-19] MEDS: hydrOXYzine PAMOATE 25 MG CAPSULE (FP) PO PRN ×4 (06:07→21:22)
[2021-01-19] MEDS: ASPIRIN COATED 81 MG TABLET.EC PO SCH (10:09)
[2021-01-19] MEDS: QUEtiapine FUMARATE 50 MG TABLET PO SCH ×2 (10:09→21:22)
[2021-01-19] MEDS: PRENATAL VITAMINS W/ FOLIC ACID TABLET (FP) PO SCH (10:09)
[2021-01-19] MEDS: NICOTINE 10 MG CARTRIDGE (INHALER) IH PRN ×2 (10:10→21:22)
[2021-01-19] MEDS: THIAMINE HCL 100 MG TABLET (FP) PO SCH (21:22)
[2021-01-19] MEDS: QUEtiapine FUMARATE 100 MG TABLET (FP) PO SCH (21:22)
[2021-01-20] MEDS ORDERED: methaDONE HCL 40 MG DISPERSABLE TABLET ONE (06:14)
[2021-01-20] MEDS ORDERED: methaDONE HCL 10 MG TABLET ONE (06:14)
[2021-01-20] MEDS: METHOCARBAMOL 500 MG TABLET PO PRN ×3 (06:16→21:36)
[2021-01-20] MEDS: hydrOXYzine PAMOATE 25 MG CAPSULE (FP) PO PRN ×4 (06:16→21:36)
[2021-01-20] MEDS: NICOTINE 10 MG CARTRIDGE (INHALER) IH PRN ×3 (06:17→14:05)
[2021-01-20 06:30] VITALS: TEMP 97.1
[2021-01-20] MEDS: PRENATAL VITAMINS W/ FOLIC ACID TABLET (FP) PO SCH (09:41)
[2021-01-20] MEDS: QUEtiapine FUMARATE 50 MG TABLET PO SCH ×2 (09:41→21:36)
[2021-01-20] MEDS: ASPIRIN COATED 81 MG TABLET.EC PO SCH (09:41)
[2021-01-20] MEDS ORDERED: PT OWN MED DRAWER 7, Y5N ONE (14:00)
[2021-01-20] MEDS: QUEtiapine FUMARATE 100 MG TABLET (FP) PO SCH (21:36)
[2021-01-20] MEDS: THIAMINE HCL 100 MG TABLET (FP) PO SCH (21:36)
[2021-01-21] MEDS ORDERED: methaDONE HCL 40 MG DISPERSABLE TABLET ONE (03:28)
[2021-01-21] MEDS ORDERED: methaDONE HCL 10 MG TABLET ONE (03:28)
[2021-01-21] MEDS: METHOCARBAMOL 500 MG TABLET PO PRN (06:28)
[2021-01-21] MEDS: hydrOXYzine PAMOATE 25 MG CAPSULE (FP) PO PRN (06:28)
[2021-01-21 09:25] VITALS: BP 126/84; PULSE 85
[2021-01-21] MEDS: ASPIRIN COATED 81 MG TABLET.EC PO SCH (09:28)
[2021-01-21] MEDS: PRENATAL VITAMINS W/ FOLIC ACID TABLET (FP) PO SCH (09:28)
[2021-01-21] MEDS: QUEtiapine FUMARATE 50 MG TABLET PO SCH (09:28)
[2021-01-21] MEDS: NICOTINE 10 MG CARTRIDGE (INHALER) IH PRN (09:29)
== END 2021-01-21 10:03 | disposition home or self-care (01) | DRG 772 ==
LOC: YASAS 12:46 → Y3E 12:48
PROVIDERS: ADMIT Allergy & Immunology; ATTEND Allergy & Immunology
PROC: HZ42ZZZ Group Counseling for Substance Abuse Treatment, Cognitive-Behavioral (ICD-10-PCS; principal; 2020-12-30)
DX: F10.20 Alcohol dependence, uncomplicated (principal); F11.20 Opioid dependence, uncomplicated; F14.20 Cocaine dependence, uncomplicated; F41.9 Anxiety disorder, unspecified; F32.9 Major depressive disorder, single episode, unspecified; I10 Essential (primary) hypertension; K59.00 Constipation, unspecified
CPT/HCPCS: 36415; 87389

== ENCOUNTER 2021-05-09 14:19 | Inpatient (IN) | payer OTHER ==
[2021-05-09] MEDS ORDERED: ONDANSETRON *ODT* 4 MG TABLET SL PRN (15:07)
[2021-05-09] MEDS ORDERED: BISMUTH SUBSALICYLATE 524 MG/30 ML PO PRN (15:07)
[2021-05-09] MEDS ORDERED: MAG HYDROX/AL HYDROX/SIMETH 30 ML UNIT-DOSE CUP PO PRN (15:07)
[2021-05-09] MEDS ORDERED: ACETAMINOPHEN 325 MG TABLET (FP) PO PRN ×2 (15:07)
[2021-05-09] MEDS ORDERED: MENTHOL/PHENOL 1 EACH UD MM PRN (15:07)
[2021-05-09] MEDS ORDERED: MAGNESIUM HYDROX 2400MG/30ML ORAL SUSPENSION 30 ML CUP PO PRN (15:07)
[2021-05-09] MEDS ORDERED: MAGNESIUM CITRATE 300 ML BOTTLE PO PRN (15:07)
[2021-05-09] MEDS ORDERED: ALBUTEROL SO4 HFA INHALER IH PRN (15:09)
[2021-05-09 15:54] VITALS: BMI 27.3
[2021-05-09] MEDS: METHOCARBAMOL 500 MG TABLET PO PRN (18:16)
[2021-05-09] MEDS: hydrOXYzine PAMOATE 25 MG CAPSULE (FP) PO SCH ×2 (18:16→22:19)
[2021-05-09] MEDS: NICOTINE 10 MG CARTRIDGE (INHALER) IH PRN (18:17)
[2021-05-09] MEDS: LIDOCAINE 5% TOPICAL PATCH TP SCH (18:18)
[2021-05-09] MEDS ORDERED: MELATONIN 5 MG TABLETS PO SCH (22:00)
[2021-05-09] MEDS: THIAMINE HCL 100 MG TABLET (FP) PO SCH (22:19)
[2021-05-09] MEDS: BUDESONIDE/FORMETEROL FUMARATE 80/4.5 mcg INHALER IH SCH (22:19)
[2021-05-09] MEDS: LIDOCAINE PATCH REMOVAL MC SCH (22:20)
[2021-05-10] MEDS: hydrOXYzine PAMOATE 25 MG CAPSULE (FP) PO SCH ×5 (06:55→22:07)
[2021-05-10] MEDS ORDERED: EMTRICITABINE 200MG/TENOFOVIR 300MG PO SCH (10:00)
[2021-05-10] MEDS: PRENATAL VITAMINS W/ FOLIC ACID TABLET (FP) PO SCH (10:22)
[2021-05-10] MEDS: QUEtiapine FUMARATE 50 MG TABLET PO SCH ×2 (10:22→22:06)
[2021-05-10] MEDS: ASPIRIN COATED 81 MG TABLET.EC PO SCH (10:22)
[2021-05-10] MEDS: LIDOCAINE 5% TOPICAL PATCH TP SCH (10:22)
[2021-05-10] MEDS: amLODIPine BESYLATE 10 MG TABLET (FP) PO SCH (10:22)
[2021-05-10 11:15] LABS: HEMATOCRIT 41.9 % (35.4-49); MCH 31.7 pg (25.7-33.7); MCHC 33.4 g/dl (32.0-35.9); MEAN CELL VOLUME 94.6 fl (80-96); MEAN PLT VOLUME 8.7 fl (7.5-11.1); PLATELET COUNT 242 10^3/uL (134-434); RBC 4.43 M/mm3 (4.00-5.60); RDW 14.3 % (11.9-15.9); WHITE BLOOD COUNT 7.1 K/mm3 (4.0-10.0)
[2021-05-10 11:22] LABS: ALBUMIN 3.3 g/dl (3.4-5.0); BLOOD UREA NITROGEN 12.6 mg/dL (7-18); CALCIUM 8.8 mg/dL (8.5-10.1)
[2021-05-10 11:27] LABS: BILIRUBIN,TOTAL 0.3 mg/dL (0.2-1); TOT PROT 6.5 g/dl (6.4-8.2)
[2021-05-10] MEDS: BUDESONIDE/FORMETEROL FUMARATE 80/4.5 mcg INHALER IH SCH ×2 (12:40→22:07)
[2021-05-10] MEDS ORDERED: methaDONE HCL 10 MG TABLET PO ONE (12:49)
[2021-05-10] MEDS: chlordiazePOXIDE HCL 10 MG CAPSULE PO SCH ×3 (13:29→22:07)
[2021-05-10] MEDS: NICOTINE POLACRILEX 4 MG GUM BUC PRN ×2 (17:11→22:09)
[2021-05-10] MEDS: METHOCARBAMOL 500 MG TABLET PO PRN (17:11)
[2021-05-10] MEDS: THIAMINE HCL 100 MG TABLET (FP) PO SCH (22:06)
[2021-05-10] MEDS: LIDOCAINE PATCH REMOVAL MC SCH (22:07)
[2021-05-10] MEDS: NICOTINE 10 MG CARTRIDGE (INHALER) IH PRN (22:09)
[2021-05-11] MEDS: chlordiazePOXIDE HCL 10 MG CAPSULE PO PRN ×2 (01:24→12:48)
[2021-05-11] MEDS: METHOCARBAMOL 500 MG TABLET PO PRN ×2 (01:24→10:29)
[2021-05-11] MEDS ORDERED: chlordiazePOXIDE HCL 10 MG CAPSULE PO SCH ×2 (05:00→17:00)
[2021-05-11] MEDS: hydrOXYzine PAMOATE 25 MG CAPSULE (FP) PO SCH ×5 (05:40→22:17)
[2021-05-11] MEDS ORDERED: methaDONE HCL 10 MG TABLET PO SCH ×2 (08:00→09:00)
[2021-05-11] MEDS ORDERED: methaDONE 80 MG, methaDONE 20 MG PO SCH (08:15)
[2021-05-11] MEDS ORDERED: methaDONE 80 MG, methaDONE 20 MG PO ONE (09:15)
[2021-05-11] MEDS ORDERED: methaDONE HCL 10 MG TABLET ONE (10:14)
[2021-05-11] MEDS ORDERED: methaDONE HCL 40 MG DISPERSABLE TABLET ONE (10:14)
[2021-05-11] MEDS: LIDOCAINE 5% TOPICAL PATCH TP SCH (10:29)
[2021-05-11] MEDS: QUEtiapine FUMARATE 50 MG TABLET PO SCH ×2 (10:29→22:17)
[2021-05-11] MEDS: amLODIPine BESYLATE 10 MG TABLET (FP) PO SCH (10:29)
[2021-05-11] MEDS: PRENATAL VITAMINS W/ FOLIC ACID TABLET (FP) PO SCH (10:29)
[2021-05-11] MEDS: ASPIRIN COATED 81 MG TABLET.EC PO SCH (10:29)
[2021-05-11] MEDS: BUDESONIDE/FORMETEROL FUMARATE 80/4.5 mcg INHALER IH SCH ×2 (10:30→22:19)
[2021-05-11] MEDS: NICOTINE POLACRILEX 4 MG GUM BUC PRN ×4 (10:36→22:23)
[2021-05-11] MEDS: NICOTINE 10 MG CARTRIDGE (INHALER) IH PRN ×3 (12:48→22:22)
[2021-05-11] MEDS ORDERED: chlordiazePOXIDE HCL 25 MG CAPSULE PO ONE (13:30)
[2021-05-11] MEDS ORDERED: chlordiazePOXIDE HCL 25 MG CAPSULE PO SCH (17:00)
[2021-05-11] MEDS: chlordiazePOXIDE HCL 10 MG CAPSULE PO SCH ×2 (17:29→22:17)
[2021-05-11] MEDS: chlordiazePOXIDE HCL 25 MG CAPSULE PO PRN (19:42)
[2021-05-11] MEDS: THIAMINE HCL 100 MG TABLET (FP) PO SCH (22:17)
[2021-05-11] MEDS: LIDOCAINE PATCH REMOVAL MC SCH (22:22)
[2021-05-12] MEDS: chlordiazePOXIDE HCL 25 MG CAPSULE PO PRN ×2 (01:41→09:46)
[2021-05-12] MEDS ORDERED: methaDONE HCL 10 MG TABLET ONE (04:18)
[2021-05-12] MEDS ORDERED: methaDONE HCL 40 MG DISPERSABLE TABLET ONE (04:18)
[2021-05-12] MEDS ORDERED: chlordiazePOXIDE HCL 10 MG CAPSULE PO ONE (05:00)
[2021-05-12] MEDS: methaDONE 80 MG, methaDONE 20 MG PO SCH (05:44)
[2021-05-12] MEDS: hydrOXYzine PAMOATE 25 MG CAPSULE (FP) PO SCH ×5 (05:44→22:14)
[2021-05-12] MEDS: chlordiazePOXIDE HCL 10 MG CAPSULE PO SCH ×2 (05:45→17:17)
[2021-05-12] MEDS: NICOTINE 10 MG CARTRIDGE (INHALER) IH PRN ×4 (05:47→22:17)
[2021-05-12] MEDS: NICOTINE POLACRILEX 4 MG GUM BUC PRN ×5 (05:47→22:18)
[2021-05-12] MEDS: QUEtiapine FUMARATE 50 MG TABLET PO SCH ×2 (09:45→22:13)
[2021-05-12] MEDS: METHOCARBAMOL 500 MG TABLET PO PRN ×2 (09:45→17:18)
[2021-05-12] MEDS: ASPIRIN COATED 81 MG TABLET.EC PO SCH (09:45)
[2021-05-12] MEDS: amLODIPine BESYLATE 10 MG TABLET (FP) PO SCH (09:45)
[2021-05-12] MEDS: PRENATAL VITAMINS W/ FOLIC ACID TABLET (FP) PO SCH (09:45)
[2021-05-12] MEDS: BUDESONIDE/FORMETEROL FUMARATE 80/4.5 mcg INHALER IH SCH ×2 (09:46→23:16)
[2021-05-12] MEDS: LIDOCAINE 5% TOPICAL PATCH TP SCH (09:46)
[2021-05-12] MEDS: chlordiazePOXIDE HCL 10 MG CAPSULE PO PRN ×2 (14:22→22:13)
[2021-05-12] MEDS: THIAMINE HCL 100 MG TABLET (FP) PO SCH (22:14)
[2021-05-12] MEDS: LIDOCAINE PATCH REMOVAL MC SCH (23:15)
[2021-05-13] MEDS: METHOCARBAMOL 500 MG TABLET PO PRN (00:47)
[2021-05-13] MEDS: NICOTINE 10 MG CARTRIDGE (INHALER) IH PRN (02:15)
[2021-05-13] MEDS: NICOTINE POLACRILEX 4 MG GUM BUC PRN ×2 (02:16→05:58)
[2021-05-13] MEDS: chlordiazePOXIDE HCL 10 MG CAPSULE PO PRN (02:17)
[2021-05-13] MEDS ORDERED: methaDONE HCL 10 MG TABLET ONE (04:22)
[2021-05-13] MEDS ORDERED: methaDONE HCL 40 MG DISPERSABLE TABLET ONE (04:22)
[2021-05-13] MEDS ORDERED: chlordiazePOXIDE HCL 10 MG CAPSULE PO ONE (05:00)
[2021-05-13] MEDS ORDERED: chlordiazePOXIDE HCL 25 MG CAPSULE PO SCH (05:00)
[2021-05-13] MEDS: methaDONE 80 MG, methaDONE 20 MG PO SCH (05:54)
[2021-05-13] MEDS: hydrOXYzine PAMOATE 25 MG CAPSULE (FP) PO SCH (05:54)
[2021-05-13 08:51] VITALS: BP 121/72; PULSE 74; TEMP 97.1
[2021-05-14] MEDS ORDERED: chlordiazePOXIDE HCL 10 MG CAPSULE PO PRN
[2021-05-14] MEDS ORDERED: chlordiazePOXIDE HCL 10 MG CAPSULE PO SCH (05:00)
[2021-05-15] MEDS ORDERED: chlordiazePOXIDE HCL 10 MG CAPSULE PO SCH (05:00)
[2021-05-16] MEDS ORDERED: chlordiazePOXIDE HCL 10 MG CAPSULE PO ONE (05:00)
== END 2021-05-13 09:22 | disposition other institution (70) | DRG 773 ==
LOC: YASAS 14:19 → UNDOADMIN 16:50 → Y3N 16:50
PROVIDERS: ADMIT Allergy & Immunology; ATTEND Allergy & Immunology
PROC: HZ2ZZZZ Detoxification Services for Substance Abuse Treatment (ICD-10-PCS; principal; 2021-05-09)
DX: F11.23 Opioid dependence with withdrawal (principal); F10.230 Alcohol dependence with withdrawal, uncomplicated; F12.20 Cannabis dependence, uncomplicated; F17.210 Nicotine dependence, cigarettes, uncomplicated; F19.282 Other psychoactive substance dependence with psychoactive substance-induced sleep disorder; F19.24 Other psychoactive substance dependence with psychoactive substance-induced mood disorder; F31.9 Bipolar disorder, unspecified; I10 Essential (primary) hypertension; I25.2 Old myocardial infarction; J45.909 Unspecified asthma, uncomplicated; Z86.19 Personal history of other infectious and parasitic diseases; Z99.89 Dependence on other enabling machines and devices; Z59.00 Homelessness unspecified; Z56.0 Unemployment, unspecified
CPT/HCPCS: 36415; 80053; 85027; 86780; C9803; Q0162; U0003; U0005

== ENCOUNTER 2021-09-11 12:43 | Inpatient (IN) | payer OTHER ==
[2021-09-11] MEDS ORDERED: ACETAMINOPHEN 325 MG TABLET (FP) PO PRN (13:21)
[2021-09-11] MEDS ORDERED: MAG HYDROX/AL HYDROX/SIMETH 30 ML UNIT-DOSE CUP PO PRN (13:21)
[2021-09-11] MEDS ORDERED: ONDANSETRON *ODT* 4 MG TABLET SL PRN (13:21)
[2021-09-11] MEDS ORDERED: MAGNESIUM HYDROX 2400MG/30ML ORAL SUSPENSION 30 ML CUP PO PRN (13:21)
[2021-09-11] MEDS ORDERED: BENZOCAINE/MENTHOL (CHLORASEPTIC ) LOZENGE MM PRN (13:21)
[2021-09-11] MEDS ORDERED: BISMUTH SUBSALICYLATE 262 MG/15 ML BTL PO PRN (13:21)
[2021-09-11] MEDS ORDERED: DICYCLOMINE HCL 10 MG CAPSULE PO PRN (13:21)
[2021-09-11] MEDS ORDERED: IBUPROFEN 400 MG TABLET (FP) PO PRN (13:21)
[2021-09-11] MEDS ORDERED: MAGNESIUM CITRATE 300 ML BOTTLE PO PRN (13:21)
[2021-09-11] MEDS ORDERED: LOPERAMIDE HCL 2 MG CAPSULE PO PRN (13:21)
[2021-09-11] MEDS ORDERED: methaDONE HCL 10 MG TABLET (FOR DETOX USE ONLY) PO ONE (13:21)
[2021-09-11] MEDS ORDERED: ALBUTEROL SO4 HFA INHALER IH PRN (13:26)
[2021-09-11] MEDS ORDERED: NICOTINE 21 MG/24 HOURS TOPICAL PATCH TD SCH (13:30)
[2021-09-11 13:38] VITALS: BMI 26.1
[2021-09-11] MEDS: hydrOXYzine PAMOATE 25 MG CAPSULE (FP) PO SCH ×3 (14:07→22:08)
[2021-09-11] MEDS: PRENATAL VITAMINS W/ FOLIC ACID TABLET (FP) PO SCH (15:26)
[2021-09-11] MEDS: NICOTINE POLACRILEX 4 MG GUM BUC PRN ×3 (15:27→22:09)
[2021-09-11] MEDS: chlordiazePOXIDE HCL 25 MG CAPSULE PO SCH ×2 (17:23→22:08)
[2021-09-11] MEDS: METHOCARBAMOL 500 MG TABLET PO PRN (17:26)
[2021-09-11] MEDS: MELATONIN 5 MG TABLETS PO SCH (22:08)
[2021-09-11] MEDS: QUEtiapine FUMARATE 50 MG TABLET PO SCH (22:08)
[2021-09-11] MEDS: THIAMINE HCL 100 MG TABLET (FP) PO SCH (22:08)
[2021-09-11] MEDS: BUDESONIDE/FORMETEROL FUMARATE 80/4.5 mcg INHALER IH SCH (22:52)
[2021-09-12] MEDS: chlordiazePOXIDE HCL 25 MG CAPSULE PO PRN ×2 (00:44→12:43)
[2021-09-12] MEDS: chlordiazePOXIDE HCL 25 MG CAPSULE PO SCH ×4 (05:58→22:02)
[2021-09-12] MEDS: hydrOXYzine PAMOATE 25 MG CAPSULE (FP) PO SCH ×5 (05:58→22:02)
[2021-09-12] MEDS: NICOTINE POLACRILEX 4 MG GUM BUC PRN ×4 (05:59→17:59)
[2021-09-12 08:40] LABS: HEMATOCRIT 41.8 % (35.4-49); HEMOGLOBIN 13.8 GM/dL (11.7-16.9); MCH 31.2 pg (25.7-33.7); MCHC 33.1 g/dl (32.0-35.9); MEAN CELL VOLUME 94.2 fl (80-96); MEAN PLT VOLUME 9.2 fl (7.5-11.1); PLATELET COUNT 214 10^3/uL (134-434); RBC 4.44 M/mm3 (4.00-5.60); RDW 13.2 % (11.9-15.9); WHITE BLOOD COUNT 6.7 K/mm3 (4.0-10.0)
[2021-09-12 09:03] LABS: ALBUMIN 3.5 g/dl (3.4-5.0); BLOOD UREA NITROGEN 15.7 mg/dL (7-18); CALCIUM 9.1 mg/dL (8.5-10.1)
[2021-09-12 09:06] LABS: CREATININE 0.8 mg/dL (0.55-1.3)
[2021-09-12 09:07] LABS: BILIRUBIN,TOTAL 0.3 mg/dL (0.2-1); TOT PROT 6.5 g/dl (6.4-8.2)
[2021-09-12] MEDS ORDERED: methaDONE HCL 10 MG TABLET (FOR DETOX USE ONLY) ONE (09:35)
[2021-09-12] MEDS: amLODIPine BESYLATE 10 MG TABLET (FP) PO SCH (10:23)
[2021-09-12] MEDS: QUEtiapine FUMARATE 50 MG TABLET PO SCH ×2 (10:23→22:02)
[2021-09-12] MEDS: PRENATAL VITAMINS W/ FOLIC ACID TABLET (FP) PO SCH (10:23)
[2021-09-12] MEDS: ASPIRIN COATED 81 MG TABLET.EC PO SCH (10:23)
[2021-09-12] MEDS: BUDESONIDE/FORMETEROL FUMARATE 80/4.5 mcg INHALER IH SCH ×2 (10:23→22:00)
[2021-09-12] MEDS: EMTRICITABINE 200MG/TENOFOVIR 300MG PO SCH (10:24)
[2021-09-12 10:50] LABS: HIV INTERPRETATION NEGATIVE (NEGATIVE)
[2021-09-12] MEDS: METHOCARBAMOL 500 MG TABLET PO PRN (13:57)
[2021-09-12] MEDS: MELATONIN 5 MG TABLETS PO SCH (22:01)
[2021-09-12] MEDS: THIAMINE HCL 100 MG TABLET (FP) PO SCH (22:02)
[2021-09-13] MEDS: chlordiazePOXIDE HCL 25 MG CAPSULE PO PRN ×3 (00:40→19:51)
[2021-09-13] MEDS: NICOTINE POLACRILEX 4 MG GUM BUC PRN ×7 (00:41→22:10)
[2021-09-13] MEDS: METHOCARBAMOL 500 MG TABLET PO PRN ×3 (01:51→22:10)
[2021-09-13] MEDS: cloNIDine HCL 0.1 MG TABLET PO PRN ×2 (02:14→17:07)
[2021-09-13] MEDS: hydrOXYzine PAMOATE 25 MG CAPSULE (FP) PO SCH ×5 (05:35→22:02)
[2021-09-13] MEDS: chlordiazePOXIDE HCL 25 MG CAPSULE PO SCH ×4 (05:35→22:05)
[2021-09-13] MEDS ORDERED: methaDONE HCL 10 MG TABLET (FOR DETOX USE ONLY) PO ONE (10:00)
[2021-09-13] MEDS: BUDESONIDE/FORMETEROL FUMARATE 80/4.5 mcg INHALER IH SCH ×2 (10:45→23:06)
[2021-09-13] MEDS: EMTRICITABINE 200MG/TENOFOVIR 300MG PO SCH (10:45)
[2021-09-13] MEDS: PRENATAL VITAMINS W/ FOLIC ACID TABLET (FP) PO SCH (10:45)
[2021-09-13] MEDS: ASPIRIN COATED 81 MG TABLET.EC PO SCH (10:45)
[2021-09-13] MEDS: amLODIPine BESYLATE 10 MG TABLET (FP) PO SCH (10:45)
[2021-09-13] MEDS: QUEtiapine FUMARATE 50 MG TABLET PO SCH ×2 (10:45→22:03)
[2021-09-13] MEDS: NICOTINE 10 MG CARTRIDGE (INHALER) IH PRN (10:50)
[2021-09-13] MEDS: THIAMINE HCL 100 MG TABLET (FP) PO SCH (22:02)
[2021-09-13] MEDS: SUVOREXANT 10 MG TABLET PO PRN (22:10)
[2021-09-14] MEDS: chlordiazePOXIDE HCL 10 MG CAPSULE PO PRN ×4 (00:55→19:28)
[2021-09-14] MEDS: NICOTINE POLACRILEX 4 MG GUM BUC PRN ×6 (00:56→22:13)
[2021-09-14] MEDS: chlordiazePOXIDE HCL 10 MG CAPSULE PO SCH ×4 (05:20→22:10)
[2021-09-14] MEDS: hydrOXYzine PAMOATE 25 MG CAPSULE (FP) PO SCH ×5 (05:20→22:09)
[2021-09-14] MEDS ORDERED: methaDONE HCL 10 MG TABLET (FOR DETOX USE ONLY) ONE (08:57)
[2021-09-14] MEDS: BUDESONIDE/FORMETEROL FUMARATE 80/4.5 mcg INHALER IH SCH ×2 (10:07→22:29)
[2021-09-14] MEDS: EMTRICITABINE 200MG/TENOFOVIR 300MG PO SCH (10:07)
[2021-09-14] MEDS: ASPIRIN COATED 81 MG TABLET.EC PO SCH (10:08)
[2021-09-14] MEDS: PRENATAL VITAMINS W/ FOLIC ACID TABLET (FP) PO SCH (10:08)
[2021-09-14] MEDS: QUEtiapine FUMARATE 50 MG TABLET PO SCH ×2 (10:08→22:09)
[2021-09-14] MEDS: METHOCARBAMOL 500 MG TABLET PO PRN ×2 (10:08→19:28)
[2021-09-14] MEDS: amLODIPine BESYLATE 10 MG TABLET (FP) PO SCH (10:08)
[2021-09-14] MEDS: NICOTINE 10 MG CARTRIDGE (INHALER) IH PRN ×2 (10:14→22:13)
[2021-09-14] MEDS ORDERED: BISACODYL 5 MG TABLET.DR (FP) PO ONE (21:15)
[2021-09-14] MEDS ORDERED: DOCUSATE SODIUM 100 MG CAPSULE (FP) PO SCH (22:00)
[2021-09-14] MEDS: THIAMINE HCL 100 MG TABLET (FP) PO SCH (22:09)
[2021-09-14] MEDS: SUVOREXANT 10 MG TABLET PO PRN (22:10)
[2021-09-15] MEDS ORDERED: MELATONIN 5 MG TABLETS PO ONE (02:04)
[2021-09-15] MEDS: METHOCARBAMOL 500 MG TABLET PO PRN ×2 (02:37→17:02)
[2021-09-15] MEDS: NICOTINE POLACRILEX 4 MG GUM BUC PRN ×5 (02:38→22:20)
[2021-09-15] MEDS: chlordiazePOXIDE HCL 10 MG CAPSULE PO SCH ×2 (05:15→17:02)
[2021-09-15] MEDS: hydrOXYzine PAMOATE 25 MG CAPSULE (FP) PO SCH ×5 (05:16→22:17)
[2021-09-15] MEDS ORDERED: methaDONE HCL 10 MG TABLET (FOR DETOX USE ONLY) PO ONE (10:00)
[2021-09-15] MEDS: amLODIPine BESYLATE 10 MG TABLET (FP) PO SCH (10:11)
[2021-09-15] MEDS: ASPIRIN COATED 81 MG TABLET.EC PO SCH (10:11)
[2021-09-15] MEDS: QUEtiapine FUMARATE 50 MG TABLET PO SCH (10:11)
[2021-09-15] MEDS: PRENATAL VITAMINS W/ FOLIC ACID TABLET (FP) PO SCH (10:11)
[2021-09-15] MEDS: NICOTINE 10 MG CARTRIDGE (INHALER) IH PRN ×3 (10:15→22:20)
[2021-09-15] MEDS: EMTRICITABINE 200MG/TENOFOVIR 300MG PO SCH (10:16)
[2021-09-15] MEDS: BUDESONIDE/FORMETEROL FUMARATE 80/4.5 mcg INHALER IH SCH ×2 (10:16→22:17)
[2021-09-15] MEDS: ACETAMINOPHEN 325 MG TABLET (FP) PO PRN ×2 (10:44→19:04)
[2021-09-15] MEDS ORDERED: SODIUM PHOSPHATE/NA BIPHOS 133 ML ENEMA RC ONE (10:55)
[2021-09-15] MEDS ORDERED: DOCUSATE SODIUM 100 MG CAPSULE (FP) PO SCH (22:00)
[2021-09-15] MEDS ORDERED: SUVOREXANT 10 MG TABLET PO PRN (22:00)
[2021-09-15] MEDS ORDERED: QUEtiapine FUMARATE 200 MG TABLET PO SCH (22:00)
[2021-09-15] MEDS: THIAMINE HCL 100 MG TABLET (FP) PO SCH (22:16)
[2021-09-15] MEDS ORDERED: BISACODYL 5 MG TABLET.DR (FP) PO ONE (22:57)
[2021-09-16] MEDS ORDERED: chlordiazePOXIDE HCL 10 MG CAPSULE PO ONE (05:00)
[2021-09-16] MEDS: hydrOXYzine PAMOATE 25 MG CAPSULE (FP) PO SCH (05:52)
[2021-09-16] MEDS: NICOTINE 10 MG CARTRIDGE (INHALER) IH PRN (05:54)
[2021-09-16 07:35] VITALS: BP 101/63; PULSE 85; TEMP 96.9
[2021-09-16] MEDS ORDERED: QUEtiapine FUMARATE 100 MG TABLET (FP) PO SCH (10:00)
== END 2021-09-16 09:20 | disposition home or self-care (01) | DRG 773 ==
LOC: YASAS 12:43 → Y3N 14:04
PROVIDERS: ADMIT Allergy & Immunology; ATTEND Surgery
PROC: HZ2ZZZZ Detoxification Services for Substance Abuse Treatment (ICD-10-PCS; principal; 2021-09-11)
DX: F11.23 Opioid dependence with withdrawal (principal); F10.230 Alcohol dependence with withdrawal, uncomplicated; F13.20 Sedative, hypnotic or anxiolytic dependence, uncomplicated; F14.20 Cocaine dependence, uncomplicated; F12.20 Cannabis dependence, uncomplicated; F17.210 Nicotine dependence, cigarettes, uncomplicated; F19.24 Other psychoactive substance dependence with psychoactive substance-induced mood disorder; F31.9 Bipolar disorder, unspecified; I10 Essential (primary) hypertension; I25.2 Old myocardial infarction; J45.909 Unspecified asthma, uncomplicated; K59.00 Constipation, unspecified; B18.2 Chronic viral hepatitis C
CPT/HCPCS: 36415; 80053; 85027; 86780; 87389; C9803-CS; J0735; U0003; U0005

== ENCOUNTER 2021-10-27 12:20 | Inpatient (IN) | payer OTHER ==
[2021-10-27 14:05] VITALS: BMI 26.6
[2021-10-27] MEDS ORDERED: NICOTINE 10 MG CARTRIDGE (INHALER) IH PRN (14:28)
[2021-10-27] MEDS ORDERED: BISMUTH SUBSALICYLATE 262 MG/15 ML BTL PO PRN (14:28)
[2021-10-27] MEDS ORDERED: IBUPROFEN 600 MG TABLET (FP) PO PRN (14:28)
[2021-10-27] MEDS ORDERED: MAG HYDROX/AL HYDROX/SIMETH 30 ML UNIT-DOSE CUP PO PRN (14:28)
[2021-10-27] MEDS ORDERED: methaDONE HCL 10 MG TABLET (FOR DETOX USE ONLY) PO ONE (14:28)
[2021-10-27] MEDS ORDERED: MAGNESIUM CITRATE 300 ML BOTTLE PO PRN (14:28)
[2021-10-27] MEDS ORDERED: ACETAMINOPHEN 325 MG TABLET (FP) PO PRN ×2 (14:28)
[2021-10-27] MEDS ORDERED: LOPERAMIDE HCL 2 MG CAPSULE PO PRN (14:28)
[2021-10-27] MEDS ORDERED: BENZOCAINE/MENTHOL (CHLORASEPTIC ) LOZENGE MM PRN (14:28)
[2021-10-27] MEDS ORDERED: ONDANSETRON *ODT* 4 MG TABLET SL PRN (14:28)
[2021-10-27] MEDS ORDERED: DICYCLOMINE HCL 10 MG CAPSULE PO PRN (14:28)
[2021-10-27] MEDS ORDERED: NALOXONE HCL (KLOXXADO) 8 MG SPRAY NS PRN (14:28)
[2021-10-27] MEDS ORDERED: IBUPROFEN 400 MG TABLET (FP) PO PRN (14:28)
[2021-10-27] MEDS ORDERED: ALBUTEROL SO4 HFA INHALER IH PRN (14:37)
[2021-10-27] MEDS ORDERED: COLLOIDAL OATMEAL 1 BAR EACH TP PRN (14:40)
[2021-10-27] MEDS ORDERED: EMTRICITABINE 200MG/TENOFOVIR 300MG PO SCH (14:45)
[2021-10-27 17:06] LABS: HEMATOCRIT 42.4 % (35.4-49); HEMOGLOBIN 14.1 GM/dL (11.7-16.9); MCH 30.9 pg (25.7-33.7); MCHC 33.2 g/dl (32.0-35.9); PLATELET COUNT 231 10^3/uL (134-434); RBC 4.56 M/mm3 (4.00-5.60); WHITE BLOOD COUNT 9.3 K/mm3 (4.0-10.0)
[2021-10-27] MEDS: hydrOXYzine PAMOATE 25 MG CAPSULE (FP) PO SCH ×2 (18:14→23:02)
[2021-10-27] MEDS: amLODIPine BESYLATE 10 MG TABLET (FP) PO SCH (18:14)
[2021-10-27] MEDS: LISINOPRIL 20 MG TABLET PO SCH (18:14)
[2021-10-27] MEDS: PRENATAL VITAMINS W/ FOLIC ACID TABLET (FP) PO SCH (18:14)
[2021-10-27] MEDS: AMOX TR/POT CLAV 875MG/125MG TABLETS (FP) PO SCH (18:14)
[2021-10-27] MEDS: chlordiazePOXIDE HCL 25 MG CAPSULE PO SCH ×2 (18:17→22:25)
[2021-10-27] MEDS: NICOTINE POLACRILEX 4 MG GUM BUC PRN ×2 (18:22→22:27)
[2021-10-27 19:26] LABS: CALCIUM 8.9 mg/dL (8.5-10.1)
[2021-10-27 19:27] LABS: ALBUMIN 3.8 g/dl (3.4-5.0)
[2021-10-27 19:31] LABS: CREATININE 0.9 mg/dL (0.55-1.3)
[2021-10-27 19:33] LABS: BILIRUBIN,TOTAL 0.3 mg/dL (0.2-1); TOT PROT 7.4 g/dl (6.4-8.2)
[2021-10-27] MEDS: chlordiazePOXIDE HCL 25 MG CAPSULE PO PRN (20:46)
[2021-10-27] MEDS: MELATONIN 5 MG TABLETS PO SCH (22:24)
[2021-10-27] MEDS: cloNIDine HCL 0.1 MG TABLET PO PRN (22:24)
[2021-10-27] MEDS: METHOCARBAMOL 500 MG TABLET PO PRN (22:25)
[2021-10-27] MEDS: THIAMINE HCL 100 MG TABLET (FP) PO SCH (22:25)
[2021-10-27] MEDS: QUEtiapine FUMARATE 50 MG TABLET PO SCH (22:25)
[2021-10-27] MEDS: EMTRICITABINE 200MG/TENOFOVIR 300MG PO SCH (23:02)
[2021-10-28] MEDS: chlordiazePOXIDE HCL 25 MG CAPSULE PO SCH ×4 (05:54→22:07)
[2021-10-28] MEDS: hydrOXYzine PAMOATE 25 MG CAPSULE (FP) PO SCH ×5 (05:55→22:08)
[2021-10-28] MEDS: AMOX TR/POT CLAV 875MG/125MG TABLETS (FP) PO SCH ×2 (07:04→18:22)
[2021-10-28] MEDS: NICOTINE POLACRILEX 4 MG GUM BUC PRN ×4 (08:31→22:09)
[2021-10-28] MEDS: chlordiazePOXIDE HCL 25 MG CAPSULE PO PRN ×3 (08:32→19:33)
[2021-10-28] MEDS ORDERED: methaDONE HCL 10 MG TABLET (FOR DETOX USE ONLY) ONE (08:41)
[2021-10-28] MEDS: PRENATAL VITAMINS W/ FOLIC ACID TABLET (FP) PO SCH (10:03)
[2021-10-28] MEDS: LISINOPRIL 20 MG TABLET PO SCH (10:03)
[2021-10-28] MEDS: amLODIPine BESYLATE 10 MG TABLET (FP) PO SCH (10:03)
[2021-10-28] MEDS: ASPIRIN COATED 81 MG TABLET.EC PO SCH (10:03)
[2021-10-28] MEDS: EMTRICITABINE 200MG/TENOFOVIR 300MG PO SCH (10:07)
[2021-10-28] MEDS ORDERED: QUEtiapine FUMARATE 50 MG TABLET PO ONE (15:45)
[2021-10-28] MEDS ORDERED: QUEtiapine FUMARATE 100 MG TABLET (FP) PO SCH (22:00)
[2021-10-28] MEDS: CLINDAMYCIN PHOSPHATE 1% TOPICAL GEL 30 GM TUBE TP SCH (22:06)
[2021-10-28] MEDS: QUEtiapine FUMARATE 50 MG TABLET PO SCH (22:07)
[2021-10-28] MEDS: MELATONIN 5 MG TABLETS PO SCH (22:07)
[2021-10-28] MEDS: THIAMINE HCL 100 MG TABLET (FP) PO SCH (22:08)
[2021-10-29] MEDS: chlordiazePOXIDE HCL 25 MG CAPSULE PO PRN ×4 (00:21→19:12)
[2021-10-29] MEDS: cloNIDine HCL 0.1 MG TABLET PO PRN ×2 (00:21→20:41)
[2021-10-29] MEDS: NICOTINE POLACRILEX 4 MG GUM BUC PRN ×6 (00:24→22:05)
[2021-10-29] MEDS: hydrOXYzine PAMOATE 25 MG CAPSULE (FP) PO SCH ×5 (05:31→22:04)
[2021-10-29] MEDS: chlordiazePOXIDE HCL 25 MG CAPSULE PO SCH ×4 (05:31→22:04)
[2021-10-29] MEDS: AMOX TR/POT CLAV 875MG/125MG TABLETS (FP) PO SCH ×2 (07:18→17:00)
[2021-10-29] MEDS ORDERED: QUEtiapine FUMARATE 50 MG TABLET PO SCH (10:00)
[2021-10-29] MEDS ORDERED: methaDONE HCL 10 MG TABLET (FOR DETOX USE ONLY) PO ONE (10:00)
[2021-10-29] MEDS: amLODIPine BESYLATE 10 MG TABLET (FP) PO SCH (10:03)
[2021-10-29] MEDS: LISINOPRIL 20 MG TABLET PO SCH (10:03)
[2021-10-29] MEDS: CLINDAMYCIN PHOSPHATE 1% TOPICAL GEL 30 GM TUBE TP SCH ×2 (10:03→22:04)
[2021-10-29] MEDS: PRENATAL VITAMINS W/ FOLIC ACID TABLET (FP) PO SCH (10:03)
[2021-10-29] MEDS: ASPIRIN COATED 81 MG TABLET.EC PO SCH (10:04)
[2021-10-29] MEDS: EMTRICITABINE 200MG/TENOFOVIR 300MG PO SCH (10:05)
[2021-10-29] MEDS: MELATONIN 5 MG TABLETS PO SCH (22:04)
[2021-10-29] MEDS: QUEtiapine FUMARATE 200 MG TABLET PO SCH (22:04)
[2021-10-29] MEDS: THIAMINE HCL 100 MG TABLET (FP) PO SCH (22:04)
[2021-10-30] MEDS: chlordiazePOXIDE HCL 10 MG CAPSULE PO PRN ×4 (00:54→19:45)
[2021-10-30] MEDS: hydrOXYzine PAMOATE 25 MG CAPSULE (FP) PO SCH ×5 (05:12→22:06)
[2021-10-30] MEDS: chlordiazePOXIDE HCL 10 MG CAPSULE PO SCH ×4 (05:12→22:05)
[2021-10-30] MEDS: AMOX TR/POT CLAV 875MG/125MG TABLETS (FP) PO SCH ×2 (07:20→17:37)
[2021-10-30] MEDS ORDERED: methaDONE HCL 10 MG TABLET (FOR DETOX USE ONLY) ONE (08:42)
[2021-10-30] MEDS: amLODIPine BESYLATE 10 MG TABLET (FP) PO SCH (10:10)
[2021-10-30] MEDS: ASPIRIN COATED 81 MG TABLET.EC PO SCH (10:10)
[2021-10-30] MEDS: LISINOPRIL 20 MG TABLET PO SCH (10:11)
[2021-10-30] MEDS: CLINDAMYCIN PHOSPHATE 1% TOPICAL GEL 30 GM TUBE TP SCH ×2 (10:11→22:06)
[2021-10-30] MEDS: EMTRICITABINE 200MG/TENOFOVIR 300MG PO SCH (10:11)
[2021-10-30] MEDS: QUEtiapine FUMARATE 100 MG TABLET (FP) PO SCH (10:11)
[2021-10-30] MEDS: PRENATAL VITAMINS W/ FOLIC ACID TABLET (FP) PO SCH (10:12)
[2021-10-30] MEDS: NICOTINE POLACRILEX 4 MG GUM BUC PRN ×4 (10:15→22:09)
[2021-10-30] MEDS: MAGNESIUM HYDROX 2400MG/30ML ORAL SUSPENSION 30 ML CUP PO PRN ×2 (10:15→19:47)
[2021-10-30] MEDS ORDERED: DOCUSATE SODIUM 100 MG CAPSULE (FP) PO ONE (18:34)
[2021-10-30] MEDS: MELATONIN 5 MG TABLETS PO SCH (22:06)
[2021-10-30] MEDS: THIAMINE HCL 100 MG TABLET (FP) PO SCH (22:06)
[2021-10-30] MEDS: QUEtiapine FUMARATE 200 MG TABLET PO SCH (22:06)
[2021-10-31] MEDS: METHOCARBAMOL 500 MG TABLET PO PRN (00:39)
[2021-10-31] MEDS: NICOTINE POLACRILEX 4 MG GUM BUC PRN ×5 (00:46→22:21)
[2021-10-31] MEDS: hydrOXYzine PAMOATE 25 MG CAPSULE (FP) PO SCH ×5 (05:54→22:18)
[2021-10-31] MEDS: chlordiazePOXIDE HCL 10 MG CAPSULE PO SCH ×2 (05:54→17:54)
[2021-10-31] MEDS: AMOX TR/POT CLAV 875MG/125MG TABLETS (FP) PO SCH ×2 (07:24→17:53)
[2021-10-31] MEDS ORDERED: methaDONE HCL 10 MG TABLET (FOR DETOX USE ONLY) PO ONE (10:00)
[2021-10-31] MEDS: CLINDAMYCIN PHOSPHATE 1% TOPICAL GEL 30 GM TUBE TP SCH ×2 (10:21→22:18)
[2021-10-31] MEDS: PRENATAL VITAMINS W/ FOLIC ACID TABLET (FP) PO SCH (10:21)
[2021-10-31] MEDS: EMTRICITABINE 200MG/TENOFOVIR 300MG PO SCH (10:22)
[2021-10-31] MEDS: LISINOPRIL 20 MG TABLET PO SCH (10:23)
[2021-10-31] MEDS: QUEtiapine FUMARATE 100 MG TABLET (FP) PO SCH (10:23)
[2021-10-31] MEDS: amLODIPine BESYLATE 10 MG TABLET (FP) PO SCH (10:23)
[2021-10-31] MEDS: ASPIRIN COATED 81 MG TABLET.EC PO SCH (10:23)
[2021-10-31] MEDS: BISACODYL 5 MG TABLET.DR (FP) PO ONE ×2 (13:46→15:15)
[2021-10-31] MEDS: QUEtiapine FUMARATE 200 MG TABLET PO SCH (22:18)
[2021-10-31] MEDS: THIAMINE HCL 100 MG TABLET (FP) PO SCH (22:18)
[2021-10-31] MEDS: MELATONIN 5 MG TABLETS PO SCH (22:18)
[2021-11-01] MEDS ORDERED: chlordiazePOXIDE HCL 10 MG CAPSULE PO ONE (05:00)
[2021-11-01] MEDS: hydrOXYzine PAMOATE 25 MG CAPSULE (FP) PO SCH (05:10)
[2021-11-01 06:18] VITALS: BP 107/63; PULSE 59; TEMP 97.5
[2021-11-01] MEDS: AMOX TR/POT CLAV 875MG/125MG TABLETS (FP) PO SCH (07:38)
== END 2021-11-01 09:33 | disposition home or self-care (01) | DRG 773 ==
LOC: YASAS 12:20 → Y3N 15:03
PROVIDERS: ADMIT Allergy & Immunology; ATTEND Surgery
PROC: HZ2ZZZZ Detoxification Services for Substance Abuse Treatment (ICD-10-PCS; principal; 2021-10-27)
DX: F11.23 Opioid dependence with withdrawal (principal); F10.230 Alcohol dependence with withdrawal, uncomplicated; F13.20 Sedative, hypnotic or anxiolytic dependence, uncomplicated; F14.20 Cocaine dependence, uncomplicated; F17.210 Nicotine dependence, cigarettes, uncomplicated; F31.9 Bipolar disorder, unspecified; F19.282 Other psychoactive substance dependence with psychoactive substance-induced sleep disorder; F19.24 Other psychoactive substance dependence with psychoactive substance-induced mood disorder; F41.9 Anxiety disorder, unspecified; Z21 Asymptomatic human immunodeficiency virus [HIV] infection status; L97.529 Non-pressure chronic ulcer of other part of left foot with unspecified severity; I10 Essential (primary) hypertension; K21.9 Gastro-esophageal reflux disease without esophagitis; I25.2 Old myocardial infarction
CPT/HCPCS: 36415; 73630-TC-LT; 80053; 85027; 86780; C9803-CS; J0735; U0003; U0005

== ENCOUNTER 2022-02-24 12:46 | Inpatient (IN) | payer OTHER ==
[2022-02-24 14:02] VITALS: BMI 24.3
[2022-02-24] MEDS ORDERED: MAGNESIUM HYDROX 2400MG/30ML ORAL SUSPENSION 30 ML CUP PO PRN (15:11)
[2022-02-24] MEDS ORDERED: ONDANSETRON *ODT* 4 MG TABLET SL PRN (15:11)
[2022-02-24] MEDS ORDERED: IBUPROFEN 600 MG TABLET (FP) PO PRN (15:11)
[2022-02-24] MEDS ORDERED: LOPERAMIDE HCL 2 MG CAPSULE PO PRN (15:11)
[2022-02-24] MEDS ORDERED: BISMUTH SUBSALICYLATE 524 MG/30 ML PO PRN (15:11)
[2022-02-24] MEDS ORDERED: DICYCLOMINE HCL 10 MG CAPSULE PO PRN (15:11)
[2022-02-24] MEDS ORDERED: MAGNESIUM CITRATE 300 ML BOTTLE PO PRN (15:11)
[2022-02-24] MEDS ORDERED: BENZOCAINE/MENTHOL (CHLORASEPTIC ) LOZENGE MM PRN (15:11)
[2022-02-24] MEDS ORDERED: MAG HYDROX/AL HYDROX/SIMETH 30 ML UNIT-DOSE CUP PO PRN (15:11)
[2022-02-24] MEDS ORDERED: NICOTINE 21 MG/24 HOURS TOPICAL PATCH TD PRN (15:11)
[2022-02-24] MEDS ORDERED: IBUPROFEN 400 MG TABLET (FP) PO PRN (15:11)
[2022-02-24] MEDS ORDERED: ACETAMINOPHEN 325 MG TABLET (FP) PO PRN ×2 (15:11)
[2022-02-24] MEDS ORDERED: NALOXONE HCL (KLOXXADO) 8 MG SPRAY NS PRN (15:11)
[2022-02-24] MEDS ORDERED: ALBUTEROL SO4 HFA INHALER IH PRN (15:16)
[2022-02-24] MEDS ORDERED: methaDONE HCL 10 MG TABLET (FOR DETOX USE ONLY) ONE (15:41)
[2022-02-24] MEDS ORDERED: methaDONE HCL 10 MG TABLET (FOR DETOX USE ONLY) PO ONE (15:45)
[2022-02-24] MEDS: ASPIRIN COATED 81 MG TABLET.EC PO SCH (17:57)
[2022-02-24] MEDS: NICOTINE POLACRILEX 4 MG GUM BUC PRN ×2 (17:58→20:18)
[2022-02-24] MEDS: NICOTINE 10 MG CARTRIDGE (INHALER) IH PRN (18:05)
[2022-02-24] MEDS: hydrOXYzine PAMOATE 25 MG CAPSULE (FP) PO PRN (18:15)
[2022-02-24] MEDS: EMTRICITABINE 200MG/TENOFOVIR 300MG PO SCH (20:11)
[2022-02-24] MEDS: MELATONIN 5 MG TABLETS PO SCH (22:20)
[2022-02-24] MEDS: THIAMINE HCL 100 MG TABLET (FP) PO SCH (22:20)
[2022-02-25] MEDS: hydrOXYzine PAMOATE 25 MG CAPSULE (FP) PO PRN ×2 (10:46→21:41)
[2022-02-25] MEDS: EMTRICITABINE 200MG/TENOFOVIR 300MG PO SCH (10:46)
[2022-02-25] MEDS: METHOCARBAMOL 500 MG TABLET PO PRN (10:46)
[2022-02-25] MEDS: ASPIRIN COATED 81 MG TABLET.EC PO SCH (10:46)
[2022-02-25] MEDS: PRENATAL VITAMINS W/ FOLIC ACID TABLET (FP) PO SCH (10:47)
[2022-02-25] MEDS: NICOTINE POLACRILEX 4 MG GUM BUC PRN ×3 (10:50→20:04)
[2022-02-25 11:19] LABS: HEMATOCRIT 41.4 % (35.4-49); HEMOGLOBIN 13.8 GM/dL (11.7-16.9); MCH 30.6 pg (25.7-33.7); MCHC 33.3 g/dl (32.0-35.9); MEAN CELL VOLUME 91.8 fl (80-96); MEAN PLT VOLUME 8.5 fl (7.5-11.1); PLATELET COUNT 254 10^3/uL (134-434); RBC 4.51 M/mm3 (4.00-5.60); RDW 13.3 % (11.9-15.9)
[2022-02-25] MEDS ORDERED: FLU VACC QS2022-23(6MOS UP)/PF 60 MCG/0.5 ML SYRINGE IM ONE (12:00)
[2022-02-25 12:48] LABS: CALCIUM 8.8 mg/dL (8.5-10.1)
[2022-02-25 12:49] LABS: ALBUMIN 3.2 g/dl (3.4-5.0); BLOOD UREA NITROGEN 14.3 mg/dL (7-18)
[2022-02-25 12:51] LABS: HIV INTERPRETATION NEGATIVE (NEGATIVE)
[2022-02-25 12:52] LABS: CREATININE 0.7 mg/dL (0.55-1.3)
[2022-02-25 12:54] LABS: BILIRUBIN,TOTAL 0.2 mg/dL (0.2-1); TOT PROT 6.2 g/dl (6.4-8.2)
[2022-02-25] MEDS: THIAMINE HCL 100 MG TABLET (FP) PO SCH (21:41)
[2022-02-25] MEDS: MELATONIN 5 MG TABLETS PO SCH (21:41)
[2022-02-25] MEDS ORDERED: QUEtiapine FUMARATE 100 MG TABLET (FP) PO SCH (22:00)
[2022-02-26] MEDS: hydrOXYzine PAMOATE 25 MG CAPSULE (FP) PO PRN ×3 (06:35→22:15)
[2022-02-26] MEDS: cloNIDine HCL 0.1 MG TABLET PO PRN ×2 (06:35→13:32)
[2022-02-26] MEDS ORDERED: methaDONE HCL 10 MG TABLET (FOR DETOX USE ONLY) PO ONE (10:00)
[2022-02-26] MEDS: diazePAM 5 MG TABLET PO PRN ×4 (10:21→22:56)
[2022-02-26] MEDS: EMTRICITABINE 200MG/TENOFOVIR 300MG PO SCH (10:22)
[2022-02-26] MEDS: ASPIRIN COATED 81 MG TABLET.EC PO SCH (10:22)
[2022-02-26] MEDS: METHOCARBAMOL 500 MG TABLET PO PRN ×2 (10:22→22:55)
[2022-02-26] MEDS: PRENATAL VITAMINS W/ FOLIC ACID TABLET (FP) PO SCH (10:22)
[2022-02-26] MEDS: NICOTINE POLACRILEX 4 MG GUM BUC PRN ×3 (10:24→22:16)
[2022-02-26] MEDS: THIAMINE HCL 100 MG TABLET (FP) PO SCH (22:14)
[2022-02-26] MEDS: QUEtiapine FUMARATE 50 MG TABLET PO SCH (22:14)
[2022-02-26] MEDS: MELATONIN 5 MG TABLETS PO SCH (22:14)
[2022-02-26] MEDS: NICOTINE 10 MG CARTRIDGE (INHALER) IH PRN (22:16)
[2022-02-27] MEDS: diazePAM 5 MG TABLET PO PRN ×5 (03:10→22:01)
[2022-02-27] MEDS: hydrOXYzine PAMOATE 25 MG CAPSULE (FP) PO PRN ×2 (06:55→18:00)
[2022-02-27] MEDS: METHOCARBAMOL 500 MG TABLET PO PRN ×3 (06:55→22:00)
[2022-02-27] MEDS: ASPIRIN COATED 81 MG TABLET.EC PO SCH (10:12)
[2022-02-27] MEDS: EMTRICITABINE 200MG/TENOFOVIR 300MG PO SCH (10:12)
[2022-02-27] MEDS: PRENATAL VITAMINS W/ FOLIC ACID TABLET (FP) PO SCH (10:12)
[2022-02-27] MEDS: NICOTINE POLACRILEX 4 MG GUM BUC PRN ×3 (10:15→17:32)
[2022-02-27] MEDS ORDERED: QUEtiapine FUMARATE 50 MG TABLET PO ONE (12:34)
[2022-02-27] MEDS: QUEtiapine FUMARATE 50 MG TABLET PO SCH (22:00)
[2022-02-27] MEDS: THIAMINE HCL 100 MG TABLET (FP) PO SCH (22:00)
[2022-02-27] MEDS: MELATONIN 5 MG TABLETS PO SCH (22:00)
[2022-02-28] MEDS: diazePAM 5 MG TABLET PO PRN ×3 (02:20→10:17)
[2022-02-28] MEDS: NICOTINE POLACRILEX 4 MG GUM BUC PRN ×2 (06:21→10:18)
[2022-02-28 09:23] VITALS: BP 103/60; PULSE 76; RESP 16; TEMP 97.1
[2022-02-28] MEDS ORDERED: methaDONE HCL 10 MG TABLET (FOR DETOX USE ONLY) PO ONE (10:00)
[2022-02-28] MEDS: ASPIRIN COATED 81 MG TABLET.EC PO SCH (10:12)
[2022-02-28] MEDS: EMTRICITABINE 200MG/TENOFOVIR 300MG PO SCH (10:12)
[2022-02-28] MEDS: PRENATAL VITAMINS W/ FOLIC ACID TABLET (FP) PO SCH (10:12)
[2022-02-28] MEDS: hydrOXYzine PAMOATE 25 MG CAPSULE (FP) PO PRN (10:37)
[2022-02-28] MEDS ORDERED: QUEtiapine FUMARATE 25 MG TABLET PO ONE (11:15)
== END 2022-02-28 12:50 | disposition home or self-care (01) | DRG 773 ==
LOC: YASAS 12:46 → Y3N 16:50
PROVIDERS: ADMIT Allergy & Immunology; ATTEND Psychiatry & Neurology Psychiatry
PROC: HZ2ZZZZ Detoxification Services for Substance Abuse Treatment (ICD-10-PCS; principal; 2022-02-24)
DX: F11.23 Opioid dependence with withdrawal (principal); F10.230 Alcohol dependence with withdrawal, uncomplicated; F14.20 Cocaine dependence, uncomplicated; F17.210 Nicotine dependence, cigarettes, uncomplicated; F19.282 Other psychoactive substance dependence with psychoactive substance-induced sleep disorder; F39 Unspecified mood [affective] disorder; Z21 Asymptomatic human immunodeficiency virus [HIV] infection status; I10 Essential (primary) hypertension; J45.20 Mild intermittent asthma, uncomplicated; I25.2 Old myocardial infarction; Z86.19 Personal history of other infectious and parasitic diseases
CPT/HCPCS: 36415; 80053; 85027; 86780; 87389; C9803-CS; U0003; U0005

== ENCOUNTER 2022-09-21 12:49 | Inpatient (IN) | payer OTHER ==
[2022-09-21 13:54] VITALS: BMI 26.7
[2022-09-21] MEDS ORDERED: IBUPROFEN 600 MG TABLET (FP) PO PRN (16:23)
[2022-09-21] MEDS ORDERED: guaiFENesin 600 MG TABLET.ER (FP) PO PRN (16:23)
[2022-09-21] MEDS ORDERED: BENZONATATE 200 MG CAPSULE PO PRN (16:23)
[2022-09-21] MEDS ORDERED: BISMUTH SUBSALICYLATE 524 MG/30 ML PO PRN (16:23)
[2022-09-21] MEDS ORDERED: MAGNESIUM HYDROX 2400MG/30ML ORAL SUSPENSION 30 ML CUP PO PRN (16:23)
[2022-09-21] MEDS ORDERED: ACETAMINOPHEN 325 MG TABLET (FP) PO PRN (16:23)
[2022-09-21] MEDS ORDERED: NALOXONE HCL 0.4 MG/ML VIAL IM PRN (16:23)
[2022-09-21] MEDS ORDERED: BENZOCAINE/MENTHOL (CHLORASEPTIC ) LOZENGE MM PRN (16:23)
[2022-09-21] MEDS ORDERED: ONDANSETRON *ODT* 4 MG TABLET SL PRN (16:23)
[2022-09-21] MEDS ORDERED: NALOXONE HCL (KLOXXADO) 8 MG SPRAY NS PRN (16:23)
[2022-09-21] MEDS ORDERED: NICOTINE 10 MG CARTRIDGE (INHALER) IH PRN (16:23)
[2022-09-21] MEDS ORDERED: DICYCLOMINE HCL 10 MG CAPSULE PO PRN (16:23)
[2022-09-21] MEDS ORDERED: POLYETHYLENE GLYCOL (HEALTHYLAX) 3350 17 GM PACKET PO PRN (16:23)
[2022-09-21] MEDS ORDERED: LOPERAMIDE HCL 2 MG CAPSULE PO PRN (16:23)
[2022-09-21] MEDS ORDERED: METHOCARBAMOL 500 MG TABLET PO PRN (16:23)
[2022-09-21] MEDS ORDERED: MAG HYDROX/AL HYDROX/SIMETH 30 ML UNIT-DOSE CUP PO PRN (16:23)
[2022-09-21] MEDS ORDERED: hydrOXYzine PAMOATE 25 MG CAPSULE (FP) PO PRN (16:23)
[2022-09-21] MEDS ORDERED: IBUPROFEN 400 MG TABLET (FP) PO PRN (16:23)
[2022-09-21] MEDS ORDERED: ALBUTEROL SO4 HFA INHALER IH PRN (16:27)
[2022-09-21] MEDS: NICOTINE 14 MG/24 HOURS TOPICAL PATCH TD SCH (17:31)
[2022-09-21] MEDS: PRENATAL VITAMINS W/ FOLIC ACID TABLET (FP) PO SCH (17:32)
[2022-09-21] MEDS ORDERED: NICOTINE 14 MG/24 HOURS TOPICAL PATCH TD ONE (18:26)
[2022-09-21] MEDS ORDERED: PRENATAL VITAMINS W/ FOLIC ACID TABLET (FP) PO ONE (18:26)
[2022-09-21] MEDS: THIAMINE HCL 100 MG TABLET (FP) PO SCH (22:04)
[2022-09-21] MEDS: MELATONIN 5 MG TABLETS PO SCH (22:07)
[2022-09-22] MEDS: PRENATAL VITAMINS W/ FOLIC ACID TABLET (FP) PO SCH (10:05)
[2022-09-22] MEDS: ASPIRIN COATED 81 MG TABLET.EC PO SCH (10:05)
[2022-09-22] MEDS: NICOTINE 14 MG/24 HOURS TOPICAL PATCH TD SCH (10:05)
[2022-09-22] MEDS: LISINOPRIL 20 MG TABLET PO SCH (10:05)
[2022-09-22] MEDS: NICOTINE POLACRILEX 2 MG GUM BUC PRN ×2 (10:08→17:23)
[2022-09-22] MEDS ORDERED: cloNIDine HCL 0.1 MG TABLET PO PRN (10:36)
[2022-09-22] MEDS ORDERED: methaDONE HCL 10 MG TABLET (FOR DETOX USE ONLY) PO ONE (10:36)
[2022-09-22] MEDS: chlordiazePOXIDE HCL 25 MG CAPSULE PO SCH ×3 (10:57→22:16)
[2022-09-22] MEDS: ASPIRIN 81 MG CHEWABLE TABLETS PO SCH (10:57)
[2022-09-22 11:35] LABS: HEMATOCRIT 43.4 % (35.4-49); HEMOGLOBIN 14.5 GM/dL (11.7-16.9); MCH 30.9 pg (25.7-33.7); MCHC 33.5 g/dl (32.0-35.9); MEAN CELL VOLUME 92.3 fl (80-96); MEAN PLT VOLUME 8.4 fl (7.5-11.1); PLATELET COUNT 227 10^3/uL (134-434); RDW 14.1 % (11.9-15.9); WHITE BLOOD COUNT 9.7 K/mm3 (4.0-10.0)
[2022-09-22 13:27] LABS: POTASSIUM 4.2 mmol/L (3.5-5.1)
[2022-09-22 13:30] LABS: CALCIUM 8.7 mg/dL (8.5-10.1)
[2022-09-22 13:31] LABS: BLOOD UREA NITROGEN 16.4 mg/dL (7-18)
[2022-09-22 13:34] LABS: CREATININE 0.8 mg/dL (0.55-1.3)
[2022-09-22 13:35] LABS: TOT PROT 6.1 g/dl (6.4-8.2)
[2022-09-22 13:36] LABS: BILIRUBIN,TOTAL 0.3 mg/dL (0.2-1)
[2022-09-22] MEDS: chlordiazePOXIDE HCL 25 MG CAPSULE PO PRN (15:11)
[2022-09-22] MEDS ORDERED: QUEtiapine FUMARATE 100 MG TABLET (FP) PO SCH (22:00)
[2022-09-22] MEDS: MELATONIN 5 MG TABLETS PO SCH (22:17)
[2022-09-22] MEDS: THIAMINE HCL 100 MG TABLET (FP) PO SCH (22:17)
[2022-09-22] MEDS: NICOTINE POLACRILEX 4 MG GUM BUC PRN (22:19)
[2022-09-23] MEDS: NICOTINE POLACRILEX 4 MG GUM BUC PRN ×3 (04:29→13:48)
[2022-09-23] MEDS: chlordiazePOXIDE HCL 25 MG CAPSULE PO SCH ×2 (05:15→10:16)
[2022-09-23 09:01] VITALS: RESP 18
[2022-09-23] MEDS ORDERED: QUEtiapine FUMARATE 50 MG TABLET PO SCH (10:00)
[2022-09-23] MEDS: ASPIRIN 81 MG CHEWABLE TABLETS PO SCH (10:14)
[2022-09-23] MEDS: ASPIRIN COATED 81 MG TABLET.EC PO SCH (10:14)
[2022-09-23] MEDS: PRENATAL VITAMINS W/ FOLIC ACID TABLET (FP) PO SCH (10:14)
[2022-09-23] MEDS: LISINOPRIL 20 MG TABLET PO SCH (10:14)
[2022-09-23] MEDS: NICOTINE 14 MG/24 HOURS TOPICAL PATCH TD SCH (10:59)
[2022-09-23] MEDS: chlordiazePOXIDE HCL 25 MG CAPSULE PO PRN (13:46)
[2022-09-23 13:55] VITALS: BP 154/83; PULSE 64; TEMP 97.6
[2022-09-24] MEDS ORDERED: chlordiazePOXIDE HCL 25 MG CAPSULE PO SCH (05:00)
[2022-09-24] MEDS ORDERED: methaDONE HCL 10 MG TABLET (FOR DETOX USE ONLY) PO ONE (10:00)
[2022-09-24] MEDS ORDERED: EMTRICITABINE 200MG/TENOFOVIR 300MG PO SCH (10:00)
[2022-09-25] MEDS ORDERED: chlordiazePOXIDE HCL 10 MG CAPSULE PO PRN
[2022-09-25] MEDS ORDERED: chlordiazePOXIDE HCL 10 MG CAPSULE PO SCH (05:00)
[2022-09-26] MEDS ORDERED: chlordiazePOXIDE HCL 10 MG CAPSULE PO SCH (05:00)
[2022-09-26] MEDS ORDERED: methaDONE HCL 10 MG TABLET (FOR DETOX USE ONLY) PO ONE (10:00)
[2022-09-27] MEDS ORDERED: chlordiazePOXIDE HCL 10 MG CAPSULE PO ONE (05:00)
== END 2022-09-23 14:23 | disposition left against medical advice (07) | DRG 770 ==
LOC: YASAS 12:49 → Y3N 18:44
PROVIDERS: ADMIT Allergy & Immunology; ATTEND Surgery
PROC: HZ2ZZZZ Detoxification Services for Substance Abuse Treatment (ICD-10-PCS; principal; 2022-09-21)
DX: F11.23 Opioid dependence with withdrawal (principal); F10.230 Alcohol dependence with withdrawal, uncomplicated; F14.20 Cocaine dependence, uncomplicated; F17.210 Nicotine dependence, cigarettes, uncomplicated; F31.9 Bipolar disorder, unspecified; F39 Unspecified mood [affective] disorder; Z21 Asymptomatic human immunodeficiency virus [HIV] infection status; G47.00 Insomnia, unspecified; I10 Essential (primary) hypertension; J45.20 Mild intermittent asthma, uncomplicated; Z86.19 Personal history of other infectious and parasitic diseases; Z99.89 Dependence on other enabling machines and devices
CPT/HCPCS: 36415; 80053; 85027; 86780; 87635; 87811

== ENCOUNTER 2022-10-24 14:50 | Inpatient (IN) | payer OTHER ==
[2022-10-24 15:30] VITALS: BMI 25.2
[2022-10-24] MEDS ORDERED: MAG HYDROX/AL HYDROX/SIMETH 30 ML UNIT-DOSE CUP PO PRN (16:09)
[2022-10-24] MEDS ORDERED: BENZOCAINE/MENTHOL (CHLORASEPTIC ) LOZENGE MM PRN (16:09)
[2022-10-24] MEDS ORDERED: ACETAMINOPHEN 325 MG TABLET (FP) PO PRN (16:09)
[2022-10-24] MEDS ORDERED: NICOTINE 10 MG CARTRIDGE (INHALER) IH PRN (16:09)
[2022-10-24] MEDS ORDERED: BISMUTH SUBSALICYLATE 524 MG/30 ML PO PRN (16:09)
[2022-10-24] MEDS ORDERED: NALOXONE HCL (KLOXXADO) 8 MG SPRAY NS PRN (16:09)
[2022-10-24] MEDS ORDERED: POLYETHYLENE GLYCOL (HEALTHYLAX) 3350 17 GM PACKET PO PRN (16:09)
[2022-10-24] MEDS ORDERED: DICYCLOMINE HCL 10 MG CAPSULE PO PRN (16:09)
[2022-10-24] MEDS ORDERED: IBUPROFEN 600 MG TABLET (FP) PO PRN (16:09)
[2022-10-24] MEDS ORDERED: NALOXONE HCL 0.4 MG/ML VIAL IM PRN (16:09)
[2022-10-24] MEDS ORDERED: IBUPROFEN 400 MG TABLET (FP) PO PRN (16:09)
[2022-10-24] MEDS ORDERED: ONDANSETRON *ODT* 4 MG TABLET SL PRN (16:09)
[2022-10-24] MEDS ORDERED: guaiFENesin 600 MG TABLET.ER (FP) PO PRN (16:09)
[2022-10-24] MEDS ORDERED: LOPERAMIDE HCL 2 MG CAPSULE PO PRN (16:09)
[2022-10-24] MEDS ORDERED: MAGNESIUM HYDROX 2400MG/30ML ORAL SUSPENSION 30 ML CUP PO PRN (16:09)
[2022-10-24] MEDS ORDERED: methaDONE HCL 10 MG TABLET (FOR DETOX USE ONLY) PO ONE (16:09)
[2022-10-24] MEDS ORDERED: BENZONATATE 200 MG CAPSULE PO PRN (16:09)
[2022-10-24] MEDS ORDERED: methaDONE HCL 10 MG TABLET (FOR DETOX USE ONLY) ONE (16:44)
[2022-10-24] MEDS ORDERED: METHOCARBAMOL 500 MG TABLET ONE (17:03)
[2022-10-24] MEDS: METHOCARBAMOL 500 MG TABLET PO PRN ×2 (17:14→23:41)
[2022-10-24] MEDS ORDERED: NICOTINE POLACRILEX 2 MG GUM ONE (17:30)
[2022-10-24] MEDS: NICOTINE POLACRILEX 2 MG GUM BUC PRN ×3 (17:39→22:08)
[2022-10-24] MEDS: chlordiazePOXIDE HCL 25 MG CAPSULE PO PRN (17:59)
[2022-10-24] MEDS: cloNIDine HCL 0.1 MG TABLET PO PRN (17:59)
[2022-10-24] MEDS: MELATONIN 5 MG TABLETS PO SCH (22:06)
[2022-10-24] MEDS: THIAMINE HCL 100 MG TABLET (FP) PO SCH (22:06)
[2022-10-24] MEDS: chlordiazePOXIDE HCL 25 MG CAPSULE PO SCH (22:06)
[2022-10-25] MEDS: chlordiazePOXIDE HCL 25 MG CAPSULE PO SCH ×4 (05:50→22:32)
[2022-10-25] MEDS: NICOTINE POLACRILEX 2 MG GUM BUC PRN ×2 (05:54→10:21)
[2022-10-25] MEDS ORDERED: ALBUTEROL SO4 HFA INHALER IH PRN (07:43)
[2022-10-25] MEDS ORDERED: NICOTINE 14 MG/24 HOURS TOPICAL PATCH TD SCH (10:00)
[2022-10-25] MEDS: LISINOPRIL 20 MG TABLET PO SCH (10:17)
[2022-10-25] MEDS: ASPIRIN 81 MG CHEWABLE TABLETS PO SCH (10:17)
[2022-10-25] MEDS: EMTRICITABINE 200MG/TENOFOVIR 300MG PO SCH (10:17)
[2022-10-25] MEDS: PRENATAL VITAMINS W/ FOLIC ACID TABLET (FP) PO SCH (10:17)
[2022-10-25] MEDS: METHOCARBAMOL 500 MG TABLET PO PRN (10:20)
[2022-10-25 11:43] LABS: POTASSIUM 4.2 mmol/L (3.5-5.1)
[2022-10-25 11:45] LABS: CALCIUM 9.2 mg/dL (8.5-10.1)
[2022-10-25 11:46] LABS: ALBUMIN 3.2 g/dl (3.4-5.0); HEMATOCRIT 41.4 % (35.4-49); HEMOGLOBIN 13.8 GM/dL (11.7-16.9); MCH 30.9 pg (25.7-33.7); MCHC 33.4 g/dl (32.0-35.9); MEAN CELL VOLUME 92.5 fl (80-96); MEAN PLT VOLUME 8.3 fl (7.5-11.1); PLATELET COUNT 227 10^3/uL (134-434); RBC 4.48 M/mm3 (4.00-5.60); RDW 13.7 % (11.9-15.9); WHITE BLOOD COUNT 7.2 K/mm3 (4.0-10.0)
[2022-10-25 11:49] LABS: CREATININE 0.9 mg/dL (0.55-1.3)
[2022-10-25 11:50] LABS: BILIRUBIN,TOTAL 0.4 mg/dL (0.2-1); TOT PROT 6.4 g/dl (6.4-8.2)
[2022-10-25] MEDS: chlordiazePOXIDE HCL 25 MG CAPSULE PO PRN ×2 (15:10→20:47)
[2022-10-25] MEDS ORDERED: QUEtiapine FUMARATE 50 MG TABLET PO ONE (16:44)
[2022-10-25] MEDS: cloNIDine HCL 0.1 MG TABLET PO PRN (17:16)
[2022-10-25] MEDS: hydrOXYzine PAMOATE 25 MG CAPSULE (FP) PO PRN (17:16)
[2022-10-25] MEDS: NICOTINE POLACRILEX 4 MG GUM BUC PRN ×2 (17:19→20:48)
[2022-10-25] MEDS ORDERED: QUEtiapine FUMARATE 100 MG TABLET (FP) PO SCH (22:00)
[2022-10-25] MEDS: THIAMINE HCL 100 MG TABLET (FP) PO SCH (22:32)
[2022-10-25] MEDS: MELATONIN 5 MG TABLETS PO SCH (22:32)
[2022-10-26] MEDS: hydrOXYzine PAMOATE 25 MG CAPSULE (FP) PO PRN (00:47)
[2022-10-26] MEDS: METHOCARBAMOL 500 MG TABLET PO PRN (00:47)
[2022-10-26] MEDS: chlordiazePOXIDE HCL 25 MG CAPSULE PO PRN ×2 (00:47→14:46)
[2022-10-26] MEDS: NICOTINE POLACRILEX 4 MG GUM BUC PRN ×4 (00:50→17:33)
[2022-10-26] MEDS: cloNIDine HCL 0.1 MG TABLET PO PRN (02:22)
[2022-10-26] MEDS: chlordiazePOXIDE HCL 25 MG CAPSULE PO SCH ×3 (05:43→17:32)
[2022-10-26] MEDS: PRENATAL VITAMINS W/ FOLIC ACID TABLET (FP) PO SCH (09:45)
[2022-10-26] MEDS: ASPIRIN 81 MG CHEWABLE TABLETS PO SCH (09:45)
[2022-10-26] MEDS: EMTRICITABINE 200MG/TENOFOVIR 300MG PO SCH (09:45)
[2022-10-26] MEDS: LISINOPRIL 20 MG TABLET PO SCH (09:46)
[2022-10-26] MEDS ORDERED: QUEtiapine FUMARATE 50 MG TABLET PO SCH (10:00)
[2022-10-26] MEDS ORDERED: methaDONE HCL 10 MG TABLET (FOR DETOX USE ONLY) PO ONE (10:00)
[2022-10-26] MEDS ORDERED: METHOCARBAMOL 500 MG TABLET PO PRN (11:00)
[2022-10-26] MEDS ORDERED: hydrOXYzine PAMOATE 50 MG CAPSULE (FP) PO PRN (11:00)
[2022-10-26 17:17] VITALS: BP 148/75; PULSE 55; RESP 18; TEMP 98.1
[2022-10-27] MEDS ORDERED: chlordiazePOXIDE HCL 10 MG CAPSULE PO PRN
[2022-10-27] MEDS ORDERED: chlordiazePOXIDE HCL 10 MG CAPSULE PO SCH (05:00)
[2022-10-28] MEDS ORDERED: chlordiazePOXIDE HCL 10 MG CAPSULE PO SCH (05:00)
[2022-10-28] MEDS ORDERED: methaDONE HCL 10 MG TABLET (FOR DETOX USE ONLY) PO ONE (10:00)
[2022-10-29] MEDS ORDERED: chlordiazePOXIDE HCL 10 MG CAPSULE PO ONE (05:00)
== END 2022-10-26 19:00 | disposition left against medical advice (07) | DRG 770 ==
LOC: YASAS 14:50 → Y3N 16:46
PROVIDERS: ADMIT Allergy & Immunology; ATTEND Surgery
PROC: HZ2ZZZZ Detoxification Services for Substance Abuse Treatment (ICD-10-PCS; principal; 2022-10-24)
DX: F11.23 Opioid dependence with withdrawal (principal); F10.230 Alcohol dependence with withdrawal, uncomplicated; F14.20 Cocaine dependence, uncomplicated; F13.20 Sedative, hypnotic or anxiolytic dependence, uncomplicated; F12.20 Cannabis dependence, uncomplicated; F17.210 Nicotine dependence, cigarettes, uncomplicated; F41.9 Anxiety disorder, unspecified; U07.1 COVID-19; I25.10 Atherosclerotic heart disease of native coronary artery without angina pectoris; I10 Essential (primary) hypertension; I25.2 Old myocardial infarction; G47.00 Insomnia, unspecified; J45.20 Mild intermittent asthma, uncomplicated; Z86.19 Personal history of other infectious and parasitic diseases; Z99.89 Dependence on other enabling machines and devices
CPT/HCPCS: 36415; 80053; 85027; 86780; 87635; 93005; 93010

== ENCOUNTER 2022-12-08 11:07 | Inpatient (IN) | payer OTHER ==
[2022-12-08 11:21] VITALS: BMI 24.0
[2022-12-08] MEDS ORDERED: ACETAMINOPHEN 325 MG TABLET (FP) PO PRN (12:31)
[2022-12-08] MEDS ORDERED: IBUPROFEN 600 MG TABLET (FP) PO PRN (12:31)
[2022-12-08] MEDS ORDERED: NALOXONE HCL 0.4 MG/ML VIAL IM PRN (12:31)
[2022-12-08] MEDS ORDERED: guaiFENesin 600 MG TABLET.ER (FP) PO PRN (12:31)
[2022-12-08] MEDS ORDERED: ONDANSETRON *ODT* 4 MG TABLET SL PRN (12:31)
[2022-12-08] MEDS ORDERED: POLYETHYLENE GLYCOL (HEALTHYLAX) 3350 17 GM PACKET PO PRN (12:31)
[2022-12-08] MEDS ORDERED: MAG HYDROX/AL HYDROX/SIMETH 30 ML UNIT-DOSE CUP PO PRN (12:31)
[2022-12-08] MEDS ORDERED: IBUPROFEN 400 MG TABLET (FP) PO PRN (12:31)
[2022-12-08] MEDS ORDERED: BENZONATATE 200 MG CAPSULE PO PRN (12:31)
[2022-12-08] MEDS ORDERED: NALOXONE HCL (KLOXXADO) 8 MG SPRAY NS PRN (12:31)
[2022-12-08] MEDS ORDERED: DICYCLOMINE HCL 10 MG CAPSULE PO PRN (12:31)
[2022-12-08] MEDS ORDERED: LOPERAMIDE HCL 2 MG CAPSULE PO PRN (12:31)
[2022-12-08] MEDS ORDERED: BENZOCAINE/MENTHOL (CHLORASEPTIC ) LOZENGE MM PRN (12:31)
[2022-12-08] MEDS ORDERED: BISMUTH SUBSALICYLATE 524 MG/30 ML PO PRN (12:31)
[2022-12-08] MEDS: chlordiazePOXIDE HCL 25 MG CAPSULE PO SCH ×2 (17:27→22:22)
[2022-12-08] MEDS: hydrOXYzine PAMOATE 25 MG CAPSULE (FP) PO PRN (22:21)
[2022-12-08] MEDS: MELATONIN 5 MG TABLETS PO SCH (22:21)
[2022-12-08] MEDS: METHOCARBAMOL 500 MG TABLET PO PRN (22:21)
[2022-12-08] MEDS: THIAMINE HCL 100 MG TABLET (FP) PO SCH (22:21)
[2022-12-08] MEDS: QUEtiapine FUMARATE 100 MG TABLET (FP) PO SCH (22:21)
[2022-12-09] MEDS: chlordiazePOXIDE HCL 25 MG CAPSULE PO SCH ×4 (05:45→22:15)
[2022-12-09] MEDS: NICOTINE POLACRILEX 2 MG GUM BUC PRN ×2 (05:47→10:30)
[2022-12-09] MEDS: PRENATAL VITAMINS W/ FOLIC ACID TABLET (FP) PO SCH (10:24)
[2022-12-09] MEDS: methaDONE HCL 40 MG DISPERSABLE TABLET PO SCH (10:25)
[2022-12-09] MEDS: QUEtiapine FUMARATE 50 MG TABLET PO SCH (10:25)
[2022-12-09 10:53] LABS: HEMATOCRIT 42.3 % (35.4-49); MCH 30.7 pg (25.7-33.7); MCHC 33.1 g/dl (32.0-35.9); MEAN CELL VOLUME 92.9 fl (80-96); MEAN PLT VOLUME 8.7 fl (7.5-11.1); PLATELET COUNT 224 10^3/uL (134-434); RBC 4.55 M/mm3 (4.00-5.60); RDW 13.5 % (11.9-15.9); WHITE BLOOD COUNT 7.5 K/mm3 (4.0-10.0)
[2022-12-09 10:55] LABS: POTASSIUM 4.2 mmol/L (3.5-5.1)
[2022-12-09 10:59] LABS: ALBUMIN 3.1 g/dl (3.4-5.0); BLOOD UREA NITROGEN 12.5 mg/dL (7-18)
[2022-12-09 11:01] LABS: CREATININE 0.7 mg/dL (0.55-1.3)
[2022-12-09 11:03] LABS: BILIRUBIN,TOTAL 0.3 mg/dL (0.2-1); TOT PROT 6.5 g/dl (6.4-8.2)
[2022-12-09] MEDS ORDERED: ALBUTEROL SO4 HFA INHALER IH PRN (13:32)
[2022-12-09] MEDS: LISINOPRIL 20 MG TABLET PO SCH (14:50)
[2022-12-09] MEDS: EMTRICITABINE 200MG/TENOFOVIR 300MG PO SCH (14:50)
[2022-12-09] MEDS: ASPIRIN 81 MG CHEWABLE TABLETS PO SCH (14:50)
[2022-12-09] MEDS: NICOTINE POLACRILEX 4 MG GUM BUC PRN ×2 (16:42→22:17)
[2022-12-09] MEDS: METHOCARBAMOL 500 MG TABLET PO PRN (22:14)
[2022-12-09] MEDS: QUEtiapine FUMARATE 100 MG TABLET (FP) PO SCH (22:14)
[2022-12-09] MEDS: hydrOXYzine PAMOATE 25 MG CAPSULE (FP) PO PRN (22:14)
[2022-12-09] MEDS: MELATONIN 5 MG TABLETS PO SCH (22:14)
[2022-12-09] MEDS: THIAMINE HCL 100 MG TABLET (FP) PO SCH (22:14)
[2022-12-10] MEDS: methaDONE HCL 40 MG DISPERSABLE TABLET PO SCH (05:15)
[2022-12-10] MEDS: chlordiazePOXIDE HCL 25 MG CAPSULE PO SCH ×4 (05:15→22:07)
[2022-12-10] MEDS: NICOTINE POLACRILEX 4 MG GUM BUC PRN ×5 (05:19→22:08)
[2022-12-10] MEDS: LISINOPRIL 20 MG TABLET PO SCH (10:02)
[2022-12-10] MEDS: ASPIRIN 81 MG CHEWABLE TABLETS PO SCH (10:02)
[2022-12-10] MEDS: QUEtiapine FUMARATE 50 MG TABLET PO SCH (10:02)
[2022-12-10] MEDS: EMTRICITABINE 200MG/TENOFOVIR 300MG PO SCH (10:03)
[2022-12-10] MEDS: PRENATAL VITAMINS W/ FOLIC ACID TABLET (FP) PO SCH (10:03)
[2022-12-10] MEDS: hydrOXYzine PAMOATE 25 MG CAPSULE (FP) PO PRN (12:34)
[2022-12-10] MEDS: chlordiazePOXIDE HCL 25 MG CAPSULE PO PRN ×2 (13:32→19:40)
[2022-12-10] MEDS: MAGNESIUM HYDROX 2400MG/30ML ORAL SUSPENSION 30 ML CUP PO PRN (20:24)
[2022-12-10] MEDS ORDERED: QUEtiapine FUMARATE 50 MG TABLET PO SCH (22:00)
[2022-12-10] MEDS: MELATONIN 5 MG TABLETS PO SCH (22:06)
[2022-12-10] MEDS: THIAMINE HCL 100 MG TABLET (FP) PO SCH (22:06)
[2022-12-10] MEDS: METHOCARBAMOL 500 MG TABLET PO PRN (22:08)
[2022-12-11] MEDS: NICOTINE POLACRILEX 4 MG GUM BUC PRN ×6 (03:07→22:07)
[2022-12-11] MEDS: hydrOXYzine PAMOATE 25 MG CAPSULE (FP) PO PRN ×2 (03:07→22:06)
[2022-12-11] MEDS: chlordiazePOXIDE HCL 10 MG CAPSULE PO PRN ×3 (03:10→19:34)
[2022-12-11] MEDS: chlordiazePOXIDE HCL 10 MG CAPSULE PO SCH ×4 (05:14→22:05)
[2022-12-11] MEDS: methaDONE HCL 40 MG DISPERSABLE TABLET PO SCH (05:14)
[2022-12-11] MEDS: QUEtiapine FUMARATE 50 MG TABLET PO SCH ×2 (10:04→22:05)
[2022-12-11] MEDS: EMTRICITABINE 200MG/TENOFOVIR 300MG PO SCH (10:04)
[2022-12-11] MEDS: PRENATAL VITAMINS W/ FOLIC ACID TABLET (FP) PO SCH (10:04)
[2022-12-11] MEDS: ASPIRIN 81 MG CHEWABLE TABLETS PO SCH (10:04)
[2022-12-11] MEDS: LISINOPRIL 20 MG TABLET PO SCH (10:04)
[2022-12-11] MEDS: BISACODYL 5 MG TABLET.DR (FP) PO SCH (10:51)
[2022-12-11] MEDS ORDERED: BISACODYL 5 MG TABLET.DR (FP) PO ONE (11:02)
[2022-12-11] MEDS ORDERED: QUEtiapine FUMARATE 50 MG TABLET PO ONE (11:30)
[2022-12-11] MEDS: MELATONIN 5 MG TABLETS PO SCH (22:03)
[2022-12-11] MEDS: THIAMINE HCL 100 MG TABLET (FP) PO SCH (22:05)
[2022-12-12] MEDS: METHOCARBAMOL 500 MG TABLET PO PRN ×2 (03:18→22:09)
[2022-12-12] MEDS: NICOTINE POLACRILEX 4 MG GUM BUC PRN ×5 (03:21→22:12)
[2022-12-12] MEDS: methaDONE HCL 40 MG DISPERSABLE TABLET PO SCH (05:33)
[2022-12-12] MEDS: chlordiazePOXIDE HCL 10 MG CAPSULE PO SCH ×2 (05:33→17:52)
[2022-12-12] MEDS: ASPIRIN 81 MG CHEWABLE TABLETS PO SCH (10:18)
[2022-12-12] MEDS: BISACODYL 5 MG TABLET.DR (FP) PO SCH (10:18)
[2022-12-12] MEDS: QUEtiapine FUMARATE 50 MG TABLET PO SCH ×2 (10:18→22:10)
[2022-12-12] MEDS: PRENATAL VITAMINS W/ FOLIC ACID TABLET (FP) PO SCH (10:19)
[2022-12-12] MEDS: LISINOPRIL 20 MG TABLET PO SCH (10:19)
[2022-12-12] MEDS: EMTRICITABINE 200MG/TENOFOVIR 300MG PO SCH (10:19)
[2022-12-12] MEDS: hydrOXYzine PAMOATE 25 MG CAPSULE (FP) PO PRN ×2 (17:53→22:09)
[2022-12-12] MEDS: MELATONIN 5 MG TABLETS PO SCH (22:09)
[2022-12-12] MEDS: THIAMINE HCL 100 MG TABLET (FP) PO SCH (22:09)
[2022-12-13] MEDS ORDERED: chlordiazePOXIDE HCL 10 MG CAPSULE PO ONE (05:00)
[2022-12-13] MEDS: methaDONE HCL 40 MG DISPERSABLE TABLET PO SCH (05:42)
[2022-12-13] MEDS: NICOTINE POLACRILEX 4 MG GUM BUC PRN (05:45)
[2022-12-13] MEDS: LISINOPRIL 20 MG TABLET PO SCH (10:19)
[2022-12-13] MEDS: ASPIRIN 81 MG CHEWABLE TABLETS PO SCH (10:19)
[2022-12-13] MEDS: QUEtiapine FUMARATE 50 MG TABLET PO SCH (10:19)
[2022-12-13] MEDS: PRENATAL VITAMINS W/ FOLIC ACID TABLET (FP) PO SCH (10:19)
[2022-12-13] MEDS: EMTRICITABINE 200MG/TENOFOVIR 300MG PO SCH (10:20)
[2022-12-13] MEDS: METHOCARBAMOL 500 MG TABLET PO PRN (10:22)
[2022-12-13] MEDS: hydrOXYzine PAMOATE 25 MG CAPSULE (FP) PO PRN (10:22)
[2022-12-13] MEDS: MAGNESIUM HYDROX 2400MG/30ML ORAL SUSPENSION 30 ML CUP PO PRN (10:26)
[2022-12-13] MEDS ORDERED: QUEtiapine FUMARATE 100 MG TABLET (FP) PO SCH (12:32)
[2022-12-13] MEDS ORDERED: QUEtiapine FUMARATE 200 MG TABLET PO SCH (12:33)
[2022-12-13 18:43] VITALS: BP 97/58; PULSE 82; RESP 18; TEMP 97.9
== END 2022-12-13 19:11 | disposition other institution (70) | DRG 773 ==
LOC: YASAS 11:07 → Y3N 14:36
PROVIDERS: ADMIT Allergy & Immunology; ATTEND Surgery
PROC: HZ2ZZZZ Detoxification Services for Substance Abuse Treatment (ICD-10-PCS; principal; 2022-12-08)
DX: F10.230 Alcohol dependence with withdrawal, uncomplicated (principal); F11.20 Opioid dependence, uncomplicated; F14.20 Cocaine dependence, uncomplicated; F31.9 Bipolar disorder, unspecified; F41.9 Anxiety disorder, unspecified; F32.A Depression, unspecified; I10 Essential (primary) hypertension; I25.2 Old myocardial infarction; J45.20 Mild intermittent asthma, uncomplicated; G47.00 Insomnia, unspecified; Z86.19 Personal history of other infectious and parasitic diseases; Z29.9 Encounter for prophylactic measures, unspecified; Z79.899 Other long term (current) drug therapy
CPT/HCPCS: 36415; 80053; 85027; 86780; 87635

== ENCOUNTER 2023-08-12 15:04 | Inpatient (IN) | payer OTHER ==
[2023-08-12 15:44] VITALS: BMI 26.1
[2023-08-12] MEDS ORDERED: MAG HYDROX/AL HYDROX/SIMETH 30 ML UNIT-DOSE CUP PO PRN (16:05)
[2023-08-12] MEDS ORDERED: IBUPROFEN 400 MG TABLET (FP) PO PRN (16:05)
[2023-08-12] MEDS ORDERED: POLYETHYLENE GLYCOL (HEALTHYLAX) 3350 17 GM PACKET PO PRN (16:05)
[2023-08-12] MEDS ORDERED: MAGNESIUM HYDROX 2400MG/30ML ORAL SUSPENSION 30 ML CUP PO PRN (16:05)
[2023-08-12] MEDS ORDERED: guaiFENesin 600 MG TABLET.ER (FP) PO PRN (16:05)
[2023-08-12] MEDS ORDERED: ONDANSETRON *ODT* 4 MG TABLET SL PRN (16:05)
[2023-08-12] MEDS ORDERED: BENZONATATE 200 MG CAPSULE PO PRN (16:05)
[2023-08-12] MEDS ORDERED: NALOXONE HCL (KLOXXADO) 8 MG SPRAY NS PRN (16:05)
[2023-08-12] MEDS ORDERED: ACETAMINOPHEN 325 MG TABLET (FP) PO PRN (16:05)
[2023-08-12] MEDS ORDERED: NALOXONE HCL 0.4 MG/ML VIAL IM PRN (16:05)
[2023-08-12] MEDS ORDERED: DICYCLOMINE HCL 10 MG CAPSULE PO PRN (16:05)
[2023-08-12] MEDS ORDERED: LOPERAMIDE HCL 2 MG CAPSULE PO PRN (16:05)
[2023-08-12] MEDS ORDERED: BENZOCAINE/MENTHOL (CHLORASEPTIC ) LOZENGE MM PRN (16:05)
[2023-08-12] MEDS ORDERED: BISMUTH SUBSALICYLATE 524 MG/30 ML PO PRN (16:05)
[2023-08-12] MEDS ORDERED: ALBUTEROL SO4 HFA INHALER IH PRN (16:07)
[2023-08-12] MEDS ORDERED: chlordiazePOXIDE HCL 25 MG CAPSULE ONE (17:24)
[2023-08-12] MEDS: chlordiazePOXIDE HCL 25 MG CAPSULE PO SCH (17:33)
[2023-08-12] MEDS: PRENATAL VITAMINS W/ FOLIC ACID TABLET (FP) PO SCH (18:48)
[2023-08-12] MEDS: NICOTINE POLACRILEX 4 MG GUM BUC PRN (18:50)
[2023-08-12] MEDS: THIAMINE 100 MG TABLET PO SCH (22:14)
[2023-08-12] MEDS: MELATONIN 5 MG TABLETS PO SCH (22:14)
[2023-08-13] MEDS: chlordiazePOXIDE HCL 25 MG CAPSULE PO PRN (02:20)
[2023-08-13] MEDS: ASPIRIN 81 MG CHEWABLE TABLETS PO SCH (10:06)
[2023-08-13] MEDS: EMTRICITABINE 200MG/TENOFOVIR 300MG PO SCH (10:06)
[2023-08-13] MEDS: LISINOPRIL 20 MG TABLET PO SCH (10:52)
[2023-08-13] MEDS: methaDONE HCL 40 MG DISPERSABLE TABLET PO SCH (11:38)
[2023-08-13] MEDS: QUEtiapine FUMARATE 50 MG TABLET PO ONE ×2 (17:55→18:00)
[2023-08-13] MEDS: QUEtiapine FUMARATE 100 MG TABLET (FP) PO SCH (22:23)
[2023-08-13] MEDS: METHOCARBAMOL 500 MG TABLET PO PRN (22:23)
[2023-08-14] MEDS: hydrOXYzine PAMOATE 25 MG CAPSULE (FP) PO PRN (01:39)
[2023-08-14] MEDS: chlordiazePOXIDE HCL 25 MG CAPSULE PO SCH (05:39)
[2023-08-14] MEDS: QUEtiapine FUMARATE 25 MG TABLET PO SCH (10:11)
[2023-08-14] MEDS: IBUPROFEN 600 MG TABLET (FP) PO PRN (19:12)
[2023-08-15] MEDS: chlordiazePOXIDE HCL 10 MG CAPSULE PO PRN
[2023-08-15] MEDS: chlordiazePOXIDE HCL 10 MG CAPSULE PO SCH (05:23)
[2023-08-15] MEDS: methaDONE HCL 10 MG TABLET PO ONE (15:54)
[2023-08-16] MEDS: chlordiazePOXIDE HCL 10 MG CAPSULE PO SCH (05:15)
[2023-08-16] MEDS: methaDONE 40 MG, methaDONE 20 MG PO ONE (05:15)
[2023-08-16] MEDS ORDERED: methaDONE HCL 40 MG DISPERSABLE TABLET PO ONE (06:00)
[2023-08-17] MEDS: chlordiazePOXIDE HCL 10 MG CAPSULE PO ONE (05:22)
[2023-08-17] MEDS: methaDONE 40 MG, methaDONE 30 MG PO ONE (05:23)
[2023-08-17] MEDS ORDERED: methaDONE HCL 40 MG DISPERSABLE TABLET PO ONE (06:00)
[2023-08-17 08:50] VITALS: RESP 18
[2023-08-18] MEDS ORDERED: methaDONE HCL 10 MG TABLET PO ONE (08:57)
[2023-08-18] MEDS: methaDONE 40 MG, methaDONE 30 MG PO ONE (09:33)
[2023-08-18] MEDS: NICOTINE 21 MG/24 HOURS TOPICAL PATCH TD SCH (14:39)
[2023-08-18 16:45] VITALS: BP 125/82; PULSE 84; TEMP 97.1
== END 2023-08-18 21:28 | disposition other institution (70) | DRG 773 ==
LOC: YASAS 15:04 → Y3N 17:07
PROVIDERS: ADMIT Allergy & Immunology; ATTEND Surgery
PROC: HZ2ZZZZ Detoxification Services for Substance Abuse Treatment (ICD-10-PCS; principal; 2023-08-12)
DX: F10.230 Alcohol dependence with withdrawal, uncomplicated (principal); F11.20 Opioid dependence, uncomplicated; F14.20 Cocaine dependence, uncomplicated; F17.210 Nicotine dependence, cigarettes, uncomplicated; F39 Unspecified mood [affective] disorder; G47.00 Insomnia, unspecified; I25.10 Atherosclerotic heart disease of native coronary artery without angina pectoris; I10 Essential (primary) hypertension; I25.2 Old myocardial infarction; J45.20 Mild intermittent asthma, uncomplicated; Z79.899 Other long term (current) drug therapy; Z86.19 Personal history of other infectious and parasitic diseases; Z99.89 Dependence on other enabling machines and devices; Z56.0 Unemployment, unspecified
CPT/HCPCS: 80305; 80307; 93005; 93010

== ENCOUNTER 2023-08-18 16:53 | Inpatient (IN) | payer OTHER ==
[2023-08-18] MEDS ORDERED: NALOXONE HCL 0.4 MG/ML VIAL IVPUSH PRN (21:44)
[2023-08-18] MEDS ORDERED: MAG HYDROX/AL HYDROX/SIMETH 30 ML UNIT-DOSE CUP PO PRN (21:44)
[2023-08-18] MEDS ORDERED: ACETAMINOPHEN 325 MG TABLET (FP) PO PRN (21:44)
[2023-08-18] MEDS ORDERED: NALOXONE (NYS OPIOID OVERDOSE PROGRAM) 4 MG/0.1 ML SPRAY NS PRN (21:44)
[2023-08-18] MEDS ORDERED: POLYETHYLENE GLYCOL (HEALTHYLAX) 3350 17 GM PACKET PO PRN (21:44)
[2023-08-18] MEDS ORDERED: BENZONATATE 200 MG CAPSULE PO PRN (21:44)
[2023-08-18] MEDS ORDERED: hydrOXYzine PAMOATE 25 MG CAPSULE (FP) PO PRN (21:44)
[2023-08-18] MEDS ORDERED: LOPERAMIDE HCL 2 MG CAPSULE PO PRN (21:44)
[2023-08-18] MEDS ORDERED: IBUPROFEN 400 MG TABLET (FP) PO PRN (21:44)
[2023-08-18] MEDS ORDERED: guaiFENesin 600 MG TABLET.ER (FP) PO PRN (21:44)
[2023-08-18] MEDS ORDERED: BENZOCAINE/MENTHOL (CHLORASEPTIC ) LOZENGE MM PRN (21:44)
[2023-08-18] MEDS ORDERED: IBUPROFEN 600 MG TABLET (FP) PO PRN (21:44)
[2023-08-18] MEDS ORDERED: ALBUTEROL SO4 HFA INHALER IH PRN (22:00)
[2023-08-18] MEDS: THIAMINE 100 MG TABLET PO SCH (22:31)
[2023-08-18] MEDS: QUEtiapine FUMARATE 200 MG TABLET PO SCH (22:31)
[2023-08-18] MEDS: MELATONIN 5 MG TABLETS PO SCH (22:31)
[2023-08-18] MEDS: METHOCARBAMOL 500 MG TABLET PO PRN (22:32)
[2023-08-18] MEDS: NICOTINE POLACRILEX 2 MG GUM BUC PRN (22:33)
[2023-08-19] MEDS: LISINOPRIL 20 MG TABLET PO SCH (05:58)
[2023-08-19] MEDS: NICOTINE 21 MG/24 HOURS TOPICAL PATCH TD SCH (05:58)
[2023-08-19] MEDS: ASPIRIN 81 MG CHEWABLE TABLETS PO SCH (05:58)
[2023-08-19] MEDS: QUEtiapine FUMARATE 50 MG TABLET PO SCH (05:59)
[2023-08-19] MEDS: PRENATAL VITAMINS W/ FOLIC ACID TABLET (FP) PO SCH (05:59)
[2023-08-19] MEDS: methaDONE 40 MG, methaDONE 30 MG PO ONE (06:55)
[2023-08-19] MEDS: EMTRICITABINE 200MG/TENOFOVIR 300MG PO SCH (08:35)
[2023-08-19] MEDS: hydrOXYzine PAMOATE 25 MG CAPSULE (FP) PO PRN (16:50)
[2023-08-20] MEDS ORDERED: methaDONE HCL 10 MG TABLET PO SCH (06:00)
[2023-08-20] MEDS: methaDONE HCL 40 MG DISPERSABLE TABLET PO SCH (06:24)
[2023-08-22] MEDS: hydrOXYzine PAMOATE 25 MG CAPSULE (FP) PO PRN (17:31)
[2023-08-23 12:11] LABS: BASO % 0.7 % (0-2.0); EOS % 6.1 % (0-4.5); HEMATOCRIT 40.1 % (35.4-49); HEMOGLOBIN 13.6 GM/dL (11.7-16.9); LYMPH % 30.1 % (8-40); MCH 31.5 pg (25.7-33.7); MEAN CELL VOLUME 92.9 fl (80-96); MONO % 13.1 % (3.8-10.2); PLATELET COUNT 260 10^3/uL (134-434); RBC 4.32 M/mm3 (4.00-5.60); RDW 13.9 % (11.9-15.9); WHITE BLOOD COUNT 7.2 K/mm3 (4.0-10.0)
[2023-08-23 12:21] LABS: POTASSIUM 4.3 mmol/L (3.5-5.1)
[2023-08-23 12:38] LABS: CALCIUM 8.9 mg/dL (8.5-10.1)
[2023-08-23 12:39] LABS: ALBUMIN 3.4 g/dl (3.4-5.0); BLOOD UREA NITROGEN 18.8 mg/dL (7-18)
[2023-08-23 12:42] LABS: CREATININE 0.8 mg/dL (0.55-1.3)
[2023-08-23 12:43] LABS: BILIRUBIN,TOTAL 0.5 mg/dL (0.2-1)
[2023-08-23 12:46] LABS: SYPHILIS W/ RPR CONF NON-REACTIVE (NONREACTIVE)
[2023-08-23 12:49] LABS: INR 0.85 (0.83-1.09); PROTHROMBIN TIME (PATIENT) 9.7 SEC (9.7-13.0)
[2023-08-23 13:15] LABS: HIV INTERPRETATION NEGATIVE (NEGATIVE)
[2023-08-26] MEDS: LACTULOSE 20 GM/30 ML UDC (FOR ORAL USE ONLY) PO SCH (14:15)
[2023-08-26] MEDS: METHOCARBAMOL 500 MG TABLET PO PRN (14:16)
[2023-08-26] MEDS: MAGNESIUM HYDROX 2400MG/30ML ORAL SUSPENSION 30 ML CUP PO PRN (21:24)
[2023-08-29] MEDS: DISULFIRAM 250 MG TABLET PO SCH (11:06)
[2023-08-29] MEDS: NICOTINE 14 MG/24 HOURS TOPICAL PATCH TD SCH (11:06)
[2023-08-30] MEDS: methaDONE 80 MG, methaDONE 10 MG PO SCH (05:54)
[2023-08-30] MEDS ORDERED: methaDONE HCL 40 MG DISPERSABLE TABLET PO SCH (06:00)
[2023-08-30] MEDS: BISACODYL 10 MG SUPP.RECT PR PRN (10:19)
[2023-08-30] MEDS: SUVOREXANT 10 MG TABLET PO PRN (21:08)
[2023-08-31] MEDS ORDERED: LACTULOSE 20 GM/30 ML UDC (FOR ORAL USE ONLY) PO PRN (17:20)
[2023-08-31] MEDS ORDERED: SODIUM CHLORIDE NASAL SPRAY 44 ML BOTTLE NS PRN (17:20)
[2023-09-02] MEDS: methaDONE 80 MG, methaDONE 20 MG PO SCH (05:46)
[2023-09-02] MEDS ORDERED: methaDONE HCL 40 MG DISPERSABLE TABLET PO SCH (06:00)
[2023-09-02] MEDS: METHOCARBAMOL 500 MG TABLET PO SCH (12:06)
[2023-09-02] MEDS: SUVOREXANT 10 MG TABLET PO PRN (21:43)
[2023-09-05] MEDS: SUVOREXANT 10 MG TABLET PO PRN (21:32)
[2023-09-08] MEDS: NICOTINE POLACRILEX 4 MG LOZENGE BC PRN (13:08)
[2023-09-08] MEDS: SUVOREXANT 10 MG TABLET PO PRN (21:08)
[2023-09-11] MEDS: SUVOREXANT 10 MG TABLET PO PRN (22:08)
[2023-09-12] MEDS: METHOCARBAMOL 500 MG TABLET PO PRN (21:07)
[2023-09-13] MEDS ORDERED: methaDONE HCL 40 MG DISPERSABLE TABLET PO SCH (06:00)
[2023-09-13] MEDS: PRAZOSIN HCL 1 MG CAPSULE PO SCH (21:31)
[2023-09-13] MEDS: SUVOREXANT 10 MG TABLET PO PRN (21:31)
[2023-09-13] MEDS ORDERED: SUVOREXANT 10 MG TABLET PO PRN (22:00)
[2023-09-14 09:09] VITALS: RESP 18
[2023-09-14] MEDS ORDERED: SUVOREXANT 10 MG TABLET PO PRN (22:00)
[2023-09-15 06:54] VITALS: TEMP 97.5
[2023-09-15 09:29] VITALS: BP 127/90; PULSE 83
[2023-09-15] MEDS ORDERED: SUVOREXANT 10 MG TABLET PO PRN (22:00)
== END 2023-09-15 09:35 | disposition home or self-care (01) | DRG 772 ==
LOC: YASAS 16:53 → Y3NR 16:57 → Y3W 08-19 14:11
PROVIDERS: ADMIT Allergy & Immunology; ATTEND Psychiatry & Neurology Pain Medicine
PROC: HZ42ZZZ Group Counseling for Substance Abuse Treatment, Cognitive-Behavioral (ICD-10-PCS; principal; 2023-08-18)
DX: F11.20 Opioid dependence, uncomplicated (principal); F10.20 Alcohol dependence, uncomplicated; F14.20 Cocaine dependence, uncomplicated; F17.210 Nicotine dependence, cigarettes, uncomplicated; F39 Unspecified mood [affective] disorder; F41.9 Anxiety disorder, unspecified; I25.10 Atherosclerotic heart disease of native coronary artery without angina pectoris; I10 Essential (primary) hypertension; I25.2 Old myocardial infarction; E72.20 Disorder of urea cycle metabolism, unspecified; J45.20 Mild intermittent asthma, uncomplicated; M62.838 Other muscle spasm; Z99.89 Dependence on other enabling machines and devices; Z86.59 Personal history of other mental and behavioral disorders
CPT/HCPCS: 36415; 80053; 82140; 82652; 83735; 85025; 85610; 86780; 86803; 87389; 87522; 87811